=== PATIENT | female | born 1945 | race Caucasian/White ===

== ENCOUNTER 2017-01-01 16:50 | Inpatient (IN) | payer OTHER ==
[2017-01-01] MEDS ORDERED: Sodium Chloride 0.9% 1,000 ML ONE (17:05)
--- NOTE | 2017-01-01 17:10 | C.PDOC ---
History Of Present Illness 71 y/o female c/o abdominal pain, vomiting, and diarrhea for 2 days. Patient states symptoms worsened today and also reports increased generalized weakness. Pt describes pain as diffuse and cramping. Also notes that stools have been watery, non-bloody, with vomiting persistent throughout the day. Patient with PMHx of DM and HTN. Denies any prior abdominal surgeries. Otherwise, denies fever, chills, chest pain, SOB, or other associated symptoms. Patient requires assistance getting on the stretcher. Time Seen by Provider: 01/01/17 16:58 Chief Complaint (Nursing): Abdominal Pain History Per: Patient History/Exam Limitations: no limitations Onset/Duration Of Symptoms: Days Current Symptoms Are (Timing): Worse Location Of Pain/Discomfort: Diffuse Quality Of Discomfort: Cramping, "Pain" Associated Symptoms: Vomiting, Diarrhea. denies: Fever, Chills, Urinary Symptoms Recent travel outside of the [place]: No Past Medical History Reviewed: Historical Data, Nursing Documentation, Vital Signs Vital Signs: Last Vital Signs Temp 97.4 F L 01/01/17 16:53 Pulse 126 H 01/01/17 18:10 Resp 18 01/01/17 16:53 BP 145/87 01/01/17 16:53 Pulse Ox 99 01/01/17 19:11 - Medical History PMH: No Chronic Diseases Family History: States: Unknown Family Hx Review Of Systems Except As Marked, All Systems Reviewed And Found Negative. Constitutional: Positive for: Weakness. Negative for: Fever, Chills Cardiovascular: Negative for: Chest Pain Respiratory: Negative for: Cough, Shortness of Breath Gastrointestinal: Positive for: Vomiting, Abdominal Pain, Diarrhea. Negative for: Hematochezia Genitourinary: Negative for: Dysuria Skin: Negative for: Rash Physical Exam - Physical Exam Appears: Non-toxic, Other (uncomfortable, needed assistance to get from wheelchair to stretcher) Skin: Warm, Dry Head: Atraumatic, Normacephalic Oral Mucosa: Moist Chest: Symmetrical Cardiovascular: Rhythm Irregular (tachy) Respiratory: Normal Breath Sounds, No Accessory Muscle Use, No Rales, No Rhonchi , No Wheezing Gastrointestinal/Abdominal: Bowel Sounds (hyperactive), Soft, No Tenderness, No Guarding, No Rebound Back: Normal Inspection, No CVA Tenderness Extremity: Normal ROM, Capillary Refill (< 2 sec.) Neurological/Psych: Oriented x3, Normal Speech, Normal Cognition ED Course And Treatment - Laboratory Results Result Diagrams: 01/01/17 17:50 01/01/17 18:03 Lab Interpretation: Abnormal (HCO3 19) ECG: Interpreted By Me ECG Rhythm: Atrial Fibrillation (with rapid response, Q waves laterally consistent with prior infarct) ECG Interpretation: Abnormal O2 Sat by Pulse Oximetry: 99 (RA) Pulse Ox Interpretation: Normal - Radiology CXR: Interpreted by Me CXR Interpretation: Yes: No Acute Disease, Cardiomegaly Reevaluation Time: 19:13 Reassessment Condition: Improved (resting quietly) - Physician Consult Information Time Consulting Physician Contacted: 19:13 Physician Contacted: Avinash Ch Outcome Of Conversation: Patient to be admitted to Dr Layne for new onset afib and acute vomiting and diarrhea. Disposition - Disposition Disposition: HOSPITALIZED Disposition Time: 19:14 Condition: FAIR - POA Present On Arrival: None - Clinical Impression Clinical Impression: Vomiting, Diarrhea, New onset atrial fibrillation - Scribe Statement The provider has reviewed the documentation as recorded by the Scribe SM All medical record entries made by the Scribe were at my direction and personally dictated by me. I have reviewed the chart and agree that the record accurately reflects my personal performance of the history, physical exam, medical decision making, and the department course for this patient. I have also personally directed, reviewed, and agree with the discharge instructions and disposition.
[2017-01-01] MEDS ORDERED: Sodium Chloride 0.9% 1,000 ML IV ONE (17:22)
[2017-01-01 17:46] LABS: BASO # 0.1 K/uL (0.0-0.2); BASO % 0.7 % (0.0-2.0); EOS # 0.2 K/uL (0.0-0.7); EOS % 1.8 % (0.0-4.0); HEMATOCRIT 40.5 % (34.0-47.0); LYMPH # 4.3 K/uL (1.0-4.3); LYMPH % 44.1 % (20.0-40.0); MEAN CELL VOLUME 90.2 fL (81.0-99.0); MEAN CORPUSCULAR HEMOGLOBIN 29.8 pg (27.0-31.0); MEAN CORPUSCULAR HGB CONC 33.1 g/dL (33.0-37.0); MEAN PLATELET VOLUME 10.9 fL (7.2-11.7); MONO # 0.6 K/uL (0.0-0.8); MONO % 5.9 % (0.0-10.0); RED CELL DISTRIBUTION WIDTH 14.7 % (11.5-14.5); WHITE BLOOD COUNT 9.7 K/uL (4.8-10.8)
[2017-01-01 17:59] LABS: CHLORIDE 102 mmol/L (98-107); POTASSIUM 3.7 mmol/L (3.6-5.2); SODIUM 139 mmol/L (132-148)
[2017-01-01 18:01] LABS: BILIRUBIN,TOTAL 0.9 mg/dL (0.2-1.3); GFR AFRICAN-AMERICAN > 60
[2017-01-01 18:02] LABS: ALB/GLOB RATIO 1.2 (1.0-2.1); ALKALINE PHOSPHATASE 56 U/L (38-126); ALT/SGPT 38 U/L (9-52); AST/SGOT 33 U/L (14-36); BLOOD UREA NITROGEN 17 mg/dL (7-17); CALCIUM 10.2 mg/dl (8.6-10.4); CARBON DIOXIDE 19 mmol/L (22-30); GLUCOSE,RANDOM 187 mg/dL (65-105); TOTAL PROTEIN 8.6 g/dL (6.3-8.3)
--- NOTE | 2017-01-01 18:44 | RAD ---
HISTORY: new afib COMPARISON: OpenNo prior. FINDINGS: LUNGS: Though lungs are clear. PLEURA: No significant pleural effusion identified, no pneumothorax apparent. CARDIOVASCULAR: The heart is enlarged. OSSEOUS STRUCTURES: No significant abnormalities. VISUALIZED UPPER ABDOMEN: Normal. OTHER FINDINGS: None. IMPRESSION: No active pulmonary disease. Cardiomegaly.
[2017-01-01 20:35] LABS: RBC URINE < 1 /hpf (0-3); URINE BILIRUBIN NEGATIVE (NEGATIVE); URINE BLOOD NEGATIVE (NEGATIVE); URINE COLOR Straw (YELLOW); URINE GLUCOSE (UA) 1+ mg/dL (Normal); URINE KETONE TRACE mg/dL (NEGATIVE); URINE LEUKOCYTE ESTERASE NEG Leu/uL (Negative); URINE PROTEIN NEGATIVE (NEGATIVE); URINE UROBILINOGEN NORMAL mg/dL (0.2-1.0); WBC URINE < 1 /hpf (0-5)
--- NOTE | 2017-01-01 20:48 | CT ---
EXAM: CT Head Without Intravenous Contrast EXAM DATE/TIME: Exam ordered 01/01/2017 7:29 PM CLINICAL HISTORY: 71 years old, female; Signs and symptoms; Other: Drooping right eyelid TECHNIQUE: Axial computed tomography images of the head/brain without intravenous contrast. All CT scans at this facility use one or more dose reduction techniques, viz.: automated exposure control; ma/kV adjustment per patient size (including targeted exams where dose is matched to indication; i.e. head); or iterative reconstruction technique. COMPARISON: No relevant prior studies available. FINDINGS: Brain: Mild low density is noted within the periventricular white matter extending into the juares radiata and centrum semiovale bilaterally, left side greater than right. There is bilateral basal ganglia calcification. No hemorrhage. No edema. Ventricles: Unremarkable. No ventriculomegaly. Bones/joints: Unremarkable. No acute fracture. Soft tissues: Unremarkable. Sinuses: Unremarkable as visualized. No acute sinusitis. Mastoid air cells: Unremarkable as visualized. No mastoid effusion. IMPRESSION: 1. No acute findings. 2. Chronic microvascular ischemic change, left side greater than right
[2017-01-01] MEDS ORDERED: Enoxaparin 30 mg Syringe ONE (22:07)
[2017-01-01] MEDS: Enoxaparin 60 mg Syringe SC SCH (22:11)
--- NOTE | 2017-01-02 06:32 | CP.PCM.HP ---
History of Present Illness - History of Present Illness History of Present Illness: Chief complaint: Nausea vomiting History present illness: 71-year-old female with history of diabetes, being seen by PMD, came to the emergency room with the complaining of at least 3-4 days of continuous nausea and vomiting. Patient continues to have episodes of nausea. And repeated episodes of vomiting with the bile in character, at least to 30 times she had a vomiting so far. She was also complaining of some abdominal pain. Headache noted. Family was concerned about ongoing symptoms. She does not have any chest pain. Palpitation also noted. Dizziness present. Past medical history: Diabetes Allergies: No known drug allergy Personal history patient is a nonsmoker nonalcoholic lives by herself. Patient does routine activities and takes care of the family members usually Family history noncontributory Review of system: Patient is having nausea, headache, chest discomfort, palpitation, abdominal pain on and off, no diarrhea, also making urine. No leg swelling Vital signs reviewed No neck vein distention noted, JVD noted Chest good air entry bilaterally, no wheezing or rales noted CVS regular heart sound, no murmur noted Abdomen soft, nontender. Extremities no pedal edema [employer] alert awake oriented 3, no functional neurological deficit Labs reviewed in Nonspecific. Elevated proBNP. Chest x-ray mild was called condition noted. EKG showing evidence of atrial fibrillation. Labs otherwise nonspecific Assessment and recommendation: 71-year-old female with history of diabetes, now admitted with new onset atrial fibrillation. Rapid ventricular rate. Possible congested lungs. Abdominal pain and vomiting unclear etiology, rule out pancreatitis. Continue the Cardizem drip. Antibiotic coagulation. Cardiology evaluation. Echocardiogram. ICU monitoring and will follow the patient Present on Admission - Present on Admission Any Indicators Present on Admission: No History of DVT/PE: No History of Uncontrolled Diabetes: No Urinary Catheter: No Decubitus Ulcer Present: No Past Patient History - Infectious Disease Hx of Infectious Diseases: None - Past Medical History & Family History Past Medical History?: Yes - Past Social History Smoking Status: Never Smoked - CARDIAC Hx Cardiac Disorders: Yes Hx Hypertension: Yes - PULMONARY Hx Respiratory Disorders: No - NEUROLOGICAL Hx Neurological Disorder: No - HEENT Hx HEENT Problems: Yes Hx Cataracts: Yes (cataract sx 5 years ago) - RENAL Hx Chronic Kidney Disease: No - ENDOCRINE/METABOLIC Hx Endocrine Disorders: Yes Hx Diabetes Mellitus Type 2: Yes - HEMATOLOGICAL/ONCOLOGICAL Hx Blood Disorders: No - INTEGUMENTARY Hx Dermatological Problems: No - MUSCULOSKELETAL/RHEUMATOLOGICAL Hx Falls: No - GASTROINTESTINAL Hx Gastrointestinal Disorders: Yes Hx Vomiting: Yes - GENITOURINARY/GYNECOLOGICAL Hx Genitourinary Disorders: No - PSYCHIATRIC Hx Substance Use: No - SURGICAL HISTORY Hx Surgeries: Yes Hx Cataract Extraction: Yes (5 years ago) - ANESTHESIA Hx Anesthesia: No Hx Anesthesia Reactions: No Hx Malignant Hyperthermia: No Has any member of the family had a problem w/ anesthesia?: No Meds Allergies/Adverse Reactions: Allergies Allergy/AdvReac Type Severity Reaction Status Date / Time SEAFOOD Allergy Uncoded 01/01/17 16:53 Results - Vital Signs Recent Vital Signs: Last Vital Signs Temp 98.9 F 01/02/17 04:00 Pulse 100 H 01/02/17 03:44 Resp 17 01/02/17 03:44 BP 140/84 01/02/17 03:44 Pulse Ox 98 01/02/17 03:44 - Labs Result Diagrams: 01/01/17 17:50 01/01/17 18:03 Labs: Laboratory Results - last 24 hr 01/01/17 01/01/17 19:53 21:49 NT-Pro-B Natriuret Pep 3690 H Urine Color Straw Urine Clarity Clear Urine pH 5.0 Ur Specific [place] 1.010 Urine Protein Negative Urine Glucose (UA) 1+ Urine Ketones Trace Urine Blood Negative Urine Nitrate Negative Urine Bilirubin Negative Urine Urobilinogen Normal Ur Leukocyte Esterase Neg Urine WBC (Auto) < 1 Urine RBC (Auto) < 1 Ur Squamous Epith Cells < 1
[2017-01-02 06:34] LABS: BASO % 0.3 % (0.0-2.0); HEMATOCRIT 36.8 % (34.0-47.0); LYMPH # 1.1 K/uL (1.0-4.3); LYMPH % 15.5 % (20.0-40.0); MEAN CELL VOLUME 89.5 fL (81.0-99.0); MEAN CORPUSCULAR HEMOGLOBIN 29.2 pg (27.0-31.0); MEAN CORPUSCULAR HGB CONC 32.6 g/dL (33.0-37.0); MEAN PLATELET VOLUME 11.1 fL (7.2-11.7); MONO # 0.3 K/uL (0.0-0.8); MONO % 3.9 % (0.0-10.0); RED CELL DISTRIBUTION WIDTH 14.4 % (11.5-14.5); WHITE BLOOD COUNT 7.1 K/uL (4.8-10.8)
[2017-01-02 06:39] LABS: CHLORIDE 102 mmol/L (98-107); POTASSIUM 3.8 mmol/L (3.6-5.2); SODIUM 141 mmol/L (132-148)
[2017-01-02 06:41] LABS: BILIRUBIN,TOTAL 0.8 mg/dL (0.2-1.3); GFR AFRICAN-AMERICAN > 60
[2017-01-02 06:42] LABS: ALB/GLOB RATIO 1.1 (1.0-2.1); ALKALINE PHOSPHATASE 42 U/L (38-126); ALT/SGPT 35 U/L (9-52); AST/SGOT 30 U/L (14-36); BLOOD UREA NITROGEN 13 mg/dL (7-17); CARBON DIOXIDE 23 mmol/L (22-30); GLUCOSE,RANDOM 177 mg/dL (65-105); PHOSPHOROUS 4.4 mg/dL (2.5-4.5); TOTAL PROTEIN 7.1 g/dL (6.3-8.3)
[2017-01-02 06:43] LABS: MAGNESIUM 1.8 mg/dL (1.6-2.3)
--- NOTE | 2017-01-02 08:57 | RAD ---
HISTORY: chf COMPARISON: 01/01/2017. FINDINGS: LUNGS: There are low lung volumes. No lobar pneumonia. PLEURA: No significant pleural effusion identified, no pneumothorax apparent. CARDIOVASCULAR: There is persistent mild cardiomegaly. Atherosclerotic aortic arch calcifications are present. OSSEOUS STRUCTURES: No significant abnormalities. VISUALIZED UPPER ABDOMEN: Normal. OTHER FINDINGS: None. IMPRESSION: Low lung volumes may be related to poor inspiratory effort. No acute findings.
[2017-01-02] MEDS: Magnesium Sulfate 1 gm in D5W 1 GM/100 ML BAG IVPB SCH ×2 (10:15→10:52)
[2017-01-02] MEDS: Enoxaparin 60 mg Syringe SC SCH ×2 (10:51→21:12)
[2017-01-02] MEDS: (Novolin R) Insulin Human Regular 100 units/ml vial SC SCH ×3 (12:00→21:32)
--- NOTE | 2017-01-02 17:01 | CP.CCUPN ---
<Beth Alejandro - Last Filed: 01/02/17 17:15> CCU Subjective - Physician Review Subjective (Free Text): Patient was seen and examined at bedside in the morning. Patient was actively vomiting clear liquid. She reported feeling nauseas and continuous vomiting. She states she has abdominal pain when she vomits. Patient denies having chest pain, shortness of breath, diarrhea, constipation, fevers, dizziness, and headaches. 01/02/17 17:15 CCU Objective - Vital Signs / Intake & Output Intake and Output (Last 8hrs): Intake & Output 01/02/17 01/02/17 01/02/17 06:59 14:59 22:59 Intake Total 12.5 325 Output Total 250 400 Balance -237.5 -75 Intake: Intake, IV Amount 12.5 325 Left Hand 12.5 25 Right Antecubital 300 Oral 0 0 Output: Urine 250 400 Urine, Voided 250 400 Other: Voiding Method Bedside Commode - Physical Exam Head: Positive for: Atraumatic, Normocephalic Extroacular Muscles: Positive for: EOMI Mouth: Positive for: Moist Mucous Membranes Neck: Positive for: Normal Range of Motion Respiratory/Chest: Positive for: Clear to Auscultation. Negative for: Wheezes, Rales, Rhonchi Cardiovascular: Positive for: Normal S1, S2, Irregular Rhythm, Peripheal Pulses Present, Tachycardic Abdomen: Positive for: Tenderness (epigastric), Normal Bowel Sounds. Negative for: Distention Upper Extremity: Positive for: Normal Inspection. Negative for: Edema Lower Extremity: Positive for: Normal Inspection, NORMAL PULSES. Negative for: Edema Skin: Positive for: Warm, Dry, Normal Color Psychiatric: Positive for: Alert, Oriented x 3 - Medications Active Medications: Active Medications Generic Name Dose Route Start Last Admin Trade Name Freq PRN Reason Stop Dose Admin Enoxaparin Sodium 60 mg 01/01/17 22:00 01/02/17 10:51 Lovenox SC 60 mg Q12 MIRELLA Administration Furosemide 20 mg 01/02/17 10:00 01/02/17 10:52 Lasix IVP 20 mg DAILY MIRELLA Administration Diltiazem HCl 125 mg/ Sodium 125 mls @ 5 mls/hr 01/01/17 20:45 01/01/17 22:47 Chloride IV 5 mg/hr .Q24H MIRELLA 5 mls/hr Protocol Titration 5 MG/HR Insulin Human Regular 0 unit 01/02/17 11:30 Novolin R SC ACHS [facility] Protocol Lisinopril 10 mg 01/02/17 15:15 Zestril PO DAILY [facility] Metoprolol Tartrate 25 mg 01/02/17 15:15 Lopressor PO BID [facility] Ondansetron HCl 4 mg 01/01/17 21:22 01/02/17 04:16 Zofran Inj IVP 4 mg Q6 PRN Administration Nausea/Vomiting Pantoprazole Sodium 40 mg 01/02/17 10:00 01/02/17 10:52 Protonix Inj IVP 40 mg DAILY [facility] Administration Pneumococcal Polyvalent Vaccine 0.5 ml 01/04/17 10:00 Pneumovax 23 Vaccine IM 01/04/17 10:01 .ONCE ONE - Patient Studies Lab Studies: Lab Studies 01/02/17 01/02/17 01/02/17 Range/Units 11:40 11:40 06:27 WBC 7.1 (4.8-10.8) K/uL RBC 4.11 (3.80-5.20) Mil/uL Hgb 12.0 (11.0-16.0) g/dL Hct 36.8 (34.0-47.0) % MCV 89.5 (81.0-99.0) fL MCH 29.2 (27.0-31.0) pg MCHC 32.6 L (33.0-37.0) g/dL RDW 14.4 (11.5-14.5) % Plt Count 107 L D (130-400) K/uL MPV 11.1 (7.2-11.7) fL Neut % (Auto) 80.3 H (50.0-75.0) % Lymph % (Auto) 15.5 L (20.0-40.0) % Granite % (Auto) 3.9 (0.0-10.0) % Eos % (Auto) 0.0 (0.0-4.0) % Baso % (Auto) 0.3 (0.0-2.0) % Neut # 5.7 (1.8-7.0) K/uL Lymph # 1.1 (1.0-4.3) K/uL Granite # 0.3 (0.0-0.8) K/uL Eos # 0.0 (0.0-0.7) K/uL Baso # 0.0 (0.0-0.2) K/uL Sodium (132-148) mmol/L Potassium (3.6-5.2) mmol/L Chloride (98-107) mmol/L Carbon Dioxide (22-30) mmol/L Anion Gap (10-20) BUN (7-17) mg/dL Creatinine (0.7-1.2) MG/DL Est GFR ( Amer) Est GFR (Non-Af Amer) Random Glucose (65-105) mg/dL Calcium (8.6-10.4) mg/dl Phosphorus (2.5-4.5) mg/dL Magnesium (1.6-2.3) mg/dL Total Bilirubin (0.2-1.3) mg/dL AST (14-36) U/L ALT (9-52) U/L Alkaline Phosphatase (38-126) U/L NT-Pro-B Natriuret Pep (0-900) pg/mL Total Protein (6.3-8.3) g/dL Albumin (3.5-5.0) g/dL Globulin (2.2-3.9) gm/dL Albumin/Globulin Ratio (1.0-2.1) Lipase (23-300) U/L Free T4 1.63 (0.78-2.19) ng/dL TSH 3rd Generation 0.82 (0.46-4.68) mIU/L Urine Color (YELLOW) Urine Clarity (Clear) Urine pH (5.0-8.0) Ur Specific [place] (1.003-1.030) Urine Protein (NEGATIVE) mg/dL Urine Glucose (UA) (Normal) mg/dL Urine Ketones (NEGATIVE) mg/dL Urine Blood (NEGATIVE) Urine Nitrate (NEGATIVE) Urine Bilirubin (NEGATIVE) Urine Urobilinogen (0.2-1.0) mg/dL Ur Leukocyte Esterase (Negative) Brett/uL Urine WBC (Auto) (0-5) /hpf Urine RBC (Auto) (0-3) /hpf Ur Squamous Epith Cells (0-5) /hpf 01/02/17 01/01/17 01/01/17 Range/Units 06:20 21:49 19:53 WBC (4.8-10.8) K/uL RBC (3.80-5.20) Mil/uL Hgb (11.0-16.0) g/dL Hct (34.0-47.0) % MCV (81.0-99.0) fL MCH (27.0-31.0) pg MCHC (33.0-37.0) g/dL RDW (11.5-14.5) % Plt Count (130-400) K/uL MPV (7.2-11.7) fL Neut % (Auto) (50.0-75.0) % Lymph % (Auto) (20.0-40.0) % Granite % (Auto) (0.0-10.0) % Eos % (Auto) (0.0-4.0) % Baso % (Auto) (0.0-2.0) % Neut # (1.8-7.0) K/uL Lymph # (1.0-4.3) K/uL [place]ite # (0.0-0.8) K/uL Eos # (0.0-0.7) K/uL Baso # (0.0-0.2) K/uL Sodium 141 (132-148) mmol/L Potassium 3.8 (3.6-5.2) mmol/L Chloride 102 (98-107) mmol/L Carbon Dioxide 23 (22-30) mmol/L Anion Gap 19 (10-20) BUN 13 (7-17) mg/dL Creatinine 0.6 L (0.7-1.2) MG/DL Est GFR ( Amer) > 60 Est GFR (Non-Af Amer) > 60 Random Glucose 177 H (65-105) mg/dL Calcium 9.0 (8.6-10.4) mg/dl Phosphorus 4.4 (2.5-4.5) mg/dL Magnesium 1.8 (1.6-2.3) mg/dL Total Bilirubin 0.8 (0.2-1.3) mg/dL AST 30 (14-36) U/L ALT 35 (9-52) U/L Alkaline Phosphatase 42 (38-126) U/L NT-Pro-B Natriuret Pep 3690 H (0-900) pg/mL Total Protein 7.1 (6.3-8.3) g/dL Albumin 3.8 (3.5-5.0) g/dL Globulin 3.3 (2.2-3.9) gm/dL Albumin/Globulin Ratio 1.1 (1.0-2.1) Lipase 38 (23-300) U/L Free T4 (0.78-2.19) ng/dL TSH 3rd Generation (0.46-4.68) mIU/L Urine Color Straw (YELLOW) Urine Clarity Clear (Clear) Urine pH 5.0 (5.0-8.0) Ur Specific [place] 1.010 (1.003-1.030) Urine Protein Negative (NEGATIVE) mg/dL Urine Glucose (UA) 1+ (Normal) mg/dL Urine Ketones Trace (NEGATIVE) mg/dL Urine Blood Negative (NEGATIVE) Urine Nitrate Negative (NEGATIVE) Urine Bilirubin Negative (NEGATIVE) Urine Urobilinogen Normal (0.2-1.0) mg/dL Ur Leukocyte Esterase Neg (Negative) Brett/uL Urine WBC (Auto) < 1 (0-5) /hpf Urine RBC (Auto) < 1 (0-3) /hpf Ur Squamous Epith Cells < 1 (0-5) /hpf Laboratory Results - last 24 hr 01/01/17 01/01/17 01/02/17 19:53 21:49 06:20 WBC RBC Hgb Hct MCV MCH MCHC RDW Plt Count MPV Neut % (Auto) Lymph % (Auto) [place] % (Auto) Eos % (Auto) Baso % (Auto) Neut # Lymph # [place] # Eos # Baso # Sodium 141 Potassium 3.8 Chloride 102 Carbon Dioxide 23 Anion Gap 19 BUN 13 Creatinine 0.6 L Est GFR ( Amer) > 60 Est GFR (Non-Af Amer) > 60 Random Glucose 177 H Calcium 9.0 Phosphorus 4.4 Magnesium 1.8 Total Bilirubin 0.8 AST 30 ALT 35 Alkaline Phosphatase 42 NT-Pro-B Natriuret Pep 3690 H Total Protein 7.1 Albumin 3.8 Globulin 3.3 Albumin/Globulin Ratio 1.1 Lipase 38 Free T4 TSH 3rd Generation Urine Color Straw Urine Clarity Clear Urine pH 5.0 Ur Specific [place] 1.010 Urine Protein Negative Urine Glucose (UA) 1+ Urine Ketones Trace Urine Blood Negative Urine Nitrate Negative Urine Bilirubin Negative Urine Urobilinogen Normal Ur Leukocyte Esterase Neg Urine WBC (Auto) < 1 Urine RBC (Auto) < 1 Ur Squamous Epith Cells < 1 01/02/17 01/02/17 01/02/17 06:27 11:40 11:40 WBC 7.1 RBC 4.11 Hgb 12.0 Hct 36.8 MCV 89.5 MCH 29.2 MCHC 32.6 L RDW 14.4 Plt Count 107 L D MPV 11.1 Neut % (Auto) 80.3 H Lymph % (Auto) 15.5 L [place] % (Auto) 3.9 Eos % (Auto) 0.0 Baso % (Auto) 0.3 Neut # 5.7 Lymph # 1.1 Granite # 0.3 Eos # 0.0 Baso # 0.0 Sodium Potassium Chloride Carbon Dioxide Anion Gap BUN Creatinine Est GFR ( Amer) Est GFR (Non-Af Amer) Random Glucose Calcium Phosphorus Magnesium Total Bilirubin AST ALT Alkaline Phosphatase NT-Pro-B Natriuret Pep Total Protein Albumin Globulin Albumin/Globulin Ratio Lipase Free T4 1.63 TSH 3rd Generation 0.82 Urine Color Urine Clarity Urine pH Ur Specific [place] Urine Protein Urine Glucose (UA) Urine Ketones Urine Blood Urine Nitrate Urine Bilirubin Urine Urobilinogen Ur Leukocyte Esterase Urine WBC (Auto) Urine RBC (Auto) Ur Squamous Epith Cells Fingerstick Blood Sugar Results: 204 Review of Systems - Constitutional Constitutional: absent: Fever - Cardiovascular Cardiovascular: Irregular Heart Rhythm, Rapid Heart Rate. absent: Chest Pain, Dyspnea - Respiratory Respiratory: absent: Cough, Dyspnea - Gastrointestinal Gastrointestinal: Abdominal Pain, Nausea, Vomiting. absent: Constipation, Diarrhea - Genitourinary Genitourinary: absent: Dysuria - Neurological Neurological: absent: Dizziness, Headaches - Endocrine Endocrine: Palpitations Critical Care Progress Note - Nutrition Nutrition: Nutrition Category Date Time Status NPO Diet [DIET] Diets 01/01/17 Breakfast Active Assessment/Plan - Assessment and Plan (Free Text) Assessment: 71 year old female with past medical history of DM, presented to the ED with complaints of nausea and vomiting for 3-4 days. She had palpitations and dizziness. In the ED, patient was found to have new onset a-fib, patient was admitted. Patient started on Cardizem drip and anticoagulation. Continue to monitor. Neuro: alert, orientedx3 - Head CT: no acute findings; chronic ischemic changes Pulm: no acute issues - CXR: no acute findings CV: new onset A-Fib - Cardiology consulted- Dr. Wong, help appreciated - Continue Cardizem drip, Lovenox, Lisinopril, Lasix, Metroprolol - Troponin: negative; BNP 3690 - Echo: EF47%; pending official report - TSH 0.82, Free T4 1.63 Endo: Hx of DM - Accuchecks, monitor blood glucose - Continue ISS GI: nausea, vomiting- unknown cause - NPO - R/out pancreatitis--> lipase 79 (01/01/17), 38 (01/02/17) - Continue Zofran, Protonix Heme: no acute issues Renal: no acute issues MSK: no acute issues ID: no acute issues - UA: trace ketons, 1+ glucose Prophylaxis: - DVT: Lovenox, SCDs - GI: Protonix - PT <Latef,Dioni M - Last Filed: 01/02/17 18:57> CCU Objective - Vital Signs / Intake & Output Vital Signs (Last 4 hours): Vital Signs Temp Pulse Resp BP Pulse Ox 01/02/17 18:00 96 H 18 95 01/02/17 17:44 108 H 17 149/83 94 L 01/02/17 17:00 108 H 14 97 01/02/17 16:44 108 H 18 147/81 95 01/02/17 16:00 97.5 F L 104 H 20 94 L 01/02/17 15:44 102 H 12 139/84 95 01/02/17 15:26 140/84 01/02/17 15:00 111 H 22 94 L Intake and Output (Last 8hrs): Intake & Output 01/02/17 01/02/17 01/02/17 06:59 14:59 22:59 Intake Total 12.5 335 20 Output Total 250 400 Balance -237.5 -65 20 Weight 175 lb Intake: Intake, IV Amount 12.5 335 20 Left Hand 12.5 25 Right Antecubital 310 20 Oral 0 0 Output: Urine 250 400 Urine, Voided 250 400 Other: Voiding Method Bedside Commode # Voids Urine, Voided 400 200 - Medications Active Medications: Active Medications Generic Name Dose Route Start Last Admin Trade Name Freq PRN Reason Stop Dose Admin Enoxaparin Sodium 60 mg 01/01/17 22:00 01/02/17 10:51 Lovenox SC 60 mg Q12 MIRELLA Administration Furosemide 20 mg 01/02/17 10:00 01/02/17 10:52 Lasix IVP 20 mg DAILY MIRELLA Administration Diltiazem HCl 125 mg/ Sodium 125 mls @ 5 mls/hr 01/01/17 20:45 01/01/17 22:47 Chloride IV 5 mg/hr .Q24H MIRELLA 5 mls/hr Protocol Titration 5 MG/HR Insulin Human Regular 0 unit 01/02/17 11:30 01/02/17 17:51 Novolin R SC Not Given ACHS [facility]RELL[facility] Protocol Lisinopril 10 mg 01/02/17 15:15 01/02/17 15:26 Zestril PO 10 mg DAILY MIRELLA Administration Metoprolol Tartrate 25 mg 01/02/17 15:15 01/02/17 18:27 Lopressor PO Not Given BID MIRELLA Ondansetron HCl 4 mg 01/01/17 21:22 01/02/17 18:42 Zofran Inj IVP 4 mg Q6 PRN Administration Nausea/Vomiting Pantoprazole Sodium 40 mg 01/02/17 10:00 01/02/17 10:52 Protonix Inj IVP 40 mg DAILY MIRELLA Administration Pneumococcal Polyvalent Vaccine 0.5 ml 01/04/17 10:00 Pneumovax 23 Vaccine IM 01/04/17 10:01 .ONCE ONE - Patient Studies Lab Studies: Lab Studies 01/02/17 01/02/17 01/02/17 Range/Units 11:40 11:40 06:27 WBC 7.1 (4.8-10.8) K/uL RBC 4.11 (3.80-5.20) Mil/uL Hgb 12.0 (11.0-16.0) g/dL Hct 36.8 (34.0-47.0) % MCV 89.5 (81.0-99.0) fL MCH 29.2 (27.0-31.0) pg MCHC 32.6 L (33.0-37.0) g/dL RDW 14.4 (11.5-14.5) % Plt Count 107 L D (130-400) K/uL MPV 11.1 (7.2-11.7) fL Neut % (Auto) 80.3 H (50.0-75.0) % Lymph % (Auto) 15.5 L (20.0-40.0) % [place] % (Auto) 3.9 (0.0-10.0) % Eos % (Auto) 0.0 (0.0-4.0) % Baso % (Auto) 0.3 (0.0-2.0) % Neut # 5.7 (1.8-7.0) K/uL Lymph # 1.1 (1.0-4.3) K/uL [place] # 0.3 (0.0-0.8) K/uL Eos # 0.0 (0.0-0.7) K/uL Baso # 0.0 (0.0-0.2) K/uL Sodium (132-148) mmol/L Potassium (3.6-5.2) mmol/L Chloride (98-107) mmol/L Carbon Dioxide (22-30) mmol/L Anion Gap (10-20) BUN (7-17) mg/dL Creatinine (0.7-1.2) MG/DL Est GFR ( Amer) Est GFR (Non-Af Amer) Random Glucose (65-105) mg/dL Calcium (8.6-10.4) mg/dl Phosphorus (2.5-4.5) mg/dL Magnesium (1.6-2.3) mg/dL Total Bilirubin (0.2-1.3) mg/dL AST (14-36) U/L ALT (9-52) U/L Alkaline Phosphatase (38-126) U/L NT-Pro-B Natriuret Pep (0-900) pg/mL Total Protein (6.3-8.3) g/dL Albumin (3.5-5.0) g/dL Globulin (2.2-3.9) gm/dL Albumin/Globulin Ratio (1.0-2.1) Lipase (23-300) U/L Free T4 1.63 (0.78-2.19) ng/dL TSH 3rd Generation 0.82 (0.46-4.68) mIU/L Urine Color (YELLOW) Urine Clarity (Clear) Urine pH (5.0-8.0) Ur Specific [place] (1.003-1.030) Urine Protein (NEGATIVE) mg/dL Urine Glucose (UA) (Normal) mg/dL Urine Ketones (NEGATIVE) mg/dL Urine Blood (NEGATIVE) Urine Nitrate (NEGATIVE) Urine Bilirubin (NEGATIVE) Urine Urobilinogen (0.2-1.0) mg/dL Ur Leukocyte Esterase (Negative) Brett/uL Urine WBC (Auto) (0-5) /hpf Urine RBC (Auto) (0-3) /hpf Ur Squamous Epith Cells (0-5) /hpf 01/02/17 01/01/17 01/01/17 Range/Units 06:20 21:49 19:53 WBC (4.8-10.8) K/uL RBC (3.80-5.20) Mil/uL Hgb (11.0-16.0) g/dL Hct (34.0-47.0) % MCV (81.0-99.0) fL MCH (27.0-31.0) pg MCHC (33.0-37.0) g/dL RDW (11.5-14.5) % Plt Count (130-400) K/uL MPV (7.2-11.7) fL Neut % (Auto) (50.0-75.0) % Lymph % (Auto) (20.0-40.0) % [place] % (Auto) (0.0-10.0) % Eos % (Auto) (0.0-4.0) % Baso % (Auto) (0.0-2.0) % Neut # (1.8-7.0) K/uL Lymph # (1.0-4.3) K/uL [place] # (0.0-0.8) K/uL Eos # (0.0-0.7) K/uL Baso # (0.0-0.2) K/uL Sodium 141 (132-148) mmol/L Potassium 3.8 (3.6-5.2) mmol/L Chloride 102 (98-107) mmol/L Carbon Dioxide 23 (22-30) mmol/L Anion Gap 19 (10-20) BUN 13 (7-17) mg/dL Creatinine 0.6 L (0.7-1.2) MG/DL Est GFR ( Amer) > 60 Est GFR (Non-Af Amer) > 60 Random Glucose 177 H (65-105) mg/dL Calcium 9.0 (8.6-10.4) mg/dl Phosphorus 4.4 (2.5-4.5) mg/dL Magnesium 1.8 (1.6-2.3) mg/dL Total Bilirubin 0.8 (0.2-1.3) mg/dL AST 30 (14-36) U/L ALT 35 (9-52) U/L Alkaline Phosphatase 42 (38-126) U/L NT-Pro-B Natriuret Pep 3690 H (0-900) pg/mL Total Protein 7.1 (6.3-8.3) g/dL Albumin 3.8 (3.5-5.0) g/dL Globulin 3.3 (2.2-3.9) gm/dL Albumin/Globulin Ratio 1.1 (1.0-2.1) Lipase 38 (23-300) U/L Free T4 (0.78-2.19) ng/dL TSH 3rd Generation (0.46-4.68) mIU/L Urine Color Straw (YELLOW) Urine Clarity Clear (Clear) Urine pH 5.0 (5.0-8.0) Ur Specific [place] 1.010 (1.003-1.030) Urine Protein Negative (NEGATIVE) mg/dL Urine Glucose (UA) 1+ (Normal) mg/dL Urine Ketones Trace (NEGATIVE) mg/dL Urine Blood Negative (NEGATIVE) Urine Nitrate Negative (NEGATIVE) Urine Bilirubin Negative (NEGATIVE) Urine Urobilinogen Normal (0.2-1.0) mg/dL Ur Leukocyte Esterase Neg (Negative) Brett/uL Urine WBC (Auto) < 1 (0-5) /hpf Urine RBC (Auto) < 1 (0-3) /hpf Ur Squamous Epith Cells < 1 (0-5) /hpf Laboratory Results - last 24 hr 01/01/17 01/01/17 01/02/17 19:53 21:49 06:20 WBC RBC Hgb Hct MCV MCH MCHC RDW Plt Count MPV Neut % (Auto) Lymph % (Auto) [place] % (Auto) Eos % (Auto) Baso % (Auto) Neut # Lymph # [place] # Eos # Baso # Sodium 141 Potassium 3.8 Chloride 102 Carbon Dioxide 23 Anion Gap 19 BUN 13 Creatinine 0.6 L Est GFR ( Amer) > 60 Est GFR (Non-Af Amer) > 60 Random Glucose 177 H Calcium 9.0 Phosphorus 4.4 Magnesium 1.8 Total Bilirubin 0.8 AST 30 ALT 35 Alkaline Phosphatase 42 NT-Pro-B Natriuret Pep 3690 H Total Protein 7.1 Albumin 3.8 Globulin 3.3 Albumin/Globulin Ratio 1.1 Lipase 38 Free T4 TSH 3rd Generation Urine Color Straw Urine Clarity Clear Urine pH 5.0 Ur Specific [place] 1.010 Urine Protein Negative Urine Glucose (UA) 1+ Urine Ketones Trace Urine Blood Negative Urine Nitrate Negative Urine Bilirubin Negative Urine Urobilinogen Normal Ur Leukocyte Esterase Neg Urine WBC (Auto) < 1 Urine RBC (Auto) < 1 Ur Squamous Epith Cells < 1 01/02/17 01/02/17 01/02/17 06:27 11:40 11:40 WBC 7.1 RBC 4.11 Hgb 12.0 Hct 36.8 MCV 89.5 MCH 29.2 MCHC 32.6 L RDW 14.4 Plt Count 107 L D MPV 11.1 Neut % (Auto) 80.3 H Lymph % (Auto) 15.5 L [place] % (Auto) 3.9 Eos % (Auto) 0.0 Baso % (Auto) 0.3 Neut # 5.7 Lymph # 1.1 [place] # 0.3 Eos # 0.0 Baso # 0.0 Sodium Potassium Chloride Carbon Dioxide Anion Gap BUN Creatinine Est GFR ( Amer) Est GFR (Non-Af Amer) Random Glucose Calcium Phosphorus Magnesium Total Bilirubin AST ALT Alkaline Phosphatase NT-Pro-B Natriuret Pep Total Protein Albumin Globulin Albumin/Globulin Ratio Lipase Free T4 1.63 TSH 3rd Generation 0.82 Urine Color Urine Clarity Urine pH Ur Specific [place] Urine Protein Urine Glucose (UA) Urine Ketones Urine Blood Urine Nitrate Urine Bilirubin Urine Urobilinogen Ur Leukocyte Esterase Urine WBC (Auto) Urine RBC (Auto) Ur Squamous Epith Cells Critical Care Progress Note - Nutrition Nutrition: Nutrition Category Date Time Status NPO Diet [DIET] Diets 01/01/17 Breakfast Active Attending/Attestation - Attestation I have personally seen and examined this patient.: Yes I have fully participated in the care of the patient.: Yes I have reviewed all pertinent clinical information: Yes Notes (Text): 01/02/17 18:57 Today: , January 02, 2017 The Patient was seen and examined at the bedside, Medical records reviewed, and management issues were discussed and formulated. All clinical/lab/hemodynamic/radiographic data were reviewed Events reviewed Pain issues, skin care, head of the bed elevation, glycemic control were addressed. Agree with above treatment plans as transcribed in Dr. Alejandro note
--- NOTE | 2017-01-03 02:53 | CP.PCM.CON ---
History of Present Illness - History of Present Illness History of Present Illness: consultation requested for evaluation of new onset atrial fibrillation HPI : 71-year-old female with history of hypertension diabetes mellitus presented to the hospital with complaints of nausea vomiting for 2 days prior to presentation. According to the patient's son who is at her bedside and helped me obtain the history at baseline she is fairly active can do all of her activities of daily living and denies any chest pain shortness of breath palpitations syncope or dizziness. For the last 2 days she has been nauseous and unable to keep any food known and have been throwing up which made her come to the ER. She was noted to be in atrial fibrillation with rapid ventricular response and was initiated on IV Cardizem drip. Heart rate at the time of my evaluation was in the 100s. An echocardiogram had been done earlier in the day which showed severe biatrial enlargement with ejection fraction of 3025% and severe MR and severe tricuspid regurgitation. Hemodynamically blood pressure was stable it was in the 140s over 50s. Review of Systems - Review of Systems All systems: reviewed and no additional remarkable complaints except - Constitutional Constitutional: As Per HPI, Fatigue - EENT Eyes: As Per HPI Ears: As Per HPI Nose/Mouth/Throat: As Per HPI - Breasts Breasts: As Per HPI - Cardiovascular Cardiovascular: As Per HPI, Rapid Heart Rate - Respiratory Respiratory: As Per HPI - Gastrointestinal Gastrointestinal: As Per HPI, Nausea, Vomiting - Genitourinary Genitourinary: As Per HPI - Reproductive: Female Reproductive:Female: As Per HPI - Musculoskeletal Musculoskeletal: As Per HPI - Integumentary Integumentary: As Per HPI - Neurological Neurological: As Per HPI - Psychiatric Psychiatric: As Per HPI - Endocrine Endocrine: As Per HPI - Hematologic/Lymphatic Hematologic: As Per HPI Past Patient History - Infectious Disease Hx of Infectious Diseases: None - Past Medical History & Family History Past Medical History?: Yes Pertinent Family History: +ve for HTN and DM - Past Social History Smoking Status: Never Smoked - CARDIAC Hx Cardiac Disorders: Yes Hx Hypertension: Yes - PULMONARY Hx Respiratory Disorders: No - NEUROLOGICAL Hx Neurological Disorder: No - HEENT Hx HEENT Problems: Yes Hx Cataracts: Yes (cataract sx 5 years ago) - RENAL Hx Chronic Kidney Disease: No - ENDOCRINE/METABOLIC Hx Endocrine Disorders: Yes Hx Diabetes Mellitus Type 2: Yes - HEMATOLOGICAL/ONCOLOGICAL Hx Blood Disorders: No - INTEGUMENTARY Hx Dermatological Problems: No - MUSCULOSKELETAL/RHEUMATOLOGICAL Hx Falls: No - GASTROINTESTINAL Hx Gastrointestinal Disorders: Yes Hx Vomiting: Yes - GENITOURINARY/GYNECOLOGICAL Hx Genitourinary Disorders: No - PSYCHIATRIC Hx Substance Use: No - SURGICAL HISTORY Hx Surgeries: Yes Hx Cataract Extraction: Yes (5 years ago) - ANESTHESIA Hx Anesthesia: No Hx Anesthesia Reactions: No Hx Malignant Hyperthermia: No Has any member of the family had a problem w/ anesthesia?: No Meds Allergies/Adverse Reactions: Allergies Allergy/AdvReac Type Severity Reaction Status Date / Time SEAFOOD Allergy Uncoded 01/01/17 16:53 - Medications Medications: Current Medications Enoxaparin Sodium (Lovenox) 60 mg SC Q12 [facility] Last Admin: 01/02/17 21:12 Dose: 60 mg Furosemide (Lasix) 20 mg IVP DAILY [facility] Last Admin: 01/02/17 10:52 Dose: 20 mg Diltiazem HCl 125 mg/ Sodium (Chloride) 125 mls @ 5 mls/hr IV .Q24H MIRELLA; 5 MG/ HR PRN Reason: Protocol Last Admin: 01/02/17 21:18 Dose: 5 mg/hr, 5 mls/hr Insulin Human Regular (Novolin R) 0 unit SC ACHS MIRELLA PRN Reason: Protocol Last Admin: 01/02/17 21:32 Dose: Not Given Lisinopril (Zestril) 10 mg PO DAILY [facility] Last Admin: 01/02/17 15:26 Dose: 10 mg Metoprolol Tartrate (Lopressor) 25 mg PO BID [facility] Last Admin: 01/02/17 18:27 Dose: Not Given Ondansetron HCl (Zofran Inj) 4 mg IVP Q6 PRN PRN Reason: Nausea/Vomiting Last Admin: 01/02/17 18:42 Dose: 4 mg Pantoprazole Sodium (Protonix Inj) 40 mg IVP DAILY [facility] Last Admin: 01/02/17 10:52 Dose: 40 mg Pneumococcal Polyvalent Vaccine (Pneumovax 23 Vaccine) 0.5 ml IM .ONCE ONE Stop: 01/04/17 10:01 Physical Exam - Constitutional Appears: Well - Head Exam Head Exam: ATRAUMATIC, NORMAL INSPECTION, NORMOCEPHALIC - Eye Exam Eye Exam: EOMI, Normal appearance, PERRL Pupil Exam: NORMAL ACCOMODATION, PERRL - ENT Exam ENT Exam: Mucous Membranes Moist, Normal Exam - Neck Exam Neck exam: Positive for: Normal Inspection - Respiratory Exam Respiratory Exam: Clear to Auscultation Bilateral, NORMAL BREATHING PATTERN - Cardiovascular Exam Cardiovascular Exam: Tachycardia, Irregular Rhythm, +S1, +S2, Systolic Murmur - GI/Abdominal Exam GI & Abdominal Exam: Normal Bowel Sounds, Soft. absent: Tenderness - Exam Bimanual exam: NORMAL BIMANUAL EXAM - Extremities Exam Extremities exam: Positive for: normal inspection - Back Exam Back exam: NORMAL INSPECTION - Neurological Exam Neurological exam: Alert, CN II-XII Intact, Normal Gait, Oriented x3, Reflexes Normal - Psychiatric Exam Psychiatric exam: Normal Affect, Normal Mood - Skin Skin Exam: Dry, Intact, Normal Color, Warm Results - Vital Signs Recent Vital Signs: Last Vital Signs Temp 98.2 F 01/03/17 00:00 Pulse 87 01/03/17 02:44 Resp 14 01/03/17 02:44 BP 125/83 01/03/17 02:44 Pulse Ox 98 01/03/17 02:44 - Labs Result Diagrams: 01/02/17 06:27 01/02/17 06:20 Labs: Laboratory Results - last 24 hr 01/02/17 01/02/17 01/02/17 06:20 06:27 11:40 WBC 7.1 RBC 4.11 Hgb 12.0 Hct 36.8 MCV 89.5 MCH 29.2 MCHC 32.6 L RDW 14.4 Plt Count 107 L D MPV 11.1 Neut % (Auto) 80.3 H Lymph % (Auto) 15.5 L Meade % (Auto) 3.9 Eos % (Auto) 0.0 Baso % (Auto) 0.3 Neut # 5.7 Lymph # 1.1 Meade # 0.3 Eos # 0.0 Baso # 0.0 Sodium 141 Potassium 3.8 Chloride 102 Carbon Dioxide 23 Anion Gap 19 BUN 13 Creatinine 0.6 L Est GFR ( Amer) > 60 Est GFR (Non-Af Amer) > 60 POC Glucose (mg/dL) Random Glucose 177 H Calcium 9.0 Phosphorus 4.4 Magnesium 1.8 Total Bilirubin 0.8 AST 30 ALT 35 Alkaline Phosphatase 42 Total Protein 7.1 Albumin 3.8 Globulin 3.3 Albumin/Globulin Ratio 1.1 Lipase 38 Free T4 TSH 3rd Generation 0.82 01/02/17 01/02/17 11:40 21:30 WBC RBC Hgb Hct MCV MCH MCHC RDW Plt Count MPV Neut % (Auto) Lymph % (Auto) Meade % (Auto) Eos % (Auto) Baso % (Auto) Neut # Lymph # Meade # Eos # Baso # Sodium Potassium Chloride Carbon Dioxide Anion Gap BUN Creatinine Est GFR ( Amer) Est GFR (Non-Af Amer) POC Glucose (mg/dL) 166 H Random Glucose Calcium Phosphorus Magnesium Total Bilirubin AST ALT Alkaline Phosphatase Total Protein Albumin Globulin Albumin/Globulin Ratio Lipase Free T4 1.63 TSH 3rd Generation Assessment & Plan (1) New onset atrial fibrillation Assessment and Plan: cont with IV cardizem add metoprolol 25mg po bid cont AC with lovenox for now Status: Acute (2) CHF (congestive heart failure) Assessment and Plan: new onset CHF EF 30-35% with severe MR and severe TR will need ischemic evaluation add bb and acei for RAAS modulation Status: Acute (3) Mitral regurgitation Assessment and Plan: 2' to dilated CMP Status: Acute (4) Tricuspid regurgitation Status: Acute
[2017-01-03 06:23] LABS: BASO # 0.1 K/uL (0.0-0.2); BASO % 0.5 % (0.0-2.0); EOS % 0.2 % (0.0-4.0); HEMATOCRIT 38.8 % (34.0-47.0); LYMPH # 2.2 K/uL (1.0-4.3); LYMPH % 22.5 % (20.0-40.0); MEAN CORPUSCULAR HGB CONC 33.7 g/dL (33.0-37.0); MEAN PLATELET VOLUME 10.8 fL (7.2-11.7); MONO # 0.6 K/uL (0.0-0.8); MONO % 6.4 % (0.0-10.0); RED CELL DISTRIBUTION WIDTH 14.5 % (11.5-14.5); WHITE BLOOD COUNT 9.9 K/uL (4.8-10.8)
[2017-01-03 06:43] LABS: ALB/GLOB RATIO 1.3 (1.0-2.1); ALKALINE PHOSPHATASE 47 U/L (38-126); ALT/SGPT 34 U/L (9-52); AST/SGOT 34 U/L (14-36); BLOOD UREA NITROGEN 14 mg/dL (7-17); CALCIUM 9.4 mg/dl (8.6-10.4); CARBON DIOXIDE 27 mmol/L (22-30); CHLORIDE 98 mmol/L (98-107); GFR AFRICAN-AMERICAN > 60; GLUCOSE,RANDOM 123 mg/dL (65-105); MAGNESIUM 2.3 mg/dL (1.6-2.3); PHOSPHOROUS 3.6 mg/dL (2.5-4.5); POTASSIUM 3.6 mmol/L (3.6-5.2); SODIUM 139 mmol/L (132-148); TOTAL PROTEIN 7.3 g/dL (6.3-8.3)
[2017-01-03] MEDS: (Novolin R) Insulin Human Regular 100 units/ml vial SC SCH ×4 (10:26→23:04)
[2017-01-03] MEDS: Enoxaparin 60 mg Syringe SC SCH ×2 (10:32→22:42)
[2017-01-03] MEDS: Potassium Chloride 20 mEq ER Tab PO SCH (10:32)
--- NOTE | 2017-01-03 14:38 | CP.CCUPN ---
<Beth AlejandroChantell - Last Filed: 01/03/17 14:35> CCU Subjective - Physician Review Subjective (Free Text): Patient was seen and examined at bedside in the morning. Patient reports feeling better today. She is no longer vomiting (last episode was yesterday afternoon) and no longer nausea. She reports feeling palpitations, a little dizzy and having a headache. Patient denies having chest pain, shortness of breath, diarrhea, constipation, fevers, nausea or vomiting. 01/03/17 14:35 CCU Objective - Vital Signs / Intake & Output Vital Signs (Last 4 hours): Vital Signs Temp Pulse Resp BP Pulse Ox 01/03/17 12:00 99.1 F 73 12 01/03/17 11:45 87 17 127/80 95 01/03/17 11:00 91 H 15 91 L 01/03/17 10:44 101 H 16 128/76 95 Intake and Output (Last 8hrs): Intake & Output 01/02/17 01/03/17 01/03/17 22:59 06:59 14:59 Intake Total 142.4 40 30 Output Total 400 200 Balance -257.6 -160 30 Weight 175 lb Intake: IV 97.4 Intake, IV Amount 45 40 30 Left Hand 25 40 30 Right Antecubital 20 Output: Urine 400 200 Urine, Voided 400 200 Other: # Voids Urine, Voided 1 1 - Physical Exam Head: Positive for: Atraumatic, Normocephalic Extroacular Muscles: Positive for: EOMI Mouth: Positive for: Moist Mucous Membranes Neck: Positive for: Normal Range of Motion Respiratory/Chest: Positive for: Clear to Auscultation. Negative for: Wheezes, Rales, Rhonchi Cardiovascular: Positive for: Normal S1, S2, Irregular Rhythm, Peripheal Pulses Present, Tachycardic Abdomen: Negative for: Tenderness, Distention, Normal Bowel Sounds (hypoactive) Upper Extremity: Positive for: Normal Inspection. Negative for: Edema Lower Extremity: Positive for: Normal Inspection, NORMAL PULSES. Negative for: Edema Skin: Positive for: Warm, Dry, Normal Color Psychiatric: Positive for: Alert, Oriented x 3 - Medications Active Medications: Active Medications Generic Name Dose Route Start Last Admin Trade Name Freq PRN Reason Stop Dose Admin Acetaminophen 650 mg 01/03/17 11:49 Tylenol 325mg Tab PO Q6 PRN Pain, Mild (1-3) Enoxaparin Sodium 60 mg 01/01/17 22:00 01/03/17 10:32 Lovenox SC 60 mg Q12 MIRELLA Administration Furosemide 20 mg 01/02/17 10:00 01/03/17 10:32 Lasix IVP 20 mg DAILY MIRELLA Administration Diltiazem HCl 125 mg/ Sodium 125 mls @ 2.5 mls/hr 01/03/17 09:49 01/03/17 10: 27 Chloride IV Not Given .Q24H MIRELLA Protocol 2.5 MG/HR Insulin Human Regular 0 unit 01/02/17 11:30 01/03/17 10:26 Novolin R SC Not Given ACHS MIRELLA Protocol Lisinopril 10 mg 01/02/17 15:15 01/03/17 10:32 Zestril PO 10 mg DAILY MIRELLA Administration Metoprolol Tartrate 100 mg 01/03/17 18:00 Lopressor PO BID MIRELLA Ondansetron HCl 4 mg 01/01/17 21:22 01/02/17 18:42 Zofran Inj IVP 4 mg Q6 PRN Administration Nausea/Vomiting Pantoprazole Sodium 40 mg 01/02/17 10:00 01/03/17 10:32 Protonix Inj IVP 40 mg DAILY MIRELLA Administration Pneumococcal Polyvalent Vaccine 0.5 ml 01/04/17 10:00 Pneumovax 23 Vaccine IM 01/04/17 10:01 .ONCE ONE Potassium Chloride 20 meq 01/03/17 10:00 01/03/17 10:32 K-Dur 20 Meq Er Tab PO 20 meq DAILY MIRELLA Administration - Patient Studies Lab Studies: Lab Studies 01/03/17 01/03/17 01/03/17 Range/Units 11:44 07:27 06:16 WBC (4.8-10.8) K/uL RBC (3.80-5.20) Mil/uL Hgb (11.0-16.0) g/dL Hct (34.0-47.0) % MCV (81.0-99.0) fL MCH (27.0-31.0) pg MCHC (33.0-37.0) g/dL RDW (11.5-14.5) % Plt Count (130-400) K/uL MPV (7.2-11.7) fL Neut % (Auto) (50.0-75.0) % Lymph % (Auto) (20.0-40.0) % Nance % (Auto) (0.0-10.0) % Eos % (Auto) (0.0-4.0) % Baso % (Auto) (0.0-2.0) % Neut # (1.8-7.0) K/uL Lymph # (1.0-4.3) K/uL Nance # (0.0-0.8) K/uL Eos # (0.0-0.7) K/uL Baso # (0.0-0.2) K/uL Sodium 139 (132-148) mmol/L Potassium 3.6 (3.6-5.2) mmol/L Chloride 98 (98-107) mmol/L Carbon Dioxide 27 (22-30) mmol/L Anion Gap 19 (10-20) BUN 14 (7-17) mg/dL Creatinine 0.7 (0.7-1.2) MG/DL Est GFR ( Amer) > 60 Est GFR (Non-Af Amer) > 60 POC Glucose (mg/dL) 181 H 140 H (65-110) mg/dL Random Glucose 123 H (65-105) mg/dL Calcium 9.4 (8.6-10.4) mg/dl Phosphorus 3.6 (2.5-4.5) mg/dL Magnesium 2.3 (1.6-2.3) mg/dL Total Bilirubin 1.0 (0.2-1.3) mg/dL AST 34 (14-36) U/L ALT 34 (9-52) U/L Alkaline Phosphatase 47 (38-126) U/L Total Protein 7.3 (6.3-8.3) g/dL Albumin 4.2 (3.5-5.0) g/dL Globulin 3.2 (2.2-3.9) gm/dL Albumin/Globulin Ratio 1.3 (1.0-2.1) 01/03/17 01/02/17 Range/Units 06:16 21:30 WBC 9.9 (4.8-10.8) K/uL RBC 4.36 (3.80-5.20) Mil/uL Hgb 13.1 (11.0-16.0) g/dL Hct 38.8 (34.0-47.0) % MCV 89.0 (81.0-99.0) fL MCH 30.0 (27.0-31.0) pg MCHC 33.7 (33.0-37.0) g/dL RDW 14.5 (11.5-14.5) % Plt Count 125 L (130-400) K/uL MPV 10.8 (7.2-11.7) fL Neut % (Auto) 70.4 (50.0-75.0) % Lymph % (Auto) 22.5 (20.0-40.0) % Nance % (Auto) 6.4 (0.0-10.0) % Eos % (Auto) 0.2 (0.0-4.0) % Baso % (Auto) 0.5 (0.0-2.0) % Neut # 6.9 (1.8-7.0) K/uL Lymph # 2.2 (1.0-4.3) K/uL Nance # 0.6 (0.0-0.8) K/uL Eos # 0.0 (0.0-0.7) K/uL Baso # 0.1 (0.0-0.2) K/uL Sodium (132-148) mmol/L Potassium (3.6-5.2) mmol/L Chloride (98-107) mmol/L Carbon Dioxide (22-30) mmol/L Anion Gap (10-20) BUN (7-17) mg/dL Creatinine (0.7-1.2) MG/DL Est GFR ( Amer) Est GFR (Non-Af Amer) POC Glucose (mg/dL) 166 H (65-110) mg/dL Random Glucose (65-105) mg/dL Calcium (8.6-10.4) mg/dl Phosphorus (2.5-4.5) mg/dL Magnesium (1.6-2.3) mg/dL Total Bilirubin (0.2-1.3) mg/dL AST (14-36) U/L ALT (9-52) U/L Alkaline Phosphatase (38-126) U/L Total Protein (6.3-8.3) g/dL Albumin (3.5-5.0) g/dL Globulin (2.2-3.9) gm/dL Albumin/Globulin Ratio (1.0-2.1) Laboratory Results - last 24 hr 01/02/17 01/03/17 01/03/17 21:30 06:16 06:16 WBC 9.9 RBC 4.36 Hgb 13.1 Hct 38.8 MCV 89.0 MCH 30.0 MCHC 33.7 RDW 14.5 Plt Count 125 L MPV 10.8 Neut % (Auto) 70.4 Lymph % (Auto) 22.5 Nance % (Auto) 6.4 Eos % (Auto) 0.2 Baso % (Auto) 0.5 Neut # 6.9 Lymph # 2.2 Nance # 0.6 Eos # 0.0 Baso # 0.1 Sodium 139 Potassium 3.6 Chloride 98 Carbon Dioxide 27 Anion Gap 19 BUN 14 Creatinine 0.7 Est GFR ( Amer) > 60 Est GFR (Non-Af Amer) > 60 POC Glucose (mg/dL) 166 H Random Glucose 123 H Calcium 9.4 Phosphorus 3.6 Magnesium 2.3 Total Bilirubin 1.0 AST 34 ALT 34 Alkaline Phosphatase 47 Total Protein 7.3 Albumin 4.2 Globulin 3.2 Albumin/Globulin Ratio 1.3 01/03/17 01/03/17 07:27 11:44 WBC RBC Hgb Hct MCV MCH MCHC RDW Plt Count MPV Neut % (Auto) Lymph % (Auto) Nance % (Auto) Eos % (Auto) Baso % (Auto) Neut # Lymph # Nance # Eos # Baso # Sodium Potassium Chloride Carbon Dioxide Anion Gap BUN Creatinine Est GFR ( Amer) Est GFR (Non-Af Amer) POC Glucose (mg/dL) 140 H 181 H Random Glucose Calcium Phosphorus Magnesium Total Bilirubin AST ALT Alkaline Phosphatase Total Protein Albumin Globulin Albumin/Globulin Ratio Fingerstick Blood Sugar Results: 166 Review of Systems - Constitutional Constitutional: absent: Fever - Cardiovascular Cardiovascular: Palpitations, Rapid Heart Rate. absent: Chest Pain, Dyspnea - Respiratory Respiratory: absent: Cough, Dyspnea - Gastrointestinal Gastrointestinal: absent: Abdominal Pain, Constipation, Diarrhea, Nausea, Vomiting - Genitourinary Genitourinary: absent: Dysuria - Neurological Neurological: Dizziness, Headaches - Endocrine Endocrine: Palpitations Critical Care Progress Note - Nutrition Nutrition: Nutrition Category Date Time Status Consistent Carbohydrate [DIET] Diets 01/03/17 Lunch Active Assessment/Plan - Assessment and Plan (Free Text) Assessment: 71 year old female with past medical history of DM, presented to the ED with complaints of nausea and vomiting for 3-4 days. She had palpitations and dizziness. In the ED, patient was found to have new onset a-fib, patient was admitted. Patient started on Cardizem drip and anticoagulation. Continue to monitor. Neuro: alert, orientedx3 - Head CT: no acute findings; chronic ischemic changes Pulm: no acute issues - CXR: no acute findings CV: new onset A-Fib - Cardiology consulted- Dr. Wong, help appreciated - Continue Cardizem drip, Lovenox, Lisinopril, Lasix, Metroprolol - Troponin: negative; BNP 3690 - Echo: EF47%; pending official report Endo: Hx of DM - Accuchecks, monitor blood glucose - Continue ISS - TSH 0.82, Free T4 1.63 - Behavioral Modification Assistant consulted- Dr. Goldberg, help appreciated GI: nausea, vomiting- unknown cause--> resolved - Consistent Carb diet - R/out pancreatitis--> lipase 79 (01/01/17), 38 (01/02/17) - Continue Zofran, Protonix Heme: no acute issues Renal: - Hypokalemic: gave Kdur MSK: no acute issues ID: no acute issues - UA: trace ketones, 1+ glucose Prophylaxis: - DVT: Lovenox, SCDs - GI: Protonix - PT <Latef,Dioni M - Last Filed: 01/04/17 23:00> CCU Objective - Vital Signs / Intake & Output Vital Signs (Last 4 hours): Vital Signs Temp Pulse Resp BP Pulse Ox 01/04/17 22:00 153 H 14 99 01/04/17 21:57 132 H 12 131/92 H 96 01/04/17 21:00 137 H 12 99 01/04/17 20:56 129 H 16 145/61 96 01/04/17 20:44 154 H 14 155/57 H 95 01/04/17 20:13 161 H 15 147/66 99 01/04/17 20:00 98.8 F 128 H 15 145/80 100 01/04/17 19:44 127 H 14 127/75 97 01/04/17 19:00 120 H 13 100 Intake and Output (Last 8hrs): Intake & Output 01/04/17 01/04/17 01/04/17 06:59 14:59 22:59 Intake Total 1287 840 765 Output Total 680 1059 504 Balance 607 -219 261 Intake: IV 1000 280 250 Intake, IV Amount 287 560 515 Left Hand 15 5 Left Medial Port Internal 60 Jugular Left Proximal Port 240 Internal Jugular Right Antecubital 47 420 180 Right Distal Port Hand 25 40 30 Right Hand 200 100 Output: Drainage 105 49 Right Posterior Head 105 49 Urine 680 954 455 Urethral (Massey) 680 954 455 Stool 0 0 Other: # Bowel Movements 0 - Medications Active Medications: Active Medications Generic Name Dose Route Start Last Admin Trade Name Freq PRN Reason Stop Dose Admin Acetaminophen 650 mg 01/03/17 11:49 01/03/17 18:04 Tylenol 325mg Tab PO 650 mg Q6 PRN Administration Pain, Mild (1-3) Furosemide 20 mg 01/02/17 10:00 01/04/17 10:06 Lasix IVP 20 mg DAILY MIRELLA Administration Propofol 1,000 mg in 100 mls @ 2.381 mls/hr 01/04/17 01:16 01/04/17 07:10 Diprivan IV 0 mcg/kg/min .Q24H PRN 0 mls/hr TITRATE PER MD ORDER Titration Protocol 5 MCG/KG/MIN Sodium Chloride 500 mls @ 50 mls/hr 01/04/17 07:30 01/04/17 17:35 Hypertonic Saline 3% IV Not Given .Q10H MIRELLA Nicardipine HCl 25 mg/ Sodium 250 mls @ 50 mls/hr 01/04/17 09:30 01/04/17 22: 35 Chloride IV Not Given .Q5H MIRELLA Protocol 5 MG/HR Diltiazem HCl 125 mg/ Sodium 125 mls @ 5 mls/hr 01/04/17 12:45 01/04/17 21:40 Chloride IV 15 mg/hr .Q24H MIRELLA 15 mls/hr Protocol Administration 5 MG/HR Insulin Human Regular 0 unit 01/04/17 18:00 01/04/17 18:03 Novolin R SC Not Given Q6 MIRELLA Protocol Lisinopril 10 mg 01/02/17 15:15 01/04/17 10:09 Zestril PO Not Given DAILY MIRELLA Metoprolol Tartrate 100 mg 01/03/17 18:00 01/04/17 18:01 Lopressor PO Not Given BID MIRELLA Ondansetron HCl 4 mg 01/01/17 21:22 01/02/17 18:42 Zofran Inj IVP 4 mg Q6 PRN Administration Nausea/Vomiting Pantoprazole Sodium 40 mg 01/02/17 10:00 01/04/17 09:59 Protonix Inj IVP 40 mg DAILY MIRELLA Administration Potassium Chloride 20 meq 01/03/17 10:00 01/04/17 10:11 K-Dur 20 Meq Er Tab PO Not Given DAILY MIRELLA Rosuvastatin Calcium 20 mg 01/03/17 22:00 01/04/17 22:18 Crestor PO Not Given HS MIRELLA - Patient Studies Lab Studies: Microbiology Studies 01/02/17 01:29 MRSA Culture (Admit) - Final Nose MRSA NOT DETECTED Lab Studies 01/04/17 01/04/17 01/04/17 Range/Units 22:36 18:02 16:17 WBC (4.8-10.8) K/uL RBC (3.80-5.20) Mil/uL Hgb (11.0-16.0) g/dL Hct (34.0-47.0) % MCV (81.0-99.0) fL MCH (27.0-31.0) pg MCHC (33.0-37.0) g/dL RDW (11.5-14.5) % Plt Count (130-400) K/uL MPV (7.2-11.7) fL Neut % (Auto) (50.0-75.0) % Lymph % (Auto) (20.0-40.0) % Nance % (Auto) (0.0-10.0) % Eos % (Auto) (0.0-4.0) % Baso % (Auto) (0.0-2.0) % Neut # (1.8-7.0) K/uL Lymph # (1.0-4.3) K/uL Nance # (0.0-0.8) K/uL Eos # (0.0-0.7) K/uL Baso # (0.0-0.2) K/uL Puncture Site pCO2 (35-45) mm/Hg pO2 (80-100) mm/Hg HCO3 (21-28) mmol/L ABG pH (7.35-7.45) ABG Total CO2 (22-28) mmol/L ABG O2 Saturation (95-98) % ABG Base Excess (-2.0-3.0) mmol/L ABG Hemoglobin (11.7-17.4) g/dL ABG Carboxyhemoglobin (0.5-1.5) % POC ABG HHb (Measured) (0.0-5.0) % ABG Methemoglobin (0.0-3.0) % Chandana Test A-a O2 Difference mm/Hg Respiratory Index Hgb O2 Saturation (95.0-98.0) % Vent Mode Mechanical Rate FiO2 % Tidal Volume PEEP Sodium (132-148) mmol/L Potassium (3.6-5.2) mmol/L Chloride (98-107) mmol/L Carbon Dioxide (22-30) mmol/L Anion Gap (10-20) BUN (7-17) mg/dL Creatinine (0.7-1.2) MG/DL Est GFR ( Amer) Est GFR (Non-Af Amer) POC Glucose (mg/dL) 204 H (65-110) mg/dL Random Glucose (65-105) mg/dL Serum Osmolality 321 H 311 H (272-300) mosm/kg Calcium (8.6-10.4) mg/dl Phosphorus (2.5-4.5) mg/dL Magnesium (1.6-2.3) mg/dL Total Bilirubin (0.2-1.3) mg/dL AST (14-36) U/L ALT (9-52) U/L Alkaline Phosphatase (38-126) U/L Total Protein (6.3-8.3) g/dL Albumin (3.5-5.0) g/dL Globulin (2.2-3.9) gm/dL Albumin/Globulin Ratio (1.0-2.1) Triglycerides (0-149) mg/dL Cholesterol (0-199) mg/dL LDL Cholesterol Direct (0-129) mg/dL HDL Cholesterol (30-70) mg/dL 01/04/17 01/04/17 01/04/17 Range/Units 16:17 11:23 07:02 WBC (4.8-10.8) K/uL RBC (3.80-5.20) Mil/uL Hgb (11.0-16.0) g/dL Hct (34.0-47.0) % MCV (81.0-99.0) fL MCH (27.0-31.0) pg MCHC (33.0-37.0) g/dL RDW (11.5-14.5) % Plt Count (130-400) K/uL MPV (7.2-11.7) fL Neut % (Auto) (50.0-75.0) % Lymph % (Auto) (20.0-40.0) % Nance % (Auto) (0.0-10.0) % Eos % (Auto) (0.0-4.0) % Baso % (Auto) (0.0-2.0) % Neut # (1.8-7.0) K/uL Lymph # (1.0-4.3) K/uL Nance # (0.0-0.8) K/uL Eos # (0.0-0.7) K/uL Baso # (0.0-0.2) K/uL Puncture Site pCO2 (35-45) mm/Hg pO2 (80-100) mm/Hg HCO3 (21-28) mmol/L ABG pH (7.35-7.45) ABG Total CO2 (22-28) mmol/L ABG O2 Saturation (95-98) % ABG Base Excess (-2.0-3.0) mmol/L ABG Hemoglobin (11.7-17.4) g/dL ABG Carboxyhemoglobin (0.5-1.5) % POC ABG HHb (Measured) (0.0-5.0) % ABG Methemoglobin (0.0-3.0) % Chandana Test A-a O2 Difference mm/Hg Respiratory Index Hgb O2 Saturation (95.0-98.0) % Vent Mode Mechanical Rate FiO2 % Tidal Volume PEEP Sodium 147 (132-148) mmol/L Potassium 3.9 (3.6-5.2) mmol/L Chloride 107 (98-107) mmol/L Carbon Dioxide 25 (22-30) mmol/L Anion Gap 18 (10-20) BUN 15 (7-17) mg/dL Creatinine 0.7 (0.7-1.2) MG/DL Est GFR ( Amer) > 60 Est GFR (Non-Af Amer) > 60 POC Glucose (mg/dL) 206 H (65-110) mg/dL Random Glucose 207 H (65-105) mg/dL Serum Osmolality 299 (272-300) mosm/kg Calcium 9.0 (8.6-10.4) mg/dl Phosphorus 3.0 (2.5-4.5) mg/dL Magnesium 1.8 (1.6-2.3) mg/dL Total Bilirubin 1.3 (0.2-1.3) mg/dL AST 33 (14-36) U/L ALT 34 (9-52) U/L Alkaline Phosphatase 53 (38-126) U/L Total Protein 7.5 (6.3-8.3) g/dL Albumin 3.9 (3.5-5.0) g/dL Globulin 3.7 (2.2-3.9) gm/dL Albumin/Globulin Ratio 1.1 (1.0-2.1) Triglycerides (0-149) mg/dL Cholesterol (0-199) mg/dL LDL Cholesterol Direct (0-129) mg/dL HDL Cholesterol (30-70) mg/dL 01/04/17 01/04/17 01/04/17 Range/Units 06:47 06:47 04:40 WBC 11.3 H (4.8-10.8) K/uL RBC 4.45 (3.80-5.20) Mil/uL Hgb 12.8 (11.0-16.0) g/dL Hct 39.7 (34.0-47.0) % MCV 89.3 (81.0-99.0) fL MCH 28.8 (27.0-31.0) pg MCHC 32.2 L (33.0-37.0) g/dL RDW 14.7 H (11.5-14.5) % Plt Count 122 L D (130-400) K/uL MPV 11.0 (7.2-11.7) fL Neut % (Auto) 76.5 H (50.0-75.0) % Lymph % (Auto) 17.2 L (20.0-40.0) % Nance % (Auto) 6.0 (0.0-10.0) % Eos % (Auto) 0.1 (0.0-4.0) % Baso % (Auto) 0.2 (0.0-2.0) % Neut # 8.6 H (1.8-7.0) K/uL Lymph # 1.9 (1.0-4.3) K/uL Nance # 0.7 (0.0-0.8) K/uL Eos # 0.0 (0.0-0.7) K/uL Baso # 0.0 (0.0-0.2) K/uL Puncture Site Kisha pCO2 32 L (35-45) mm/Hg pO2 189 H (80-100) mm/Hg HCO3 27.4 (21-28) mmol/L ABG pH 7.51 H (7.35-7.45) ABG Total CO2 26.5 (22-28) mmol/L ABG O2 Saturation 99.9 H (95-98) % ABG Base Excess 3.2 H (-2.0-3.0) mmol/L ABG Hemoglobin 16.0 (11.7-17.4) g/dL ABG Carboxyhemoglobin 1.4 (0.5-1.5) % POC ABG HHb (Measured) 0.1 (0.0-5.0) % ABG Methemoglobin 0.9 (0.0-3.0) % Chandana Test Na A-a O2 Difference 56.0 mm/Hg Respiratory Index 0.3 Hgb O2 Saturation 97.6 (95.0-98.0) % Vent Mode Prvc Mechanical Rate 12 FiO2 40.0 % Tidal Volume 450 PEEP 5 Sodium 142 (132-148) mmol/L Potassium 2.8 L (3.6-5.2) mmol/L Chloride 103 (98-107) mmol/L Carbon Dioxide 24 (22-30) mmol/L Anion Gap 18 (10-20) BUN 14 (7-17) mg/dL Creatinine 0.6 L (0.7-1.2) MG/DL Est GFR ( Amer) > 60 Est GFR (Non-Af Amer) > 60 POC Glucose (mg/dL) (65-110) mg/dL Random Glucose 138 H (65-105) mg/dL Serum Osmolality (272-300) mosm/kg Calcium 9.2 (8.6-10.4) mg/dl Phosphorus 2.8 (2.5-4.5) mg/dL Magnesium 2.0 (1.6-2.3) mg/dL Total Bilirubin 0.7 (0.2-1.3) mg/dL AST 40 H (14-36) U/L ALT 35 (9-52) U/L Alkaline Phosphatase 46 (38-126) U/L Total Protein 6.9 (6.3-8.3) g/dL Albumin 3.8 (3.5-5.0) g/dL Globulin 3.2 (2.2-3.9) gm/dL Albumin/Globulin Ratio 1.2 (1.0-2.1) Triglycerides (0-149) mg/dL Cholesterol (0-199) mg/dL LDL Cholesterol Direct (0-129) mg/dL HDL Cholesterol (30-70) mg/dL 01/03/17 01/03/17 Range/Units 23:29 22:56 WBC (4.8-10.8) K/uL RBC (3.80-5.20) Mil/uL Hgb (11.0-16.0) g/dL Hct (34.0-47.0) % MCV (81.0-99.0) fL MCH (27.0-31.0) pg MCHC (33.0-37.0) g/dL RDW (11.5-14.5) % Plt Count (130-400) K/uL MPV (7.2-11.7) fL Neut % (Auto) (50.0-75.0) % Lymph % (Auto) (20.0-40.0) % Nance % (Auto) (0.0-10.0) % Eos % (Auto) (0.0-4.0) % Baso % (Auto) (0.0-2.0) % Neut # (1.8-7.0) K/uL Lymph # (1.0-4.3) K/uL Nance # (0.0-0.8) K/uL Eos # (0.0-0.7) K/uL Baso # (0.0-0.2) K/uL Puncture Site pCO2 (35-45) mm/Hg pO2 (80-100) mm/Hg HCO3 (21-28) mmol/L ABG pH (7.35-7.45) ABG Total CO2 (22-28) mmol/L ABG O2 Saturation (95-98) % ABG Base Excess (-2.0-3.0) mmol/L ABG Hemoglobin (11.7-17.4) g/dL ABG Carboxyhemoglobin (0.5-1.5) % POC ABG HHb (Measured) (0.0-5.0) % ABG Methemoglobin (0.0-3.0) % Chandana Test A-a O2 Difference mm/Hg Respiratory Index Hgb O2 Saturation (95.0-98.0) % Vent Mode Mechanical Rate FiO2 % Tidal Volume PEEP Sodium (132-148) mmol/L Potassium (3.6-5.2) mmol/L Chloride (98-107) mmol/L Carbon Dioxide (22-30) mmol/L Anion Gap (10-20) BUN (7-17) mg/dL Creatinine (0.7-1.2) MG/DL Est GFR ( Amer) Est GFR (Non-Af Amer) POC Glucose (mg/dL) 167 H (65-110) mg/dL Random Glucose (65-105) mg/dL Serum Osmolality (272-300) mosm/kg Calcium (8.6-10.4) mg/dl Phosphorus (2.5-4.5) mg/dL Magnesium (1.6-2.3) mg/dL Total Bilirubin (0.2-1.3) mg/dL AST (14-36) U/L ALT (9-52) U/L Alkaline Phosphatase (38-126) U/L Total Protein (6.3-8.3) g/dL Albumin (3.5-5.0) g/dL Globulin (2.2-3.9) gm/dL Albumin/Globulin Ratio (1.0-2.1) Triglycerides 100 (0-149) mg/dL Cholesterol 193 (0-199) mg/dL LDL Cholesterol Direct 148 H (0-129) mg/dL HDL Cholesterol 39 (30-70) mg/dL Laboratory Results - last 24 hr 01/03/17 01/03/17 01/04/17 22:56 23:29 04:40 WBC RBC Hgb Hct MCV MCH MCHC RDW Plt Count MPV Neut % (Auto) Lymph % (Auto) Nance % (Auto) Eos % (Auto) Baso % (Auto) Neut # Lymph # Nance # Eos # Baso # Puncture Site Kisha pCO2 32 L pO2 189 H HCO3 27.4 ABG pH 7.51 H ABG Total CO2 26.5 ABG O2 Saturation 99.9 H ABG Base Excess 3.2 H ABG Hemoglobin 16.0 ABG Carboxyhemoglobin 1.4 POC ABG HHb (Measured) 0.1 ABG Methemoglobin 0.9 Chandana Test Na A-a O2 Difference 56.0 Respiratory Index 0.3 Hgb O2 Saturation 97.6 Vent Mode Prvc Mechanical Rate 12 FiO2 40.0 Tidal Volume 450 PEEP 5 Sodium Potassium Chloride Carbon Dioxide Anion Gap BUN Creatinine Est GFR ( Amer) Est GFR (Non-Af Amer) POC Glucose (mg/dL) 167 H Random Glucose Serum Osmolality Calcium Phosphorus Magnesium Total Bilirubin AST ALT Alkaline Phosphatase Total Protein Albumin Globulin Albumin/Globulin Ratio Triglycerides 100 Cholesterol 193 LDL Cholesterol Direct 148 H HDL Cholesterol 39 01/04/17 01/04/17 01/04/17 06:47 06:47 07:02 WBC 11.3 H RBC 4.45 Hgb 12.8 Hct 39.7 MCV 89.3 MCH 28.8 MCHC 32.2 L RDW 14.7 H Plt Count 122 L D MPV 11.0 Neut % (Auto) 76.5 H Lymph % (Auto) 17.2 L Nance % (Auto) 6.0 Eos % (Auto) 0.1 Baso % (Auto) 0.2 Neut # 8.6 H Lymph # 1.9 Nance # 0.7 Eos # 0.0 Baso # 0.0 Puncture Site pCO2 pO2 HCO3 ABG pH ABG Total CO2 ABG O2 Saturation ABG Base Excess ABG Hemoglobin ABG Carboxyhemoglobin POC ABG HHb (Measured) ABG Methemoglobin Chandana Test A-a O2 Difference Respiratory Index Hgb O2 Saturation Vent Mode Mechanical Rate FiO2 Tidal Volume PEEP Sodium 142 Potassium 2.8 L Chloride 103 Carbon Dioxide 24 Anion Gap 18 BUN 14 Creatinine 0.6 L Est GFR ( Amer) > 60 Est GFR (Non-Af Amer) > 60 POC Glucose (mg/dL) Random Glucose 138 H Serum Osmolality 299 Calcium 9.2 Phosphorus 2.8 Magnesium 2.0 Total Bilirubin 0.7 AST 40 H ALT 35 Alkaline Phosphatase 46 Total Protein 6.9 Albumin 3.8 Globulin 3.2 Albumin/Globulin Ratio 1.2 Triglycerides Cholesterol LDL Cholesterol Direct HDL Cholesterol 01/04/17 01/04/17 01/04/17 11:23 16:17 16:17 WBC RBC Hgb Hct MCV MCH MCHC RDW Plt Count MPV Neut % (Auto) Lymph % (Auto) Nance % (Auto) Eos % (Auto) Baso % (Auto) Neut # Lymph # Nance # Eos # Baso # Puncture Site pCO2 pO2 HCO3 ABG pH ABG Total CO2 ABG O2 Saturation ABG Base Excess ABG Hemoglobin ABG Carboxyhemoglobin POC ABG HHb (Measured) ABG Methemoglobin Chandana Test A-a O2 Difference Respiratory Index Hgb O2 Saturation Vent Mode Mechanical Rate FiO2 Tidal Volume PEEP Sodium 147 Potassium 3.9 Chloride 107 Carbon Dioxide 25 Anion Gap 18 BUN 15 Creatinine 0.7 Est GFR ( Amer) > 60 Est GFR (Non-Af Amer) > 60 POC Glucose (mg/dL) 206 H Random Glucose 207 H Serum Osmolality 311 H Calcium 9.0 Phosphorus 3.0 Magnesium 1.8 Total Bilirubin 1.3 AST 33 ALT 34 Alkaline Phosphatase 53 Total Protein 7.5 Albumin 3.9 Globulin 3.7 Albumin/Globulin Ratio 1.1 Triglycerides Cholesterol LDL Cholesterol Direct HDL Cholesterol 01/04/17 01/04/17 18:02 22:36 WBC RBC Hgb Hct MCV MCH MCHC RDW Plt Count MPV Neut % (Auto) Lymph % (Auto) Nance % (Auto) Eos % (Auto) Baso % (Auto) Neut # Lymph # Nance # Eos # Baso # Puncture Site pCO2 pO2 HCO3 ABG pH ABG Total CO2 ABG O2 Saturation ABG Base Excess ABG Hemoglobin ABG Carboxyhemoglobin POC ABG HHb (Measured) ABG Methemoglobin Chandana Test A-a O2 Difference Respiratory Index Hgb O2 Saturation Vent Mode Mechanical Rate FiO2 Tidal Volume PEEP Sodium Potassium Chloride Carbon Dioxide Anion Gap BUN Creatinine Est GFR ( Amer) Est GFR (Non-Af Amer) POC Glucose (mg/dL) 204 H Random Glucose Serum Osmolality 321 H Calcium Phosphorus Magnesium Total Bilirubin AST ALT Alkaline Phosphatase Total Protein Albumin Globulin Albumin/Globulin Ratio Triglycerides Cholesterol LDL Cholesterol Direct HDL Cholesterol Critical Care Progress Note - Nutrition Nutrition: Nutrition Category Date Time Status NPO Diet [DIET] Diets 01/04/17 Breakfast Active Attending/Attestation - Attestation I have personally seen and examined this patient.: Yes I have fully participated in the care of the patient.: Yes I have reviewed all pertinent clinical information: Yes Notes (Text): The Patient was seen and examined at the bedside, Medical records reviewed, and management issues were discussed and formulated. All clinical/lab/hemodynamic/radiographic data were reviewed Events reviewed Pain issues, skin care, head of the bed elevation, glycemic control were addressed. Agree with above treatment plans as transcribed in Dr. Alejandro note 71 Years old Female with PMHx of diabetes, now admitted with new onset atrial fibrillation with Rapid ventricular rate. Continue with ICU hemodynamic and cardiac monitoring Continue the Cardizem drip and coagulation with Lovenox 60 mg SQ Q12H Echocardiogram results noted Cardiology evaluation appreciated, started on Lopressor and Zestril Feeling better today, Abdominal pain, Nausea and vomiting better today Supplement Lytes Accuchecks, thyroid function, Endocrine consult.
--- NOTE | 2017-01-03 18:25 | CP.PCM.PN ---
Subjective - Date & Time of Evaluation Date of Evaluation: 01/03/17 Time of Evaluation: 15:25 - Subjective Subjective: pt seen and evaluated in am son at bedside feeliing fine HR in 90s on cardizem gtt Objective - Vital Signs/Intake and Output Vital Signs (last 24 hours): Temp Pulse Resp BP Pulse Ox 99.2 F 120 H 18 144/81 91 L 01/03/17 16:00 01/03/17 18:00 01/03/17 18:00 01/03/17 16:44 01/03/17 18:00 Intake and Output: 01/03/17 01/03/17 06:59 18:59 Intake Total 162.4 60 Output Total 600 250 Balance -437.6 -190 - Medications Medications: Current Medications Acetaminophen (Tylenol 325mg Tab) 650 mg PO Q6 PRN PRN Reason: Pain, Mild (1-3) Last Admin: 01/03/17 18:04 Dose: 650 mg Enoxaparin Sodium (Lovenox) 60 mg SC Q12 [facility] Last Admin: 01/03/17 10:32 Dose: 60 mg Furosemide (Lasix) 20 mg IVP DAILY [facility] Last Admin: 01/03/17 10:32 Dose: 20 mg Diltiazem HCl 125 mg/ Sodium (Chloride) 125 mls @ 2.5 mls/hr IV .Q24H [facility]RE[facility]; 2.5 MG/HR PRN Reason: Protocol Last Admin: 01/03/17 10:27 Dose: Not Given Insulin Human Regular (Novolin R) 0 unit SC ACHS [facility]RE[facility]A PRN Reason: Protocol Last Admin: 01/03/17 18:03 Dose: Not Given Lisinopril (Zestril) 10 mg PO DAILY [facility] Last Admin: 01/03/17 10:32 Dose: 10 mg Metoprolol Tartrate (Lopressor) 100 mg PO BID [facility] Last Admin: 01/03/17 18:03 Dose: 100 mg Ondansetron HCl (Zofran Inj) 4 mg IVP Q6 PRN PRN Reason: Nausea/Vomiting Last Admin: 01/02/17 18:42 Dose: 4 mg Pantoprazole Sodium (Protonix Inj) 40 mg IVP DAILY [facility] Last Admin: 01/03/17 10:32 Dose: 40 mg Pneumococcal Polyvalent Vaccine (Pneumovax 23 Vaccine) 0.5 ml IM .ONCE ONE Stop: 01/04/17 10:01 Potassium Chloride (K-Dur 20 Meq Er Tab) 20 meq PO DAILY [facility] Last Admin: 01/03/17 10:32 Dose: 20 meq - Labs Labs: 01/03/17 06:16 01/03/17 06:16 - Constitutional Appears: Well - Head Exam Head Exam: ATRAUMATIC, NORMAL INSPECTION, NORMOCEPHALIC - Eye Exam Eye Exam: EOMI, Normal appearance, PERRL Pupil Exam: NORMAL ACCOMODATION, PERRL - ENT Exam ENT Exam: Mucous Membranes Moist, Normal Exam - Neck Exam Neck Exam: Full ROM, Normal Inspection. absent: Lymphadenopathy - Respiratory Exam Respiratory Exam: Clear to Ausculation Bilateral, NORMAL BREATHING PATTERN - Cardiovascular Exam Cardiovascular Exam: Irregular Rhythm, +S1, +S2, Murmur - GI/Abdominal Exam GI & Abdominal Exam: Soft, Normal Bowel Sounds. absent: Tenderness - Exam Exam: NORMAL INSPECTION - Extremities Exam Extremities Exam: Full ROM, Normal Capillary Refill, Normal Inspection. absent : Joint Swelling, Pedal Edema - Back Exam Back Exam: NORMAL INSPECTION - Neurological Exam Neurological Exam: Alert, Awake, CN II-XII Intact, Oriented x3 - Psychiatric Exam Psychiatric exam: Normal Affect, Normal Mood - Skin Skin Exam: Dry, Intact, Normal Color, Warm Assessment and Plan (1) New onset atrial fibrillation Assessment & Plan: rate controlled incresae dose of BB gradualy and taper off IV cardizem cont lovenox for AC Status: Acute (2) CHF (congestive heart failure) Assessment & Plan: New onset etiology ? ischemic vs afib induced bb and acei Status: Acute (3) Mitral regurgitation Assessment & Plan: severe MR RAAS modulators Status: Acute (4) Tricuspid regurgitation Status: Acute
--- NOTE | 2017-01-03 19:02 | CP.PCM.PN ---
Subjective - Date & Time of Evaluation Date of Evaluation: 01/03/17 Time of Evaluation: 19:01 - Subjective Subjective: complains of nausea still no abd pain new diff talking per family and patient no weakness arms or legs feeling of tiredness over several days prior to admission Objective - Vital Signs/Intake and Output Vital Signs (last 24 hours): Temp Pulse Resp BP Pulse Ox 99.2 F 120 H 18 144/81 91 L 01/03/17 16:00 01/03/17 18:00 01/03/17 18:00 01/03/17 16:44 01/03/17 18:00 Intake and Output: 01/03/17 01/04/17 18:59 06:59 Intake Total 60 Output Total 250 Balance -190 - Medications Medications: Current Medications Acetaminophen (Tylenol 325mg Tab) 650 mg PO Q6 PRN PRN Reason: Pain, Mild (1-3) Last Admin: 01/03/17 18:04 Dose: 650 mg Enoxaparin Sodium (Lovenox) 60 mg SC Q12 [facility] Last Admin: 01/03/17 10:32 Dose: 60 mg Furosemide (Lasix) 20 mg IVP DAILY [facility] Last Admin: 01/03/17 10:32 Dose: 20 mg Diltiazem HCl 125 mg/ Sodium (Chloride) 125 mls @ 2.5 mls/hr IV .Q24H [facility]RE[facility]; 2.5 MG/HR PRN Reason: Protocol Last Admin: 01/03/17 10:27 Dose: Not Given Insulin Human Regular (Novolin R) 0 unit SC ACHS [facility] PRN Reason: Protocol Last Admin: 01/03/17 18:03 Dose: Not Given Lisinopril (Zestril) 10 mg PO DAILY [facility] Last Admin: 01/03/17 10:32 Dose: 10 mg Metoprolol Tartrate (Lopressor) 100 mg PO BID [facility] Last Admin: 01/03/17 18:03 Dose: 100 mg Ondansetron HCl (Zofran Inj) 4 mg IVP Q6 PRN PRN Reason: Nausea/Vomiting Last Admin: 01/02/17 18:42 Dose: 4 mg Pantoprazole Sodium (Protonix Inj) 40 mg IVP DAILY [facility] Last Admin: 01/03/17 10:32 Dose: 40 mg Pneumococcal Polyvalent Vaccine (Pneumovax 23 Vaccine) 0.5 ml IM .ONCE ONE Stop: 01/04/17 10:01 Potassium Chloride (K-Dur 20 Meq Er Tab) 20 meq PO DAILY [facility] Last Admin: 01/03/17 10:32 Dose: 20 meq - Labs Labs: 01/03/17 06:16 01/03/17 06:16 - Constitutional Appears: Non-toxic - Head Exam Head Exam: ATRAUMATIC, NORMAL INSPECTION, NORMOCEPHALIC - Eye Exam Eye Exam: Normal appearance - Respiratory Exam Respiratory Exam: Clear to Ausculation Bilateral - Cardiovascular Exam Cardiovascular Exam: Irregular Rhythm, +S1, +S2. absent: REGULAR RHYTHM - GI/Abdominal Exam GI & Abdominal Exam: Soft, Normal Bowel Sounds. absent: Tenderness - Neurological Exam Neurological Exam: Alert, Awake, Oriented x3 Neuro motor strength exam: Left Upper Extremity: 5, Right Upper Extremity: 5, Left Lower Extremity: 5, Right Lower Extremity: 5 Additional comments: tongue midline difficulty talking slow and slight slurred understands and follows commands Assessment and Plan - Assessment and Plan (Free Text) Assessment: new onset afib ? cva symptoms of slow slurred speech possibly due to afib aspirin lipid profile consult neuro crestor
[2017-01-03] MEDS ORDERED: Digoxin 500 mcg/2ml (0.5 mg/2ml) Inj IVP ONE (19:31)
--- NOTE | 2017-01-03 20:56 | CT ---
EXAM: CT Head Without Intravenous Contrast EXAM DATE/TIME: Exam ordered 01/03/2017 7:32 PM CLINICAL HISTORY: 71 years old, female; Signs and symptoms; Alteration of consciousness; Other: R/O CVA; Additional info: Rule out CVA TECHNIQUE: Axial computed tomography images of the head/brain without intravenous contrast. All CT scans at this facility use one or more dose reduction techniques, viz.: automated exposure control; ma/kV adjustment per patient size (including targeted exams where dose is matched to indication; i.e. head); or iterative reconstruction technique. COMPARISON: CT - HEAD W/O CONTRAST 01/01/2017 7:59:27 PM FINDINGS: Brain: There is an infarct involving the cerebellar hemispheres bilaterally, right side greater than left. There is a significant edema noted within the right cerebellar hemisphere with mass effect. Edema is also noted within the left cerebellar hemisphere. The right cerebellar hemisphere crosses the midline towards the left.There is effacement of the fourth ventricle and ambient and quadrigeminal cisterns.. Calcification is noted of the basal ganglia. Low density is noted within the periventricular white matter extending into the juares radiata and centrum semiovale bilaterally. Ventricles: There is mild hydrocephalus.. There is enlargement of the temporal horns and posterior horns of the lateral ventricles. Bones/joints: Unremarkable. No acute fracture. Soft tissues: Unremarkable. Sinuses: Unremarkable as visualized. No acute sinusitis. Mastoid air cells: Unremarkable as visualized. No mastoid effusion. IMPRESSION: Infarct involving the posterior circulation with marked edema of the cerebellar hemispheres bilaterally right side greater than left, with effacement of the basilar cisterns and fourth ventricle causing secondary obstructive hydrocephalus.THIS REPORT CONTAINS FINDINGS THAT MAY BE CRITICAL TO PATIENT CARE. The findings were verbally communicated via telephone conference with Dr. Hays at 8:39 PM EDT on 01/03/2017. The findings were acknowledged and understood.
--- NOTE | 2017-01-03 21:26 | CP.CCUPN ---
CCU Subjective - Physician Review Subjective (Free Text): [facility] Pt had CT brain done for speech changes and found with bilat cerebellar strokes R>L, mass effect with mild obstructive hydrocephalus. Family claims pt had speech changes earlier in day. On PE pt confused and dysarthric, moving all ext. Dr. Ralph informed of CT results. Neurologist Dr. Adams made aware. Dr. Duque Neurosurgeon consulted and plans to do decompressive craniotomy. Pt on cardizem drip for a-fib rate control. Last dose of Lovenox was this AM. Coags, repeat cbc and T&C have been ordered. Plans discussed with familiy at bedside. 01/03/17 21:16 CCU Objective - Vital Signs / Intake & Output Vital Signs (Last 4 hours): Vital Signs Pulse Resp Pulse Ox 01/03/17 18:00 120 H 18 91 L Intake and Output (Last 8hrs): Intake & Output 01/03/17 01/03/17 01/03/17 06:59 14:59 22:59 Intake Total 40 40 20 Output Total 200 250 Balance -160 40 -230 Weight 175 lb Intake: Intake, IV Amount 40 40 20 Left Hand 40 40 15 Right Antecubital 5 Output: Urine 200 250 Urine, Voided 200 250 Other: # Voids Urine, Voided 1 - Physical Exam Head: Positive for: Atraumatic, Normocephalic Extroacular Muscles: Positive for: EOMI Mouth: Positive for: Moist Mucous Membranes Neck: Positive for: Normal Range of Motion Respiratory/Chest: Positive for: Clear to Auscultation. Negative for: Wheezes, Rales, Rhonchi Cardiovascular: Positive for: Normal S1, S2, Irregular Rhythm, Peripheal Pulses Present, Tachycardic Abdomen: Negative for: Tenderness, Distention, Normal Bowel Sounds (hypoactive) Upper Extremity: Positive for: Normal Inspection. Negative for: Edema Lower Extremity: Positive for: Normal Inspection, NORMAL PULSES. Negative for: Edema Skin: Positive for: Warm, Dry, Normal Color Psychiatric: Positive for: Alert, Oriented x 3 - Medications Active Medications: Active Medications Generic Name Dose Route Start Last Admin Trade Name Freq PRN Reason Stop Dose Admin Acetaminophen 650 mg 01/03/17 11:49 01/03/17 18:04 Tylenol 325mg Tab PO 650 mg Q6 PRN Administration Pain, Mild (1-3) Enoxaparin Sodium 60 mg 01/01/17 22:00 01/03/17 10:32 Lovenox SC 60 mg Q12 MIRELLA Administration Furosemide 20 mg 01/02/17 10:00 01/03/17 10:32 Lasix IVP 20 mg DAILY [facility]RE[facility] Administration Diltiazem HCl 125 mg/ Sodium 125 mls @ 2.5 mls/hr 01/03/17 09:49 01/03/17 10: 27 Chloride IV Not Given .Q24H [facility]RE[facility] Protocol 2.5 MG/HR Insulin Human Regular 0 unit 01/02/17 11:30 01/03/17 18:03 Novolin R SC Not Given ACHS [facility] Protocol Lisinopril 10 mg 01/02/17 15:15 01/03/17 10:32 Zestril PO 10 mg DAILY [facility]RE[facility] Administration Metoprolol Tartrate 100 mg 01/03/17 18:00 01/03/17 18:03 Lopressor PO 100 mg BID MIRE[facility]A Administration Ondansetron HCl 4 mg 01/01/17 21:22 01/02/17 18:42 Zofran Inj IVP 4 mg Q6 PRN Administration Nausea/Vomiting Pantoprazole Sodium 40 mg 01/02/17 10:00 01/03/17 10:32 Protonix Inj IVP 40 mg DAILY [facility] Administration Pneumococcal Polyvalent Vaccine 0.5 ml 01/04/17 10:00 Pneumovax 23 Vaccine IM 01/04/17 10:01 .ONCE ONE Potassium Chloride 20 meq 01/03/17 10:00 01/03/17 10:32 K-Dur 20 Meq Er Tab PO 20 meq DAILY [facility] Administration Rosuvastatin Calcium 20 mg 01/03/17 22:00 Crestor PO HS [facility] Sodium Chloride 250 ml 01/03/17 21:12 Hypertonic Saline 3% IV 01/03/17 21:13 ONCE ONE - Patient Studies Lab Studies: Lab Studies 01/03/17 01/03/17 01/03/17 Range/Units 16:40 11:44 07:27 WBC (4.8-10.8) K/uL RBC (3.80-5.20) Mil/uL Hgb (11.0-16.0) g/dL Hct (34.0-47.0) % MCV (81.0-99.0) fL MCH (27.0-31.0) pg MCHC (33.0-37.0) g/dL RDW (11.5-14.5) % Plt Count (130-400) K/uL MPV (7.2-11.7) fL Neut % (Auto) (50.0-75.0) % Lymph % (Auto) (20.0-40.0) % [place] % (Auto) (0.0-10.0) % Eos % (Auto) (0.0-4.0) % Baso % (Auto) (0.0-2.0) % Neut # (1.8-7.0) K/uL Lymph # (1.0-4.3) K/uL [place] # (0.0-0.8) K/uL Eos # (0.0-0.7) K/uL Baso # (0.0-0.2) K/uL Sodium (132-148) mmol/L Potassium (3.6-5.2) mmol/L Chloride (98-107) mmol/L Carbon Dioxide (22-30) mmol/L Anion Gap (10-20) BUN (7-17) mg/dL Creatinine (0.7-1.2) MG/DL Est GFR ( Amer) Est GFR (Non-Af Amer) POC Glucose (mg/dL) 164 H 181 H 140 H (65-110) mg/dL Random Glucose (65-105) mg/dL Calcium (8.6-10.4) mg/dl Phosphorus (2.5-4.5) mg/dL Magnesium (1.6-2.3) mg/dL Total Bilirubin (0.2-1.3) mg/dL AST (14-36) U/L ALT (9-52) U/L Alkaline Phosphatase (38-126) U/L Total Protein (6.3-8.3) g/dL Albumin (3.5-5.0) g/dL Globulin (2.2-3.9) gm/dL Albumin/Globulin Ratio (1.0-2.1) 01/03/17 01/03/17 01/02/17 Range/Units 06:16 06:16 21:30 WBC 9.9 (4.8-10.8) K/uL RBC 4.36 (3.80-5.20) Mil/uL Hgb 13.1 (11.0-16.0) g/dL Hct 38.8 (34.0-47.0) % MCV 89.0 (81.0-99.0) fL MCH 30.0 (27.0-31.0) pg MCHC 33.7 (33.0-37.0) g/dL RDW 14.5 (11.5-14.5) % Plt Count 125 L (130-400) K/uL MPV 10.8 (7.2-11.7) fL Neut % (Auto) 70.4 (50.0-75.0) % Lymph % (Auto) 22.5 (20.0-40.0) % [place] % (Auto) 6.4 (0.0-10.0) % Eos % (Auto) 0.2 (0.0-4.0) % Baso % (Auto) 0.5 (0.0-2.0) % Neut # 6.9 (1.8-7.0) K/uL Lymph # 2.2 (1.0-4.3) K/uL [place] # 0.6 (0.0-0.8) K/uL Eos # 0.0 (0.0-0.7) K/uL Baso # 0.1 (0.0-0.2) K/uL Sodium 139 (132-148) mmol/L Potassium 3.6 (3.6-5.2) mmol/L Chloride 98 (98-107) mmol/L Carbon Dioxide 27 (22-30) mmol/L Anion Gap 19 (10-20) BUN 14 (7-17) mg/dL Creatinine 0.7 (0.7-1.2) MG/DL Est GFR ( Amer) > 60 Est GFR (Non-Af Amer) > 60 POC Glucose (mg/dL) 166 H (65-110) mg/dL Random Glucose 123 H (65-105) mg/dL Calcium 9.4 (8.6-10.4) mg/dl Phosphorus 3.6 (2.5-4.5) mg/dL Magnesium 2.3 (1.6-2.3) mg/dL Total Bilirubin 1.0 (0.2-1.3) mg/dL AST 34 (14-36) U/L ALT 34 (9-52) U/L Alkaline Phosphatase 47 (38-126) U/L Total Protein 7.3 (6.3-8.3) g/dL Albumin 4.2 (3.5-5.0) g/dL Globulin 3.2 (2.2-3.9) gm/dL Albumin/Globulin Ratio 1.3 (1.0-2.1) Laboratory Results - last 24 hr 01/02/17 01/03/17 01/03/17 21:30 06:16 06:16 WBC 9.9 RBC 4.36 Hgb 13.1 Hct 38.8 MCV 89.0 MCH 30.0 MCHC 33.7 RDW 14.5 Plt Count 125 L MPV 10.8 Neut % (Auto) 70.4 Lymph % (Auto) 22.5 [place] % (Auto) 6.4 Eos % (Auto) 0.2 Baso % (Auto) 0.5 Neut # 6.9 Lymph # 2.2 [place] # 0.6 Eos # 0.0 Baso # 0.1 Sodium 139 Potassium 3.6 Chloride 98 Carbon Dioxide 27 Anion Gap 19 BUN 14 Creatinine 0.7 Est GFR ( Amer) > 60 Est GFR (Non-Af Amer) > 60 POC Glucose (mg/dL) 166 H Random Glucose 123 H Calcium 9.4 Phosphorus 3.6 Magnesium 2.3 Total Bilirubin 1.0 AST 34 ALT 34 Alkaline Phosphatase 47 Total Protein 7.3 Albumin 4.2 Globulin 3.2 Albumin/Globulin Ratio 1.3 01/03/17 01/03/17 01/03/17 07:27 11:44 16:40 WBC RBC Hgb Hct MCV MCH MCHC RDW Plt Count MPV Neut % (Auto) Lymph % (Auto) [place] % (Auto) Eos % (Auto) Baso % (Auto) Neut # Lymph # [place] # Eos # Baso # Sodium Potassium Chloride Carbon Dioxide Anion Gap BUN Creatinine Est GFR ( Amer) Est GFR (Non-Af Amer) POC Glucose (mg/dL) 140 H 181 H 164 H Random Glucose Calcium Phosphorus Magnesium Total Bilirubin AST ALT Alkaline Phosphatase Total Protein Albumin Globulin Albumin/Globulin Ratio Fingerstick Blood Sugar Results: 166 Critical Care Progress Note - Nutrition Nutrition: Nutrition Category Date Time Status Consistent Carbohydrate [DIET] Diets 01/03/17 Lunch Active
[2017-01-03 21:35] LABS: HEMATOCRIT 42.2 % (34.0-47.0); MEAN CELL VOLUME 88.7 fL (81.0-99.0); MEAN CORPUSCULAR HGB CONC 32.7 g/dL (33.0-37.0); MEAN PLATELET VOLUME 10.4 fL (7.2-11.7); RED CELL DISTRIBUTION WIDTH 14.6 % (11.5-14.5); WHITE BLOOD COUNT 11.9 K/uL (4.8-10.8)
[2017-01-03 21:47] LABS: INR 1.2
[2017-01-03] MEDS ORDERED: Sodium Chloride 3% 250 ML IV ONE (22:00)
[2017-01-03] MEDS ORDERED: Thrombin Topical 5,000 IU Spray Kit ONE (22:25)
[2017-01-03] MEDS ORDERED: Lidocaine 2% w Epi 1:100,000 Inj IJ ONE (22:26)
[2017-01-03] MEDS ORDERED: Sodium Chloride 0.9% 0 ML IV ONE (22:26)
[2017-01-03] MEDS ORDERED: Bacitracin Ointment 30 GM TUBE ONE (22:26)
[2017-01-03] MEDS ORDERED: Absorbable Gelatin Sponge Size 100 ONE (22:27)
[2017-01-03] MEDS ORDERED: Propofol 10 mg/ml 1,000 MG/100 ML VIAL ONE (22:40)
[2017-01-03] MEDS ORDERED: Remifentanil 1 mg/3 ml Vial IV ONE (22:41)
[2017-01-03] MEDS ORDERED: Propofol 10 mg/ml Inj (20 ML) ONE (22:45)
[2017-01-03] MEDS ORDERED: Bacitracin 50,000 UNIT in Sodium Chloride 0.9% Irrig 1,000 ML IR SCH (22:51)
[2017-01-03] MEDS ORDERED: cefTRIAXone IV 1 gm in Dextros 50 ML IVPB ONE (23:13)
[2017-01-03 23:43] LABS: CHOLESTEROL 193 mg/dL (0-199)
[2017-01-04] MEDS ORDERED: Propofol 10 mg/ml 1,000 MG/100 ML VIAL IV PRN (01:16)
--- NOTE | 2017-01-04 01:16 | CP.PCM.CON ---
History of Present Illness - History of Present Illness History of Present Illness: Mrs. Hough is a 71-year-old woman with atrial fibrillation and RVR who was started on Lovenox. She initially presented for nausea, vomiting and dizziness. She progressed with worsening mental status and obtundation with a repeat CT scan showing a large cerebellar stroke with herniation and hydrocephalus. She was given 3% hypertonic saline and taken to the OR for decompressive surgery. The patient is now back from surgery with ventriculostomy and is intubated and sedated. Family is by bedside along with neurosurgery who discussed the events of the surgery. She is currently hemodynamically stable and will remain intubated and sedated overnight. Review of Systems - Review of Systems All systems: reviewed and no additional remarkable complaints except Past Patient History - Infectious Disease Hx of Infectious Diseases: None - Past Medical History & Family History Past Medical History?: Yes - Past Social History Smoking Status: Never Smoked - CARDIAC Hx Cardiac Disorders: Yes Hx Hypertension: Yes - PULMONARY Hx Respiratory Disorders: No - NEUROLOGICAL Hx Neurological Disorder: No - HEENT Hx HEENT Problems: Yes Hx Cataracts: Yes (cataract sx 5 years ago) - RENAL Hx Chronic Kidney Disease: No - ENDOCRINE/METABOLIC Hx Endocrine Disorders: Yes Hx Diabetes Mellitus Type 2: Yes - HEMATOLOGICAL/ONCOLOGICAL Hx Blood Disorders: No - INTEGUMENTARY Hx Dermatological Problems: No - MUSCULOSKELETAL/RHEUMATOLOGICAL Hx Falls: No - GASTROINTESTINAL Hx Gastrointestinal Disorders: Yes Hx Vomiting: Yes - GENITOURINARY/GYNECOLOGICAL Hx Genitourinary Disorders: No - PSYCHIATRIC Hx Substance Use: No - SURGICAL HISTORY Hx Surgeries: Yes Hx Cataract Extraction: Yes (5 years ago) - ANESTHESIA Hx Anesthesia: No Hx Anesthesia Reactions: No Hx Malignant Hyperthermia: No Has any member of the family had a problem w/ anesthesia?: No Meds Allergies/Adverse Reactions: Allergies Allergy/AdvReac Type Severity Reaction Status Date / Time SEAFOOD Allergy Uncoded 01/01/17 16:53 - Medications Medications: Current Medications Acetaminophen (Tylenol 325mg Tab) 650 mg PO Q6 PRN PRN Reason: Pain, Mild (1-3) Last Admin: 01/03/17 18:04 Dose: 650 mg Enoxaparin Sodium (Lovenox) 60 mg SC Q12 [facility] Last Admin: 01/03/17 22:42 Dose: Not Given Furosemide (Lasix) 20 mg IVP DAILY [facility] Last Admin: 01/03/17 10:32 Dose: 20 mg Diltiazem HCl 125 mg/ Sodium (Chloride) 125 mls @ 2.5 mls/hr IV .Q24H MIRELLA; 2.5 MG/HR PRN Reason: Protocol Last Admin: 01/03/17 10:27 Dose: Not Given Sodium Chloride (Hypertonic Saline 3%) 250 mls @ 50 mls/hr IV ONCE ONE Stop: 01/04/17 02:59 Last Admin: 01/03/17 22:15 Dose: 50 mls/hr Insulin Human Regular (Novolin R) 0 unit SC ACHS MIRELLA PRN Reason: Protocol Last Admin: 01/03/17 23:04 Dose: Not Given Lisinopril (Zestril) 10 mg PO DAILY [facility] Last Admin: 01/03/17 10:32 Dose: 10 mg Metoprolol Tartrate (Lopressor) 100 mg PO BID [facility] Last Admin: 01/03/17 18:03 Dose: 100 mg Ondansetron HCl (Zofran Inj) 4 mg IVP Q6 PRN PRN Reason: Nausea/Vomiting Last Admin: 01/02/17 18:42 Dose: 4 mg Pantoprazole Sodium (Protonix Inj) 40 mg IVP DAILY [facility] Last Admin: 01/03/17 10:32 Dose: 40 mg Pneumococcal Polyvalent Vaccine (Pneumovax 23 Vaccine) 0.5 ml IM .ONCE ONE Stop: 01/04/17 10:01 Potassium Chloride (K-Dur 20 Meq Er Tab) 20 meq PO DAILY [facility] Last Admin: 01/03/17 10:32 Dose: 20 meq Rosuvastatin Calcium (Crestor) 20 mg PO HS [facility] Last Admin: 01/03/17 22:53 Dose: Not Given Physical Exam - Constitutional Additional comments: Intubated/Sedated - Neurological Exam Additional comments: Intubated, sedated, pupils are sluggishly responsive bilaterally. No response to pain (but still sedated). Results - Vital Signs Recent Vital Signs: Last Vital Signs Temp 99.2 F 01/03/17 16:00 Pulse 85 01/03/17 22:44 Resp 17 01/03/17 22:44 BP 163/73 H 01/03/17 22:44 Pulse Ox 93 L 01/03/17 22:44 - Labs Result Diagrams: 01/03/17 21:30 01/03/17 06:16 Labs: Laboratory Results - last 24 hr 01/03/17 01/03/17 01/03/17 06:16 06:16 07:27 WBC 9.9 RBC 4.36 Hgb 13.1 Hct 38.8 MCV 89.0 MCH 30.0 MCHC 33.7 RDW 14.5 Plt Count 125 L MPV 10.8 Neut % (Auto) 70.4 Lymph % (Auto) 22.5 [place] % (Auto) 6.4 Eos % (Auto) 0.2 Baso % (Auto) 0.5 Neut # 6.9 Lymph # 2.2 [place] # 0.6 Eos # 0.0 Baso # 0.1 PT INR APTT Sodium 139 Potassium 3.6 Chloride 98 Carbon Dioxide 27 Anion Gap 19 BUN 14 Creatinine 0.7 Est GFR ( Amer) > 60 Est GFR (Non-Af Amer) > 60 POC Glucose (mg/dL) 140 H Random Glucose 123 H Calcium 9.4 Phosphorus 3.6 Magnesium 2.3 Total Bilirubin 1.0 AST 34 ALT 34 Alkaline Phosphatase 47 Total Protein 7.3 Albumin 4.2 Globulin 3.2 Albumin/Globulin Ratio 1.3 Triglycerides Cholesterol LDL Cholesterol Direct HDL Cholesterol Blood Type Antibody Screen 01/03/17 01/03/17 01/03/17 11:44 16:40 21:30 WBC 11.9 H RBC 4.75 Hgb 13.8 Hct 42.2 MCV 88.7 MCH 29.0 MCHC 32.7 L RDW 14.6 H Plt Count 146 MPV 10.4 Neut % (Auto) Lymph % (Auto) [place] % (Auto) Eos % (Auto) Baso % (Auto) Neut # Lymph # [place] # Eos # Baso # PT INR APTT Sodium Potassium Chloride Carbon Dioxide Anion Gap BUN Creatinine Est GFR ( Amer) Est GFR (Non-Af Amer) POC Glucose (mg/dL) 181 H 164 H Random Glucose Calcium Phosphorus Magnesium Total Bilirubin AST ALT Alkaline Phosphatase Total Protein Albumin Globulin Albumin/Globulin Ratio Triglycerides Cholesterol LDL Cholesterol Direct HDL Cholesterol Blood Type Antibody Screen 01/03/17 01/03/17 01/03/17 21:30 21:30 21:31 WBC RBC Hgb Hct MCV MCH MCHC RDW Plt Count MPV Neut % (Auto) Lymph % (Auto) [place] % (Auto) Eos % (Auto) Baso % (Auto) Neut # Lymph # [place] # Eos # Baso # PT 13.7 H INR 1.2 APTT 31 Sodium Potassium Chloride Carbon Dioxide Anion Gap BUN Creatinine Est GFR ( Amer) Est GFR (Non-Af Amer) POC Glucose (mg/dL) 180 H Random Glucose Calcium Phosphorus Magnesium Total Bilirubin AST ALT Alkaline Phosphatase Total Protein Albumin Globulin Albumin/Globulin Ratio Triglycerides Cholesterol LDL Cholesterol Direct HDL Cholesterol Blood Type A POSITIVE Antibody Screen Negative 01/03/17 01/03/17 22:56 23:29 WBC RBC Hgb Hct MCV MCH MCHC RDW Plt Count MPV Neut % (Auto) Lymph % (Auto) [place] % (Auto) Eos % (Auto) Baso % (Auto) Neut # Lymph # [place] # Eos # Baso # PT INR APTT Sodium Potassium Chloride Carbon Dioxide Anion Gap BUN Creatinine Est GFR ( Amer) Est GFR (Non-Af Amer) POC Glucose (mg/dL) 167 H Random Glucose Calcium Phosphorus Magnesium Total Bilirubin AST ALT Alkaline Phosphatase Total Protein Albumin Globulin Albumin/Globulin Ratio Triglycerides 100 Cholesterol 193 LDL Cholesterol Direct 148 H HDL Cholesterol 39 Blood Type Antibody Screen Assessment & Plan (1) Cerebellar stroke Assessment and Plan: The patient is status post neurosurgical decompression. Will continue 3% hypertonic saline at 50 ml/hr and monitor neurologic exam Q1 hours. Keep head elevated above 30 degrees, continue vent support, will keep propofol for sedation and to avoid raised ICP. Check serum sodium and osmolarity Q6 hours with goal sodium 145-150 and serum osmolarity goal < 320. Will defer to neurosurgery for when to resume anticoagulation. Continue rate control for atrial fibrillation. Thank you. Status: Acute Priority: High
[2017-01-04 05:04] LABS: ABG MECHANICAL RATE 12; ARTERIAL BLOOD GAS MODE PRVC; ARTERIAL BLOOD HGB O2 SAT 97.6 % (95.0-98.0); ATERIAL BLOOD GAS PEEP 5; CARBOXYHEMOGLOBIN 1.4 % (0.5-1.5); DRAW SITE ALINE; HHB 0.1 % (0.0-5.0); METHEMOGLOBIN 0.9 % (0.0-3.0)
[2017-01-04 06:57] LABS: BASO % 0.2 % (0.0-2.0); EOS % 0.1 % (0.0-4.0); HEMATOCRIT 39.7 % (34.0-47.0); LYMPH # 1.9 K/uL (1.0-4.3); LYMPH % 17.2 % (20.0-40.0); MEAN CELL VOLUME 89.3 fL (81.0-99.0); MEAN CORPUSCULAR HEMOGLOBIN 28.8 pg (27.0-31.0); MEAN CORPUSCULAR HGB CONC 32.2 g/dL (33.0-37.0); MONO # 0.7 K/uL (0.0-0.8); NRBC % 0.1 % (0.0-2.0); RED CELL DISTRIBUTION WIDTH 14.7 % (11.5-14.5); WHITE BLOOD COUNT 11.3 K/uL (4.8-10.8)
[2017-01-04 07:21] LABS: ALB/GLOB RATIO 1.2 (1.0-2.1); ALKALINE PHOSPHATASE 46 U/L (38-126); ALT/SGPT 35 U/L (9-52); AST/SGOT 40 U/L (14-36); BILIRUBIN,TOTAL 0.7 mg/dL (0.2-1.3); BLOOD UREA NITROGEN 14 mg/dL (7-17); CALCIUM 9.2 mg/dl (8.6-10.4); CARBON DIOXIDE 24 mmol/L (22-30); CHLORIDE 103 mmol/L (98-107); GFR AFRICAN-AMERICAN > 60; GLUCOSE,RANDOM 138 mg/dL (65-105); PHOSPHOROUS 2.8 mg/dL (2.5-4.5); POTASSIUM 2.8 mmol/L (3.6-5.2); SODIUM 142 mmol/L (132-148); TOTAL PROTEIN 6.9 g/dL (6.3-8.3)
[2017-01-04] MEDS ORDERED: Labetalol 25mg/5ml Syringe IVP STA ×2 (07:37→07:41)
[2017-01-04] MEDS ORDERED: Potassium Chloride 20 mEq/15 ml LIQ UD PO ONE (08:00)
[2017-01-04] MEDS: Sodium Chloride 3% 500 ML IV SCH ×2 (08:15→17:35)
[2017-01-04] MEDS: (Novolin R) Insulin Human Regular 100 units/ml vial SC SCH ×3 (09:00→18:03)
--- NOTE | 2017-01-04 09:39 | RAD ---
HISTORY: Post TLC COMPARISON: Chest x-ray performed 01/01/17 and 01/04/17 at 407 hour TECHNIQUE: Chest, one view. FINDINGS: Endotracheal tube terminates at the level the rhiannon and should be withdrawn approximately 3 cm. Interval addition of left IJ approach central venous catheter, likely terminating just proximal to the SVC. LUNGS: Mild left basilar atelectasis. Please note that chest x-ray has limited sensitivity for the detection of pulmonary masses. PLEURA: No significant pleural effusion identified. No definite pneumothorax . CARDIOVASCULAR: Mild cardiomegaly. Atherosclerotic calcifications of the aortic knob. OSSEOUS STRUCTURES: Degenerative changes. VISUALIZED UPPER ABDOMEN: Unremarkable. OTHER FINDINGS: Partially imaged surgical jaxson, left soft tissues of the neck. IMPRESSION: Endotracheal tube terminates at the level the rhiannon and should be withdrawn approximately 3 cm. Interval addition of left IJ approach central venous catheter, likely terminating just proximal to the SVC. Findings discussed with Dr. Ch on 01/04/17 at 9:35 a.m.
[2017-01-04] MEDS: niCARdipine IV 25 MG in Sodium Chloride 0.9% 240 ML IV SCH ×3 (09:40→22:35)
--- NOTE | 2017-01-04 09:41 | RAD ---
HISTORY: intubated COMPARISON: Chest x-ray performed 01/01/17 TECHNIQUE: Chest, one view. FINDINGS: Feel tube terminates at the level the rhiannon and should be withdrawn approximately 3 cm. LUNGS: No focal consolidation. Please note that chest x-ray has limited sensitivity for the detection of pulmonary masses. PLEURA: No significant pleural effusion identified. No definite pneumothorax . CARDIOVASCULAR: Mild cardiomegaly. Atherosclerotic calcifications of the aortic knob. OSSEOUS STRUCTURES: Degenerative changes. VISUALIZED UPPER ABDOMEN: Unremarkable. OTHER FINDINGS: None. IMPRESSION: Endotracheal tube terminates at the level of the rhiannon and should be withdrawn approximately 3 cm. Findings discussed with Dr. Ch on 01/04/17 at 9:35 a.m.
[2017-01-04] MEDS ORDERED: Pneumococcal 23-Valent Vaccine IM ONE (10:00)
[2017-01-04] MEDS: Enoxaparin 60 mg Syringe SC SCH (10:04)
[2017-01-04] MEDS: Potassium Chloride 20 mEq ER Tab PO SCH (10:11)
--- NOTE | 2017-01-04 11:30 | CT ---
PROCEDURE: CT scan of the brain dated 01/04/2017 COMPARISON: Comparison made with CT scan brain 01/03/2017 and 01/01/2017 respectively TECHNIQUE: Contiguous helical/ transaxial computed tomography images were obtained through the head/brain without intravenous contrast. Radiation dose: Total exam DLP = 1156.05 mGy-cm. This CT exam was performed using one or more of the following dose reduction techniques: Automated exposure control, adjustment of the mA and/or kV according to patient size, and/or use of iterative reconstruction technique. . FINDINGS: The current study reveals interval small left the suboccipital craniectomy with small amount of extra-axial air, presumed packing material and small amount of subcutaneous hemorrhage. There has also been placement of a ventriculostomy tube which enters a right posterior occipitoparietal camilla hole, traverses the right occipitoparietal watershed zone entering the posterior aspect of the right atrium and exiting the anterior aspect of the atrium. The ventriculostomy tube also traverses the right basal ganglia and 3rd ventricle terminating just above the sella turcica. Appears hemorrhage is seen along peripheral margins as well as within the right core the atrium, right temporal horn and right anterior body right lateral ventricle. There is a large area of low attenuation within the right as well as to a slightly lesser degree of left cerebellar hemispheres likely representing large infarct based on the progression of edema seen on 01/01 and 01/[address]. . Changes result in significant compression of the 4th ventricle. The ventricles have diminished in size slightly due to the placement of ventriculostomy tube however there is diffuse cerebral as well as edema involving the brainstem and suspected cerebellar tonsillar herniation. . Low-attenuation changes seen within the periventricular and deep white matter may in part be due to some component transependymal edema as well as the concomitant chronic periventricular white matter ischemic changes. Impression: Presumed large bilateral cerebellar infarct changes with persistent compression of the 4th ventricle. . There has been interval left suboccipital craniectomy with postoperative changes within along the operative site. Interval placement of ventriculostomy tube with hemorrhage along the right atrium, right temporal horn and anterior aspect right lateral ventricle. Ventricles have diminished in size slightly however there is mild diffuse cerebral edema. . There also appear to be edematous changes within the brainstem as well associate with effacement of the basilar cisterns. Suspected herniation of the cerebellar tonsils. . Dr Ch informed of findings at approximately 11:20 a.m. with written down and read back verification.
--- NOTE | 2017-01-04 12:57 | CP.PCM.PN ---
Subjective - Date & Time of Evaluation Date of Evaluation: 01/04/17 Time of Evaluation: 12:55 - Subjective Subjective: s/p emergency craniotomy for acute cerebellar CVA with hydrocephalus afib on lovenox intubated, sedated ventriculostomy tube in place ICP 15 MAP 120 CPP 105 Objective - Vital Signs/Intake and Output Vital Signs (last 24 hours): Temp Pulse Resp BP Pulse Ox 97.9 F 71 13 160/82 H 100 01/04/17 08:00 01/04/17 11:00 01/04/17 11:00 01/04/17 10:06 01/04/17 10:00 Intake and Output: 01/04/17 01/04/17 06:59 18:59 Intake Total 1472 355 Output Total 1280 500 Balance 192 -145 - Medications Medications: Current Medications Acetaminophen (Tylenol 325mg Tab) 650 mg PO Q6 PRN PRN Reason: Pain, Mild (1-3) Last Admin: 01/03/17 18:04 Dose: 650 mg Enoxaparin Sodium (Lovenox) 60 mg SC Q12 MIRELLA Last Admin: 01/04/17 10:04 Dose: Not Given Furosemide (Lasix) 20 mg IVP DAILY [facility] Last Admin: 01/04/17 10:06 Dose: 20 mg Propofol (Diprivan) 1,000 mg in 100 mls @ 2.381 mls/hr IV .Q24H PRN; Protocol; 5 MCG/KG/MIN PRN Reason: TITRATE PER MD ORDER Last Titration: 01/04/17 07:10 Dose: 0 mcg/kg/min, 0 mls/hr Sodium Chloride (Hypertonic Saline 3%) 500 mls @ 50 mls/hr IV .Q10H MIRELLA Last Admin: 01/04/17 08:15 Dose: 50 mls/hr Nicardipine HCl 25 mg/ Sodium (Chloride) 250 mls @ 50 mls/hr IV .Q5H MIRELLA; 5 MG/ HR PRN Reason: Protocol Last Titration: 01/04/17 10:23 Dose: 5 mg/hr, 50 mls/hr Potassium Chloride (Potassium Chloride 20 Meq/100 Ml) 20 meq in 100 mls @ 50 mls/hr IVPB Q2 MIRELLA Stop: 01/04/17 15:59 Last Admin: 01/04/17 11:24 Dose: 50 mls/hr Diltiazem HCl 125 mg/ Sodium (Chloride) 125 mls @ 5 mls/hr IV .Q24H MIRELLA; 5 MG/ HR PRN Reason: Protocol Insulin Human Regular (Novolin R) 0 unit SC ACHS MIRELLA PRN Reason: Protocol Last Admin: 01/04/17 09:00 Dose: Not Given Lisinopril (Zestril) 10 mg PO DAILY [facility] Last Admin: 01/04/17 10:09 Dose: Not Given Metoprolol Tartrate (Lopressor) 100 mg PO BID [facility] Last Admin: 01/04/17 10:08 Dose: Not Given Ondansetron HCl (Zofran Inj) 4 mg IVP Q6 PRN PRN Reason: Nausea/Vomiting Last Admin: 01/02/17 18:42 Dose: 4 mg Pantoprazole Sodium (Protonix Inj) 40 mg IVP DAILY [facility] Last Admin: 01/04/17 09:59 Dose: 40 mg Potassium Chloride (K-Dur 20 Meq Er Tab) 20 meq PO DAILY [facility] Last Admin: 01/04/17 10:11 Dose: Not Given Rosuvastatin Calcium (Crestor) 20 mg PO HS [facility] Last Admin: 01/03/17 22:53 Dose: Not Given - Labs Labs: 01/04/17 06:47 01/04/17 06:47 PT 13.7 SECONDS (9.7-12.2) H 01/03/17 21:30 INR 1.2 01/03/17 21:30 APTT 31 SECONDS (21-34) 01/03/17 21:30 - Constitutional Appears: Toxic - Head Exam Head Exam: ATRAUMATIC, NORMAL INSPECTION, NORMOCEPHALIC - Eye Exam Eye Exam: Normal appearance, PERRL Pupil Exam: Unequal - ENT Exam ENT Exam: Mucous Membranes Moist, Normal Exam - Neck Exam Neck Exam: Full ROM, Normal Inspection. absent: Lymphadenopathy - Respiratory Exam Respiratory Exam: Clear to Ausculation Bilateral, NORMAL BREATHING PATTERN - Cardiovascular Exam Cardiovascular Exam: Irregular Rhythm, +S1, +S2, Murmur - GI/Abdominal Exam GI & Abdominal Exam: Soft, Normal Bowel Sounds. absent: Tenderness - Extremities Exam Extremities Exam: Full ROM, Normal Capillary Refill, Normal Inspection. absent : Joint Swelling, Pedal Edema - Back Exam Back Exam: NORMAL INSPECTION - Neurological Exam Neurological Exam: Altered - Psychiatric Exam Psychiatric exam: Normal Affect, Normal Mood - Skin Skin Exam: Dry, Intact, Normal Color, Warm Assessment and Plan (1) Cerebellar stroke Assessment & Plan: initial cerebellar cva ICP 15 Status: Acute (2) New onset atrial fibrillation Assessment & Plan: afib w/RVR use IV cardizem to maintain HR and CPP at 80 Status: Acute (3) CHF (congestive heart failure) Assessment & Plan: new onset RAAS on hold for now Status: Acute (4) Mitral regurgitation Status: Acute (5) Tricuspid regurgitation Status: Acute
--- NOTE | 2017-01-04 13:22 | CP.PCM.PN ---
Subjective - Date & Time of Evaluation Date of Evaluation: 01/04/17 Time of Evaluation: 13:15 - Subjective Subjective: Mrs. Hough was seen and examined today at bedside. She is intubated and off sedation. She does not open eyes sponatneously, but when eyes are forced open, she does seem to follow and track. No movement noted in the extremities. Objective - Vital Signs/Intake and Output Vital Signs (last 24 hours): Temp Pulse Resp BP Pulse Ox 97.9 F 71 13 160/82 H 100 01/04/17 08:00 01/04/17 11:00 01/04/17 11:00 01/04/17 10:06 01/04/17 10:00 Intake and Output: 01/04/17 01/04/17 06:59 18:59 Intake Total 1472 355 Output Total 1280 500 Balance 192 -145 - Medications Medications: Current Medications Acetaminophen (Tylenol 325mg Tab) 650 mg PO Q6 PRN PRN Reason: Pain, Mild (1-3) Last Admin: 01/03/17 18:04 Dose: 650 mg Enoxaparin Sodium (Lovenox) 60 mg SC Q12 MIRELLA Last Admin: 01/04/17 10:04 Dose: Not Given Furosemide (Lasix) 20 mg IVP DAILY [facility] Last Admin: 01/04/17 10:06 Dose: 20 mg Propofol (Diprivan) 1,000 mg in 100 mls @ 2.381 mls/hr IV .Q24H PRN; Protocol; 5 MCG/KG/MIN PRN Reason: TITRATE PER MD ORDER Last Titration: 01/04/17 07:10 Dose: 0 mcg/kg/min, 0 mls/hr Sodium Chloride (Hypertonic Saline 3%) 500 mls @ 50 mls/hr IV .Q10H [facility]RELLA Last Admin: 01/04/17 08:15 Dose: 50 mls/hr Nicardipine HCl 25 mg/ Sodium (Chloride) 250 mls @ 50 mls/hr IV .Q5H MIRELLA; 5 MG/ HR PRN Reason: Protocol Last Titration: 01/04/17 10:23 Dose: 5 mg/hr, 50 mls/hr Potassium Chloride (Potassium Chloride 20 Meq/100 Ml) 20 meq in 100 mls @ 50 mls/hr IVPB Q2 MIRELLA Stop: 01/04/17 15:59 Last Admin: 01/04/17 11:24 Dose: 50 mls/hr Diltiazem HCl 125 mg/ Sodium (Chloride) 125 mls @ 5 mls/hr IV .Q24H MIRELLA; 5 MG/ HR PRN Reason: Protocol Insulin Human Regular (Novolin R) 0 unit SC ACHS MIRELLA PRN Reason: Protocol Last Admin: 01/04/17 09:00 Dose: Not Given Lisinopril (Zestril) 10 mg PO DAILY [facility] Last Admin: 01/04/17 10:09 Dose: Not Given Metoprolol Tartrate (Lopressor) 100 mg PO BID [facility] Last Admin: 01/04/17 10:08 Dose: Not Given Ondansetron HCl (Zofran Inj) 4 mg IVP Q6 PRN PRN Reason: Nausea/Vomiting Last Admin: 01/02/17 18:42 Dose: 4 mg Pantoprazole Sodium (Protonix Inj) 40 mg IVP DAILY [facility] Last Admin: 01/04/17 09:59 Dose: 40 mg Potassium Chloride (K-Dur 20 Meq Er Tab) 20 meq PO DAILY [facility] Last Admin: 01/04/17 10:11 Dose: Not Given Rosuvastatin Calcium (Crestor) 20 mg PO HS [facility] Last Admin: 01/03/17 22:53 Dose: Not Given - Labs Labs: 01/04/17 06:47 01/04/17 06:47 PT 13.7 SECONDS (9.7-12.2) H 01/03/17 21:30 INR 1.2 01/03/17 21:30 APTT 31 SECONDS (21-34) 01/03/17 21:30 - Neurological Exam Additional comments: Intubated. Off sedation, no spontaneous movements. When eyes are forced open, she does track and follows fingers. Pupils are reactive bilaterally to light. Assessment and Plan (1) Cerebellar stroke Assessment & Plan: Continue hypertonic saline and increase to 60 mL/hr through the central line to maintain serum sodium between 145-150 and serum osm below 320. Check serum sodium and osmolarity Q6 hrs. Keep head of bed elevated. Maintain CPP between 60-80 to maintain perfusion and avoid worsening edema. Avoid hypertension or hypotension. Avoid fever, hyperglycemia or flat head position. Do not use dextrose containing solutions. Status: Acute
--- NOTE | 2017-01-04 16:07 | CP.PCM.PN ---
Subjective - Date & Time of Evaluation Date of Evaluation: 01/04/17 Time of Evaluation: 16:00 - Subjective Subjective: Patient was seen and examined. Patient is currently intubated, not on any sedation. Patient is not moving even with noxious stimuli, no pupillary movement with light. The right pupil appears dilated, non resposnive to light. Talking to staff it appears neurological condition has worsened since this morning. Family members are present at bedside including one of the patient's son. I had a very long conversation with them and explained to them atrial fibrillation as well as the risk it placed the patient for a CVA event and that unfourantely the patient had to have an emergency decompression suboccipital craniotomy and placement of a ventriculosotmy after CT scan revealed that the patient had a large cerebellar stroke with herniation and findings for hydrocephalus. After surgery the patient was also placed on hypertonic saline as well. As of now the prognosis appears very poor. I sat down and explained this to the family members present. According to family they did not know she had atrial fibrillation. Objective - Vital Signs/Intake and Output Vital Signs (last 24 hours): Temp Pulse Resp BP Pulse Ox 97.8 F 108 H 12 123/59 L 100 01/04/17 12:00 01/04/17 15:00 01/04/17 15:00 01/04/17 14:45 01/04/17 15:00 Intake and Output: 01/04/17 01/04/17 06:59 18:59 Intake Total 1472 840 Output Total 1280 1059 Balance 192 -219 - Medications Medications: Current Medications Acetaminophen (Tylenol 325mg Tab) 650 mg PO Q6 PRN PRN Reason: Pain, Mild (1-3) Last Admin: 01/03/17 18:04 Dose: 650 mg Furosemide (Lasix) 20 mg IVP DAILY [facility] Last Admin: 01/04/17 10:06 Dose: 20 mg Propofol (Diprivan) 1,000 mg in 100 mls @ 2.381 mls/hr IV .Q24H PRN; Protocol; 5 MCG/KG/MIN PRN Reason: TITRATE PER MD ORDER Last Titration: 01/04/17 07:10 Dose: 0 mcg/kg/min, 0 mls/hr Sodium Chloride (Hypertonic Saline 3%) 500 mls @ 50 mls/hr IV .Q10H MIRELLA Last Admin: 01/04/17 08:15 Dose: 50 mls/hr Nicardipine HCl 25 mg/ Sodium (Chloride) 250 mls @ 50 mls/hr IV .Q5H MIRELLA; 5 MG/ HR PRN Reason: Protocol Last Admin: 01/04/17 14:00 Dose: 5 mg/hr, 50 mls/hr Diltiazem HCl 125 mg/ Sodium (Chloride) 125 mls @ 5 mls/hr IV .Q24H MIRELLA; 5 MG/ HR PRN Reason: Protocol Last Admin: 01/04/17 13:00 Dose: 5 mg/hr, 5 mls/hr Insulin Human Regular (Novolin R) 0 unit SC Q6 MIRELLA PRN Reason: Protocol Lisinopril (Zestril) 10 mg PO DAILY [facility] Last Admin: 01/04/17 10:09 Dose: Not Given Metoprolol Tartrate (Lopressor) 100 mg PO BID [facility] Last Admin: 01/04/17 10:08 Dose: Not Given Ondansetron HCl (Zofran Inj) 4 mg IVP Q6 PRN PRN Reason: Nausea/Vomiting Last Admin: 01/02/17 18:42 Dose: 4 mg Pantoprazole Sodium (Protonix Inj) 40 mg IVP DAILY [facility] Last Admin: 01/04/17 09:59 Dose: 40 mg Potassium Chloride (K-Dur 20 Meq Er Tab) 20 meq PO DAILY [facility] Last Admin: 01/04/17 10:11 Dose: Not Given Rosuvastatin Calcium (Crestor) 20 mg PO HS [facility] Last Admin: 01/03/17 22:53 Dose: Not Given - Labs Labs: 01/04/17 06:47 01/04/17 06:47 PT 13.7 SECONDS (9.7-12.2) H 01/03/17 21:30 INR 1.2 01/03/17 21:30 APTT 31 SECONDS (21-34) 01/03/17 21:30 - Constitutional Appears: In Acute Distress, Chronically Ill - Head Exam Additional comments: S/P ventriculostomy - Eye Exam Eye Exam: EOMI, Normal appearance - ENT Exam ENT Exam: Mucous Membranes Moist - Respiratory Exam Respiratory Exam: Clear to Ausculation Bilateral Additional comments: Mechanical breath sounds - Cardiovascular Exam Cardiovascular Exam: Tachycardia, Irregular Rhythm Additional comments: Irregular, tachycardia - GI/Abdominal Exam GI & Abdominal Exam: Soft. absent: Distended, Firm, Guarding, Rigid, Tenderness - Neurological Exam Neurological Exam: Altered. absent: Alert, Awake, CN II-XII Intact, Normal Gait , Oriented x3, Reflexes Normal Neuro motor strength exam: Left Upper Extremity: 0, Right Upper Extremity: 0, Left Lower Extremity: 0, Right Lower Extremity: 0 - Skin Skin Exam: Warm Assessment and Plan - Assessment and Plan (Free Text) Assessment: Assesment: This is a 71 year old female with a known PMHX of DM, and HTN who came to the ER with nausea and vomiting for 3-4 days and according to family weakness and fatigue for two weeks. She reported palpitations and dizziness. In the ED, patient was found to have new onset a-fib, patient was admitted. Patient started on Cardizem drip and anticoagulation. However she had a change in mental status and on a second CT scan revealed that the patient had a large cerebellar stroke with herniation and findings for hydrocephalus. She had immediate decompression suboccipital craniotomy and placement of a ventriculosotmy. She is now intubated and being monitored in the ICU Atrial Fibrillation with Rapid Atrial fibrillation. 01/04: I explained to the family that atrial fibrillation can place patient had risk for CVA At this time the patient still in atrial fibrillation. On Cardizem ggt for rate control. Pending echo at this time. Cerebellar CVA: 01/04: S/P decompression and ventriculostomy. On hypertonic saline at this time. Overall prognosis is not good. The third CT showing placement of the ventriclostomy and diffuse cerebral edema as well as edematous change in the brainstem and suspected herniation as well. DM: SSI Prophylaxis: - DVT: Lovenox, SCDs - GI: Protonix
--- NOTE | 2017-01-04 16:12 | CP.CCUPN ---
<Avinash Ch - Last Filed: 01/04/17 16:08> CCU Subjective - Physician Review Events Since Last Encounter (Free Text): 01/04/17 16:09 Patient seen and examined in the intensive care unit. Case discussed with staff in the morning rounds. Remains intubated on ventilatory support and no response to painful stimuli Status post decompressive surgery with ventriculostomy last night Started on Cardene drip for hypertension On Cardizem drip for A. fib with rapid ventricular rate On hypertonic saline CCU Objective - Vital Signs / Intake & Output Vital Signs (Last 4 hours): Vital Signs Pulse Resp BP Pulse Ox 01/04/17 15:00 108 H 12 100 01/04/17 14:45 107 H 12 123/59 L 100 01/04/17 14:00 99 H 13 99 01/04/17 13:45 155 H 12 159/117 H 99 01/04/17 13:00 148 H 12 100 01/04/17 12:45 137 H 12 142/111 H 100 Intake and Output (Last 8hrs): Intake & Output 01/04/17 01/04/17 01/04/17 06:59 14:59 22:59 Intake Total 1287 840 Output Total 680 1059 Balance 607 -219 Intake: IV 1000 280 Intake, IV Amount 287 560 Left Hand 15 Right Antecubital 47 420 Right Distal Port Hand 25 40 Right Hand 200 100 Output: Drainage 105 Right Posterior Head 105 Urine 680 954 Urethral (Massey) 680 954 Stool 0 0 - Physical Exam Head: Positive for: Atraumatic, Normocephalic Extroacular Muscles: Positive for: EOMI Mouth: Positive for: Moist Mucous Membranes Neck: Positive for: Normal Range of Motion Respiratory/Chest: Positive for: Clear to Auscultation. Negative for: Wheezes, Rales, Rhonchi Cardiovascular: Positive for: Normal S1, S2, Irregular Rhythm, Peripheal Pulses Present, Tachycardic Abdomen: Negative for: Tenderness, Distention, Normal Bowel Sounds (hypoactive) Upper Extremity: Positive for: Normal Inspection. Negative for: Edema Lower Extremity: Positive for: Normal Inspection, NORMAL PULSES. Negative for: Edema Skin: Positive for: Warm, Dry, Normal Color Psychiatric: Positive for: Alert, Oriented x 3 - Medications Active Medications: Active Medications Generic Name Dose Route Start Last Admin Trade Name Freq PRN Reason Stop Dose Admin Acetaminophen 650 mg 01/03/17 11:49 01/03/17 18:04 Tylenol 325mg Tab PO 650 mg Q6 PRN Administration Pain, Mild (1-3) Furosemide 20 mg 01/02/17 10:00 01/04/17 10:06 Lasix IVP 20 mg DAILY MIRELLA Administration Propofol 1,000 mg in 100 mls @ 2.381 mls/hr 01/04/17 01:16 01/04/17 07:10 Diprivan IV 0 mcg/kg/min .Q24H PRN 0 mls/hr TITRATE PER MD ORDER Titration Protocol 5 MCG/KG/MIN Sodium Chloride 500 mls @ 50 mls/hr 01/04/17 07:30 01/04/17 08:15 Hypertonic Saline 3% IV 50 mls/hr .Q10H MIRELLA Administration Nicardipine HCl 25 mg/ Sodium 250 mls @ 50 mls/hr 01/04/17 09:30 01/04/17 14: 00 Chloride IV 5 mg/hr .Q5H MIRELLA 50 mls/hr Protocol Administration 5 MG/HR Diltiazem HCl 125 mg/ Sodium 125 mls @ 5 mls/hr 01/04/17 12:45 01/04/17 13:00 Chloride IV 5 mg/hr .Q24H MIRELLA 5 mls/hr Protocol Administration 5 MG/HR Insulin Human Regular 0 unit 01/04/17 18:00 Novolin R SC Q6 [facility] Protocol Lisinopril 10 mg 01/02/17 15:15 01/04/17 10:09 Zestril PO Not Given DAILY [facility] Metoprolol Tartrate 100 mg 01/03/17 18:00 01/04/17 10:08 Lopressor PO Not Given BID [facility] Ondansetron HCl 4 mg 01/01/17 21:22 01/02/17 18:42 Zofran Inj IVP 4 mg Q6 PRN Administration Nausea/Vomiting Pantoprazole Sodium 40 mg 01/02/17 10:00 01/04/17 09:59 Protonix Inj IVP 40 mg DAILY MIRELLA Administration Potassium Chloride 20 meq 01/03/17 10:00 01/04/17 10:11 K-Dur 20 Meq Er Tab PO Not Given DAILY [facility] Rosuvastatin Calcium 20 mg 01/03/17 22:00 01/03/17 22:53 Crestor PO Not Given HS [facility] - Patient Studies Lab Studies: Microbiology Studies 01/02/17 01:29 MRSA Culture (Admit) - Final Nose MRSA NOT DETECTED Lab Studies 01/04/17 01/04/17 01/04/17 Range/Units 11:23 07:02 06:47 WBC (4.8-10.8) K/uL RBC (3.80-5.20) Mil/uL Hgb (11.0-16.0) g/dL Hct (34.0-47.0) % MCV (81.0-99.0) fL MCH (27.0-31.0) pg MCHC (33.0-37.0) g/dL RDW (11.5-14.5) % Plt Count (130-400) K/uL MPV (7.2-11.7) fL Neut % (Auto) (50.0-75.0) % Lymph % (Auto) (20.0-40.0) % Pepin % (Auto) (0.0-10.0) % Eos % (Auto) (0.0-4.0) % Baso % (Auto) (0.0-2.0) % Neut # (1.8-7.0) K/uL Lymph # (1.0-4.3) K/uL Pepin # (0.0-0.8) K/uL Eos # (0.0-0.7) K/uL Baso # (0.0-0.2) K/uL PT (9.7-12.2) SECONDS INR APTT (21-34) SECONDS Puncture Site pCO2 (35-45) mm/Hg pO2 (80-100) mm/Hg HCO3 (21-28) mmol/L ABG pH (7.35-7.45) ABG Total CO2 (22-28) mmol/L ABG O2 Saturation (95-98) % ABG Base Excess (-2.0-3.0) mmol/L ABG Hemoglobin (11.7-17.4) g/dL ABG Carboxyhemoglobin (0.5-1.5) % POC ABG HHb (Measured) (0.0-5.0) % ABG Methemoglobin (0.0-3.0) % Chandana Test A-a O2 Difference mm/Hg Respiratory Index Hgb O2 Saturation (95.0-98.0) % Vent Mode Mechanical Rate FiO2 % Tidal Volume PEEP Sodium 142 (132-148) mmol/L Potassium 2.8 L (3.6-5.2) mmol/L Chloride 103 (98-107) mmol/L Carbon Dioxide 24 (22-30) mmol/L Anion Gap 18 (10-20) BUN 14 (7-17) mg/dL Creatinine 0.6 L (0.7-1.2) MG/DL Est GFR ( Amer) > 60 Est GFR (Non-Af Amer) > 60 POC Glucose (mg/dL) 206 H (65-110) mg/dL Random Glucose 138 H (65-105) mg/dL Serum Osmolality 299 (272-300) mosm/kg Calcium 9.2 (8.6-10.4) mg/dl Phosphorus 2.8 (2.5-4.5) mg/dL Magnesium 2.0 (1.6-2.3) mg/dL Total Bilirubin 0.7 (0.2-1.3) mg/dL AST 40 H (14-36) U/L ALT 35 (9-52) U/L Alkaline Phosphatase 46 (38-126) U/L Total Protein 6.9 (6.3-8.3) g/dL Albumin 3.8 (3.5-5.0) g/dL Globulin 3.2 (2.2-3.9) gm/dL Albumin/Globulin Ratio 1.2 (1.0-2.1) Triglycerides (0-149) mg/dL Cholesterol (0-199) mg/dL LDL Cholesterol Direct (0-129) mg/dL HDL Cholesterol (30-70) mg/dL Blood Type Antibody Screen 01/04/17 01/04/17 01/03/17 Range/Units 06:47 04:40 23:29 WBC 11.3 H (4.8-10.8) K/uL RBC 4.45 (3.80-5.20) Mil/uL Hgb 12.8 (11.0-16.0) g/dL Hct 39.7 (34.0-47.0) % MCV 89.3 (81.0-99.0) fL MCH 28.8 (27.0-31.0) pg MCHC 32.2 L (33.0-37.0) g/dL RDW 14.7 H (11.5-14.5) % Plt Count 122 L D (130-400) K/uL MPV 11.0 (7.2-11.7) fL Neut % (Auto) 76.5 H (50.0-75.0) % Lymph % (Auto) 17.2 L (20.0-40.0) % Pepin % (Auto) 6.0 (0.0-10.0) % Eos % (Auto) 0.1 (0.0-4.0) % Baso % (Auto) 0.2 (0.0-2.0) % Neut # 8.6 H (1.8-7.0) K/uL Lymph # 1.9 (1.0-4.3) K/uL Pepin # 0.7 (0.0-0.8) K/uL Eos # 0.0 (0.0-0.7) K/uL Baso # 0.0 (0.0-0.2) K/uL PT (9.7-12.2) SECONDS INR APTT (21-34) SECONDS Puncture Site [place] pCO2 32 L (35-45) mm/Hg pO2 189 H (80-100) mm/Hg HCO3 27.4 (21-28) mmol/L ABG pH 7.51 H (7.35-7.45) ABG Total CO2 26.5 (22-28) mmol/L ABG O2 Saturation 99.9 H (95-98) % ABG Base Excess 3.2 H (-2.0-3.0) mmol/L ABG Hemoglobin 16.0 (11.7-17.4) g/dL ABG Carboxyhemoglobin 1.4 (0.5-1.5) % POC ABG HHb (Measured) 0.1 (0.0-5.0) % ABG Methemoglobin 0.9 (0.0-3.0) % Chandana Test Na A-a O2 Difference 56.0 mm/Hg Respiratory Index 0.3 Hgb O2 Saturation 97.6 (95.0-98.0) % Vent Mode Prvc Mechanical Rate 12 FiO2 40.0 % Tidal Volume 450 PEEP 5 Sodium (132-148) mmol/L Potassium (3.6-5.2) mmol/L Chloride (98-107) mmol/L Carbon Dioxide (22-30) mmol/L Anion Gap (10-20) BUN (7-17) mg/dL Creatinine (0.7-1.2) MG/DL Est GFR ( Amer) Est GFR (Non-Af Amer) POC Glucose (mg/dL) (65-110) mg/dL Random Glucose (65-105) mg/dL Serum Osmolality (272-300) mosm/kg Calcium (8.6-10.4) mg/dl Phosphorus (2.5-4.5) mg/dL Magnesium (1.6-2.3) mg/dL Total Bilirubin (0.2-1.3) mg/dL AST (14-36) U/L ALT (9-52) U/L Alkaline Phosphatase (38-126) U/L Total Protein (6.3-8.3) g/dL Albumin (3.5-5.0) g/dL Globulin (2.2-3.9) gm/dL Albumin/Globulin Ratio (1.0-2.1) Triglycerides 100 (0-149) mg/dL Cholesterol 193 (0-199) mg/dL LDL Cholesterol Direct 148 H (0-129) mg/dL HDL Cholesterol 39 (30-70) mg/dL Blood Type Antibody Screen 01/03/17 01/03/17 01/03/17 Range/Units 22:56 21:31 21:30 WBC (4.8-10.8) K/uL RBC (3.80-5.20) Mil/uL Hgb (11.0-16.0) g/dL Hct (34.0-47.0) % MCV (81.0-99.0) fL MCH (27.0-31.0) pg MCHC (33.0-37.0) g/dL RDW (11.5-14.5) % Plt Count (130-400) K/uL MPV (7.2-11.7) fL Neut % (Auto) (50.0-75.0) % Lymph % (Auto) (20.0-40.0) % Pepin % (Auto) (0.0-10.0) % Eos % (Auto) (0.0-4.0) % Baso % (Auto) (0.0-2.0) % Neut # (1.8-7.0) K/uL Lymph # (1.0-4.3) K/uL Pepin # (0.0-0.8) K/uL Eos # (0.0-0.7) K/uL Baso # (0.0-0.2) K/uL PT (9.7-12.2) SECONDS INR APTT (21-34) SECONDS Puncture Site pCO2 (35-45) mm/Hg pO2 (80-100) mm/Hg HCO3 (21-28) mmol/L ABG pH (7.35-7.45) ABG Total CO2 (22-28) mmol/L ABG O2 Saturation (95-98) % ABG Base Excess (-2.0-3.0) mmol/L ABG Hemoglobin (11.7-17.4) g/dL ABG Carboxyhemoglobin (0.5-1.5) % POC ABG HHb (Measured) (0.0-5.0) % ABG Methemoglobin (0.0-3.0) % Chandana Test A-a O2 Difference mm/Hg Respiratory Index Hgb O2 Saturation (95.0-98.0) % Vent Mode Mechanical Rate FiO2 % Tidal Volume PEEP Sodium (132-148) mmol/L Potassium (3.6-5.2) mmol/L Chloride (98-107) mmol/L Carbon Dioxide (22-30) mmol/L Anion Gap (10-20) BUN (7-17) mg/dL Creatinine (0.7-1.2) MG/DL Est GFR ( Amer) Est GFR (Non-Af Amer) POC Glucose (mg/dL) 167 H 180 H (65-110) mg/dL Random Glucose (65-105) mg/dL Serum Osmolality (272-300) mosm/kg Calcium (8.6-10.4) mg/dl Phosphorus (2.5-4.5) mg/dL Magnesium (1.6-2.3) mg/dL Total Bilirubin (0.2-1.3) mg/dL AST (14-36) U/L ALT (9-52) U/L Alkaline Phosphatase (38-126) U/L Total Protein (6.3-8.3) g/dL Albumin (3.5-5.0) g/dL Globulin (2.2-3.9) gm/dL Albumin/Globulin Ratio (1.0-2.1) Triglycerides (0-149) mg/dL Cholesterol (0-199) mg/dL LDL Cholesterol Direct (0-129) mg/dL HDL Cholesterol (30-70) mg/dL Blood Type A POSITIVE Antibody Screen Negative 01/03/17 01/03/17 01/03/17 Range/Units 21:30 21:30 16:40 WBC 11.9 H (4.8-10.8) K/uL RBC 4.75 (3.80-5.20) Mil/uL Hgb 13.8 (11.0-16.0) g/dL Hct 42.2 (34.0-47.0) % MCV 88.7 (81.0-99.0) fL MCH 29.0 (27.0-31.0) pg MCHC 32.7 L (33.0-37.0) g/dL RDW 14.6 H (11.5-14.5) % Plt Count 146 (130-400) K/uL MPV 10.4 (7.2-11.7) fL Neut % (Auto) (50.0-75.0) % Lymph % (Auto) (20.0-40.0) % Pepin % (Auto) (0.0-10.0) % Eos % (Auto) (0.0-4.0) % Baso % (Auto) (0.0-2.0) % Neut # (1.8-7.0) K/uL Lymph # (1.0-4.3) K/uL Pepin # (0.0-0.8) K/uL Eos # (0.0-0.7) K/uL Baso # (0.0-0.2) K/uL PT 13.7 H (9.7-12.2) SECONDS INR 1.2 APTT 31 (21-34) SECONDS Puncture Site pCO2 (35-45) mm/Hg pO2 (80-100) mm/Hg HCO3 (21-28) mmol/L ABG pH (7.35-7.45) ABG Total CO2 (22-28) mmol/L ABG O2 Saturation (95-98) % ABG Base Excess (-2.0-3.0) mmol/L ABG Hemoglobin (11.7-17.4) g/dL ABG Carboxyhemoglobin (0.5-1.5) % POC ABG HHb (Measured) (0.0-5.0) % ABG Methemoglobin (0.0-3.0) % Chandana Test A-a O2 Difference mm/Hg Respiratory Index Hgb O2 Saturation (95.0-98.0) % Vent Mode Mechanical Rate FiO2 % Tidal Volume PEEP Sodium (132-148) mmol/L Potassium (3.6-5.2) mmol/L Chloride (98-107) mmol/L Carbon Dioxide (22-30) mmol/L Anion Gap (10-20) BUN (7-17) mg/dL Creatinine (0.7-1.2) MG/DL Est GFR ( Amer) Est GFR (Non-Af Amer) POC Glucose (mg/dL) 164 H (65-110) mg/dL Random Glucose (65-105) mg/dL Serum Osmolality (272-300) mosm/kg Calcium (8.6-10.4) mg/dl Phosphorus (2.5-4.5) mg/dL Magnesium (1.6-2.3) mg/dL Total Bilirubin (0.2-1.3) mg/dL AST (14-36) U/L ALT (9-52) U/L Alkaline Phosphatase (38-126) U/L Total Protein (6.3-8.3) g/dL Albumin (3.5-5.0) g/dL Globulin (2.2-3.9) gm/dL Albumin/Globulin Ratio (1.0-2.1) Triglycerides (0-149) mg/dL Cholesterol (0-199) mg/dL LDL Cholesterol Direct (0-129) mg/dL HDL Cholesterol (30-70) mg/dL Blood Type Antibody Screen Laboratory Results - last 24 hr 01/03/17 01/03/17 01/03/17 16:40 21:30 21:30 WBC 11.9 H RBC 4.75 Hgb 13.8 Hct 42.2 MCV 88.7 MCH 29.0 MCHC 32.7 L RDW 14.6 H Plt Count 146 MPV 10.4 Neut % (Auto) Lymph % (Auto) Pepin % (Auto) Eos % (Auto) Baso % (Auto) Neut # Lymph # Pepin # Eos # Baso # PT 13.7 H INR 1.2 APTT 31 Puncture Site pCO2 pO2 HCO3 ABG pH ABG Total CO2 ABG O2 Saturation ABG Base Excess ABG Hemoglobin ABG Carboxyhemoglobin POC ABG HHb (Measured) ABG Methemoglobin Chandana Test A-a O2 Difference Respiratory Index Hgb O2 Saturation Vent Mode Mechanical Rate FiO2 Tidal Volume PEEP Sodium Potassium Chloride Carbon Dioxide Anion Gap BUN Creatinine Est GFR ( Amer) Est GFR (Non-Af Amer) POC Glucose (mg/dL) 164 H Random Glucose Serum Osmolality Calcium Phosphorus Magnesium Total Bilirubin AST ALT Alkaline Phosphatase Total Protein Albumin Globulin Albumin/Globulin Ratio Triglycerides Cholesterol LDL Cholesterol Direct HDL Cholesterol Blood Type Antibody Screen 01/03/17 01/03/17 01/03/17 21:30 21:31 22:56 WBC RBC Hgb Hct MCV MCH MCHC RDW Plt Count MPV Neut % (Auto) Lymph % (Auto) Pepin % (Auto) Eos % (Auto) Baso % (Auto) Neut # Lymph # Pepin # Eos # Baso # PT INR APTT Puncture Site pCO2 pO2 HCO3 ABG pH ABG Total CO2 ABG O2 Saturation ABG Base Excess ABG Hemoglobin ABG Carboxyhemoglobin POC ABG HHb (Measured) ABG Methemoglobin Chandana Test A-a O2 Difference Respiratory Index Hgb O2 Saturation Vent Mode Mechanical Rate FiO2 Tidal Volume PEEP Sodium Potassium Chloride Carbon Dioxide Anion Gap BUN Creatinine Est GFR ( Amer) Est GFR (Non-Af Amer) POC Glucose (mg/dL) 180 H 167 H Random Glucose Serum Osmolality Calcium Phosphorus Magnesium Total Bilirubin AST ALT Alkaline Phosphatase Total Protein Albumin Globulin Albumin/Globulin Ratio Triglycerides Cholesterol LDL Cholesterol Direct HDL Cholesterol Blood Type A POSITIVE Antibody Screen Negative 01/03/17 01/04/17 01/04/17 23:29 04:40 06:47 WBC 11.3 H RBC 4.45 Hgb 12.8 Hct 39.7 MCV 89.3 MCH 28.8 MCHC 32.2 L RDW 14.7 H Plt Count 122 L D MPV 11.0 Neut % (Auto) 76.5 H Lymph % (Auto) 17.2 L Pepin % (Auto) 6.0 Eos % (Auto) 0.1 Baso % (Auto) 0.2 Neut # 8.6 H Lymph # 1.9 Pepin # 0.7 Eos # 0.0 Baso # 0.0 PT INR APTT Puncture Site [place] pCO2 32 L pO2 189 H HCO3 27.4 ABG pH 7.51 H ABG Total CO2 26.5 ABG O2 Saturation 99.9 H ABG Base Excess 3.2 H ABG Hemoglobin 16.0 ABG Carboxyhemoglobin 1.4 POC ABG HHb (Measured) 0.1 ABG Methemoglobin 0.9 Chandana Test Na A-a O2 Difference 56.0 Respiratory Index 0.3 Hgb O2 Saturation 97.6 Vent Mode Prvc Mechanical Rate 12 FiO2 40.0 Tidal Volume 450 PEEP 5 Sodium Potassium Chloride Carbon Dioxide Anion Gap BUN Creatinine Est GFR ( Amer) Est GFR (Non-Af Amer) POC Glucose (mg/dL) Random Glucose Serum Osmolality Calcium Phosphorus Magnesium Total Bilirubin AST ALT Alkaline Phosphatase Total Protein Albumin Globulin Albumin/Globulin Ratio Triglycerides 100 Cholesterol 193 LDL Cholesterol Direct 148 H HDL Cholesterol 39 Blood Type Antibody Screen 01/04/17 01/04/17 01/04/17 06:47 07:02 11:23 WBC RBC Hgb Hct MCV MCH MCHC RDW Plt Count MPV Neut % (Auto) Lymph % (Auto) Pepin % (Auto) Eos % (Auto) Baso % (Auto) Neut # Lymph # Pepin # Eos # Baso # PT INR APTT Puncture Site pCO2 pO2 HCO3 ABG pH ABG Total CO2 ABG O2 Saturation ABG Base Excess ABG Hemoglobin ABG Carboxyhemoglobin POC ABG HHb (Measured) ABG Methemoglobin Chandana Test A-a O2 Difference Respiratory Index Hgb O2 Saturation Vent Mode Mechanical Rate FiO2 Tidal Volume PEEP Sodium 142 Potassium 2.8 L Chloride 103 Carbon Dioxide 24 Anion Gap 18 BUN 14 Creatinine 0.6 L Est GFR ( Amer) > 60 Est GFR (Non-Af Amer) > 60 POC Glucose (mg/dL) 206 H Random Glucose 138 H Serum Osmolality 299 Calcium 9.2 Phosphorus 2.8 Magnesium 2.0 Total Bilirubin 0.7 AST 40 H ALT 35 Alkaline Phosphatase 46 Total Protein 6.9 Albumin 3.8 Globulin 3.2 Albumin/Globulin Ratio 1.2 Triglycerides Cholesterol LDL Cholesterol Direct HDL Cholesterol Blood Type Antibody Screen Fingerstick Blood Sugar Results: 206 Review of Systems - Review of Systems Systems not reviewed;Unavailable: Intubated Critical Care Progress Note - Ventilator Checklist Head of Bed 30 Degrees: Yes Daily Spontaneous Breathing Trial: No PUD Prophalyxis: No DVT Prophylaxis: No - Vent Settings MODE:: PRVC - Nutrition Nutrition: Nutrition Category Date Time Status NPO Diet [DIET] Diets 01/04/17 Breakfast Active Assessment/Plan (1) Cerebellar stroke Current Visit: Yes Status: Acute Priority: High Comment: Status post decompressive surgery/ventriculostomy Repeat CT of the head noted with worsening edema and herniation Continue hypertonic saline and monitor osmolality and serum sodium Avoid hypotension and hypertension and keep CPP between 60-80 Case discussed with family at length Patient seen by neurosurgery and neurology (2) New onset atrial fibrillation Current Visit: Yes Status: Acute <JamelDioni - Last Filed: 01/05/17 00:10> CCU Objective - Vital Signs / Intake & Output Vital Signs (Last 4 hours): Vital Signs Pulse Resp BP Pulse Ox 01/04/17 23:00 105 H 12 99 01/04/17 22:56 136 H 12 141/69 99 01/04/17 22:00 153 H 14 99 01/04/17 21:57 132 H 12 131/92 H 96 01/04/17 21:00 137 H 12 99 01/04/17 20:56 129 H 16 145/61 96 01/04/17 20:44 154 H 14 155/57 H 95 01/04/17 20:13 161 H 15 147/66 99 Intake and Output (Last 8hrs): Intake & Output 01/04/17 01/04/17 01/05/17 14:59 22:59 06:59 Intake Total 840 765 75 Output Total 1059 504 40 Balance -219 261 35 Intake: IV 280 250 Intake, IV Amount 560 515 75 Left Hand 5 Left Medial Port Internal 60 15 Jugular Left Proximal Port 240 60 Internal Jugular Right Antecubital 420 180 Right Distal Port Hand 40 30 Right Hand 100 Output: Drainage 105 49 Right Posterior Head 105 49 Urine 954 455 40 Urethral ([place]) 954 455 40 Stool 0 Other: # Bowel Movements 0 - Medications Active Medications: Active Medications Generic Name Dose Route Start Last Admin Trade Name Freq PRN Reason Stop Dose Admin Acetaminophen 650 mg 01/03/17 11:49 01/03/17 18:04 Tylenol 325mg Tab PO 650 mg Q6 PRN Administration Pain, Mild (1-3) Furosemide 20 mg 01/02/17 10:00 01/04/17 10:06 Lasix IVP 20 mg DAILY [facility] Administration Propofol 1,000 mg in 100 mls @ 2.381 mls/hr 01/04/17 01:16 01/04/17 07:10 Diprivan IV 0 mcg/kg/min .Q24H PRN 0 mls/hr TITRATE PER MD ORDER Titration Protocol 5 MCG/KG/MIN Nicardipine HCl 25 mg/ Sodium 250 mls @ 50 mls/hr 01/04/17 09:30 01/04/17 22: 35 Chloride IV Not Given .Q5H [facility] Protocol 5 MG/HR Diltiazem HCl 125 mg/ Sodium 125 mls @ 5 mls/hr 01/04/17 12:45 01/04/17 21:40 Chloride IV 15 mg/hr .Q24H MIRELLA 15 mls/hr Protocol Administration 5 MG/HR Potassium Chloride 20 meq in 100 mls @ 50 mls/hr 01/05/17 00:06 Potassium Chloride 20 Meq/100 Ml IVPB 01/05/17 02:05 ONCE ONE Sodium Chloride 1,000 mls @ 50 mls/hr 01/05/17 00:15 Sodium Chloride 0.9% IV .Q20H [facility] Insulin Human Regular 0 unit 01/04/17 18:00 01/04/17 18:03 Novolin R SC Not Given Q6 [facility] Protocol Lisinopril 10 mg 01/02/17 15:15 01/04/17 10:09 Zestril PO Not Given DAILY [facility] Metoprolol Tartrate 100 mg 01/03/17 18:00 01/04/17 18:01 Lopressor PO Not Given BID [facility] Ondansetron HCl 4 mg 01/01/17 21:22 01/02/17 18:42 Zofran Inj IVP 4 mg Q6 PRN Administration Nausea/Vomiting Pantoprazole Sodium 40 mg 01/02/17 10:00 01/04/17 09:59 Protonix Inj IVP 40 mg DAILY [facility] Administration Potassium Chloride 20 meq 01/03/17 10:00 01/04/17 10:11 K-Dur 20 Meq Er Tab PO Not Given DAILY [facility] Rosuvastatin Calcium 20 mg 01/03/17 22:00 01/04/17 22:18 Crestor PO Not Given HS [facility] - Patient Studies Lab Studies: Microbiology Studies 01/02/17 01:29 MRSA Culture (Admit) - Final Nose MRSA NOT DETECTED Lab Studies 01/04/17 01/04/17 01/04/17 Range/Units 23:52 22:36 22:36 WBC (4.8-10.8) K/uL RBC (3.80-5.20) Mil/uL Hgb (11.0-16.0) g/dL Hct (34.0-47.0) % MCV (81.0-99.0) fL MCH (27.0-31.0) pg MCHC (33.0-37.0) g/dL RDW (11.5-14.5) % Plt Count (130-400) K/uL MPV (7.2-11.7) fL Neut % (Auto) (50.0-75.0) % Lymph % (Auto) (20.0-40.0) % Pepin % (Auto) (0.0-10.0) % Eos % (Auto) (0.0-4.0) % Baso % (Auto) (0.0-2.0) % Neut # (1.8-7.0) K/uL Lymph # (1.0-4.3) K/uL Pepin # (0.0-0.8) K/uL Eos # (0.0-0.7) K/uL Baso # (0.0-0.2) K/uL Puncture Site pCO2 (35-45) mm/Hg pO2 (80-100) mm/Hg HCO3 (21-28) mmol/L ABG pH (7.35-7.45) ABG Total CO2 (22-28) mmol/L ABG O2 Saturation (95-98) % ABG Base Excess (-2.0-3.0) mmol/L ABG Hemoglobin (11.7-17.4) g/dL ABG Carboxyhemoglobin (0.5-1.5) % POC ABG HHb (Measured) (0.0-5.0) % ABG Methemoglobin (0.0-3.0) % Chandana Test A-a O2 Difference mm/Hg Respiratory Index Hgb O2 Saturation (95.0-98.0) % Vent Mode Mechanical Rate FiO2 % Tidal Volume PEEP Sodium 152 H (132-148) mmol/L Potassium 3.5 L (3.6-5.2) mmol/L Chloride 114 H (98-107) mmol/L Carbon Dioxide 23 (22-30) mmol/L Anion Gap 19 (10-20) BUN 18 H (7-17) mg/dL Creatinine 0.7 (0.7-1.2) MG/DL Est GFR ( Amer) > 60 Est GFR (Non-Af Amer) > 60 POC Glucose (mg/dL) 230 H (65-110) mg/dL Random Glucose 212 H (65-105) mg/dL Serum Osmolality 321 H (272-300) mosm/kg Calcium 8.9 (8.6-10.4) mg/dl Phosphorus (2.5-4.5) mg/dL Magnesium (1.6-2.3) mg/dL Total Bilirubin 1.5 H (0.2-1.3) mg/dL AST 37 H (14-36) U/L ALT 31 (9-52) U/L Alkaline Phosphatase 44 (38-126) U/L Total Protein 7.3 (6.3-8.3) g/dL Albumin 3.6 (3.5-5.0) g/dL Globulin 3.6 (2.2-3.9) gm/dL Albumin/Globulin Ratio 1.0 (1.0-2.1) 01/04/17 01/04/17 01/04/17 Range/Units 18:02 16:17 16:17 WBC (4.8-10.8) K/uL RBC (3.80-5.20) Mil/uL Hgb (11.0-16.0) g/dL Hct (34.0-47.0) % MCV (81.0-99.0) fL MCH (27.0-31.0) pg MCHC (33.0-37.0) g/dL RDW (11.5-14.5) % Plt Count (130-400) K/uL MPV (7.2-11.7) fL Neut % (Auto) (50.0-75.0) % Lymph % (Auto) (20.0-40.0) % Pepin % (Auto) (0.0-10.0) % Eos % (Auto) (0.0-4.0) % Baso % (Auto) (0.0-2.0) % Neut # (1.8-7.0) K/uL Lymph # (1.0-4.3) K/uL Pepin # (0.0-0.8) K/uL Eos # (0.0-0.7) K/uL Baso # (0.0-0.2) K/uL Puncture Site pCO2 (35-45) mm/Hg pO2 (80-100) mm/Hg HCO3 (21-28) mmol/L ABG pH (7.35-7.45) ABG Total CO2 (22-28) mmol/L ABG O2 Saturation (95-98) % ABG Base Excess (-2.0-3.0) mmol/L ABG Hemoglobin (11.7-17.4) g/dL ABG Carboxyhemoglobin (0.5-1.5) % POC ABG HHb (Measured) (0.0-5.0) % ABG Methemoglobin (0.0-3.0) % Chandana Test A-a O2 Difference mm/Hg Respiratory Index Hgb O2 Saturation (95.0-98.0) % Vent Mode Mechanical Rate FiO2 % Tidal Volume PEEP Sodium 147 (132-148) mmol/L Potassium 3.9 (3.6-5.2) mmol/L Chloride 107 (98-107) mmol/L Carbon Dioxide 25 (22-30) mmol/L Anion Gap 18 (10-20) BUN 15 (7-17) mg/dL Creatinine 0.7 (0.7-1.2) MG/DL Est GFR ( Amer) > 60 Est GFR (Non-Af Amer) > 60 POC Glucose (mg/dL) 204 H (65-110) mg/dL Random Glucose 207 H (65-105) mg/dL Serum Osmolality 311 H (272-300) mosm/kg Calcium 9.0 (8.6-10.4) mg/dl Phosphorus 3.0 (2.5-4.5) mg/dL Magnesium 1.8 (1.6-2.3) mg/dL Total Bilirubin 1.3 (0.2-1.3) mg/dL AST 33 (14-36) U/L ALT 34 (9-52) U/L Alkaline Phosphatase 53 (38-126) U/L Total Protein 7.5 (6.3-8.3) g/dL Albumin 3.9 (3.5-5.0) g/dL Globulin 3.7 (2.2-3.9) gm/dL Albumin/Globulin Ratio 1.1 (1.0-2.1) 01/04/17 01/04/17 01/04/17 Range/Units 11:23 07:02 06:47 WBC (4.8-10.8) K/uL RBC (3.80-5.20) Mil/uL Hgb (11.0-16.0) g/dL Hct (34.0-47.0) % MCV (81.0-99.0) fL MCH (27.0-31.0) pg MCHC (33.0-37.0) g/dL RDW (11.5-14.5) % Plt Count (130-400) K/uL MPV (7.2-11.7) fL Neut % (Auto) (50.0-75.0) % Lymph % (Auto) (20.0-40.0) % Pepin % (Auto) (0.0-10.0) % Eos % (Auto) (0.0-4.0) % Baso % (Auto) (0.0-2.0) % Neut # (1.8-7.0) K/uL Lymph # (1.0-4.3) K/uL Pepin # (0.0-0.8) K/uL Eos # (0.0-0.7) K/uL Baso # (0.0-0.2) K/uL Puncture Site pCO2 (35-45) mm/Hg pO2 (80-100) mm/Hg HCO3 (21-28) mmol/L ABG pH (7.35-7.45) ABG Total CO2 (22-28) mmol/L ABG O2 Saturation (95-98) % ABG Base Excess (-2.0-3.0) mmol/L ABG Hemoglobin (11.7-17.4) g/dL ABG Carboxyhemoglobin (0.5-1.5) % POC ABG HHb (Measured) (0.0-5.0) % ABG Methemoglobin (0.0-3.0) % Chandana Test A-a O2 Difference mm/Hg Respiratory Index Hgb O2 Saturation (95.0-98.0) % Vent Mode Mechanical Rate FiO2 % Tidal Volume PEEP Sodium 142 (132-148) mmol/L Potassium 2.8 L (3.6-5.2) mmol/L Chloride 103 (98-107) mmol/L Carbon Dioxide 24 (22-30) mmol/L Anion Gap 18 (10-20) BUN 14 (7-17) mg/dL Creatinine 0.6 L (0.7-1.2) MG/DL Est GFR ( Amer) > 60 Est GFR (Non-Af Amer) > 60 POC Glucose (mg/dL) 206 H (65-110) mg/dL Random Glucose 138 H (65-105) mg/dL Serum Osmolality 299 (272-300) mosm/kg Calcium 9.2 (8.6-10.4) mg/dl Phosphorus 2.8 (2.5-4.5) mg/dL Magnesium 2.0 (1.6-2.3) mg/dL Total Bilirubin 0.7 (0.2-1.3) mg/dL AST 40 H (14-36) U/L ALT 35 (9-52) U/L Alkaline Phosphatase 46 (38-126) U/L Total Protein 6.9 (6.3-8.3) g/dL Albumin 3.8 (3.5-5.0) g/dL Globulin 3.2 (2.2-3.9) gm/dL Albumin/Globulin Ratio 1.2 (1.0-2.1) 01/04/17 01/04/17 Range/Units 06:47 04:40 WBC 11.3 H (4.8-10.8) K/uL RBC 4.45 (3.80-5.20) Mil/uL Hgb 12.8 (11.0-16.0) g/dL Hct 39.7 (34.0-47.0) % MCV 89.3 (81.0-99.0) fL MCH 28.8 (27.0-31.0) pg MCHC 32.2 L (33.0-37.0) g/dL RDW 14.7 H (11.5-14.5) % Plt Count 122 L D (130-400) K/uL MPV 11.0 (7.2-11.7) fL Neut % (Auto) 76.5 H (50.0-75.0) % Lymph % (Auto) 17.2 L (20.0-40.0) % Pepin % (Auto) 6.0 (0.0-10.0) % Eos % (Auto) 0.1 (0.0-4.0) % Baso % (Auto) 0.2 (0.0-2.0) % Neut # 8.6 H (1.8-7.0) K/uL Lymph # 1.9 (1.0-4.3) K/uL Pepin # 0.7 (0.0-0.8) K/uL Eos # 0.0 (0.0-0.7) K/uL Baso # 0.0 (0.0-0.2) K/uL Puncture Site Kisha pCO2 32 L (35-45) mm/Hg pO2 189 H (80-100) mm/Hg HCO3 27.4 (21-28) mmol/L ABG pH 7.51 H (7.35-7.45) ABG Total CO2 26.5 (22-28) mmol/L ABG O2 Saturation 99.9 H (95-98) % ABG Base Excess 3.2 H (-2.0-3.0) mmol/L ABG Hemoglobin 16.0 (11.7-17.4) g/dL ABG Carboxyhemoglobin 1.4 (0.5-1.5) % POC ABG HHb (Measured) 0.1 (0.0-5.0) % ABG Methemoglobin 0.9 (0.0-3.0) % Chandana Test Na A-a O2 Difference 56.0 mm/Hg Respiratory Index 0.3 Hgb O2 Saturation 97.6 (95.0-98.0) % Vent Mode Prvc Mechanical Rate 12 FiO2 40.0 % Tidal Volume 450 PEEP 5 Sodium (132-148) mmol/L Potassium (3.6-5.2) mmol/L Chloride (98-107) mmol/L Carbon Dioxide (22-30) mmol/L Anion Gap (10-20) BUN (7-17) mg/dL Creatinine (0.7-1.2) MG/DL Est GFR ( Amer) Est GFR (Non-Af Amer) POC Glucose (mg/dL) (65-110) mg/dL Random Glucose (65-105) mg/dL Serum Osmolality (272-300) mosm/kg Calcium (8.6-10.4) mg/dl Phosphorus (2.5-4.5) mg/dL Magnesium (1.6-2.3) mg/dL Total Bilirubin (0.2-1.3) mg/dL AST (14-36) U/L ALT (9-52) U/L Alkaline Phosphatase (38-126) U/L Total Protein (6.3-8.3) g/dL Albumin (3.5-5.0) g/dL Globulin (2.2-3.9) gm/dL Albumin/Globulin Ratio (1.0-2.1) Laboratory Results - last 24 hr 01/04/17 01/04/17 01/04/17 04:40 06:47 06:47 WBC 11.3 H RBC 4.45 Hgb 12.8 Hct 39.7 MCV 89.3 MCH 28.8 MCHC 32.2 L RDW 14.7 H Plt Count 122 L D MPV 11.0 Neut % (Auto) 76.5 H Lymph % (Auto) 17.2 L Pepin % (Auto) 6.0 Eos % (Auto) 0.1 Baso % (Auto) 0.2 Neut # 8.6 H Lymph # 1.9 Pepin # 0.7 Eos # 0.0 Baso # 0.0 Puncture Site Kisha pCO2 32 L pO2 189 H HCO3 27.4 ABG pH 7.51 H ABG Total CO2 26.5 ABG O2 Saturation 99.9 H ABG Base Excess 3.2 H ABG Hemoglobin 16.0 ABG Carboxyhemoglobin 1.4 POC ABG HHb (Measured) 0.1 ABG Methemoglobin 0.9 Chandana Test Na A-a O2 Difference 56.0 Respiratory Index 0.3 Hgb O2 Saturation 97.6 Vent Mode Prvc Mechanical Rate 12 FiO2 40.0 Tidal Volume 450 PEEP 5 Sodium 142 Potassium 2.8 L Chloride 103 Carbon Dioxide 24 Anion Gap 18 BUN 14 Creatinine 0.6 L Est GFR ( Amer) > 60 Est GFR (Non-Af Amer) > 60 POC Glucose (mg/dL) Random Glucose 138 H Serum Osmolality Calcium 9.2 Phosphorus 2.8 Magnesium 2.0 Total Bilirubin 0.7 AST 40 H ALT 35 Alkaline Phosphatase 46 Total Protein 6.9 Albumin 3.8 Globulin 3.2 Albumin/Globulin Ratio 1.2 01/04/17 01/04/17 01/04/17 07:02 11:23 16:17 WBC RBC Hgb Hct MCV MCH MCHC RDW Plt Count MPV Neut % (Auto) Lymph % (Auto) Pepin % (Auto) Eos % (Auto) Baso % (Auto) Neut # Lymph # Pepin # Eos # Baso # Puncture Site pCO2 pO2 HCO3 ABG pH ABG Total CO2 ABG O2 Saturation ABG Base Excess ABG Hemoglobin ABG Carboxyhemoglobin POC ABG HHb (Measured) ABG Methemoglobin Chandana Test A-a O2 Difference Respiratory Index Hgb O2 Saturation Vent Mode Mechanical Rate FiO2 Tidal Volume PEEP Sodium 147 Potassium 3.9 Chloride 107 Carbon Dioxide 25 Anion Gap 18 BUN 15 Creatinine 0.7 Est GFR ( Amer) > 60 Est GFR (Non-Af Amer) > 60 POC Glucose (mg/dL) 206 H Random Glucose 207 H Serum Osmolality 299 Calcium 9.0 Phosphorus 3.0 Magnesium 1.8 Total Bilirubin 1.3 AST 33 ALT 34 Alkaline Phosphatase 53 Total Protein 7.5 Albumin 3.9 Globulin 3.7 Albumin/Globulin Ratio 1.1 01/04/17 01/04/17 01/04/17 16:17 18:02 22:36 WBC RBC Hgb Hct MCV MCH MCHC RDW Plt Count MPV Neut % (Auto) Lymph % (Auto) Pepin % (Auto) Eos % (Auto) Baso % (Auto) Neut # Lymph # Pepin # Eos # Baso # Puncture Site pCO2 pO2 HCO3 ABG pH ABG Total CO2 ABG O2 Saturation ABG Base Excess ABG Hemoglobin ABG Carboxyhemoglobin POC ABG HHb (Measured) ABG Methemoglobin Chandana Test A-a O2 Difference Respiratory Index Hgb O2 Saturation Vent Mode Mechanical Rate FiO2 Tidal Volume PEEP Sodium 152 H Potassium 3.5 L Chloride 114 H Carbon Dioxide 23 Anion Gap 19 BUN 18 H Creatinine 0.7 Est GFR ( Amer) > 60 Est GFR (Non-Af Amer) > 60 POC Glucose (mg/dL) 204 H Random Glucose 212 H Serum Osmolality 311 H Calcium 8.9 Phosphorus Magnesium Total Bilirubin 1.5 H AST 37 H ALT 31 Alkaline Phosphatase 44 Total Protein 7.3 Albumin 3.6 Globulin 3.6 Albumin/Globulin Ratio 1.0 01/04/17 01/04/17 22:36 23:52 WBC RBC Hgb Hct MCV MCH MCHC RDW Plt Count MPV Neut % (Auto) Lymph % (Auto) Pepin % (Auto) Eos % (Auto) Baso % (Auto) Neut # Lymph # Pepin # Eos # Baso # Puncture Site pCO2 pO2 HCO3 ABG pH ABG Total CO2 ABG O2 Saturation ABG Base Excess ABG Hemoglobin ABG Carboxyhemoglobin POC ABG HHb (Measured) ABG Methemoglobin Chandana Test A-a O2 Difference Respiratory Index Hgb O2 Saturation Vent Mode Mechanical Rate FiO2 Tidal Volume PEEP Sodium Potassium Chloride Carbon Dioxide Anion Gap BUN Creatinine Est GFR ( Amer) Est GFR (Non-Af Amer) POC Glucose (mg/dL) 230 H Random Glucose Serum Osmolality 321 H Calcium Phosphorus Magnesium Total Bilirubin AST ALT Alkaline Phosphatase Total Protein Albumin Globulin Albumin/Globulin Ratio Critical Care Progress Note - Nutrition Nutrition: Nutrition Category Date Time Status NPO Diet [DIET] Diets 01/04/17 Breakfast Active Addendum Addendum: 01/05/17 00:07 The Patient was seen and examined at the bedside, Medical records reviewed, and management issues were discussed and formulated. All clinical/lab/hemodynamic/radiographic data were reviewed Repeat Labs reviewed Target serum osmolarity of~300-320 mOsm/L and target Increase serum sodium to~ 145-150 mmol/L. Will discontinue 3% NS, supplement K, IV Fluids with 0.9%, full vent support, frequent neuro check
[2017-01-04 16:28] LABS: CHLORIDE 107 mmol/L (98-107); POTASSIUM 3.9 mmol/L (3.6-5.2); SODIUM 147 mmol/L (132-148)
[2017-01-04 16:30] LABS: ALB/GLOB RATIO 1.1 (1.0-2.1); ALKALINE PHOSPHATASE 53 U/L (38-126); AST/SGOT 33 U/L (14-36); BILIRUBIN,TOTAL 1.3 mg/dL (0.2-1.3); BLOOD UREA NITROGEN 15 mg/dL (7-17); CARBON DIOXIDE 25 mmol/L (22-30); GFR AFRICAN-AMERICAN > 60; TOTAL PROTEIN 7.5 g/dL (6.3-8.3)
[2017-01-04 16:31] LABS: ALT/SGPT 34 U/L (9-52); GLUCOSE,RANDOM 207 mg/dL (65-105); MAGNESIUM 1.8 mg/dL (1.6-2.3)
--- NOTE | 2017-01-04 18:06 | CARD ---
APPROVED REPORT EKG Measurement Heart [id number] <Conclusion> Atrial fibrillation with rapid ventricular response Lateral infarct, age undetermined Cannot rule out Inferior infarct, age undetermined Abnormal ECG
--- NOTE | 2017-01-04 18:31 | PCM.PROC ---
Procedures Attestation:: I certify that I have explained the specified Operation(s) or Procedure(s), risks, benefits and reasonable alternatives to the Patient and/or other person responsible. The opportunity was given to ask questions and all questions answered - Central Line Placement Left Internal Jugular Triple Lumen Catheter Aseptic technique was employed throughout the procedure: Hand Hygiene done prior to procedure, Full sterile barriers (mask, hair cover, sterile gown, sterile gloves), Chloraprep Antiseptic: 30 second prep for IJ or SC sites CVP Time Out Performed: Yes Pt. Placed on Pulse Ox Monitor: Yes Central Line Prep: Chlorhexidine-Alcohol Combination Local Anesthesia Used: Lidocaine 1% Amount of Anesthesia Used (mls): 3 Ultrasound Used for Placement: Yes Central Line Lumen Inserted: triple Central Line Length: 16 cm Post Procedure: Sutured in Place, Good Blood Return, All Ports Aspirated, Flushed, Capped, Sterile Dressing Applied Secured by: Suture Post procedure dressing: Chlorhexidine disc (Biopatch) Post Procedure X-Ray: Yes Patient Tolerated Procedure: Well
--- NOTE | 2017-01-04 20:56 | CARD ---
APPROVED REPORT EXAM: Two-dimensional and M-mode echocardiogram with Doppler and color Doppler. Other Information Quality : GoodRhythm : NSR INDICATION Atrial Fibrillation Congestive Heart Failure Palpitations RISK FACTORS Diabetes M-Mode DIMENSIONS RVDd1.87 (2.1-3.2cm)Left Atrium (MM)4.89 (2.5-4.0cm) IVSd0.73 (0.7-1.1cm)Aortic Root2.71 (2.2-3.7cm) LVDd5.14 (4.0-5.6cm)Aortic Cusp Exc.1.35 (1.5-2.0cm) PWd0.56 (0.7-1.1cm)FS (%) 24 % LVDs3.92 (2.0-3.8cm)LVEF (%)47 (>50%) Aortic Valve AI P 1/2 [id number] Mitral Valve MV E [id number]/sE/A ratio0.0 TDI E/Lateral E'0.0E/Medial E'0.0 Tricuspid Valve TR Peak [id number]/sTR Peak [id number] LEFT VENTRICLE The left ventricle is normal size. There is normal left ventricular wall thickness. The left ventricular function is normal. The left ventricular ejection fraction is within the normal range. There is normal LV segmental wall motion. Transmitral Doppler flow pattern is Grade I-abnormal relaxation pattern. RIGHT VENTRICLE The right ventricle is normal size. There is normal right ventricular wall thickness. The right ventricular systolic function is normal. ATRIA The left atrium is severely dilated. The right atrium is severely dilated. The interatrial septum is intact with no evidence for an atrial septal defect. AORTIC VALVE The aortic valve is mildly thickened but opens well. The aortic valve is mildly calcified. There is mild aortic regurgitation. There is no aortic valvular stenosis. There is no aortic valvular vegetation. MITRAL VALVE Mitral annular calcification is mild to moderate. The mitral valve is mildly thickened. There is no evidence of mitral valve prolapse. There is no mitral valve stenosis. Mitral regurgitation is moderate to severe. TRICUSPID VALVE The tricuspid valve is normal in structure. There is severe tricuspid regurgitation. rap 20 pap 40-45 There is no tricuspid valve prolapse or vegetation. There is no tricuspid valve stenosis. PULMONIC VALVE The pulmonary valve is normal in structure. There is mild pulmonic valvular regurgitation. There is no pulmonic valvular stenosis. GREAT VESSELS The aortic root is normal in size. The ascending aorta is normal in size. ivc is dilated with little change with inspiration PERICARDIAL EFFUSION There is no pericardial effusion. There is no pleural effusion. <Conclusion> The left ventricular ejection fraction is within the normal range. Transmitral Doppler flow pattern is Grade I-abnormal relaxation pattern. The left atrium is severely dilated. The right atrium is severely dilated. The aortic valve is mildly thickened but opens well. The aortic valve is mildly calcified. There is mild aortic regurgitation. Mitral annular calcification is mild to moderate. The mitral valve is mildly thickened. Mitral regurgitation is moderate to severe. There is severe tricuspid regurgitation. rap 20 pap 40-45 There is mild pulmonic valvular regurgitation. ivc is dilated with little change with inspiration
[2017-01-04] MEDS ORDERED: Metoprolol 1 mg/ml Inj IVP ONE (22:21)
[2017-01-04 22:53] LABS: CHLORIDE 114 mmol/L (98-107)
[2017-01-04 22:54] LABS: POTASSIUM 3.5 mmol/L (3.6-5.2); SODIUM 152 mmol/L (132-148)
[2017-01-04 22:56] LABS: ALKALINE PHOSPHATASE 44 U/L (38-126); AST/SGOT 37 U/L (14-36); BILIRUBIN,TOTAL 1.5 mg/dL (0.2-1.3); BLOOD UREA NITROGEN 18 mg/dL (7-17); CARBON DIOXIDE 23 mmol/L (22-30); GFR AFRICAN-AMERICAN > 60; TOTAL PROTEIN 7.3 g/dL (6.3-8.3)
[2017-01-04 22:57] LABS: ALT/SGPT 31 U/L (9-52); CALCIUM 8.9 mg/dl (8.6-10.4); GLUCOSE,RANDOM 212 mg/dL (65-105)
[2017-01-05] MEDS ORDERED: Sodium Chloride 0.9% 1,000 ML IV SCH (00:15)
[2017-01-05] MEDS: niCARdipine IV 25 MG in Sodium Chloride 0.9% 240 ML IV SCH ×5 (00:57→22:54)
[2017-01-05 05:43] LABS: ABG MECHANICAL RATE 12; ARTERIAL BLOOD GAS MODE PRVC; ARTERIAL BLOOD HGB O2 SAT 97.1 % (95.0-98.0); ATERIAL BLOOD GAS PEEP 5; CARBOXYHEMOGLOBIN 1.6 % (0.5-1.5); DRAW SITE ALINE; HHB 0.2 % (0.0-5.0); METHEMOGLOBIN 1.1 % (0.0-3.0)
[2017-01-05] MEDS: (Novolin R) Insulin Human Regular 100 units/ml vial SC SCH ×4 (06:19→19:32)
[2017-01-05 06:54] LABS: BASO % 0.1 % (0.0-2.0); HEMATOCRIT 38.2 % (34.0-47.0); LYMPH # 1.2 K/uL (1.0-4.3); LYMPH % 9.5 % (20.0-40.0); MEAN CELL VOLUME 90.4 fL (81.0-99.0); MEAN CORPUSCULAR HEMOGLOBIN 28.8 pg (27.0-31.0); MEAN CORPUSCULAR HGB CONC 31.9 g/dL (33.0-37.0); MEAN PLATELET VOLUME 11.1 fL (7.2-11.7); MONO # 1.1 K/uL (0.0-0.8); MONO % 8.7 % (0.0-10.0); NRBC % 0.1 % (0.0-2.0); PLATELET COUNT 116 K/uL (130-400); RED CELL DISTRIBUTION WIDTH 14.9 % (11.5-14.5); WHITE BLOOD COUNT 12.6 K/uL (4.8-10.8)
[2017-01-05 07:12] LABS: CHLORIDE 116 mmol/L (98-107); SODIUM 154 mmol/L (132-148)
[2017-01-05 07:13] LABS: POTASSIUM 3.5 mmol/L (3.6-5.2)
[2017-01-05 07:15] LABS: ALKALINE PHOSPHATASE 45 U/L (38-126); ALT/SGPT 29 U/L (9-52); AST/SGOT 32 U/L (14-36); BILIRUBIN,TOTAL 1.6 mg/dL (0.2-1.3); BLOOD UREA NITROGEN 21 mg/dL (7-17); CALCIUM 8.8 mg/dl (8.6-10.4); CARBON DIOXIDE 22 mmol/L (22-30); GFR AFRICAN-AMERICAN > 60; GLUCOSE,RANDOM 227 mg/dL (65-105); PHOSPHOROUS 2.3 mg/dL (2.5-4.5)
[2017-01-05 07:16] LABS: MAGNESIUM 2.1 mg/dL (1.6-2.3)
--- NOTE | 2017-01-05 08:20 | CP.PCM.PN ---
Subjective - Date & Time of Evaluation Date of Evaluation: 01/05/17 Time of Evaluation: 08:00 - Subjective Subjective: Hospitalist Service Covering Dr. Layne (Patient was seen and examined at 8 AM 01/05/17. This is the first time that I am seeing this patient) 71 year old female who was admitted on 01/02/17 with complaints of 3 to 4 day history of nausea/vomiting, abdominal pain, and palpitations. She was found to have new onset Atrial Fibrillation with rapid ventricular response. She also developed a Bilateral Cerebellar Infarct and underwent Decompressive Craniotomy on 01/04/17. ROS: this is not possible as the patient is intubated Exam: HEENT: Right Pupil is nonreactive to light and is ovoid in shape (Son reveals that she had cataract surgery), Left Pupil is round in reactive to light, NO lympadenpathy, Left Internal Jugular Central Line in place, NO thyromegaly Cardio: Irregularly irregular with systolic ejection murmur in all maxwell Resp: CTA B/L NO R/R/W but this is limited secondary to lack of patient participaton GI: BS are reduced in all 4 quadrants, Soft, ND, NO HSM Ext: NO edema, Capillary refill is 2 seconds, Pulses are strong and equal Assessment and Plan: 1). Bilateral Cerebellar Infarct S/P decompressive craniotomy with ventriculostomy tube on 01/04/[address] Duque Neurology Dr. Jensen 2). New Onset Atrial Fibrillation Cardizem drip Metoprolol 100 mg PO 2x/day 2D Echocardiogram showing Grade I relaxation pattern, right and left atrium severe dilation, mitral annular calcification is mild to moderate, severe tricuspid regurgitation Cardiology Dr. Wong 3). DM RISS 4). Hypokalemia Improved KCl 20 mEq PO 1x/day 5). HTN Lisinopril 10 mg PO 1x/day Metaprolol 100 mg PO 2x/day 6). HLD Crestor 20 mg PO QHS 7). Thrombocytopenia 116 today 8). Hypernatremia Na is 154 (goal is 145-150) and Serum Osmolality is 325 (goal is < 320) therefore the Hypertonic Saline was discontinued on 01/04/17 9). Prophylaxis Tylenol 650 mg PO Q6H PRN Mild Pain Zofran 4 mg IV Q6H PRN N/V Protonix 40 mg IV 1x/day Will restart anticoagulation Lovenox once cleared by Neurosurgeon Patient has a poor prognosis. Edi Green D.O. Objective - Vital Signs/Intake and Output Vital Signs (last 24 hours): Temp Pulse Resp BP Pulse Ox 99 F 101 H 13 136/70 99 01/05/17 04:00 01/05/17 07:00 01/05/17 07:00 01/05/17 06:56 01/05/17 07:00 Intake and Output: 01/05/17 01/05/17 06:59 18:59 Intake Total 1480 25 Output Total 524 25 Balance 956 0 - Medications Medications: Current Medications Acetaminophen (Tylenol 325mg Tab) 650 mg PO Q6 PRN PRN Reason: Pain, Mild (1-3) Last Admin: 01/03/17 18:04 Dose: 650 mg Furosemide (Lasix) 20 mg IVP DAILY MIRELLA Last Admin: 01/04/17 10:06 Dose: 20 mg Propofol (Diprivan) 1,000 mg in 100 mls @ 2.381 mls/hr IV .Q24H PRN; Protocol; 5 MCG/KG/MIN PRN Reason: TITRATE PER MD ORDER Last Titration: 01/04/17 07:10 Dose: 0 mcg/kg/min, 0 mls/hr Nicardipine HCl 25 mg/ Sodium (Chloride) 250 mls @ 50 mls/hr IV .Q5H MIRELLA; 5 MG/ HR PRN Reason: Protocol Last Admin: 01/05/17 06:16 Dose: 1 mg/hr, 10 mls/hr Diltiazem HCl 125 mg/ Sodium (Chloride) 125 mls @ 5 mls/hr IV .Q24H MIRELLA; 5 MG/ HR PRN Reason: Protocol Last Admin: 01/05/17 06:14 Dose: 15 mg/hr, 15 mls/hr Sodium Chloride (Sodium Chloride 0.9%) 1,000 mls @ 50 mls/hr IV .Q20H MIRELLA Last Admin: 01/05/17 00:19 Dose: 50 mls/hr Insulin Human Regular (Novolin R) 0 unit SC Q6 MIRELLA PRN Reason: Protocol Last Admin: 01/05/17 06:19 Dose: 3 unit Lisinopril (Zestril) 10 mg PO DAILY MIRELLA Last Admin: 01/04/17 10:09 Dose: Not Given Metoprolol Tartrate (Lopressor) 100 mg PO BID [facility] Last Admin: 01/04/17 18:01 Dose: Not Given Ondansetron HCl (Zofran Inj) 4 mg IVP Q6 PRN PRN Reason: Nausea/Vomiting Last Admin: 01/02/17 18:42 Dose: 4 mg Pantoprazole Sodium (Protonix Inj) 40 mg IVP DAILY [facility] Last Admin: 01/04/17 09:59 Dose: 40 mg Potassium Chloride (K-Dur 20 Meq Er Tab) 20 meq PO DAILY [facility] Last Admin: 01/04/17 10:11 Dose: Not Given Rosuvastatin Calcium (Crestor) 20 mg PO HS [facility] Last Admin: 01/04/17 22:18 Dose: Not Given - Labs Labs: 01/05/17 06:48 01/05/17 06:48 PT 13.7 SECONDS (9.7-12.2) H 01/03/17 21:30 INR 1.2 01/03/17 21:30 APTT 31 SECONDS (21-34) 01/03/17 21:30
[2017-01-05 08:25] LABS: NEUTROPHIL 82 % (50-75); TOTAL CELLS COUNTED 100
--- NOTE | 2017-01-05 09:40 | RAD ---
HISTORY: intubated COMPARISON: Chest x-ray performed 01/04/17 TECHNIQUE: Chest, one view. FINDINGS: Endotracheal tube terminates at the level the rhiannon and should be withdrawn approximately 2.0 cm. Left IJ approach central venous catheter, likely terminating just proximal to the SVC. LUNGS: Biapical pleural thickening. Mild left basilar atelectasis. PLEURA: No significant pleural effusion identified. No definite pneumothorax . CARDIOVASCULAR: Mild cardiomegaly. Atherosclerotic calcification of the aortic knob. OSSEOUS STRUCTURES: Degenerative changes of the spine. VISUALIZED UPPER ABDOMEN: Unremarkable. OTHER FINDINGS: Partially imaged surgical jaxson, soft tissues of the neck. IMPRESSION: Endotracheal tube terminates at the level the rhiannon and should be withdrawn approximately 2.0 cm. Left IJ approach central venous catheter, likely terminating just proximal to the SVC. Biapical pleural thickening. Mild left basilar atelectasis. Mild cardiomegaly. Atherosclerotic calcification of the aortic knob.
--- NOTE | 2017-01-05 10:26 | CP.PCM.PN ---
Subjective - Date & Time of Evaluation Date of Evaluation: 01/05/17 Time of Evaluation: 10:23 - Subjective Subjective: no eye opening no rx to noxious pupils 3 and rx absent corneal on R pos gag no extremity motion EVD draing well no sig neurological recovery very poor prognosis d/w family at bedside Objective - Vital Signs/Intake and Output Vital Signs (last 24 hours): Temp Pulse Resp BP Pulse Ox 99.3 F 94 H 14 141/70 100 01/05/17 07:30 01/05/17 10:00 01/05/17 10:00 01/05/17 09:56 01/05/17 10:00 Intake and Output: 01/05/17 01/05/17 06:59 18:59 Intake Total 1480 190 Output Total 524 100 Balance 956 90 - Medications Medications: Current Medications Acetaminophen (Tylenol 325mg Tab) 650 mg PO Q6 PRN PRN Reason: Pain, Mild (1-3) Last Admin: 01/03/17 18:04 Dose: 650 mg Furosemide (Lasix) 20 mg IVP DAILY [facility] Last Admin: 01/04/17 10:06 Dose: 20 mg Diltiazem HCl 125 mg/ Sodium (Chloride) 125 mls @ 5 mls/hr IV .Q24H MIRELLA; 5 MG/ HR PRN Reason: Protocol Last Admin: 01/05/17 06:14 Dose: 15 mg/hr, 15 mls/hr Potassium Chloride (Potassium Chloride 20 Meq/100 Ml) 20 meq in 100 mls @ 100 mls/hr IVPB Q1H MIRELLA Stop: 01/05/17 12:29 Insulin Human Regular (Novolin R) 0 unit SC Q6 MIRELLA PRN Reason: Protocol Last Admin: 01/05/17 06:19 Dose: 3 unit Lisinopril (Zestril) 10 mg PO DAILY [facility] Last Admin: 01/04/17 10:09 Dose: Not Given Ondansetron HCl (Zofran Inj) 4 mg IVP Q6 PRN PRN Reason: Nausea/Vomiting Last Admin: 01/02/17 18:42 Dose: 4 mg Pantoprazole Sodium (Protonix Inj) 40 mg IVP DAILY [facility] Last Admin: 01/04/17 09:59 Dose: 40 mg Potassium Chloride (K-Dur 20 Meq Er Tab) 20 meq PO DAILY MIRELLA Last Admin: 01/04/17 10:11 Dose: Not Given Rosuvastatin Calcium (Crestor) 20 mg PO HS MIRELLA Last Admin: 01/04/17 22:18 Dose: Not Given - Labs Labs: 01/05/17 06:48 01/05/17 06:48 PT 13.7 SECONDS (9.7-12.2) H 01/03/17 21:30 INR 1.2 01/03/17 21:30 APTT 31 SECONDS (21-34) 01/03/17 21:30
[2017-01-05] MEDS: Potassium Chloride 20 mEq ER Tab PO SCH (10:32)
--- NOTE | 2017-01-05 15:29 | CP.CCUPN ---
CCU Subjective - Physician Review Events Since Last Encounter (Free Text): 01/05/17 15:26 Patient seen and examined in the intensive care unit. Case discussed with the staff in the morning rounds. Remains intubated on ventilatory support with no change in mental status No response to painful stimuli Pupils sluggish to light reaction Positive gag reflex Ventricular drain in place draining fluid CPP in the mid 80s Seen by neurosurgery Prognosis poor CCU Objective - Vital Signs / Intake & Output Vital Signs (Last 4 hours): Vital Signs Temp Pulse Resp BP Pulse Ox 01/05/17 15:00 123 H 13 100 01/05/17 14:56 108 H 12 140/70 100 01/05/17 14:00 81 12 100 01/05/17 13:56 105 H 13 131/70 100 01/05/17 13:00 125 H 12 100 01/05/17 12:56 122 H 17 134/71 100 01/05/17 12:00 98.4 F 109 H 16 100 01/05/17 11:56 116 H 12 135/74 100 Intake and Output (Last 8hrs): Intake & Output 01/05/17 01/05/17 01/05/17 06:59 14:59 22:59 Intake Total 715 785 15 Output Total 320 1170 165 Balance 395 -385 -150 Weight 175 lb Intake: IV 125 125 Intake, IV Amount 590 660 15 Left Medial Port Internal 140 400 15 Jugular Left Proximal Port 450 260 Internal Jugular Oral 0 0 Output: Drainage 35 40 5 Right Posterior Head 35 40 5 Urine 285 1130 160 Urethral ([place]) 285 1130 160 Other: # Bowel Movements 0 0 0 - Physical Exam Head: Positive for: Atraumatic, Normocephalic Extroacular Muscles: Positive for: EOMI Mouth: Positive for: Moist Mucous Membranes Neck: Positive for: Normal Range of Motion Respiratory/Chest: Positive for: Clear to Auscultation. Negative for: Wheezes, Rales, Rhonchi Cardiovascular: Positive for: Normal S1, S2, Irregular Rhythm, Peripheal Pulses Present, Tachycardic Abdomen: Negative for: Tenderness, Distention, Normal Bowel Sounds (hypoactive) Upper Extremity: Positive for: Normal Inspection. Negative for: Edema Lower Extremity: Positive for: Normal Inspection, NORMAL PULSES. Negative for: Edema Skin: Positive for: Warm, Dry, Normal Color Psychiatric: Positive for: Alert, Oriented x 3 - Medications Active Medications: Active Medications Generic Name Dose Route Start Last Admin Trade Name Freq PRN Reason Stop Dose Admin Acetaminophen 650 mg 01/03/17 11:49 01/03/17 18:04 Tylenol 325mg Tab PO 650 mg Q6 PRN Administration Pain, Mild (1-3) Furosemide 20 mg 01/02/17 10:00 01/05/17 10:31 Lasix IVP 20 mg DAILY MIRELLA Administration Diltiazem HCl 125 mg/ Sodium 125 mls @ 5 mls/hr 01/04/17 12:45 01/05/17 14:36 Chloride IV 15 mg/hr .Q24H MIRELLA 15 mls/hr Protocol Administration 5 MG/HR Insulin Human Regular 0 unit 01/04/17 18:00 01/05/17 12:44 Novolin R SC 3 unit Q6 MIRELLA Administration Protocol Lisinopril 10 mg 01/02/17 15:15 01/05/17 10:32 Zestril PO Not Given DAILY MIRELLA Ondansetron HCl 4 mg 01/01/17 21:22 01/02/17 18:42 Zofran Inj IVP 4 mg Q6 PRN Administration Nausea/Vomiting Pantoprazole Sodium 40 mg 01/02/17 10:00 01/05/17 10:31 Protonix Inj IVP 40 mg DAILY MIRELLA Administration Potassium Chloride 20 meq 01/03/17 10:00 01/05/17 10:32 K-Dur 20 Meq Er Tab PO Not Given DAILY MIRELLA Rosuvastatin Calcium 20 mg 01/03/17 22:00 01/04/17 22:18 Crestor PO Not Given HS MIRELLA - Patient Studies Lab Studies: Lab Studies 01/05/17 01/05/17 01/05/17 Range/Units 12:01 06:48 06:48 WBC (4.8-10.8) K/uL RBC (3.80-5.20) Mil/uL Hgb (11.0-16.0) g/dL Hct (34.0-47.0) % MCV (81.0-99.0) fL MCH (27.0-31.0) pg MCHC (33.0-37.0) g/dL RDW (11.5-14.5) % Plt Count (130-400) K/uL MPV (7.2-11.7) fL Neut % (Auto) (50.0-75.0) % Lymph % (Auto) (20.0-40.0) % [place] % (Auto) (0.0-10.0) % Eos % (Auto) (0.0-4.0) % Baso % (Auto) (0.0-2.0) % Neut # (1.8-7.0) K/uL Lymph # (1.0-4.3) K/uL [place] # (0.0-0.8) K/uL Eos # (0.0-0.7) K/uL Baso # (0.0-0.2) K/uL Neutrophils % (Manual) (50-75) % Band Neutrophils % (0-2) % Lymphocytes % (Manual) (20-40) % Monocytes % (Manual) (0-10) % Platelet Estimate (NORMAL) Hypochromasia (manual) Poikilocytosis (manual Anisocytosis (manual) Puncture Site pCO2 (35-45) mm/Hg pO2 (80-100) mm/Hg HCO3 (21-28) mmol/L ABG pH (7.35-7.45) ABG Total CO2 (22-28) mmol/L ABG O2 Saturation (95-98) % ABG Base Excess (-2.0-3.0) mmol/L ABG Hemoglobin (11.7-17.4) g/dL ABG Carboxyhemoglobin (0.5-1.5) % POC ABG HHb (Measured) (0.0-5.0) % ABG Methemoglobin (0.0-3.0) % Chandana Test A-a O2 Difference mm/Hg Respiratory Index Hgb O2 Saturation (95.0-98.0) % Vent Mode Mechanical Rate FiO2 % Tidal Volume PEEP Sodium 154 H (132-148) mmol/L Potassium 3.5 L (3.6-5.2) mmol/L Chloride 116 H (98-107) mmol/L Carbon Dioxide 22 (22-30) mmol/L Anion Gap 20 (10-20) BUN 21 H (7-17) mg/dL Creatinine 0.8 (0.7-1.2) MG/DL Est GFR ( Amer) > 60 Est GFR (Non-Af Amer) > 60 POC Glucose (mg/dL) 224 H (65-110) mg/dL Random Glucose 227 H (65-105) mg/dL Serum Osmolality 325 H (272-300) mosm/kg Calcium 8.8 (8.6-10.4) mg/dl Phosphorus 2.3 L (2.5-4.5) mg/dL Magnesium 2.1 (1.6-2.3) mg/dL Total Bilirubin 1.6 H (0.2-1.3) mg/dL AST 32 (14-36) U/L ALT 29 (9-52) U/L Alkaline Phosphatase 45 (38-126) U/L Total Protein 7.0 (6.3-8.3) g/dL Albumin 3.5 (3.5-5.0) g/dL Globulin 3.5 (2.2-3.9) gm/dL Albumin/Globulin Ratio 1.0 (1.0-2.1) 01/05/17 01/05/17 01/05/17 Range/Units 06:48 05:45 05:25 WBC 12.6 H (4.8-10.8) K/uL RBC 4.23 (3.80-5.20) Mil/uL Hgb 12.2 (11.0-16.0) g/dL Hct 38.2 (34.0-47.0) % MCV 90.4 (81.0-99.0) fL MCH 28.8 (27.0-31.0) pg MCHC 31.9 L (33.0-37.0) g/dL RDW 14.9 H (11.5-14.5) % Plt Count 116 L (130-400) K/uL MPV 11.1 (7.2-11.7) fL Neut % (Auto) 81.7 H (50.0-75.0) % Lymph % (Auto) 9.5 L (20.0-40.0) % [place] % (Auto) 8.7 (0.0-10.0) % Eos % (Auto) 0.0 (0.0-4.0) % Baso % (Auto) 0.1 (0.0-2.0) % Neut # 10.3 H (1.8-7.0) K/uL Lymph # 1.2 (1.0-4.3) K/uL [place] # 1.1 H (0.0-0.8) K/uL Eos # 0.0 (0.0-0.7) K/uL Baso # 0.0 (0.0-0.2) K/uL Neutrophils % (Manual) 82 H (50-75) % Band Neutrophils % 1 (0-2) % Lymphocytes % (Manual) 10 L (20-40) % Monocytes % (Manual) 7 (0-10) % Platelet Estimate Slightly decreased L (NORMAL) Hypochromasia (manual) Slight Poikilocytosis (manual Slight Anisocytosis (manual) Slight Puncture Site [place] pCO2 29 L (35-45) mm/Hg pO2 178 H (80-100) mm/Hg HCO3 24.6 (21-28) mmol/L ABG pH 7.49 H (7.35-7.45) ABG Total CO2 23.0 (22-28) mmol/L ABG O2 Saturation 99.8 H (95-98) % ABG Base Excess -0.4 (-2.0-3.0) mmol/L ABG Hemoglobin 11.9 (11.7-17.4) g/dL ABG Carboxyhemoglobin 1.6 H (0.5-1.5) % POC ABG HHb (Measured) 0.2 (0.0-5.0) % ABG Methemoglobin 1.1 (0.0-3.0) % Chandana Test Na A-a O2 Difference 71.0 mm/Hg Respiratory Index 0.4 Hgb O2 Saturation 97.1 (95.0-98.0) % Vent Mode Prvc Mechanical Rate 12 FiO2 40.0 % Tidal Volume 450 PEEP 5 Sodium (132-148) mmol/L Potassium (3.6-5.2) mmol/L Chloride (98-107) mmol/L Carbon Dioxide (22-30) mmol/L Anion Gap (10-20) BUN (7-17) mg/dL Creatinine (0.7-1.2) MG/DL Est GFR ( Amer) Est GFR (Non-Af Amer) POC Glucose (mg/dL) 243 H (65-110) mg/dL Random Glucose (65-105) mg/dL Serum Osmolality (272-300) mosm/kg Calcium (8.6-10.4) mg/dl Phosphorus (2.5-4.5) mg/dL Magnesium (1.6-2.3) mg/dL Total Bilirubin (0.2-1.3) mg/dL AST (14-36) U/L ALT (9-52) U/L Alkaline Phosphatase (38-126) U/L Total Protein (6.3-8.3) g/dL Albumin (3.5-5.0) g/dL Globulin (2.2-3.9) gm/dL Albumin/Globulin Ratio (1.0-2.1) 01/04/17 01/04/17 01/04/17 Range/Units 23:52 22:36 22:36 WBC (4.8-10.8) K/uL RBC (3.80-5.20) Mil/uL Hgb (11.0-16.0) g/dL Hct (34.0-47.0) % MCV (81.0-99.0) fL MCH (27.0-31.0) pg MCHC (33.0-37.0) g/dL RDW (11.5-14.5) % Plt Count (130-400) K/uL MPV (7.2-11.7) fL Neut % (Auto) (50.0-75.0) % Lymph % (Auto) (20.0-40.0) % [place] % (Auto) (0.0-10.0) % Eos % (Auto) (0.0-4.0) % Baso % (Auto) (0.0-2.0) % Neut # (1.8-7.0) K/uL Lymph # (1.0-4.3) K/uL [place] # (0.0-0.8) K/uL Eos # (0.0-0.7) K/uL Baso # (0.0-0.2) K/uL Neutrophils % (Manual) (50-75) % Band Neutrophils % (0-2) % Lymphocytes % (Manual) (20-40) % Monocytes % (Manual) (0-10) % Platelet Estimate (NORMAL) Hypochromasia (manual) Poikilocytosis (manual Anisocytosis (manual) Puncture Site pCO2 (35-45) mm/Hg pO2 (80-100) mm/Hg HCO3 (21-28) mmol/L ABG pH (7.35-7.45) ABG Total CO2 (22-28) mmol/L ABG O2 Saturation (95-98) % ABG Base Excess (-2.0-3.0) mmol/L ABG Hemoglobin (11.7-17.4) g/dL ABG Carboxyhemoglobin (0.5-1.5) % POC ABG HHb (Measured) (0.0-5.0) % ABG Methemoglobin (0.0-3.0) % Chandana Test A-a O2 Difference mm/Hg Respiratory Index Hgb O2 Saturation (95.0-98.0) % Vent Mode Mechanical Rate FiO2 % Tidal Volume PEEP Sodium 152 H (132-148) mmol/L Potassium 3.5 L (3.6-5.2) mmol/L Chloride 114 H (98-107) mmol/L Carbon Dioxide 23 (22-30) mmol/L Anion Gap 19 (10-20) BUN 18 H (7-17) mg/dL Creatinine 0.7 (0.7-1.2) MG/DL Est GFR ( Amer) > 60 Est GFR (Non-Af Amer) > 60 POC Glucose (mg/dL) 230 H (65-110) mg/dL Random Glucose 212 H (65-105) mg/dL Serum Osmolality 321 H (272-300) mosm/kg Calcium 8.9 (8.6-10.4) mg/dl Phosphorus (2.5-4.5) mg/dL Magnesium (1.6-2.3) mg/dL Total Bilirubin 1.5 H (0.2-1.3) mg/dL AST 37 H (14-36) U/L ALT 31 (9-52) U/L Alkaline Phosphatase 44 (38-126) U/L Total Protein 7.3 (6.3-8.3) g/dL Albumin 3.6 (3.5-5.0) g/dL Globulin 3.6 (2.2-3.9) gm/dL Albumin/Globulin Ratio 1.0 (1.0-2.1) 01/04/17 01/04/17 01/04/17 Range/Units 18:02 16:17 16:17 WBC (4.8-10.8) K/uL RBC (3.80-5.20) Mil/uL Hgb (11.0-16.0) g/dL Hct (34.0-47.0) % MCV (81.0-99.0) fL MCH (27.0-31.0) pg MCHC (33.0-37.0) g/dL RDW (11.5-14.5) % Plt Count (130-400) K/uL MPV (7.2-11.7) fL Neut % (Auto) (50.0-75.0) % Lymph % (Auto) (20.0-40.0) % [place] % (Auto) (0.0-10.0) % Eos % (Auto) (0.0-4.0) % Baso % (Auto) (0.0-2.0) % Neut # (1.8-7.0) K/uL Lymph # (1.0-4.3) K/uL [place] # (0.0-0.8) K/uL Eos # (0.0-0.7) K/uL Baso # (0.0-0.2) K/uL Neutrophils % (Manual) (50-75) % Band Neutrophils % (0-2) % Lymphocytes % (Manual) (20-40) % Monocytes % (Manual) (0-10) % Platelet Estimate (NORMAL) Hypochromasia (manual) Poikilocytosis (manual Anisocytosis (manual) Puncture Site pCO2 (35-45) mm/Hg pO2 (80-100) mm/Hg HCO3 (21-28) mmol/L ABG pH (7.35-7.45) ABG Total CO2 (22-28) mmol/L ABG O2 Saturation (95-98) % ABG Base Excess (-2.0-3.0) mmol/L ABG Hemoglobin (11.7-17.4) g/dL ABG Carboxyhemoglobin (0.5-1.5) % POC ABG HHb (Measured) (0.0-5.0) % ABG Methemoglobin (0.0-3.0) % Chandana Test A-a O2 Difference mm/Hg Respiratory Index Hgb O2 Saturation (95.0-98.0) % Vent Mode Mechanical Rate FiO2 % Tidal Volume PEEP Sodium 147 (132-148) mmol/L Potassium 3.9 (3.6-5.2) mmol/L Chloride 107 (98-107) mmol/L Carbon Dioxide 25 (22-30) mmol/L Anion Gap 18 (10-20) BUN 15 (7-17) mg/dL Creatinine 0.7 (0.7-1.2) MG/DL Est GFR ( Amer) > 60 Est GFR (Non-Af Amer) > 60 POC Glucose (mg/dL) 204 H (65-110) mg/dL Random Glucose 207 H (65-105) mg/dL Serum Osmolality 311 H (272-300) mosm/kg Calcium 9.0 (8.6-10.4) mg/dl Phosphorus 3.0 (2.5-4.5) mg/dL Magnesium 1.8 (1.6-2.3) mg/dL Total Bilirubin 1.3 (0.2-1.3) mg/dL AST 33 (14-36) U/L ALT 34 (9-52) U/L Alkaline Phosphatase 53 (38-126) U/L Total Protein 7.5 (6.3-8.3) g/dL Albumin 3.9 (3.5-5.0) g/dL Globulin 3.7 (2.2-3.9) gm/dL Albumin/Globulin Ratio 1.1 (1.0-2.1) Laboratory Results - last 24 hr 01/04/17 01/04/17 01/04/17 16:17 16:17 18:02 WBC RBC Hgb Hct MCV MCH MCHC RDW Plt Count MPV Neut % (Auto) Lymph % (Auto) [place] % (Auto) Eos % (Auto) Baso % (Auto) Neut # Lymph # [place] # Eos # Baso # Neutrophils % (Manual) Band Neutrophils % Lymphocytes % (Manual) Monocytes % (Manual) Platelet Estimate Hypochromasia (manual) Poikilocytosis (manual Anisocytosis (manual) Puncture Site pCO2 pO2 HCO3 ABG pH ABG Total CO2 ABG O2 Saturation ABG Base Excess ABG Hemoglobin ABG Carboxyhemoglobin POC ABG HHb (Measured) ABG Methemoglobin Chandana Test A-a O2 Difference Respiratory Index Hgb O2 Saturation Vent Mode Mechanical Rate FiO2 Tidal Volume PEEP Sodium 147 Potassium 3.9 Chloride 107 Carbon Dioxide 25 Anion Gap 18 BUN 15 Creatinine 0.7 Est GFR ( Amer) > 60 Est GFR (Non-Af Amer) > 60 POC Glucose (mg/dL) 204 H Random Glucose 207 H Serum Osmolality 311 H Calcium 9.0 Phosphorus 3.0 Magnesium 1.8 Total Bilirubin 1.3 AST 33 ALT 34 Alkaline Phosphatase 53 Total Protein 7.5 Albumin 3.9 Globulin 3.7 Albumin/Globulin Ratio 1.1 01/04/17 01/04/17 01/04/17 22:36 22:36 23:52 WBC RBC Hgb Hct MCV MCH MCHC RDW Plt Count MPV Neut % (Auto) Lymph % (Auto) [place] % (Auto) Eos % (Auto) Baso % (Auto) Neut # Lymph # [place] # Eos # Baso # Neutrophils % (Manual) Band Neutrophils % Lymphocytes % (Manual) Monocytes % (Manual) Platelet Estimate Hypochromasia (manual) Poikilocytosis (manual Anisocytosis (manual) Puncture Site pCO2 pO2 HCO3 ABG pH ABG Total CO2 ABG O2 Saturation ABG Base Excess ABG Hemoglobin ABG Carboxyhemoglobin POC ABG HHb (Measured) ABG Methemoglobin Chandana Test A-a O2 Difference Respiratory Index Hgb O2 Saturation Vent Mode Mechanical Rate FiO2 Tidal Volume PEEP Sodium 152 H Potassium 3.5 L Chloride 114 H Carbon Dioxide 23 Anion Gap 19 BUN 18 H Creatinine 0.7 Est GFR ( Amer) > 60 Est GFR (Non-Af Amer) > 60 POC Glucose (mg/dL) 230 H Random Glucose 212 H Serum Osmolality 321 H Calcium 8.9 Phosphorus Magnesium Total Bilirubin 1.5 H AST 37 H ALT 31 Alkaline Phosphatase 44 Total Protein 7.3 Albumin 3.6 Globulin 3.6 Albumin/Globulin Ratio 1.0 01/05/17 01/05/17 01/05/17 05:25 05:45 06:48 WBC 12.6 H RBC 4.23 Hgb 12.2 Hct 38.2 MCV 90.4 MCH 28.8 MCHC 31.9 L RDW 14.9 H Plt Count 116 L MPV 11.1 Neut % (Auto) 81.7 H Lymph % (Auto) 9.5 L [place] % (Auto) 8.7 Eos % (Auto) 0.0 Baso % (Auto) 0.1 Neut # 10.3 H Lymph # 1.2 [place] # 1.1 H Eos # 0.0 Baso # 0.0 Neutrophils % (Manual) 82 H Band Neutrophils % 1 Lymphocytes % (Manual) 10 L Monocytes % (Manual) 7 Platelet Estimate Slightly decreased L Hypochromasia (manual) Slight Poikilocytosis (manual Slight Anisocytosis (manual) Slight Puncture Site [place] pCO2 29 L pO2 178 H HCO3 24.6 ABG pH 7.49 H ABG Total CO2 23.0 ABG O2 Saturation 99.8 H ABG Base Excess -0.4 ABG Hemoglobin 11.9 ABG Carboxyhemoglobin 1.6 H POC ABG HHb (Measured) 0.2 ABG Methemoglobin 1.1 Chandana Test Na A-a O2 Difference 71.0 Respiratory Index 0.4 Hgb O2 Saturation 97.1 Vent Mode Prvc Mechanical Rate 12 FiO2 40.0 Tidal Volume 450 PEEP 5 Sodium Potassium Chloride Carbon Dioxide Anion Gap BUN Creatinine Est GFR ( Amer) Est GFR (Non-Af Amer) POC Glucose (mg/dL) 243 H Random Glucose Serum Osmolality Calcium Phosphorus Magnesium Total Bilirubin AST ALT Alkaline Phosphatase Total Protein Albumin Globulin Albumin/Globulin Ratio 01/05/17 01/05/17 01/05/17 06:48 06:48 12:01 WBC RBC Hgb Hct MCV MCH MCHC RDW Plt Count MPV Neut % (Auto) Lymph % (Auto) [place] % (Auto) Eos % (Auto) Baso % (Auto) Neut # Lymph # [place] # Eos # Baso # Neutrophils % (Manual) Band Neutrophils % Lymphocytes % (Manual) Monocytes % (Manual) Platelet Estimate Hypochromasia (manual) Poikilocytosis (manual Anisocytosis (manual) Puncture Site pCO2 pO2 HCO3 ABG pH ABG Total CO2 ABG O2 Saturation ABG Base Excess ABG Hemoglobin ABG Carboxyhemoglobin POC ABG HHb (Measured) ABG Methemoglobin Chandana Test A-a O2 Difference Respiratory Index Hgb O2 Saturation Vent Mode Mechanical Rate FiO2 Tidal Volume PEEP Sodium 154 H Potassium 3.5 L Chloride 116 H Carbon Dioxide 22 Anion Gap 20 BUN 21 H Creatinine 0.8 Est GFR ( Amer) > 60 Est GFR (Non-Af Amer) > 60 POC Glucose (mg/dL) 224 H Random Glucose 227 H Serum Osmolality 325 H Calcium 8.8 Phosphorus 2.3 L Magnesium 2.1 Total Bilirubin 1.6 H AST 32 ALT 29 Alkaline Phosphatase 45 Total Protein 7.0 Albumin 3.5 Globulin 3.5 Albumin/Globulin Ratio 1.0 Fingerstick Blood Sugar Results: 224 Review of Systems - Review of Systems Systems not reviewed;Unavailable: Intubated Critical Care Progress Note - Ventilator Checklist Head of Bed 30 Degrees: Yes Daily Sedation Vacation: No Daily Spontaneous Breathing Trial: No PUD Prophalyxis: Yes DVT Prophylaxis: Yes - Nutrition Nutrition: Nutrition Category Date Time Status NPO Diet [DIET] Diets 01/04/17 Breakfast Active Assessment/Plan (1) Cerebellar stroke Current Visit: Yes Status: Acute Priority: High Comment: Status post decompressive surgery/ventriculostomy Repeat CT of the head noted with worsening edema and herniation Hypotonic fluid stopped keep CPP between 60-80 Case discussed with family at length Patient seen by neurosurgery with poor prognosis Continue ventilatory support (2) New onset atrial fibrillation Current Visit: Yes Status: Acute
--- NOTE | 2017-01-05 17:01 | CP.PCM.PN ---
Subjective - Date & Time of Evaluation Date of Evaluation: 01/05/17 Time of Evaluation: 16:57 - Subjective Subjective: Mrs. Hough was seen and examined today in the ICU. She is intubated, off sedation. No acute events overnight. Objective - Vital Signs/Intake and Output Vital Signs (last 24 hours): Temp Pulse Resp BP Pulse Ox 98.4 F 123 H 13 140/70 100 01/05/17 12:00 01/05/17 15:00 01/05/17 15:00 01/05/17 14:56 01/05/17 15:00 Intake and Output: 01/05/17 01/05/17 06:59 18:59 Intake Total 1480 800 Output Total 524 1335 Balance 956 -535 - Medications Medications: Current Medications Acetaminophen (Tylenol 325mg Tab) 650 mg PO Q6 PRN PRN Reason: Pain, Mild (1-3) Last Admin: 01/03/17 18:04 Dose: 650 mg Furosemide (Lasix) 20 mg IVP DAILY [facility] Last Admin: 01/05/17 10:31 Dose: 20 mg Diltiazem HCl 125 mg/ Sodium (Chloride) 125 mls @ 5 mls/hr IV .Q24H MIRELLA; 5 MG/ HR PRN Reason: Protocol Last Admin: 01/05/17 14:36 Dose: 15 mg/hr, 15 mls/hr Nicardipine HCl 25 mg/ Sodium (Chloride) 250 mls @ 50 mls/hr IV .Q5H MIRELLA; 5 MG/ HR PRN Reason: Protocol Insulin Human Regular (Novolin R) 0 unit SC Q6 MIRELLA PRN Reason: Protocol Last Admin: 01/05/17 12:44 Dose: 3 unit Lisinopril (Zestril) 10 mg PO DAILY [facility] Last Admin: 01/05/17 10:32 Dose: Not Given Ondansetron HCl (Zofran Inj) 4 mg IVP Q6 PRN PRN Reason: Nausea/Vomiting Last Admin: 01/02/17 18:42 Dose: 4 mg Pantoprazole Sodium (Protonix Inj) 40 mg IVP DAILY MIRELLA Last Admin: 01/05/17 10:31 Dose: 40 mg Potassium Chloride (K-Dur 20 Meq Er Tab) 20 meq PO DAILY MIRELLA Last Admin: 01/05/17 10:32 Dose: Not Given Rosuvastatin Calcium (Crestor) 20 mg PO HS MIRELLA Last Admin: 01/04/17 22:18 Dose: Not Given - Labs Labs: 01/05/17 06:48 01/05/17 06:48 PT 13.7 SECONDS (9.7-12.2) H 01/03/17 21:30 INR 1.2 01/03/17 21:30 APTT 31 SECONDS (21-34) 01/03/17 21:30 - Neurological Exam Additional comments: There is no response to voice or pain. 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 Right eye is roving. GCS= 3T Assessment and Plan (1) Cerebellar stroke Assessment & Plan: Continue hypertonic saline at current rate. Maintain CPP at 50-80 and continue cardene drip to maintain SBP below 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 Concern is for further herniation. Status: Acute
--- NOTE | 2017-01-05 17:30 | CP.PCM.CON ---
History of Present Illness - History of Present Illness History of Present Illness: diabetes mellitus Past Patient History - Infectious Disease Hx of Infectious Diseases: None - Past Medical History & Family History Past Medical History?: Yes - Past Social History Smoking Status: Never Smoked - CARDIAC Hx Cardiac Disorders: Yes Hx Hypertension: Yes - PULMONARY Hx Respiratory Disorders: No - NEUROLOGICAL Hx Neurological Disorder: No - HEENT Hx HEENT Problems: Yes Hx Cataracts: Yes (cataract sx 5 years ago) - RENAL Hx Chronic Kidney Disease: No - ENDOCRINE/METABOLIC Hx Endocrine Disorders: Yes Hx Diabetes Mellitus Type 2: Yes - HEMATOLOGICAL/ONCOLOGICAL Hx Blood Disorders: No - INTEGUMENTARY Hx Dermatological Problems: No - MUSCULOSKELETAL/RHEUMATOLOGICAL Hx Falls: No - GASTROINTESTINAL Hx Gastrointestinal Disorders: Yes Hx Vomiting: Yes - GENITOURINARY/GYNECOLOGICAL Hx Genitourinary Disorders: No - PSYCHIATRIC Hx Substance Use: No - SURGICAL HISTORY Hx Surgeries: Yes Hx Cataract Extraction: Yes (5 years ago) - ANESTHESIA Hx Anesthesia: No Hx Anesthesia Reactions: No Hx Malignant Hyperthermia: No Has any member of the family had a problem w/ anesthesia?: No Meds Allergies/Adverse Reactions: Allergies Allergy/AdvReac Type Severity Reaction Status Date / Time SEAFOOD Allergy Uncoded 01/01/17 16:53 - Medications Medications: Current Medications Acetaminophen (Tylenol 325mg Tab) 650 mg PO Q6 PRN PRN Reason: Pain, Mild (1-3) Last Admin: 01/03/17 18:04 Dose: 650 mg Furosemide (Lasix) 20 mg IVP DAILY MIRELLA Last Admin: 01/05/17 10:31 Dose: 20 mg Diltiazem HCl 125 mg/ Sodium (Chloride) 125 mls @ 5 mls/hr IV .Q24H MIRELLA; 5 MG/ HR PRN Reason: Protocol Last Admin: 01/05/17 14:36 Dose: 15 mg/hr, 15 mls/hr Nicardipine HCl 25 mg/ Sodium (Chloride) 250 mls @ 50 mls/hr IV .Q5H MIRELLA; 5 MG/ HR PRN Reason: Protocol Insulin Human Regular (Novolin R) 0 unit SC Q6 MIRELLA PRN Reason: Protocol Last Admin: 01/05/17 12:44 Dose: 3 unit Lisinopril (Zestril) 10 mg PO DAILY [facility]RELLA Last Admin: 01/05/17 10:32 Dose: Not Given Ondansetron HCl (Zofran Inj) 4 mg IVP Q6 PRN PRN Reason: Nausea/Vomiting Last Admin: 01/02/17 18:42 Dose: 4 mg Pantoprazole Sodium (Protonix Inj) 40 mg IVP DAILY [facility] Last Admin: 01/05/17 10:31 Dose: 40 mg Potassium Chloride (K-Dur 20 Meq Er Tab) 20 meq PO DAILY [facility] Last Admin: 01/05/17 10:32 Dose: Not Given Rosuvastatin Calcium (Crestor) 20 mg PO HS [facility] Last Admin: 01/04/17 22:18 Dose: Not Given Results - Vital Signs Recent Vital Signs: Last Vital Signs Temp 99.3 F 01/05/17 16:00 Pulse 123 H 01/05/17 15:00 Resp 13 01/05/17 15:00 BP 140/70 01/05/17 14:56 Pulse Ox 100 01/05/17 15:00 - Labs Result Diagrams: 01/05/17 06:48 01/05/17 06:48 Labs: Laboratory Results - last 24 hr 01/04/17 01/04/17 01/04/17 18:02 22:36 22:36 WBC RBC Hgb Hct MCV MCH MCHC RDW Plt Count MPV Neut % (Auto) Lymph % (Auto) Bell % (Auto) Eos % (Auto) Baso % (Auto) Neut # Lymph # Bell # Eos # Baso # Neutrophils % (Manual) Band Neutrophils % Lymphocytes % (Manual) Monocytes % (Manual) Platelet Estimate Hypochromasia (manual) Poikilocytosis (manual Anisocytosis (manual) Puncture Site pCO2 pO2 HCO3 ABG pH ABG Total CO2 ABG O2 Saturation ABG Base Excess ABG Hemoglobin ABG Carboxyhemoglobin POC ABG HHb (Measured) ABG Methemoglobin Chandana Test A-a O2 Difference Respiratory Index Hgb O2 Saturation Vent Mode Mechanical Rate FiO2 Tidal Volume PEEP Sodium 152 H Potassium 3.5 L Chloride 114 H Carbon Dioxide 23 Anion Gap 19 BUN 18 H Creatinine 0.7 Est GFR ( Amer) > 60 Est GFR (Non-Af Amer) > 60 POC Glucose (mg/dL) 204 H Random Glucose 212 H Serum Osmolality 321 H Calcium 8.9 Phosphorus Magnesium Total Bilirubin 1.5 H AST 37 H ALT 31 Alkaline Phosphatase 44 Total Protein 7.3 Albumin 3.6 Globulin 3.6 Albumin/Globulin Ratio 1.0 01/04/17 01/05/17 01/05/17 23:52 05:25 05:45 WBC RBC Hgb Hct MCV MCH MCHC RDW Plt Count MPV Neut % (Auto) Lymph % (Auto) Bell % (Auto) Eos % (Auto) Baso % (Auto) Neut # Lymph # Bell # Eos # Baso # Neutrophils % (Manual) Band Neutrophils % Lymphocytes % (Manual) Monocytes % (Manual) Platelet Estimate Hypochromasia (manual) Poikilocytosis (manual Anisocytosis (manual) Puncture Site Logan pCO2 29 L pO2 178 H HCO3 24.6 ABG pH 7.49 H ABG Total CO2 23.0 ABG O2 Saturation 99.8 H ABG Base Excess -0.4 ABG Hemoglobin 11.9 ABG Carboxyhemoglobin 1.6 H POC ABG HHb (Measured) 0.2 ABG Methemoglobin 1.1 Chandana Test Na A-a O2 Difference 71.0 Respiratory Index 0.4 Hgb O2 Saturation 97.1 Vent Mode Prvc Mechanical Rate 12 FiO2 40.0 Tidal Volume 450 PEEP 5 Sodium Potassium Chloride Carbon Dioxide Anion Gap BUN Creatinine Est GFR ( Amer) Est GFR (Non-Af Amer) POC Glucose (mg/dL) 230 H 243 H Random Glucose Serum Osmolality Calcium Phosphorus Magnesium Total Bilirubin AST ALT Alkaline Phosphatase Total Protein Albumin Globulin Albumin/Globulin Ratio 01/05/17 01/05/17 01/05/17 06:48 06:48 06:48 WBC 12.6 H RBC 4.23 Hgb 12.2 Hct 38.2 MCV 90.4 MCH 28.8 MCHC 31.9 L RDW 14.9 H Plt Count 116 L MPV 11.1 Neut % (Auto) 81.7 H Lymph % (Auto) 9.5 L Bell % (Auto) 8.7 Eos % (Auto) 0.0 Baso % (Auto) 0.1 Neut # 10.3 H Lymph # 1.2 Bell # 1.1 H Eos # 0.0 Baso # 0.0 Neutrophils % (Manual) 82 H Band Neutrophils % 1 Lymphocytes % (Manual) 10 L Monocytes % (Manual) 7 Platelet Estimate Slightly decreased L Hypochromasia (manual) Slight Poikilocytosis (manual Slight Anisocytosis (manual) Slight Puncture Site pCO2 pO2 HCO3 ABG pH ABG Total CO2 ABG O2 Saturation ABG Base Excess ABG Hemoglobin ABG Carboxyhemoglobin POC ABG HHb (Measured) ABG Methemoglobin Chandana Test A-a O2 Difference Respiratory Index Hgb O2 Saturation Vent Mode Mechanical Rate FiO2 Tidal Volume PEEP Sodium 154 H Potassium 3.5 L Chloride 116 H Carbon Dioxide 22 Anion Gap 20 BUN 21 H Creatinine 0.8 Est GFR ( Amer) > 60 Est GFR (Non-Af Amer) > 60 POC Glucose (mg/dL) Random Glucose 227 H Serum Osmolality 325 H Calcium 8.8 Phosphorus 2.3 L Magnesium 2.1 Total Bilirubin 1.6 H AST 32 ALT 29 Alkaline Phosphatase 45 Total Protein 7.0 Albumin 3.5 Globulin 3.5 Albumin/Globulin Ratio 1.0 01/05/17 12:01 WBC RBC Hgb Hct MCV MCH MCHC RDW Plt Count MPV Neut % (Auto) Lymph % (Auto) Bell % (Auto) Eos % (Auto) Baso % (Auto) Neut # Lymph # Bell # Eos # Baso # Neutrophils % (Manual) Band Neutrophils % Lymphocytes % (Manual) Monocytes % (Manual) Platelet Estimate Hypochromasia (manual) Poikilocytosis (manual Anisocytosis (manual) Puncture Site pCO2 pO2 HCO3 ABG pH ABG Total CO2 ABG O2 Saturation ABG Base Excess ABG Hemoglobin ABG Carboxyhemoglobin POC ABG HHb (Measured) ABG Methemoglobin Chandana Test A-a O2 Difference Respiratory Index Hgb O2 Saturation Vent Mode Mechanical Rate FiO2 Tidal Volume PEEP Sodium Potassium Chloride Carbon Dioxide Anion Gap BUN Creatinine Est GFR ( Amer) Est GFR (Non-Af Amer) POC Glucose (mg/dL) 224 H Random Glucose Serum Osmolality Calcium Phosphorus Magnesium Total Bilirubin AST ALT Alkaline Phosphatase Total Protein Albumin Globulin Albumin/Globulin Ratio Assessment & Plan (1) Uncontrolled type 2 diabetes mellitus Assessment and Plan: Endocrine consult reason for consult: thyroid disease &DM sourse : chart review & pt's son by bed side is 71 y/o admitted to ICU for new onset A Fib with rapid ventricular response with acute CVA s/p decompression craniotomy , intubated as per pt's son Gustabo , pt.has DM x 10 years (-) neuropathy , (-) retinopathy , (-) nephropathy (-) CAD (-) PVD outpatient diabetes management regimen : Metformin 500 mg po tid inpatient diabetes management regimen : medium dose regular insulin 6 h blood glucose log :200's NPO NO hypoglycemia as per son pt.does think his mother has thyroid disorder Allergy NKDA Past medical history :HTN Past surgical history : as above & eye correction surgery Psychiatry history : denies Social history : denies smoking , ETOH use or illicit drug use Family history : siblings & children ROS: Constitutional: no fever ,tiredness/weakness .HEENT: no earache, change in voice .Respiratory: no cough, sob . CVS :no chest pain, no palpitations . Abdomen : no abdominal pain, no nausea /vomiting , no change bowel movement . [employer] : no light-headedness, dizziness. Extremities : no edema , no tremors .Skin : no itching, no rash Physical exam Well developed intubated VSS HEENT: norm cephalic, atraumatic NECK: supple, no palpable lymphadenopathy THYROID: no palpable thyromegaly , not tender CHEST: fair air entry, bilateral, CVS: S1,S2 ABDOMEN: bowel sound present, benign, obese, no wide purple striae , no bruises EXTREMITIES: no edema, clubbing or cyanosis, no palpable hand tremors Skin : acanthosis nigricans lab: tsh 0.82, ft4 1.63 , NT-PRP NTP 3690, wbc 12.6 Assessment -uncontrolled DM -A Fib , new onset -acute CVA s/p craniotomy -obesity plan decrease Novolin R low dose coverage q 6 h start lantus 10 units @ 9pm daily obtain thyroid functions & abs obtain a1c will monitor Status: Acute (2) Cerebellar stroke Status: Acute Priority: High (3) New onset atrial fibrillation Status: Acute
--- NOTE | 2017-01-05 18:42 | CT ---
EXAM: CT Head Without Intravenous Contrast EXAM DATE/TIME: Exam ordered 01/05/2017 5:01 PM CLINICAL HISTORY: 71 years old, female; Signs and symptoms; Altered mental status/memory loss and coma or unconsciousness; Amnesia, not specified; Additional info: Brainstem herniation TECHNIQUE: Axial computed tomography images of the head/brain without intravenous contrast. All CT scans at this facility use one or more dose reduction techniques, viz.: automated exposure control; ma/kV adjustment per patient size (including targeted exams where dose is matched to indication; i.e. head); or iterative reconstruction technique. Coronal and sagittal reformatted images were created and reviewed. COMPARISON: CT - HEAD W/O CONTRAST 01/04/2017 10:35:26 AM FINDINGS: Brain: Patient status post left occipital craniectomy. Dependent extracranial hyperdensity is noted at the craniectomy site consistent with a soft tissue hematoma. There is marked edema involving both cerebellar hemispheres and the brainstem. The the There is a mild shift of the right cerebellar Hemisphere to the left which is unchanged.There is complete effacement of the fourth ventricle and the ambient cistern. A small amount of blood is suggested within the right sylvian fissure posteriorly. Calcifications are noted in the basal ganglia bilaterally. Ventricles: Blood is noted within the dependent portion of the right temporal horn and the atria of the lateral ventricles bilaterally, right side greater than left. Low density is noted within the periventricular white matter extending into the juares radiata and centrum semi-ovale bilaterally. This has increased since the examination dated 01/01/2017 and is likely related to increased transependymal flow of CSF secondary to hydrocephalus. The degree of hydrocephalus has slightly increased since 01/04/2017. The atria of the left lateral ventricle today measures 2.26 cm compared to previous measurement of 2.04 cm in maximum diameter.The there continues to be mild generalized sulcal effacement near the high convexity. Bones/joints: See above. Soft tissues: Unremarkable. Sinuses: Unremarkable as visualized. No acute sinusitis. Mastoid air cells: Unremarkable as visualized. No mastoid effusion. Tubes, lines and devices: There's a ventriculostomy tube noted via the right occipital lobe with its tip in the region of the left foramen of Monro. Circumferential parenchymal hemorrhage surrounds the ventriculostomy tube as it passes through the right occipital lobe. IMPRESSION: 1. Infarcts involving the cerebellar hemispheres bilaterally with mass effect on the fourth ventricle, effacement of the basilar cisterns and secondary obstructive hydrocephalus. The hydrocephalus has slightly increased since previous. 2. Postoperative changes including intraventricular hemorrhage related to placement of right ventriculostomy catheter and left occipital craniectomy. 3. Heterogeneous density of the brainstem suggests possibility of infarction. 4. Mild generalized cerebral edema. This appears stable.
[2017-01-05] MEDS: (Lantus) Insulin Glargine, Recombinant SC SCH (23:10)
[2017-01-06] MEDS: niCARdipine IV 25 MG in Sodium Chloride 0.9% 240 ML IV SCH ×6 (03:00→23:36)
[2017-01-06 05:46] LABS: ABG MECHANICAL RATE 12; ARTERIAL BLOOD GAS MODE PRVC; ATERIAL BLOOD GAS PEEP 5; CARBOXYHEMOGLOBIN 1.7 % (0.5-1.5); DRAW SITE ALINE; HHB 0.1 % (0.0-5.0); METHEMOGLOBIN 1.2 % (0.0-3.0)
[2017-01-06] MEDS: (Novolin R) Insulin Human Regular 100 units/ml vial SC SCH ×4 (05:49→18:26)
[2017-01-06 06:37] LABS: BASO % 0.1 % (0.0-2.0); EOS % 0.1 % (0.0-4.0); HEMATOCRIT 37.3 % (34.0-47.0); LYMPH # 1.9 K/uL (1.0-4.3); LYMPH % 14.3 % (20.0-40.0); MEAN CELL VOLUME 90.6 fL (81.0-99.0); MEAN CORPUSCULAR HEMOGLOBIN 28.8 pg (27.0-31.0); MEAN CORPUSCULAR HGB CONC 31.7 g/dL (33.0-37.0); MONO % 7.7 % (0.0-10.0); RED CELL DISTRIBUTION WIDTH 14.9 % (11.5-14.5); WHITE BLOOD COUNT 13.6 K/uL (4.8-10.8)
[2017-01-06 06:54] LABS: ALB/GLOB RATIO 1.1 (1.0-2.1); ALKALINE PHOSPHATASE 49 U/L (38-126); ALT/SGPT 35 U/L (9-52); AST/SGOT 34 U/L (14-36); BILIRUBIN,TOTAL 1.3 mg/dL (0.2-1.3); BLOOD UREA NITROGEN 33 mg/dL (7-17); CALCIUM 9.2 mg/dl (8.6-10.4); CARBON DIOXIDE 22 mmol/L (22-30); CHLORIDE 116 mmol/L (98-107); GFR AFRICAN-AMERICAN > 60; GLUCOSE,RANDOM 203 mg/dL (65-105); MAGNESIUM 2.4 mg/dL (1.6-2.3); PHOSPHOROUS 2.3 mg/dL (2.5-4.5); POTASSIUM 3.3 mmol/L (3.6-5.2); SODIUM 152 mmol/L (132-148); TOTAL PROTEIN 6.8 g/dL (6.3-8.3)
[2017-01-06 07:05] LABS: T4 7.64 ug/dL (5.5-11.0)
[2017-01-06 07:18] LABS: THYROID STIMULATING HORMONE 0.22 mIU/L (0.46-4.68)
--- NOTE | 2017-01-06 09:50 | CP.PCM.PN ---
Subjective - Date & Time of Evaluation Date of Evaluation: 01/06/17 Time of Evaluation: 09:30 - Subjective Subjective: Hospitalist Service Covering Dr. Layne (Patient was seen and examined at 9: 30 AM 01/06/17) 71 year old female who was admitted on 01/02/17 with complaints of 3 to 4 day history of nausea/vomiting, abdominal pain, and palpitations. She was found to have new onset Atrial Fibrillation with rapid ventricular response. She also developed a Bilateral Cerebellar Infarct and underwent Decompressive Craniotomy on 01/04/17. ROS: this is not possible as the patient is intubated Exam: HEENT: Right Pupil is nonreactive to light and is ovoid in shape (Son reveals that she had cataract surgery), Left Pupil is round in reactive to light sluggishly, NO lympadenpathy, Left Internal Jugular Central Line in place, NO thyromegaly Cardio: Irregularly irregular with systolic ejection murmur in all maxwell Resp: CTA B/L NO R/R/W but this is limited secondary to lack of patient participaton GI: BS are reduced in all 4 quadrants, Soft, ND, NO HSM Ext: NO edema, Capillary refill is 2 seconds, Pulses are strong and equal Assessment and Plan: 1). Bilateral Cerebellar Infarct S/P decompressive craniotomy with ventriculostomy tube on 01/04/[address] Duque Neurology Dr. Jensen Repeat CT Head 01/05/17 hshows worsening of obstructive hydrocephalus, postoperative changes that include intraventricular hemorrhage related to placement of right ventriculostomy catheter and left occipital craniotomy Right Ventriculostomy Catheter draining bright red clear fluid 350 ml in the past 24 hours. Spoke at length with Sons Gustabo [phone] and Magan [phone] and explained patient's poor prognosis and that she was currently at risk for possible further CVA or infarcts to other organs considering the continued Atrial Fibrillation and the inability to anticoagulate due to the changes in the brain. They reveal that patient does not have a living will/advance directive. I have ordered a Palliative Care Consult and both sons are aware of this . 2). New Onset Atrial Fibrillation Cardizem drip Metoprolol 100 mg PO 2x/day 2D Echocardiogram showing Grade I relaxation pattern, right and left atrium severe dilation, mitral annular calcification is mild to moderate, severe tricuspid regurgitation Cardiology Dr. Wong 3). DM RISS Q6H Lantus 10 mg SC HS F/U Thyroid Abs 4). Hypokalemia KCl 20 mEq PO 1x/day 5). HTN Lisinopril 10 mg PO 1x/day Metaprolol 100 mg PO 2x/day 6). HLD Crestor 20 mg PO QHS 7). Thrombocytopenia 111 today 8). Hypernatremia Na is 152 (goal is 145-150) and Serum Osmolality is 325 (goal is < 320). Hypertonic Saline was discontinued on 01/04/17 9). Prophylaxis Tylenol 650 mg PO Q6H PRN Mild Pain Zofran 4 mg IV Q6H PRN N/V Protonix 40 mg IV 1x/day Will restart anticoagulation Lovenox once cleared by Neurosurgeon Edi Green D.O. Objective - Vital Signs/Intake and Output Vital Signs (last 24 hours): Temp Pulse Resp BP Pulse Ox 99.6 F 106 H 19 134/59 L 100 01/06/17 06:00 01/06/17 09:00 01/06/17 09:00 01/06/17 09:39 01/06/17 09:00 Intake and Output: 01/06/17 01/06/17 06:59 18:59 Intake Total 975 250 Output Total 394 90 Balance 581 160 - Medications Medications: Current Medications Acetaminophen (Tylenol 325mg Tab) 650 mg PO Q6 PRN PRN Reason: Pain, Mild (1-3) Last Admin: 01/03/17 18:04 Dose: 650 mg Furosemide (Lasix) 20 mg IVP DAILY [facility]RE[facility]A Last Admin: 01/06/17 09:39 Dose: 20 mg Diltiazem HCl 125 mg/ Sodium (Chloride) 125 mls @ 5 mls/hr IV .Q24H MIRELLA; 5 MG/ HR PRN Reason: Protocol Last Admin: 01/06/17 08:36 Dose: 15 mg/hr, 15 mls/hr Nicardipine HCl 25 mg/ Sodium (Chloride) 250 mls @ 50 mls/hr IV .Q5H MIRELLA; 5 MG/ HR PRN Reason: Protocol Last Admin: 01/06/17 06:33 Dose: 2 mg/hr, 20 mls/hr Insulin Glargine (Lantus) 10 unit SC HS MIRELLA Last Admin: 01/05/17 23:10 Dose: 10 u Insulin Human Regular (Novolin R) 0 unit SC Q6 MIRELLA PRN Reason: Protocol Last Admin: 01/06/17 05:49 Dose: 2 unit Lisinopril (Zestril) 10 mg PO DAILY [facility] Last Admin: 01/05/17 10:32 Dose: Not Given Ondansetron HCl (Zofran Inj) 4 mg IVP Q6 PRN PRN Reason: Nausea/Vomiting Last Admin: 01/02/17 18:42 Dose: 4 mg Pantoprazole Sodium (Protonix Inj) 40 mg IVP DAILY [facility] Last Admin: 01/06/17 09:39 Dose: 40 mg Potassium Chloride (K-Dur 20 Meq Er Tab) 20 meq PO DAILY [facility] Last Admin: 01/05/17 10:32 Dose: Not Given Rosuvastatin Calcium (Crestor) 20 mg PO HS [facility] Last Admin: 01/05/17 23:08 Dose: Not Given - Labs Labs: 01/06/17 06:31 01/06/17 06:29 PT 13.7 SECONDS (9.7-12.2) H 01/03/17 21:30 INR 1.2 01/03/17 21:30 APTT 31 SECONDS (21-34) 01/03/17 21:30
--- NOTE | 2017-01-06 11:05 | OP ---
PROCEDURE DATE: 01/03/2017 SUBJECTIVE: Ms. Hough is an extremely unfortunate 71-year-old female that was admitted to the hospital with a bilateral cerebellar infarction. She worsened over the course of the day. A new CT scan documented significant progression of her stroke with marked infarction and edema of both cerebellar hemispheres with worsened ventricle and brainstem compression and there is hydrocephalus. On physical exam, the patient was somnolent, barely arousable. No eye opening, no command following, was withdrawing somewhat to noxious stimuli. 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 The patient's family were recommended for her to undergo emergency placement of ventriculostomy and suboccipital decompression. The nature of this procedure, the rationale behind it, alternatives, potential risks, and complications were discussed at length. All questions were answered. They agreed, and the patient was taken emergently to the operating room. PROCEDURE: The patient was intubated. She was placed in a [place] 3-point head fixator. She was carefully turned onto a prone position on chest bolsters on the operative frame. The head was elevated and flexed as much as possible from a vascular standpoint. The entire suboccipital region and right occipito-parietal region was hair clipped. This entire area was then scrubbed, prepped, and draped in usual sterile fashion. Initially, an approximately 3 cm incision was made in the V-point region. A rolled glass crosscutter was used to make one camilla hole. The dura was then coagulated and opened in a cruciate fashion. The ventricular catheter was then passed using standard landmarks and guidance. Clear CSF and under markedly high pressure was encountered on the first pass. A moderate amount of CSF was thus liberated and the drain was then quickly clamped. It was tunneled out a separate stab incision and then cinched in place. The incision was then closed with interrupted inverted Vicryl and jaxson. The suboccipital incision was then made with a 10-blade knife, carried down to the level of the calvarium and just above the C1 transverse process. A Bovie was used to excise through the linea alba and stripped the musculature off the suboccipital bone down to the level of the foramen magnum. Deep self-retaining cerebellar retractors were placed. At this point, a rolled glass crosscutter was used to make several camilla holes in the exposed suboccipital bone. This was then elevated with a craniotome. A Leksell rongeur was further used to remove some of the surrounding bone. The dura was then incised in a cruciate fashion to do an expansile duraplasty as much as possible and immediately encountered was white necrotic cerebellum. The bipolar suction technique was then used to remove a fair amount of this cerebellum. This was done entering on the left side and crossing to the right side removing a fair amount of cerebellum in an attempt to decompress the brainstem. At one point, we obviously decompressed the foramen magnum and a huge amount of CSF was then liberated which kept flowing and flowing. At this point, it was deemed that the decompression was adequate. Hemostasis was assured with cautery and powdered Gelfoam. I then placed a layer of DuraSeal fibrin glue over the dura that was intentionally left open. The retractors removed. The muscle reapproximated using interrupted 3-0 Vicryl, the fascia closed using interrupted 3-0 Vicryl. Galea and subQ closed with interrupted 2-0 Vicryl. The skin closed with jaxson. Bacitracin applied and a self-adhering dressing was placed. The patient was then disconnected from the table, turned back onto a bed, Blanchard was removed. She was intentionally left intubated and brought in a stable fashion to the recovery room. All counts were correct. No complications. Umer Duque MD
[2017-01-06] MEDS: Potassium Chloride 20 mEq ER Tab PO SCH (11:50)
--- NOTE | 2017-01-06 13:06 | RAD ---
HISTORY: intubated COMPARISON: Chest x-ray performed 01/05/17 TECHNIQUE: Chest, one view. FINDINGS: Bold Distal tip of the endotracheal tube terminates approximately 2.7 cm above the rhiannon. Left IJ approach central venous catheter, likely terminating just proximal to the SVC. LUNGS: Mild apical pleural thickening. Minimal left basilar atelectasis. PLEURA: No significant pleural effusion identified. No definite pneumothorax . CARDIOVASCULAR: Cardiomegaly. OSSEOUS STRUCTURES: Degenerative changes. VISUALIZED UPPER ABDOMEN: Unremarkable. OTHER FINDINGS: Symmetrical jaxson, left neck soft tissues. IMPRESSION: Support lines and tubes as above. Mild apical pleural thickening. Minimal left basilar atelectasis. Cardiomegaly.
--- NOTE | 2017-01-06 14:53 | CP.PCM.CON ---
History of Present Illness - History of Present Illness History of Present Illness: Palliative consult Requested by sofía Daley DO Reason: Goals of care discussion, poor prognosis Patient is a 71 yo female admitted from home with vomiting and nausea X 2days. patient was found to be in rapid a Fib, HR 100- 143, Cardizem drip initiated. patient needed support from M<V and was intubated. The CT head was significant for B/L cerebral hemispheres infarct and on 01/04 patient underwent the decompressing craniotomy with shunt insertion. patient continues to bleed trough the shunt and is in A Fib. Patient could not be anticoagulated due to bleeding. Her Platelets are 110 at present, INR 1.2. Hb 11.7 and WBC 13.6. Doctor Katie on board from Neuro. PMH: DM, HTN Soc. Hx: lives at home with older son, came from [facility] in 2000, was active and in good health as per family, until 2 days prior the admission Fam . hx: sons denied any known fam Hx Review of Systems - Review of Systems Systems not reviewed;Unavailable: Intubated All systems: reviewed and no additional remarkable complaints except Review of Systems: ROS unobtainable due to condition. ROS obtained from nursing. As per nursing no event over night, patient remained unresponsive to stimuli in rapid A fib and shunt draining bloody drainage. Past Patient History - Infectious Disease Hx of Infectious Diseases: None - Past Medical History & Family History Past Medical History?: Yes - Past Social History Smoking Status: Never Smoked - CARDIAC Hx Cardiac Disorders: Yes Hx Hypertension: Yes - PULMONARY Hx Respiratory Disorders: No - NEUROLOGICAL Hx Neurological Disorder: No - HEENT Hx HEENT Problems: Yes Hx Cataracts: Yes (cataract sx 5 years ago) - RENAL Hx Chronic Kidney Disease: No - ENDOCRINE/METABOLIC Hx Endocrine Disorders: Yes Hx Diabetes Mellitus Type 2: Yes - HEMATOLOGICAL/ONCOLOGICAL Hx Blood Disorders: No - INTEGUMENTARY Hx Dermatological Problems: No - MUSCULOSKELETAL/RHEUMATOLOGICAL Hx Falls: No - GASTROINTESTINAL Hx Gastrointestinal Disorders: Yes Hx Vomiting: Yes - GENITOURINARY/GYNECOLOGICAL Hx Genitourinary Disorders: No - PSYCHIATRIC Hx Substance Use: No - SURGICAL HISTORY Hx Surgeries: Yes Hx Cataract Extraction: Yes (5 years ago) - ANESTHESIA Hx Anesthesia: No Hx Anesthesia Reactions: No Hx Malignant Hyperthermia: No Has any member of the family had a problem w/ anesthesia?: No Meds Allergies/Adverse Reactions: Allergies Allergy/AdvReac Type Severity Reaction Status Date / Time SEAFOOD Allergy Uncoded 01/01/17 16:53 - Medications Medications: Current Medications Acetaminophen (Tylenol 325mg Tab) 650 mg PO Q6 PRN PRN Reason: Pain, Mild (1-3) Last Admin: 01/03/17 18:04 Dose: 650 mg Furosemide (Lasix) 20 mg IVP DAILY [facility] Last Admin: 01/06/17 09:39 Dose: 20 mg Diltiazem HCl 125 mg/ Sodium (Chloride) 125 mls @ 5 mls/hr IV .Q24H MIRELLA; 5 MG/ HR PRN Reason: Protocol Last Admin: 01/06/17 08:36 Dose: 15 mg/hr, 15 mls/hr Nicardipine HCl 25 mg/ Sodium (Chloride) 250 mls @ 50 mls/hr IV .Q5H MIRELLA; 5 MG/ HR PRN Reason: Protocol Last Admin: 01/06/17 06:33 Dose: 2 mg/hr, 20 mls/hr Potassium Chloride (Potassium Chloride 20 Meq/100 Ml) 20 meq in 100 mls @ 50 mls/hr IVPB Q2H MIRELLA Stop: 01/06/17 15:29 Last Admin: 01/06/17 12:29 Dose: 50 mls/hr Insulin Glargine (Lantus) 10 unit SC [facility] Last Admin: 01/05/17 23:10 Dose: 10 u Insulin Human Regular (Novolin R) 0 unit SC Q6 MIRELLA PRN Reason: Protocol Last Admin: 01/06/17 11:49 Dose: 2 unit Lisinopril (Zestril) 10 mg PO DAILY [facility] Last Admin: 01/06/17 11:50 Dose: Not Given Ondansetron HCl (Zofran Inj) 4 mg IVP Q6 PRN PRN Reason: Nausea/Vomiting Last Admin: 01/02/17 18:42 Dose: 4 mg Pantoprazole Sodium (Protonix Inj) 40 mg IVP DAILY [facility] Last Admin: 01/06/17 09:39 Dose: 40 mg Potassium Chloride (K-Dur 20 Meq Er Tab) 20 meq PO DAILY [facility] Last Admin: 01/06/17 11:50 Dose: Not Given Rosuvastatin Calcium (Crestor) 20 mg PO HS [facility] Last Admin: 01/05/17 23:08 Dose: Not Given Physical Exam - Constitutional Appears: In Acute Distress - Head Exam Head Exam: ATRAUMATIC, NORMAL INSPECTION, NORMOCEPHALIC Additional comments: S/P craniotomy - Eye Exam Pupil Exam: Fixed Additional comments: corneal reflex absent - ENT Exam ENT Exam: Mucous Membranes Dry Additional comments: ETT - Neck Exam Neck exam: Positive for: Normal Inspection - Respiratory Exam Additional comments: on MV - Cardiovascular Exam Cardiovascular Exam: Tachycardia, Irregular Rhythm - GI/Abdominal Exam GI & Abdominal Exam: Hypoactive Bowel Sounds - Rectal Exam Rectal Exam: Deferred - Extremities Exam Extremities exam: Positive for: normal inspection - Back Exam Back exam: NORMAL INSPECTION - Neurological Exam Neurological exam: Motor Sensory Deficit - Psychiatric Exam Psychiatric exam: Flat Affect - Skin Skin Exam: Normal Color, Warm Results - Vital Signs Recent Vital Signs: Last Vital Signs Temp 100.0 F H 01/06/17 14:00 Pulse 113 H 01/06/17 14:00 Resp 18 01/06/17 14:00 BP 139/60 01/06/17 13:56 Pulse Ox 99 01/06/17 14:00 - Labs Result Diagrams: 01/06/17 06:31 01/06/17 06:29 Labs: Laboratory Results - last 24 hr 01/05/17 01/05/17 01/05/17 17:31 21:31 23:25 WBC RBC Hgb Hct MCV MCH MCHC RDW Plt Count MPV Neut % (Auto) Lymph % (Auto) [place] % (Auto) Eos % (Auto) Baso % (Auto) Neut # Lymph # [place] # Eos # Baso # Puncture Site pCO2 pO2 HCO3 ABG pH ABG Total CO2 ABG O2 Saturation ABG Base Excess ABG Hemoglobin ABG Carboxyhemoglobin POC ABG HHb (Measured) ABG Methemoglobin Chandana Test A-a O2 Difference Respiratory Index Hgb O2 Saturation Vent Mode Mechanical Rate FiO2 Tidal Volume PEEP Sodium Potassium Chloride Carbon Dioxide Anion Gap BUN Creatinine Est GFR ( Amer) Est GFR (Non-Af Amer) POC Glucose (mg/dL) 198 H 232 H Random Glucose Hemoglobin A1c Calcium Phosphorus Magnesium Total Bilirubin AST ALT Alkaline Phosphatase Total Protein Albumin Globulin Albumin/Globulin Ratio Free T4 Thyroxine (T4) Free T3 pg/mL 1.81 L Total T3 TSH 3rd Generation 01/06/17 01/06/17 01/06/17 04:00 05:30 05:40 WBC RBC Hgb Hct MCV MCH MCHC RDW Plt Count MPV Neut % (Auto) Lymph % (Auto) [place] % (Auto) Eos % (Auto) Baso % (Auto) Neut # Lymph # [place] # Eos # Baso # Puncture Site Kisha pCO2 30 L pO2 203 H HCO3 25.8 ABG pH 7.50 H ABG Total CO2 24.3 ABG O2 Saturation 99.9 H ABG Base Excess 1.2 ABG Hemoglobin 14.8 ABG Carboxyhemoglobin 1.7 H POC ABG HHb (Measured) 0.1 ABG Methemoglobin 1.2 Chandana Test Na A-a O2 Difference 45.0 Respiratory Index 0.2 Hgb O2 Saturation 97.0 Vent Mode Prvc Mechanical Rate 12 FiO2 40.0 Tidal Volume 450 PEEP 5 Sodium Potassium Chloride Carbon Dioxide Anion Gap BUN Creatinine Est GFR ( Amer) Est GFR (Non-Af Amer) POC Glucose (mg/dL) 247 H Random Glucose Hemoglobin A1c 7.4 H Calcium Phosphorus Magnesium Total Bilirubin AST ALT Alkaline Phosphatase Total Protein Albumin Globulin Albumin/Globulin Ratio Free T4 Thyroxine (T4) Free T3 pg/mL Total T3 TSH 3rd Generation 01/06/17 01/06/17 01/06/17 06:27 06:29 06:29 WBC RBC Hgb Hct MCV MCH MCHC RDW Plt Count MPV Neut % (Auto) Lymph % (Auto) [place] % (Auto) Eos % (Auto) Baso % (Auto) Neut # Lymph # [place] # Eos # Baso # Puncture Site pCO2 pO2 HCO3 ABG pH ABG Total CO2 ABG O2 Saturation ABG Base Excess ABG Hemoglobin ABG Carboxyhemoglobin POC ABG HHb (Measured) ABG Methemoglobin Chandana Test A-a O2 Difference Respiratory Index Hgb O2 Saturation Vent Mode Mechanical Rate FiO2 Tidal Volume PEEP Sodium 152 H Potassium 3.3 L Chloride 116 H Carbon Dioxide 22 Anion Gap 17 BUN 33 H Creatinine 0.9 Est GFR ( Amer) > 60 Est GFR (Non-Af Amer) > 60 POC Glucose (mg/dL) 216 H Random Glucose 203 H Hemoglobin A1c Calcium 9.2 Phosphorus 2.3 L Magnesium 2.4 H Total Bilirubin 1.3 AST 34 ALT 35 Alkaline Phosphatase 49 Total Protein 6.8 Albumin 3.5 Globulin 3.3 Albumin/Globulin Ratio 1.1 Free T4 1.19 Thyroxine (T4) 7.64 Free T3 pg/mL Total T3 0.784 L TSH 3rd Generation 0.22 L 01/06/17 01/06/17 06:31 11:47 WBC 13.6 H RBC 4.11 Hgb 11.8 Hct 37.3 MCV 90.6 MCH 28.8 MCHC 31.7 L RDW 14.9 H Plt Count 110 L MPV 11.0 Neut % (Auto) 77.8 H Lymph % (Auto) 14.3 L [place] % (Auto) 7.7 Eos % (Auto) 0.1 Baso % (Auto) 0.1 Neut # 10.6 H Lymph # 1.9 [place] # 1.0 H Eos # 0.0 Baso # 0.0 Puncture Site pCO2 pO2 HCO3 ABG pH ABG Total CO2 ABG O2 Saturation ABG Base Excess ABG Hemoglobin ABG Carboxyhemoglobin POC ABG HHb (Measured) ABG Methemoglobin Chandana Test A-a O2 Difference Respiratory Index Hgb O2 Saturation Vent Mode Mechanical Rate FiO2 Tidal Volume PEEP Sodium Potassium Chloride Carbon Dioxide Anion Gap BUN Creatinine Est GFR ( Amer) Est GFR (Non-Af Amer) POC Glucose (mg/dL) 238 H Random Glucose Hemoglobin A1c Calcium Phosphorus Magnesium Total Bilirubin AST ALT Alkaline Phosphatase Total Protein Albumin Globulin Albumin/Globulin Ratio Free T4 Thyroxine (T4) Free T3 pg/mL Total T3 TSH 3rd Generation Assessment & Plan - Assessment and Plan (Free Text) Assessment: palliative consult Code status prior to consult was unknown, no advance directive was on chart, PPS 10% I reviewed medical records, all diagnostic studies, diacussed patient with Doctor Sofía Daley and held family meeting. Patient is on MV support and uresponsive to stimuli. GCS 3. Heart remains in A fib, HR 115, Cardizem drip on. There is still bloody drainage coming out of shunt, post craniotomy. Rocephin IV and Bacitricin IV on board as well. WBC 13.6. HB 11.7. BP 133/66, RR 12. Per neurology report prognosis is very poor and Doctor Huber Green asked me to discuss goals of care and Code status with the family. Family meeting held away from the bed attended by patient's two sons, granddaughter and the cousin. The family admits being in shock from what happened. They report that patient was fully active until two days of admission. Patient had has some headache in the past and was taking OTC meds for it and she was also taking the BP meds. Family denies know;edge of any serious medical issues with the patient nor her family. Knowing that Doctor Green has discussed patient's condition with the family, at the beginning of the meeting I first elicited heir understanding of what they were told. Official On demand translation was used. Both sons, Magan and Gustabo were clear with understanding of condition as very serious and terminal. They understand that max life support was applied and with out it patient would not be able to survive. Family stated concerns regarding quality of life and expected survival time. Family understands that meaningful recovery was not expected. Family asked specific question about process of removal of life support. i answered all questions to the satisfaction. After debating among them selves, Gustabo , the son, said that family would want their mother to naturally without life support. They also wanted life support and all current medical interventions to remain in place until 01/08/2016 , the patient's Birthday. Family will return on 01/09/17 and consider terminal extubation. However, if patient's condition worsens in the next few days , despite all applied interventions, family would want us to retrain from CPR. I assisted them in signing the POLST. Family chose DNR/DNI. This was shared with Doctor Huber Green, Doctor eMlanie, and primary Rn Yaritza. Doctor Green agreed with me entering DNR/DNI order, what I did. Impression * This is acutely ill patient on full life support * Meaningful recovery is not expected due to severe brain injury, secondary to cerebral infarct * Family is considering removal of life support, but not prior 01/08 when is patient's B day * Family chose DNR if condition worsens and promotion of natural Suggestion * Agree with DNR/DNI * POLST on chart * Will meet with family again on and fallow up on goals of care if patient still around Thank you very much for this very interesting but sad consult.
--- NOTE | 2017-01-06 17:58 | CP.PCM.PN ---
Subjective - Date & Time of Evaluation Date of Evaluation: 01/06/17 Time of Evaluation: 17:56 - Subjective Subjective: intubated on ventriculostomy unresponsie Objective - Vital Signs/Intake and Output Vital Signs (last 24 hours): Temp Pulse Resp BP Pulse Ox 100.0 F H 118 H 12 133/62 99 01/06/17 14:00 01/06/17 17:00 01/06/17 17:00 01/06/17 16:56 01/06/17 17:00 Intake and Output: 01/06/17 01/06/17 06:59 18:59 Intake Total 975 1000 Output Total 394 477 Balance 581 523 - Medications Medications: Current Medications Acetaminophen (Tylenol 325mg Tab) 650 mg PO Q6 PRN PRN Reason: Pain, Mild (1-3) Last Admin: 01/03/17 18:04 Dose: 650 mg Furosemide (Lasix) 20 mg IVP DAILY [facility] Last Admin: 01/06/17 09:39 Dose: 20 mg Diltiazem HCl 125 mg/ Sodium (Chloride) 125 mls @ 5 mls/hr IV .Q24H MIRELLA; 5 MG/ HR PRN Reason: Protocol Last Admin: 01/06/17 08:36 Dose: 15 mg/hr, 15 mls/hr Nicardipine HCl 25 mg/ Sodium (Chloride) 250 mls @ 50 mls/hr IV .Q5H MIRELLA; 5 MG/ HR PRN Reason: Protocol Last Admin: 01/06/17 17:13 Dose: 2 mg/hr, 20 mls/hr Insulin Glargine (Lantus) 10 unit SC [facility] Last Admin: 01/05/17 23:10 Dose: 10 u Insulin Human Regular (Novolin R) 0 unit SC Q6 MIRELLA PRN Reason: Protocol Last Admin: 01/06/17 11:49 Dose: 2 unit Lisinopril (Zestril) 10 mg PO DAILY [facility] Last Admin: 01/06/17 11:50 Dose: Not Given Ondansetron HCl (Zofran Inj) 4 mg IVP Q6 PRN PRN Reason: Nausea/Vomiting Last Admin: 01/02/17 18:42 Dose: 4 mg Pantoprazole Sodium (Protonix Inj) 40 mg IVP DAILY [facility] Last Admin: 01/06/17 09:39 Dose: 40 mg Potassium Chloride (K-Dur 20 Meq Er Tab) 20 meq PO DAILY [facility] Last Admin: 01/06/17 11:50 Dose: Not Given Rosuvastatin Calcium (Crestor) 20 mg PO HS [facility] Last Admin: 01/05/17 23:08 Dose: Not Given - Labs Labs: 01/06/17 06:31 01/06/17 06:29 PT 13.7 SECONDS (9.7-12.2) H 01/03/17 21:30 INR 1.2 01/03/17 21:30 APTT 31 SECONDS (21-34) 01/03/17 21:30 - Constitutional Appears: Toxic - Head Exam Head Exam: ATRAUMATIC, NORMAL INSPECTION, NORMOCEPHALIC - Eye Exam Eye Exam: Normal appearance Pupil Exam: NORMAL ACCOMODATION - ENT Exam ENT Exam: Mucous Membranes Moist, Normal Exam - Neck Exam Neck Exam: Full ROM, Normal Inspection. absent: Lymphadenopathy - Respiratory Exam Respiratory Exam: Clear to Ausculation Bilateral, NORMAL BREATHING PATTERN - Cardiovascular Exam Cardiovascular Exam: Irregular Rhythm, +S1, +S2, Murmur - GI/Abdominal Exam GI & Abdominal Exam: Soft, Normal Bowel Sounds. absent: Tenderness - Exam Bimanual exam: NORMAL BIMANUAL EXAM - Extremities Exam Extremities Exam: Normal Capillary Refill, Normal Inspection. absent: Joint Swelling, Pedal Edema - Back Exam Back Exam: NORMAL INSPECTION - Neurological Exam Neurological Exam: Altered - Skin Skin Exam: Dry, Intact, Normal Color, Warm Assessment and Plan (1) Cerebellar stroke Assessment & Plan: poor overall prognosis on nicardipine Status: Acute (2) New onset atrial fibrillation Assessment & Plan: on CCB acute bleed Status: Acute (3) CHF (congestive heart failure) Assessment & Plan: new onset overall poor prognosis Lisinopril and BB Status: Acute (4) Mitral regurgitation Status: Acute (5) Tricuspid regurgitation Status: Acute
--- NOTE | 2017-01-06 21:16 | CP.CCUPN ---
<Beth Alejandro - Last Filed: 01/06/17 21:29> CCU Subjective - Physician Review Subjective (Free Text): Patient was seen and examined at bedside in the morning. Patient is unresponsive and intubated. Unable to obtain review of systems. 01/06/17 21:13 CCU Objective - Vital Signs / Intake & Output Vital Signs (Last 4 hours): Vital Signs Temp Pulse Resp BP Pulse Ox 01/06/17 19:00 129 H 22 94 L 01/06/17 18:56 121 H 22 95 01/06/17 18:00 98.9 F 109 H 13 95 01/06/17 17:56 124 H 17 137/65 99 Intake and Output (Last 8hrs): Intake & Output 01/06/17 01/06/17 01/06/17 06:59 14:59 22:59 Intake Total 580 645 550 Output Total 251 333 239 Balance 329 312 311 Intake: IV 300 125 375 Intake, IV Amount 280 520 175 Left Hand 30 Left Medial Port Internal 120 290 75 Jugular Left Proximal Port 160 200 100 Internal Jugular Output: Drainage 76 33 9 Right Posterior Head 76 33 9 Urine 175 300 230 Urethral (Massey) 175 300 230 Other: # Bowel Movements 0 - Physical Exam Head: Positive for: Normocephalic Extroacular Muscles: Negative for: EOMI Mouth: Positive for: Other (intubated) Respiratory/Chest: Positive for: Other (intubated). Negative for: Wheezes, Rales, Rhonchi Cardiovascular: Positive for: Normal S1, S2, Irregular Rhythm, Tachycardic Abdomen: Negative for: Distention, Normal Bowel Sounds (hypoactive) Upper Extremity: Positive for: Normal Inspection. Negative for: Edema Lower Extremity: Positive for: Normal Inspection. Negative for: Edema Neurological: Negative for: GCS=15, Motor Func Grossly Intact, Normal Sensory Function Skin: Positive for: Warm, Dry, Normal Color Psychiatric: Negative for: Alert, Oriented x 3 - Medications Active Medications: Active Medications Generic Name Dose Route Start Last Admin Trade Name Freq PRN Reason Stop Dose Admin Acetaminophen 650 mg 01/03/17 11:49 01/03/17 18:04 Tylenol 325mg Tab PO 650 mg Q6 PRN Administration Pain, Mild (1-3) Furosemide 20 mg 01/02/17 10:00 01/06/17 09:39 Lasix IVP 20 mg DAILY MIRELLA Administration Diltiazem HCl 125 mg/ Sodium 125 mls @ 5 mls/hr 01/04/17 12:45 01/06/17 18:25 Chloride IV 15 mg/hr .Q24H MIRELLA 15 mls/hr Protocol Administration 5 MG/HR Nicardipine HCl 25 mg/ Sodium 250 mls @ 50 mls/hr 01/05/17 17:00 01/06/17 17: 13 Chloride IV 2 mg/hr .Q5H MIRELLA 20 mls/hr Protocol Administration 5 MG/HR Acetaminophen 100 mls @ 100 mls/hr 01/06/17 20:38 01/06/17 20:49 Ofirmev IV 01/06/17 21:37 100 mls/hr ONCE ONE Administration Insulin Glargine 10 unit 01/05/17 22:00 01/05/17 23:10 Lantus SC 10 u HS MIRELLA Administration Insulin Human Regular 0 unit 01/05/17 18:00 01/06/17 18:26 Novolin R SC 2 unit Q6 MIRELLA Administration Protocol Lisinopril 10 mg 01/02/17 15:15 01/06/17 11:50 Zestril PO Not Given DAILY MIRELLA Ondansetron HCl 4 mg 01/01/17 21:22 01/02/17 18:42 Zofran Inj IVP 4 mg Q6 PRN Administration Nausea/Vomiting Pantoprazole Sodium 40 mg 01/02/17 10:00 01/06/17 09:39 Protonix Inj IVP 40 mg DAILY MIRELLA Administration Potassium Chloride 20 meq 01/03/17 10:00 01/06/17 11:50 K-Dur 20 Meq Er Tab PO Not Given DAILY MIRELLA Rosuvastatin Calcium 20 mg 01/03/17 22:00 01/05/17 23:08 Crestor PO Not Given HS MIRELLA - Patient Studies Lab Studies: Lab Studies 01/06/17 01/06/17 01/06/17 Range/Units 17:59 11:47 06:31 WBC 13.6 H (4.8-10.8) K/uL RBC 4.11 (3.80-5.20) Mil/uL Hgb 11.8 (11.0-16.0) g/dL Hct 37.3 (34.0-47.0) % MCV 90.6 (81.0-99.0) fL MCH 28.8 (27.0-31.0) pg MCHC 31.7 L (33.0-37.0) g/dL RDW 14.9 H (11.5-14.5) % Plt Count 110 L (130-400) K/uL MPV 11.0 (7.2-11.7) fL Neut % (Auto) 77.8 H (50.0-75.0) % Lymph % (Auto) 14.3 L (20.0-40.0) % [place] % (Auto) 7.7 (0.0-10.0) % Eos % (Auto) 0.1 (0.0-4.0) % Baso % (Auto) 0.1 (0.0-2.0) % Neut # 10.6 H (1.8-7.0) K/uL Lymph # 1.9 (1.0-4.3) K/uL [place] # 1.0 H (0.0-0.8) K/uL Eos # 0.0 (0.0-0.7) K/uL Baso # 0.0 (0.0-0.2) K/uL Puncture Site pCO2 (35-45) mm/Hg pO2 (80-100) mm/Hg HCO3 (21-28) mmol/L ABG pH (7.35-7.45) ABG Total CO2 (22-28) mmol/L ABG O2 Saturation (95-98) % ABG Base Excess (-2.0-3.0) mmol/L ABG Hemoglobin (11.7-17.4) g/dL ABG Carboxyhemoglobin (0.5-1.5) % POC ABG HHb (Measured) (0.0-5.0) % ABG Methemoglobin (0.0-3.0) % Chandana Test A-a O2 Difference mm/Hg Respiratory Index Hgb O2 Saturation (95.0-98.0) % Vent Mode Mechanical Rate FiO2 % Tidal Volume PEEP Sodium (132-148) mmol/L Potassium (3.6-5.2) mmol/L Chloride (98-107) mmol/L Carbon Dioxide (22-30) mmol/L Anion Gap (10-20) BUN (7-17) mg/dL Creatinine (0.7-1.2) MG/DL Est GFR ( Amer) Est GFR (Non-Af Amer) POC Glucose (mg/dL) 224 H 238 H (65-110) mg/dL Random Glucose (65-105) mg/dL Hemoglobin A1c (4.2-6.5) % Calcium (8.6-10.4) mg/dl Phosphorus (2.5-4.5) mg/dL Magnesium (1.6-2.3) mg/dL Total Bilirubin (0.2-1.3) mg/dL AST (14-36) U/L ALT (9-52) U/L Alkaline Phosphatase (38-126) U/L Total Protein (6.3-8.3) g/dL Albumin (3.5-5.0) g/dL Globulin (2.2-3.9) gm/dL Albumin/Globulin Ratio (1.0-2.1) Free T4 (0.78-2.19) ng/dL Thyroxine (T4) (5.5-11.0) ug/dL Free T3 pg/mL (2.77-5.27) pg/mL Total T3 (1.49-2.60) nmol/L TSH 3rd Generation (0.46-4.68) mIU/L 01/06/17 01/06/17 01/06/17 Range/Units 06:29 06:29 06:27 WBC (4.8-10.8) K/uL RBC (3.80-5.20) Mil/uL Hgb (11.0-16.0) g/dL Hct (34.0-47.0) % MCV (81.0-99.0) fL MCH (27.0-31.0) pg MCHC (33.0-37.0) g/dL RDW (11.5-14.5) % Plt Count (130-400) K/uL MPV (7.2-11.7) fL Neut % (Auto) (50.0-75.0) % Lymph % (Auto) (20.0-40.0) % [place] % (Auto) (0.0-10.0) % Eos % (Auto) (0.0-4.0) % Baso % (Auto) (0.0-2.0) % Neut # (1.8-7.0) K/uL Lymph # (1.0-4.3) K/uL [place] # (0.0-0.8) K/uL Eos # (0.0-0.7) K/uL Baso # (0.0-0.2) K/uL Puncture Site pCO2 (35-45) mm/Hg pO2 (80-100) mm/Hg HCO3 (21-28) mmol/L ABG pH (7.35-7.45) ABG Total CO2 (22-28) mmol/L ABG O2 Saturation (95-98) % ABG Base Excess (-2.0-3.0) mmol/L ABG Hemoglobin (11.7-17.4) g/dL ABG Carboxyhemoglobin (0.5-1.5) % POC ABG HHb (Measured) (0.0-5.0) % ABG Methemoglobin (0.0-3.0) % Chandana Test A-a O2 Difference mm/Hg Respiratory Index Hgb O2 Saturation (95.0-98.0) % Vent Mode Mechanical Rate FiO2 % Tidal Volume PEEP Sodium 152 H (132-148) mmol/L Potassium 3.3 L (3.6-5.2) mmol/L Chloride 116 H (98-107) mmol/L Carbon Dioxide 22 (22-30) mmol/L Anion Gap 17 (10-20) BUN 33 H (7-17) mg/dL Creatinine 0.9 (0.7-1.2) MG/DL Est GFR ( Amer) > 60 Est GFR (Non-Af Amer) > 60 POC Glucose (mg/dL) 216 H (65-110) mg/dL Random Glucose 203 H (65-105) mg/dL Hemoglobin A1c (4.2-6.5) % Calcium 9.2 (8.6-10.4) mg/dl Phosphorus 2.3 L (2.5-4.5) mg/dL Magnesium 2.4 H (1.6-2.3) mg/dL Total Bilirubin 1.3 (0.2-1.3) mg/dL AST 34 (14-36) U/L ALT 35 (9-52) U/L Alkaline Phosphatase 49 (38-126) U/L Total Protein 6.8 (6.3-8.3) g/dL Albumin 3.5 (3.5-5.0) g/dL Globulin 3.3 (2.2-3.9) gm/dL Albumin/Globulin Ratio 1.1 (1.0-2.1) Free T4 1.19 (0.78-2.19) ng/dL Thyroxine (T4) 7.64 (5.5-11.0) ug/dL Free T3 pg/mL (2.77-5.27) pg/mL Total T3 0.784 L (1.49-2.60) nmol/L TSH 3rd Generation 0.22 L (0.46-4.68) mIU/L 01/06/17 01/06/17 01/06/17 Range/Units 05:40 05:30 04:00 WBC (4.8-10.8) K/uL RBC (3.80-5.20) Mil/uL Hgb (11.0-16.0) g/dL Hct (34.0-47.0) % MCV (81.0-99.0) fL MCH (27.0-31.0) pg MCHC (33.0-37.0) g/dL RDW (11.5-14.5) % Plt Count (130-400) K/uL MPV (7.2-11.7) fL Neut % (Auto) (50.0-75.0) % Lymph % (Auto) (20.0-40.0) % [place] % (Auto) (0.0-10.0) % Eos % (Auto) (0.0-4.0) % Baso % (Auto) (0.0-2.0) % Neut # (1.8-7.0) K/uL Lymph # (1.0-4.3) K/uL [place] # (0.0-0.8) K/uL Eos # (0.0-0.7) K/uL Baso # (0.0-0.2) K/uL Puncture Site Kisha pCO2 30 L (35-45) mm/Hg pO2 203 H (80-100) mm/Hg HCO3 25.8 (21-28) mmol/L ABG pH 7.50 H (7.35-7.45) ABG Total CO2 24.3 (22-28) mmol/L ABG O2 Saturation 99.9 H (95-98) % ABG Base Excess 1.2 (-2.0-3.0) mmol/L ABG Hemoglobin 14.8 (11.7-17.4) g/dL ABG Carboxyhemoglobin 1.7 H (0.5-1.5) % POC ABG HHb (Measured) 0.1 (0.0-5.0) % ABG Methemoglobin 1.2 (0.0-3.0) % Chandana Test Na A-a O2 Difference 45.0 mm/Hg Respiratory Index 0.2 Hgb O2 Saturation 97.0 (95.0-98.0) % Vent Mode Prvc Mechanical Rate 12 FiO2 40.0 % Tidal Volume 450 PEEP 5 Sodium (132-148) mmol/L Potassium (3.6-5.2) mmol/L Chloride (98-107) mmol/L Carbon Dioxide (22-30) mmol/L Anion Gap (10-20) BUN (7-17) mg/dL Creatinine (0.7-1.2) MG/DL Est GFR ( Amer) Est GFR (Non-Af Amer) POC Glucose (mg/dL) 247 H (65-110) mg/dL Random Glucose (65-105) mg/dL Hemoglobin A1c 7.4 H (4.2-6.5) % Calcium (8.6-10.4) mg/dl Phosphorus (2.5-4.5) mg/dL Magnesium (1.6-2.3) mg/dL Total Bilirubin (0.2-1.3) mg/dL AST (14-36) U/L ALT (9-52) U/L Alkaline Phosphatase (38-126) U/L Total Protein (6.3-8.3) g/dL Albumin (3.5-5.0) g/dL Globulin (2.2-3.9) gm/dL Albumin/Globulin Ratio (1.0-2.1) Free T4 (0.78-2.19) ng/dL Thyroxine (T4) (5.5-11.0) ug/dL Free T3 pg/mL (2.77-5.27) pg/mL Total T3 (1.49-2.60) nmol/L TSH 3rd Generation (0.46-4.68) mIU/L 01/05/17 01/05/17 Range/Units 23:25 21:31 WBC (4.8-10.8) K/uL RBC (3.80-5.20) Mil/uL Hgb (11.0-16.0) g/dL Hct (34.0-47.0) % MCV (81.0-99.0) fL MCH (27.0-31.0) pg MCHC (33.0-37.0) g/dL RDW (11.5-14.5) % Plt Count (130-400) K/uL MPV (7.2-11.7) fL Neut % (Auto) (50.0-75.0) % Lymph % (Auto) (20.0-40.0) % [place] % (Auto) (0.0-10.0) % Eos % (Auto) (0.0-4.0) % Baso % (Auto) (0.0-2.0) % Neut # (1.8-7.0) K/uL Lymph # (1.0-4.3) K/uL [place] # (0.0-0.8) K/uL Eos # (0.0-0.7) K/uL Baso # (0.0-0.2) K/uL Puncture Site pCO2 (35-45) mm/Hg pO2 (80-100) mm/Hg HCO3 (21-28) mmol/L ABG pH (7.35-7.45) ABG Total CO2 (22-28) mmol/L ABG O2 Saturation (95-98) % ABG Base Excess (-2.0-3.0) mmol/L ABG Hemoglobin (11.7-17.4) g/dL ABG Carboxyhemoglobin (0.5-1.5) % POC ABG HHb (Measured) (0.0-5.0) % ABG Methemoglobin (0.0-3.0) % Chandana Test A-a O2 Difference mm/Hg Respiratory Index Hgb O2 Saturation (95.0-98.0) % Vent Mode Mechanical Rate FiO2 % Tidal Volume PEEP Sodium (132-148) mmol/L Potassium (3.6-5.2) mmol/L Chloride (98-107) mmol/L Carbon Dioxide (22-30) mmol/L Anion Gap (10-20) BUN (7-17) mg/dL Creatinine (0.7-1.2) MG/DL Est GFR ( Amer) Est GFR (Non-Af Amer) POC Glucose (mg/dL) 232 H (65-110) mg/dL Random Glucose (65-105) mg/dL Hemoglobin A1c (4.2-6.5) % Calcium (8.6-10.4) mg/dl Phosphorus (2.5-4.5) mg/dL Magnesium (1.6-2.3) mg/dL Total Bilirubin (0.2-1.3) mg/dL AST (14-36) U/L ALT (9-52) U/L Alkaline Phosphatase (38-126) U/L Total Protein (6.3-8.3) g/dL Albumin (3.5-5.0) g/dL Globulin (2.2-3.9) gm/dL Albumin/Globulin Ratio (1.0-2.1) Free T4 (0.78-2.19) ng/dL Thyroxine (T4) (5.5-11.0) ug/dL Free T3 pg/mL 1.81 L (2.77-5.27) pg/mL Total T3 (1.49-2.60) nmol/L TSH 3rd Generation (0.46-4.68) mIU/L Laboratory Results - last 24 hr 01/05/17 01/05/17 01/06/17 21:31 23:25 04:00 WBC RBC Hgb Hct MCV MCH MCHC RDW Plt Count MPV Neut % (Auto) Lymph % (Auto) [place] % (Auto) Eos % (Auto) Baso % (Auto) Neut # Lymph # [place] # Eos # Baso # Puncture Site pCO2 pO2 HCO3 ABG pH ABG Total CO2 ABG O2 Saturation ABG Base Excess ABG Hemoglobin ABG Carboxyhemoglobin POC ABG HHb (Measured) ABG Methemoglobin Chandana Test A-a O2 Difference Respiratory Index Hgb O2 Saturation Vent Mode Mechanical Rate FiO2 Tidal Volume PEEP Sodium Potassium Chloride Carbon Dioxide Anion Gap BUN Creatinine Est GFR ( Amer) Est GFR (Non-Af Amer) POC Glucose (mg/dL) 232 H Random Glucose Hemoglobin A1c 7.4 H Calcium Phosphorus Magnesium Total Bilirubin AST ALT Alkaline Phosphatase Total Protein Albumin Globulin Albumin/Globulin Ratio Free T4 Thyroxine (T4) Free T3 pg/mL 1.81 L Total T3 TSH 3rd Generation 01/06/17 01/06/17 01/06/17 05:30 05:40 06:27 WBC RBC Hgb Hct MCV MCH MCHC RDW Plt Count MPV Neut % (Auto) Lymph % (Auto) [place] % (Auto) Eos % (Auto) Baso % (Auto) Neut # Lymph # [place] # Eos # Baso # Puncture Site Kisha pCO2 30 L pO2 203 H HCO3 25.8 ABG pH 7.50 H ABG Total CO2 24.3 ABG O2 Saturation 99.9 H ABG Base Excess 1.2 ABG Hemoglobin 14.8 ABG Carboxyhemoglobin 1.7 H POC ABG HHb (Measured) 0.1 ABG Methemoglobin 1.2 Chandana Test Na A-a O2 Difference 45.0 Respiratory Index 0.2 Hgb O2 Saturation 97.0 Vent Mode Prvc Mechanical Rate 12 FiO2 40.0 Tidal Volume 450 PEEP 5 Sodium Potassium Chloride Carbon Dioxide Anion Gap BUN Creatinine Est GFR ( Amer) Est GFR (Non-Af Amer) POC Glucose (mg/dL) 247 H 216 H Random Glucose Hemoglobin A1c Calcium Phosphorus Magnesium Total Bilirubin AST ALT Alkaline Phosphatase Total Protein Albumin Globulin Albumin/Globulin Ratio Free T4 Thyroxine (T4) Free T3 pg/mL Total T3 TSH 3rd Generation 01/06/17 01/06/17 01/06/17 06:29 06:29 06:31 WBC 13.6 H RBC 4.11 Hgb 11.8 Hct 37.3 MCV 90.6 MCH 28.8 MCHC 31.7 L RDW 14.9 H Plt Count 110 L MPV 11.0 Neut % (Auto) 77.8 H Lymph % (Auto) 14.3 L [place] % (Auto) 7.7 Eos % (Auto) 0.1 Baso % (Auto) 0.1 Neut # 10.6 H Lymph # 1.9 [place] # 1.0 H Eos # 0.0 Baso # 0.0 Puncture Site pCO2 pO2 HCO3 ABG pH ABG Total CO2 ABG O2 Saturation ABG Base Excess ABG Hemoglobin ABG Carboxyhemoglobin POC ABG HHb (Measured) ABG Methemoglobin Chandana Test A-a O2 Difference Respiratory Index Hgb O2 Saturation Vent Mode Mechanical Rate FiO2 Tidal Volume PEEP Sodium 152 H Potassium 3.3 L Chloride 116 H Carbon Dioxide 22 Anion Gap 17 BUN 33 H Creatinine 0.9 Est GFR ( Amer) > 60 Est GFR (Non-Af Amer) > 60 POC Glucose (mg/dL) Random Glucose 203 H Hemoglobin A1c Calcium 9.2 Phosphorus 2.3 L Magnesium 2.4 H Total Bilirubin 1.3 AST 34 ALT 35 Alkaline Phosphatase 49 Total Protein 6.8 Albumin 3.5 Globulin 3.3 Albumin/Globulin Ratio 1.1 Free T4 1.19 Thyroxine (T4) 7.64 Free T3 pg/mL Total T3 0.784 L TSH 3rd Generation 0.22 L 01/06/17 01/06/17 11:47 17:59 WBC RBC Hgb Hct MCV MCH MCHC RDW Plt Count MPV Neut % (Auto) Lymph % (Auto) [place] % (Auto) Eos % (Auto) Baso % (Auto) Neut # Lymph # [place] # Eos # Baso # Puncture Site pCO2 pO2 HCO3 ABG pH ABG Total CO2 ABG O2 Saturation ABG Base Excess ABG Hemoglobin ABG Carboxyhemoglobin POC ABG HHb (Measured) ABG Methemoglobin Chandana Test A-a O2 Difference Respiratory Index Hgb O2 Saturation Vent Mode Mechanical Rate FiO2 Tidal Volume PEEP Sodium Potassium Chloride Carbon Dioxide Anion Gap BUN Creatinine Est GFR ( Amer) Est GFR (Non-Af Amer) POC Glucose (mg/dL) 238 H 224 H Random Glucose Hemoglobin A1c Calcium Phosphorus Magnesium Total Bilirubin AST ALT Alkaline Phosphatase Total Protein Albumin Globulin Albumin/Globulin Ratio Free T4 Thyroxine (T4) Free T3 pg/mL Total T3 TSH 3rd Generation Fingerstick Blood Sugar Results: 224 Review of Systems - Review of Systems Systems not reviewed;Unavailable: Intubated Critical Care Progress Note - Vent Settings TIDAL VOLUME:: 450 RESP RATE:: 12 FIO2:: 30 PEEP:: 5 - Nutrition Nutrition: Nutrition Category Date Time Status NPO Diet [DIET] Diets 01/04/17 Breakfast Active Assessment/Plan - Assessment and Plan (Free Text) Assessment: 71 year old female with past medical history of DM, presented to the ED with complaints of nausea and vomiting for 3-4 days. She had palpitations and dizziness. In the ED, patient was found to have new onset a-fib, patient was admitted. Patient started on Cardizem drip and anticoagulation. On 01/03/17 Patient no longer has nausea or vomiting, but complained of headache. Patient was given tylenol. In the afternoon, patient's headache started to worsen. Patient was re-evaluated for possible slurred speech/changes in speech, at that time, patient was answering questions and following commands. In the evening, ( as per nurse), patient's speech was more slurred and patient became more restless. 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 Patient underwent decompressive craniotomy with Dr. Duque. Patient was on 3% hypertonic solution (discontinued 01/04/17), with goal of sodium 145-150 and serum osmolality of 300-320. Patient continues to have a-fib. Continue cardene drip and cardizem drip. Neuro: unresponsive - Head CT (01/01/17): no acute findings; chronic ischemic changes - Head CT (01/03/17): Infarct involving posterior circulation with markered edema of cerebellar hemispheres b/l on right side>Left, with obstructing hydrocephalus - S/P decompressive craniotomy/ventriculotomy (Dr. Duque) - Continue cardene drip - Keep CPP 60-80 Pulm: no acute issues - CXR: no acute findings CV: new onset A-Fib - Cardiology consulted- Dr. Wong, help appreciated - Continue Cardizem drip, Lisinopril, Lasix, Metroprolol - Troponin: negative; BNP 3690 - Echo: EF47%; severely dilated LA/RA; mildly thickened and calcified aortic valve; mild AR; mild-mod mitral annular calcification; MV mildly thickened; mod- severe MR; severe TR; mild pulmonic valvular regurg. IVC dilated. Endo: Hx of DM - Accuchecks, monitor blood glucose - Continue ISS - TSH 0.82, Free T4 1.63 - Thyroid Ab: f/u - [employer] consulted- Dr. Goldberg, help appreciated GI: nausea, vomiting- unknown cause--> resolved - NPO - Lipase 79 (01/01/17), 38 (01/02/17) - Continue Zofran, Protonix Heme: - Thrombocytopenia: 111 - Disocontinued lovenox Renal: - Hypokalemic: gave KCl MSK: no acute issues ID: no acute issues - UA: trace ketones, 1+ glucose Prophylaxis: - DVT: SCDs - GI: Protonix - PT <LatefDioni M - Last Filed: 01/09/17 17:15> CCU Objective - Vital Signs / Intake & Output Vital Signs (Last 4 hours): Vital Signs Temp Pulse Resp BP Pulse Ox 01/09/17 16:09 117 H 21 118/56 L 99 01/09/17 16:07 137 H 21 115/62 01/09/17 16:00 99.8 F H 111 H 15 99 01/09/17 15:00 125 H 19 98 01/09/17 14:56 117 H 19 125/59 L 97 01/09/17 14:00 115 H 19 98 01/09/17 13:56 132 H 21 123/54 L 96 Intake and Output (Last 8hrs): Intake & Output 01/09/17 01/09/17 01/09/17 06:59 14:59 22:59 Intake Total 370 240 185 Output Total 331 524 129 Balance 39 -284 56 Weight 140 lb 4.8 oz Intake: IV 130 125 Intake, IV Amount 240 240 60 Left Medial Port Internal 120 120 30 Jugular Left Proximal Port 120 120 30 Internal Jugular Oral 0 0 Output: Drainage 41 34 19 Right Posterior Head 41 34 19 Urine 290 490 110 Urethral (Massey) 290 490 110 Other: # Bowel Movements 0 0 - Medications Active Medications: Active Medications Generic Name Dose Route Start Last Admin Trade Name Freq PRN Reason Stop Dose Admin Acetaminophen 650 mg 01/03/17 11:49 01/03/17 18:04 Tylenol 325mg Tab PO 650 mg Q6 PRN Administration Pain, Mild (1-3) Nicardipine HCl 25 mg/ Sodium 250 mls @ 50 mls/hr 01/05/17 17:00 01/09/17 16: 20 Chloride IV Not Given .Q5H MIRELLA Protocol 5 MG/HR Diltiazem HCl 125 mg/ Sodium 125 mls @ 5 mls/hr 01/09/17 10:15 01/09/17 16:24 Chloride IV 15 mg/hr .Q24H PRN 15 mls/hr PER PROTOCOL Administration Protocol 5 MG/HR Insulin Glargine 13 unit 01/07/17 20:30 01/08/17 21:53 Lantus SC 13 u HS MIRELLA Administration Insulin Human Regular 0 unit 01/05/17 18:00 01/09/17 12:43 Novolin R SC 3 unit Q6 MIRELLA Administration Protocol Lisinopril 10 mg 01/02/17 15:15 01/09/17 10:02 Zestril PO Not Given DAILY MIRELLA Ondansetron HCl 4 mg 01/01/17 21:22 01/02/17 18:42 Zofran Inj IVP 4 mg Q6 PRN Administration Nausea/Vomiting Pantoprazole Sodium 40 mg 01/02/17 10:00 01/09/17 09:10 Protonix Inj IVP 40 mg DAILY MIRELLA Administration Rosuvastatin Calcium 20 mg 01/03/17 22:00 01/08/17 22:00 Crestor PO Not Given HS MIRELLA - Patient Studies Lab Studies: Lab Studies 01/09/17 01/09/17 01/09/17 Range/Units 11:15 06:27 06:27 WBC 14.9 H (4.8-10.8) K/uL RBC 4.00 (3.80-5.20) Mil/uL Hgb 11.6 (11.0-16.0) g/dL Hct 36.6 (34.0-47.0) % MCV 91.5 (81.0-99.0) fL MCH 28.9 (27.0-31.0) pg MCHC 31.6 L (33.0-37.0) g/dL RDW 15.2 H (11.5-14.5) % Plt Count 90 L (130-400) K/uL MPV 11.6 (7.2-11.7) fL Neut % (Auto) 79.1 H (50.0-75.0) % Lymph % (Auto) 14.6 L (20.0-40.0) % [place] % (Auto) 6.0 (0.0-10.0) % Eos % (Auto) 0.1 (0.0-4.0) % Baso % (Auto) 0.2 (0.0-2.0) % Neut # 11.8 H (1.8-7.0) K/uL Lymph # 2.2 (1.0-4.3) K/uL [place] # 0.9 H (0.0-0.8) K/uL Eos # 0.0 (0.0-0.7) K/uL Baso # 0.0 (0.0-0.2) K/uL Puncture Site pCO2 (35-45) mm/Hg pO2 (80-100) mm/Hg HCO3 (21-28) mmol/L ABG pH (7.35-7.45) ABG Total CO2 (22-28) mmol/L ABG O2 Saturation (95-98) % ABG Base Excess (-2.0-3.0) mmol/L ABG Hemoglobin (11.7-17.4) g/dL ABG Carboxyhemoglobin (0.5-1.5) % POC ABG HHb (Measured) (0.0-5.0) % ABG Methemoglobin (0.0-3.0) % Chandana Test A-a O2 Difference mm/Hg Respiratory Index Hgb O2 Saturation (95.0-98.0) % Vent Mode Mechanical Rate FiO2 % Tidal Volume PEEP Sodium 166 H* (132-148) mmol/L Potassium 3.0 L (3.6-5.2) mmol/L Chloride 131 H (98-107) mmol/L Carbon Dioxide 19 L (22-30) mmol/L Anion Gap 19 (10-20) BUN 55 H (7-17) mg/dL Creatinine 1.0 (0.7-1.2) MG/DL Est GFR ( Amer) > 60 Est GFR (Non-Af Amer) 55 POC Glucose (mg/dL) 264 H (65-110) mg/dL Random Glucose 191 H (65-105) mg/dL Calcium 8.7 (8.6-10.4) mg/dl Phosphorus 3.6 (2.5-4.5) mg/dL Magnesium 3.0 H (1.6-2.3) mg/dL Total Bilirubin 1.0 (0.2-1.3) mg/dL AST 87 H D (14-36) U/L ALT 91 H D (9-52) U/L Alkaline Phosphatase 66 (38-126) U/L Total Protein 6.6 (6.3-8.3) g/dL Albumin 3.1 L (3.5-5.0) g/dL Globulin 3.4 (2.2-3.9) gm/dL Albumin/Globulin Ratio 0.9 L (1.0-2.1) 01/09/17 01/09/17 01/08/17 Range/Units 05:32 05:08 23:47 WBC (4.8-10.8) K/uL RBC (3.80-5.20) Mil/uL Hgb (11.0-16.0) g/dL Hct (34.0-47.0) % MCV (81.0-99.0) fL MCH (27.0-31.0) pg MCHC (33.0-37.0) g/dL RDW (11.5-14.5) % Plt Count (130-400) K/uL MPV (7.2-11.7) fL Neut % (Auto) (50.0-75.0) % Lymph % (Auto) (20.0-40.0) % [place] % (Auto) (0.0-10.0) % Eos % (Auto) (0.0-4.0) % Baso % (Auto) (0.0-2.0) % Neut # (1.8-7.0) K/uL Lymph # (1.0-4.3) K/uL [place] # (0.0-0.8) K/uL Eos # (0.0-0.7) K/uL Baso # (0.0-0.2) K/uL Puncture Site A-line pCO2 22 L (35-45) mm/Hg pO2 158 H (80-100) mm/Hg HCO3 25.2 (21-28) mmol/L ABG pH 7.58 H (7.35-7.45) ABG Total CO2 21.3 L (22-28) mmol/L ABG O2 Saturation 99.6 H (95-98) % ABG Base Excess 0.3 (-2.0-3.0) mmol/L ABG Hemoglobin 12.3 (11.7-17.4) g/dL ABG Carboxyhemoglobin 1.6 H (0.5-1.5) % POC ABG HHb (Measured) 0.4 (0.0-5.0) % ABG Methemoglobin 1.0 (0.0-3.0) % Chandana Test Na A-a O2 Difference 28.0 mm/Hg Respiratory Index 0.2 Hgb O2 Saturation 97.0 (95.0-98.0) % Vent Mode Prvc Mechanical Rate 12 FiO2 30.0 % Tidal Volume 450 PEEP 5 Sodium (132-148) mmol/L Potassium (3.6-5.2) mmol/L Chloride (98-107) mmol/L Carbon Dioxide (22-30) mmol/L Anion Gap (10-20) BUN (7-17) mg/dL Creatinine (0.7-1.2) MG/DL Est GFR ( Amer) Est GFR (Non-Af Amer) POC Glucose (mg/dL) 206 H 193 H (65-110) mg/dL Random Glucose (65-105) mg/dL Calcium (8.6-10.4) mg/dl Phosphorus (2.5-4.5) mg/dL Magnesium (1.6-2.3) mg/dL Total Bilirubin (0.2-1.3) mg/dL AST (14-36) U/L ALT (9-52) U/L Alkaline Phosphatase (38-126) U/L Total Protein (6.3-8.3) g/dL Albumin (3.5-5.0) g/dL Globulin (2.2-3.9) gm/dL Albumin/Globulin Ratio (1.0-2.1) 01/08/17 Range/Units 18:06 WBC (4.8-10.8) K/uL RBC (3.80-5.20) Mil/uL Hgb (11.0-16.0) g/dL Hct (34.0-47.0) % MCV (81.0-99.0) fL MCH (27.0-31.0) pg MCHC (33.0-37.0) g/dL RDW (11.5-14.5) % Plt Count (130-400) K/uL MPV (7.2-11.7) fL Neut % (Auto) (50.0-75.0) % Lymph % (Auto) (20.0-40.0) % [place] % (Auto) (0.0-10.0) % Eos % (Auto) (0.0-4.0) % Baso % (Auto) (0.0-2.0) % Neut # (1.8-7.0) K/uL Lymph # (1.0-4.3) K/uL [place] # (0.0-0.8) K/uL Eos # (0.0-0.7) K/uL Baso # (0.0-0.2) K/uL Puncture Site pCO2 (35-45) mm/Hg pO2 (80-100) mm/Hg HCO3 (21-28) mmol/L ABG pH (7.35-7.45) ABG Total CO2 (22-28) mmol/L ABG O2 Saturation (95-98) % ABG Base Excess (-2.0-3.0) mmol/L ABG Hemoglobin (11.7-17.4) g/dL ABG Carboxyhemoglobin (0.5-1.5) % POC ABG HHb (Measured) (0.0-5.0) % ABG Methemoglobin (0.0-3.0) % Chandana Test A-a O2 Difference mm/Hg Respiratory Index Hgb O2 Saturation (95.0-98.0) % Vent Mode Mechanical Rate FiO2 % Tidal Volume PEEP Sodium (132-148) mmol/L Potassium (3.6-5.2) mmol/L Chloride (98-107) mmol/L Carbon Dioxide (22-30) mmol/L Anion Gap (10-20) BUN (7-17) mg/dL Creatinine (0.7-1.2) MG/DL Est GFR ( Amer) Est GFR (Non-Af Amer) POC Glucose (mg/dL) 196 H (65-110) mg/dL Random Glucose (65-105) mg/dL Calcium (8.6-10.4) mg/dl Phosphorus (2.5-4.5) mg/dL Magnesium (1.6-2.3) mg/dL Total Bilirubin (0.2-1.3) mg/dL AST (14-36) U/L ALT (9-52) U/L Alkaline Phosphatase (38-126) U/L Total Protein (6.3-8.3) g/dL Albumin (3.5-5.0) g/dL Globulin (2.2-3.9) gm/dL Albumin/Globulin Ratio (1.0-2.1) Laboratory Results - last 24 hr 01/08/17 01/08/17 01/09/17 18:06 23:47 05:08 WBC RBC Hgb Hct MCV MCH MCHC RDW Plt Count MPV Neut % (Auto) Lymph % (Auto) [place] % (Auto) Eos % (Auto) Baso % (Auto) Neut # Lymph # [place] # Eos # Baso # Puncture Site A-line pCO2 22 L pO2 158 H HCO3 25.2 ABG pH 7.58 H ABG Total CO2 21.3 L ABG O2 Saturation 99.6 H ABG Base Excess 0.3 ABG Hemoglobin 12.3 ABG Carboxyhemoglobin 1.6 H POC ABG HHb (Measured) 0.4 ABG Methemoglobin 1.0 Chandana Test Na A-a O2 Difference 28.0 Respiratory Index 0.2 Hgb O2 Saturation 97.0 Vent Mode Prvc Mechanical Rate 12 FiO2 30.0 Tidal Volume 450 PEEP 5 Sodium Potassium Chloride Carbon Dioxide Anion Gap BUN Creatinine Est GFR ( Amer) Est GFR (Non-Af Amer) POC Glucose (mg/dL) 196 H 193 H Random Glucose Calcium Phosphorus Magnesium Total Bilirubin AST ALT Alkaline Phosphatase Total Protein Albumin Globulin Albumin/Globulin Ratio 01/09/17 01/09/17 01/09/17 05:32 06:27 06:27 WBC 14.9 H RBC 4.00 Hgb 11.6 Hct 36.6 MCV 91.5 MCH 28.9 MCHC 31.6 L RDW 15.2 H Plt Count 90 L MPV 11.6 Neut % (Auto) 79.1 H Lymph % (Auto) 14.6 L [place] % (Auto) 6.0 Eos % (Auto) 0.1 Baso % (Auto) 0.2 Neut # 11.8 H Lymph # 2.2 [place] # 0.9 H Eos # 0.0 Baso # 0.0 Puncture Site pCO2 pO2 HCO3 ABG pH ABG Total CO2 ABG O2 Saturation ABG Base Excess ABG Hemoglobin ABG Carboxyhemoglobin POC ABG HHb (Measured) ABG Methemoglobin Chandana Test A-a O2 Difference Respiratory Index Hgb O2 Saturation Vent Mode Mechanical Rate FiO2 Tidal Volume PEEP Sodium 166 H* Potassium 3.0 L Chloride 131 H Carbon Dioxide 19 L Anion Gap 19 BUN 55 H Creatinine 1.0 Est GFR ( Amer) > 60 Est GFR (Non-Af Amer) 55 POC Glucose (mg/dL) 206 H Random Glucose 191 H Calcium 8.7 Phosphorus 3.6 Magnesium 3.0 H Total Bilirubin 1.0 AST 87 H D ALT 91 H D Alkaline Phosphatase 66 Total Protein 6.6 Albumin 3.1 L Globulin 3.4 Albumin/Globulin Ratio 0.9 L 01/09/17 11:15 WBC RBC Hgb Hct MCV MCH MCHC RDW Plt Count MPV Neut % (Auto) Lymph % (Auto) [place] % (Auto) Eos % (Auto) Baso % (Auto) Neut # Lymph # [place] # Eos # Baso # Puncture Site pCO2 pO2 HCO3 ABG pH ABG Total CO2 ABG O2 Saturation ABG Base Excess ABG Hemoglobin ABG Carboxyhemoglobin POC ABG HHb (Measured) ABG Methemoglobin Chandana Test A-a O2 Difference Respiratory Index Hgb O2 Saturation Vent Mode Mechanical Rate FiO2 Tidal Volume PEEP Sodium Potassium Chloride Carbon Dioxide Anion Gap BUN Creatinine Est GFR ( Amer) Est GFR (Non-Af Amer) POC Glucose (mg/dL) 264 H Random Glucose Calcium Phosphorus Magnesium Total Bilirubin AST ALT Alkaline Phosphatase Total Protein Albumin Globulin Albumin/Globulin Ratio Critical Care Progress Note - Nutrition Nutrition: Nutrition Category Date Time Status NPO Diet [DIET] Diets 01/04/17 Breakfast Active Attending/Attestation - Attestation I have personally seen and examined this patient.: Yes I have fully participated in the care of the patient.: Yes I have reviewed all pertinent clinical information: Yes Notes (Text): Today: Friday, January 06, 2017 The Patient was seen and examined at the bedside, Medical records reviewed, and management issues were discussed and formulated with the house staff. I have reviewed all the relevant clinical, laboratory, hemodynamic, radiographic data and medications Events reviewed Pain issues, skin care, head of the bed elevation, glycemic control were addressed. Agree with above treatment plans as transcribed in note I concur with resident's assessment and plan of care as transcribed in Dr. Alejandro note.
[2017-01-06] MEDS: (Lantus) Insulin Glargine, Recombinant SC SCH (23:33)
[2017-01-07] MEDS: (Novolin R) Insulin Human Regular 100 units/ml vial SC SCH ×4 (00:17→18:24)
[2017-01-07 06:05] LABS: ABG MECHANICAL RATE 12; ARTERIAL BLOOD GAS MODE PRVC; ARTERIAL BLOOD HGB O2 SAT 96.8 % (95.0-98.0); ATERIAL BLOOD GAS PEEP 5; CARBOXYHEMOGLOBIN 1.8 % (0.5-1.5); DRAW SITE ALINE; HHB 0.3 % (0.0-5.0); METHEMOGLOBIN 1.1 % (0.0-3.0)
[2017-01-07 06:53] LABS: BASO # 0.1 K/uL (0.0-0.2); BASO % 0.6 % (0.0-2.0); EOS % 0.1 % (0.0-4.0); HEMATOCRIT 35.2 % (34.0-47.0); LYMPH # 2.2 K/uL (1.0-4.3); LYMPH % 14.9 % (20.0-40.0); MEAN CELL VOLUME 91.1 fL (81.0-99.0); MEAN CORPUSCULAR HEMOGLOBIN 28.9 pg (27.0-31.0); MEAN CORPUSCULAR HGB CONC 31.7 g/dL (33.0-37.0); MEAN PLATELET VOLUME 11.2 fL (7.2-11.7); MONO % 6.9 % (0.0-10.0); NRBC % 0.1 % (0.0-2.0); RED CELL DISTRIBUTION WIDTH 15.1 % (11.5-14.5); WHITE BLOOD COUNT 14.8 K/uL (4.8-10.8)
[2017-01-07 07:12] LABS: ALKALINE PHOSPHATASE 57 U/L (38-126); ALT/SGPT 67 U/L (9-52); AST/SGOT 85 U/L (14-36); BILIRUBIN,TOTAL 1.6 mg/dL (0.2-1.3); BLOOD UREA NITROGEN 52 mg/dL (7-17); CALCIUM 8.8 mg/dl (8.6-10.4); CARBON DIOXIDE 20 mmol/L (22-30); CHLORIDE 118 mmol/L (98-107); GFR AFRICAN-AMERICAN > 60; GLUCOSE,RANDOM 193 mg/dL (65-105); MAGNESIUM 2.6 mg/dL (1.6-2.3); PHOSPHOROUS 3.1 mg/dL (2.5-4.5); POTASSIUM 3.4 mmol/L (3.6-5.2); SODIUM 156 mmol/L (132-148); TOTAL PROTEIN 6.5 g/dL (6.3-8.3)
[2017-01-07] MEDS: niCARdipine IV 25 MG in Sodium Chloride 0.9% 240 ML IV SCH ×4 (09:18→19:47)
--- NOTE | 2017-01-07 09:41 | RAD ---
HISTORY: intubated COMPARISON: Portable chest 01/06/2017 FINDINGS: LUNGS: No acute infiltrate is appreciated in the interval once again with endotracheal tube and left central venous line unchanged in position. PLEURA: No significant pleural effusion identified, no pneumothorax apparent. CARDIOVASCULAR: Cardiac silhouette appears technically magnified though mild cardiomegaly is not completely excluded. OSSEOUS STRUCTURES: No significant abnormalities. VISUALIZED UPPER ABDOMEN: Normal. OTHER FINDINGS: None. IMPRESSION: No acute infiltrate or pleural effusion identified. Likely technical magnification of the cardiac silhouette. Stable ET tube and left central venous line placement.
--- NOTE | 2017-01-07 09:54 | CP.PCM.PN ---
Subjective - Date & Time of Evaluation Date of Evaluation: 01/07/17 Time of Evaluation: 09:54 - Subjective Subjective: unresponsive only withdraws to painful stimuli on family planning for possibe terminal exubation on Objective - Vital Signs/Intake and Output Vital Signs (last 24 hours): Temp Pulse Resp BP Pulse Ox 99.1 F 105 H 17 133/54 L 100 01/07/17 08:00 01/07/17 08:00 01/07/17 08:00 01/07/17 09:25 01/07/17 08:00 Intake and Output: 01/07/17 01/07/17 06:59 18:59 Intake Total 795 60 Output Total 529 82 Balance 266 -22 - Medications Medications: Current Medications Acetaminophen (Tylenol 325mg Tab) 650 mg PO Q6 PRN PRN Reason: Pain, Mild (1-3) Last Admin: 01/03/17 18:04 Dose: 650 mg Furosemide (Lasix) 20 mg IVP DAILY MIRELLA Last Admin: 01/07/17 09:25 Dose: 20 mg Diltiazem HCl 125 mg/ Sodium (Chloride) 125 mls @ 5 mls/hr IV .Q24H MIRELLA; 5 MG/ HR PRN Reason: Protocol Last Titration: 01/07/17 03:00 Dose: 15 mg/hr, 15 mls/hr Nicardipine HCl 25 mg/ Sodium (Chloride) 250 mls @ 50 mls/hr IV .Q5H MIRELLA; 5 MG/ HR PRN Reason: Protocol Last Admin: 01/07/17 09:20 Dose: 1 mg/hr, 10 mls/hr Insulin Glargine (Lantus) 10 unit SC HS MIRELLA Last Admin: 01/06/17 23:33 Dose: 10 u Insulin Human Regular (Novolin R) 0 unit SC Q6 MIRELLA PRN Reason: Protocol Last Admin: 01/07/17 06:23 Dose: Not Given Lisinopril (Zestril) 10 mg PO DAILY MIRELLA Last Admin: 01/06/17 11:50 Dose: Not Given Ondansetron HCl (Zofran Inj) 4 mg IVP Q6 PRN PRN Reason: Nausea/Vomiting Last Admin: 01/02/17 18:42 Dose: 4 mg Pantoprazole Sodium (Protonix Inj) 40 mg IVP DAILY MIRELLA Last Admin: 01/07/17 09:26 Dose: 40 mg Rosuvastatin Calcium (Crestor) 20 mg PO HS [facility] Last Admin: 01/06/17 22:00 Dose: Not Given - Labs Labs: 01/07/17 06:44 01/07/17 06:44 PT 13.7 SECONDS (9.7-12.2) H 01/03/17 21:30 INR 1.2 01/03/17 21:30 APTT 31 SECONDS (21-34) 01/03/17 21:30 - Constitutional Appears: Toxic - Head Exam Head Exam: ATRAUMATIC, NORMAL INSPECTION, NORMOCEPHALIC - Eye Exam Pupil Exam: Irregular - Respiratory Exam Respiratory Exam: Rales, Rhonchi - Cardiovascular Exam Cardiovascular Exam: Irregular Rhythm, +S1, +S2, Murmur - GI/Abdominal Exam GI & Abdominal Exam: Soft, Normal Bowel Sounds - Extremities Exam Extremities Exam: Normal Inspection - Neurological Exam Neurological Exam: Altered - Skin Skin Exam: Warm Assessment and Plan (1) Cerebellar stroke Assessment & Plan: poor overall prognosis on nicardipine Status: Acute (2) New onset atrial fibrillation Assessment & Plan: variable on cardizem gtt Status: Acute (3) CHF (congestive heart failure) Assessment & Plan: etiology unclear Status: Acute (4) Mitral regurgitation Status: Acute (5) Tricuspid regurgitation Status: Acute
--- NOTE | 2017-01-07 13:12 | CP.CCUPN ---
<Beth Alejandro - Last Filed: 01/07/17 13:09> CCU Subjective - Physician Review Subjective (Free Text): Patient was seen and examined at bedside in the morning. Patient is unresponsive and intubated. Unable to obtain review of systems. 01/07/17 13:09 CCU Objective - Vital Signs / Intake & Output Vital Signs (Last 4 hours): Vital Signs Temp Pulse Resp BP BP Pulse Ox 01/07/17 12:00 99.8 F H 114 H 15 99 01/07/17 11:56 120 H 16 143/63 99 01/07/17 11:13 130/58 L 01/07/17 11:00 116 H 17 100 01/07/17 10:56 122 H 17 140/71 100 01/07/17 10:00 106 H 13 100 01/07/17 09:56 93 H 17 135/62 100 01/07/17 09:25 133/54 L Intake and Output (Last 8hrs): Intake & Output 01/06/17 01/07/17 01/07/17 22:59 06:59 14:59 Intake Total 755 555 260 Output Total 357 369 508 Balance 398 186 -248 Weight 174 lb 10 oz Intake: IV 375 275 100 Intake, IV Amount 380 280 160 Left Hand 100 Left Medial Port Internal 120 120 90 Jugular Left Proximal Port 160 160 70 Internal Jugular Output: Drainage 17 28 15 Right Posterior Head 17 28 15 Urine 340 341 493 Urethral ([place]) [phone] Other: # Bowel Movements 0 0 - Physical Exam Head: Positive for: Normocephalic Extroacular Muscles: Negative for: EOMI Mouth: Positive for: Other (intubated) Respiratory/Chest: Positive for: Other (intubated). Negative for: Wheezes, Rales, Rhonchi Cardiovascular: Positive for: Normal S1, S2, Irregular Rhythm, Tachycardic Abdomen: Negative for: Distention, Normal Bowel Sounds (hypoactive) Upper Extremity: Positive for: Normal Inspection. Negative for: Edema Lower Extremity: Positive for: Normal Inspection. Negative for: Edema Neurological: Negative for: GCS=15, Motor Func Grossly Intact, Normal Sensory Function Skin: Positive for: Warm, Dry, Normal Color Psychiatric: Negative for: Alert, Oriented x 3 - Medications Active Medications: Active Medications Generic Name Dose Route Start Last Admin Trade Name Freq PRN Reason Stop Dose Admin Acetaminophen 650 mg 01/03/17 11:49 01/03/17 18:04 Tylenol 325mg Tab PO 650 mg Q6 PRN Administration Pain, Mild (1-3) Furosemide 20 mg 01/02/17 10:00 01/07/17 09:25 Lasix IVP 20 mg DAILY MIRELLA Administration Diltiazem HCl 125 mg/ Sodium 125 mls @ 5 mls/hr 01/04/17 12:45 01/07/17 11:54 Chloride IV 15 mg/hr .Q24H MIRELLA 15 mls/hr Protocol Administration 5 MG/HR Nicardipine HCl 25 mg/ Sodium 250 mls @ 50 mls/hr 01/05/17 17:00 01/07/17 09: 20 Chloride IV 1 mg/hr .Q5H MIRELLA 10 mls/hr Protocol Administration 5 MG/HR Insulin Glargine 10 unit 01/05/17 22:00 01/06/17 23:33 Lantus SC 10 u HS MIRELLA Administration Insulin Human Regular 0 unit 01/05/17 18:00 01/07/17 11:55 Novolin R SC 2 unit Q6 MIRELLA Administration Protocol Lisinopril 10 mg 01/02/17 15:15 01/07/17 11:00 Zestril PO Not Given DAILY [facility] Ondansetron HCl 4 mg 01/01/17 21:22 01/02/17 18:42 Zofran Inj IVP 4 mg Q6 PRN Administration Nausea/Vomiting Pantoprazole Sodium 40 mg 01/02/17 10:00 01/07/17 09:26 Protonix Inj IVP 40 mg DAILY [facility] Administration Rosuvastatin Calcium 20 mg 01/03/17 22:00 01/06/17 22:00 Crestor PO Not Given HS [facility] - Patient Studies Lab Studies: Lab Studies 01/07/17 01/07/17 01/07/17 Range/Units 11:24 06:44 06:44 WBC 14.8 H (4.8-10.8) K/uL RBC 3.86 (3.80-5.20) Mil/uL Hgb 11.2 (11.0-16.0) g/dL Hct 35.2 (34.0-47.0) % MCV 91.1 (81.0-99.0) fL MCH 28.9 (27.0-31.0) pg MCHC 31.7 L (33.0-37.0) g/dL RDW 15.1 H (11.5-14.5) % Plt Count 112 L (130-400) K/uL MPV 11.2 (7.2-11.7) fL Neut % (Auto) 77.5 H (50.0-75.0) % Lymph % (Auto) 14.9 L (20.0-40.0) % [place] % (Auto) 6.9 (0.0-10.0) % Eos % (Auto) 0.1 (0.0-4.0) % Baso % (Auto) 0.6 (0.0-2.0) % Neut # 11.5 H (1.8-7.0) K/uL Lymph # 2.2 (1.0-4.3) K/uL [place] # 1.0 H (0.0-0.8) K/uL Eos # 0.0 (0.0-0.7) K/uL Baso # 0.1 (0.0-0.2) K/uL Puncture Site pCO2 (35-45) mm/Hg pO2 (80-100) mm/Hg HCO3 (21-28) mmol/L ABG pH (7.35-7.45) ABG Total CO2 (22-28) mmol/L ABG O2 Saturation (95-98) % ABG Base Excess (-2.0-3.0) mmol/L ABG Hemoglobin (11.7-17.4) g/dL ABG Carboxyhemoglobin (0.5-1.5) % POC ABG HHb (Measured) (0.0-5.0) % ABG Methemoglobin (0.0-3.0) % Chandana Test A-a O2 Difference mm/Hg Respiratory Index Hgb O2 Saturation (95.0-98.0) % Vent Mode Mechanical Rate FiO2 % Tidal Volume PEEP Sodium 156 H (132-148) mmol/L Potassium 3.4 L (3.6-5.2) mmol/L Chloride 118 H (98-107) mmol/L Carbon Dioxide 20 L (22-30) mmol/L Anion Gap 21 H (10-20) BUN 52 H (7-17) mg/dL Creatinine 0.9 (0.7-1.2) MG/DL Est GFR ( Amer) > 60 Est GFR (Non-Af Amer) > 60 POC Glucose (mg/dL) 230 H (65-110) mg/dL Random Glucose 193 H (65-105) mg/dL Calcium 8.8 (8.6-10.4) mg/dl Phosphorus 3.1 (2.5-4.5) mg/dL Magnesium 2.6 H (1.6-2.3) mg/dL Total Bilirubin 1.6 H (0.2-1.3) mg/dL AST 85 H D (14-36) U/L ALT 67 H D (9-52) U/L Alkaline Phosphatase 57 (38-126) U/L Total Protein 6.5 (6.3-8.3) g/dL Albumin 3.3 L (3.5-5.0) g/dL Globulin 3.2 (2.2-3.9) gm/dL Albumin/Globulin Ratio 1.0 (1.0-2.1) Blood Type Antibody Screen 01/07/17 01/07/17 01/06/17 Range/Units 06:03 05:42 23:32 WBC (4.8-10.8) K/uL RBC (3.80-5.20) Mil/uL Hgb (11.0-16.0) g/dL Hct (34.0-47.0) % MCV (81.0-99.0) fL MCH (27.0-31.0) pg MCHC (33.0-37.0) g/dL RDW (11.5-14.5) % Plt Count (130-400) K/uL MPV (7.2-11.7) fL Neut % (Auto) (50.0-75.0) % Lymph % (Auto) (20.0-40.0) % [place] % (Auto) (0.0-10.0) % Eos % (Auto) (0.0-4.0) % Baso % (Auto) (0.0-2.0) % Neut # (1.8-7.0) K/uL Lymph # (1.0-4.3) K/uL [place] # (0.0-0.8) K/uL Eos # (0.0-0.7) K/uL Baso # (0.0-0.2) K/uL Puncture Site [place] pCO2 27 L (35-45) mm/Hg pO2 146 H (80-100) mm/Hg HCO3 23.6 (21-28) mmol/L ABG pH 7.49 H (7.35-7.45) ABG Total CO2 21.4 L (22-28) mmol/L ABG O2 Saturation 99.7 H (95-98) % ABG Base Excess -1.7 (-2.0-3.0) mmol/L ABG Hemoglobin 11.5 L (11.7-17.4) g/dL ABG Carboxyhemoglobin 1.8 H (0.5-1.5) % POC ABG HHb (Measured) 0.3 (0.0-5.0) % ABG Methemoglobin 1.1 (0.0-3.0) % Chandana Test Na A-a O2 Difference 34.0 mm/Hg Respiratory Index 0.2 Hgb O2 Saturation 96.8 (95.0-98.0) % Vent Mode Prvc Mechanical Rate 12 FiO2 30.0 % Tidal Volume 450 PEEP 5 Sodium (132-148) mmol/L Potassium (3.6-5.2) mmol/L Chloride (98-107) mmol/L Carbon Dioxide (22-30) mmol/L Anion Gap (10-20) BUN (7-17) mg/dL Creatinine (0.7-1.2) MG/DL Est GFR ( Amer) Est GFR (Non-Af Amer) POC Glucose (mg/dL) 179 H 238 H (65-110) mg/dL Random Glucose (65-105) mg/dL Calcium (8.6-10.4) mg/dl Phosphorus (2.5-4.5) mg/dL Magnesium (1.6-2.3) mg/dL Total Bilirubin (0.2-1.3) mg/dL AST (14-36) U/L ALT (9-52) U/L Alkaline Phosphatase (38-126) U/L Total Protein (6.3-8.3) g/dL Albumin (3.5-5.0) g/dL Globulin (2.2-3.9) gm/dL Albumin/Globulin Ratio (1.0-2.1) Blood Type Antibody Screen 01/06/17 01/03/17 Range/Units 17:59 21:30 WBC (4.8-10.8) K/uL RBC (3.80-5.20) Mil/uL Hgb (11.0-16.0) g/dL Hct (34.0-47.0) % MCV (81.0-99.0) fL MCH (27.0-31.0) pg MCHC (33.0-37.0) g/dL RDW (11.5-14.5) % Plt Count (130-400) K/uL MPV (7.2-11.7) fL Neut % (Auto) (50.0-75.0) % Lymph % (Auto) (20.0-40.0) % [place] % (Auto) (0.0-10.0) % Eos % (Auto) (0.0-4.0) % Baso % (Auto) (0.0-2.0) % Neut # (1.8-7.0) K/uL Lymph # (1.0-4.3) K/uL [place] # (0.0-0.8) K/uL Eos # (0.0-0.7) K/uL Baso # (0.0-0.2) K/uL Puncture Site pCO2 (35-45) mm/Hg pO2 (80-100) mm/Hg HCO3 (21-28) mmol/L ABG pH (7.35-7.45) ABG Total CO2 (22-28) mmol/L ABG O2 Saturation (95-98) % ABG Base Excess (-2.0-3.0) mmol/L ABG Hemoglobin (11.7-17.4) g/dL ABG Carboxyhemoglobin (0.5-1.5) % POC ABG HHb (Measured) (0.0-5.0) % ABG Methemoglobin (0.0-3.0) % Chandana Test A-a O2 Difference mm/Hg Respiratory Index Hgb O2 Saturation (95.0-98.0) % Vent Mode Mechanical Rate FiO2 % Tidal Volume PEEP Sodium (132-148) mmol/L Potassium (3.6-5.2) mmol/L Chloride (98-107) mmol/L Carbon Dioxide (22-30) mmol/L Anion Gap (10-20) BUN (7-17) mg/dL Creatinine (0.7-1.2) MG/DL Est GFR ( Amer) Est GFR (Non-Af Amer) POC Glucose (mg/dL) 224 H (65-110) mg/dL Random Glucose (65-105) mg/dL Calcium (8.6-10.4) mg/dl Phosphorus (2.5-4.5) mg/dL Magnesium (1.6-2.3) mg/dL Total Bilirubin (0.2-1.3) mg/dL AST (14-36) U/L ALT (9-52) U/L Alkaline Phosphatase (38-126) U/L Total Protein (6.3-8.3) g/dL Albumin (3.5-5.0) g/dL Globulin (2.2-3.9) gm/dL Albumin/Globulin Ratio (1.0-2.1) Blood Type A POSITIVE Antibody Screen Negative Laboratory Results - last 24 hr 01/03/17 01/06/17 01/06/17 21:30 17:59 23:32 WBC RBC Hgb Hct MCV MCH MCHC RDW Plt Count MPV Neut % (Auto) Lymph % (Auto) [place] % (Auto) Eos % (Auto) Baso % (Auto) Neut # Lymph # [place] # Eos # Baso # Puncture Site pCO2 pO2 HCO3 ABG pH ABG Total CO2 ABG O2 Saturation ABG Base Excess ABG Hemoglobin ABG Carboxyhemoglobin POC ABG HHb (Measured) ABG Methemoglobin Chandana Test A-a O2 Difference Respiratory Index Hgb O2 Saturation Vent Mode Mechanical Rate FiO2 Tidal Volume PEEP Sodium Potassium Chloride Carbon Dioxide Anion Gap BUN Creatinine Est GFR ( Amer) Est GFR (Non-Af Amer) POC Glucose (mg/dL) 224 H 238 H Random Glucose Calcium Phosphorus Magnesium Total Bilirubin AST ALT Alkaline Phosphatase Total Protein Albumin Globulin Albumin/Globulin Ratio Blood Type A POSITIVE Antibody Screen Negative 01/07/17 01/07/17 01/07/17 05:42 06:03 06:44 WBC 14.8 H RBC 3.86 Hgb 11.2 Hct 35.2 MCV 91.1 MCH 28.9 MCHC 31.7 L RDW 15.1 H Plt Count 112 L MPV 11.2 Neut % (Auto) 77.5 H Lymph % (Auto) 14.9 L [place] % (Auto) 6.9 Eos % (Auto) 0.1 Baso % (Auto) 0.6 Neut # 11.5 H Lymph # 2.2 [place] # 1.0 H Eos # 0.0 Baso # 0.1 Puncture Site [place] pCO2 27 L pO2 146 H HCO3 23.6 ABG pH 7.49 H ABG Total CO2 21.4 L ABG O2 Saturation 99.7 H ABG Base Excess -1.7 ABG Hemoglobin 11.5 L ABG Carboxyhemoglobin 1.8 H POC ABG HHb (Measured) 0.3 ABG Methemoglobin 1.1 Chandana Test Na A-a O2 Difference 34.0 Respiratory Index 0.2 Hgb O2 Saturation 96.8 Vent Mode Prvc Mechanical Rate 12 FiO2 30.0 Tidal Volume 450 PEEP 5 Sodium Potassium Chloride Carbon Dioxide Anion Gap BUN Creatinine Est GFR ( Amer) Est GFR (Non-Af Amer) POC Glucose (mg/dL) 179 H Random Glucose Calcium Phosphorus Magnesium Total Bilirubin AST ALT Alkaline Phosphatase Total Protein Albumin Globulin Albumin/Globulin Ratio Blood Type Antibody Screen 01/07/17 01/07/17 06:44 11:24 WBC RBC Hgb Hct MCV MCH MCHC RDW Plt Count MPV Neut % (Auto) Lymph % (Auto) [place] % (Auto) Eos % (Auto) Baso % (Auto) Neut # Lymph # [place] # Eos # Baso # Puncture Site pCO2 pO2 HCO3 ABG pH ABG Total CO2 ABG O2 Saturation ABG Base Excess ABG Hemoglobin ABG Carboxyhemoglobin POC ABG HHb (Measured) ABG Methemoglobin Chandana Test A-a O2 Difference Respiratory Index Hgb O2 Saturation Vent Mode Mechanical Rate FiO2 Tidal Volume PEEP Sodium 156 H Potassium 3.4 L Chloride 118 H Carbon Dioxide 20 L Anion Gap 21 H BUN 52 H Creatinine 0.9 Est GFR ( Amer) > 60 Est GFR (Non-Af Amer) > 60 POC Glucose (mg/dL) 230 H Random Glucose 193 H Calcium 8.8 Phosphorus 3.1 Magnesium 2.6 H Total Bilirubin 1.6 H AST 85 H D ALT 67 H D Alkaline Phosphatase 57 Total Protein 6.5 Albumin 3.3 L Globulin 3.2 Albumin/Globulin Ratio 1.0 Blood Type Antibody Screen Fingerstick Blood Sugar Results: 230 Review of Systems - Review of Systems Systems not reviewed;Unavailable: Intubated Critical Care Progress Note - Vent Settings TIDAL VOLUME:: 450 RESP RATE:: 12 FIO2:: 30 PEEP:: 5 - Nutrition Nutrition: Nutrition Category Date Time Status NPO Diet [DIET] Diets 01/04/17 Breakfast Active Assessment/Plan - Assessment and Plan (Free Text) Assessment: 71 year old female with past medical history of DM, presented to the ED with complaints of nausea and vomiting for 3-4 days. She had palpitations and dizziness. In the ED, patient was found to have new onset a-fib, patient was admitted. Patient started on Cardizem drip and anticoagulation. On 01/03/17 Patient no longer has nausea or vomiting, but complained of headache. Patient was given tylenol. In the afternoon, patient's headache started to worsen. Patient was re-evaluated for possible slurred speech/changes in speech, at that time, patient was answering questions and following commands. In the evening, ( as per nurse), patient's speech was more slurred and patient became more restless. 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 Patient underwent decompressive craniotomy with Dr. Duque. Patient was on 3% hypertonic solution (discontinued 01/04/17), with goal of sodium 145-150 and serum osmolality of 300-320. Patient continues to have a-fib. Continue cardene drip and cardizem drip. Neuro: unresponsive - Head CT (01/01/17): no acute findings; chronic ischemic changes - Head CT (01/03/17): Infarct involving posterior circulation with marked edema of cerebellar hemispheres b/l on right side>Left, with obstructing hydrocephalus - S/P decompressive craniotomy/ventriculotomy (Dr. Duque) - Continue cardene drip - Keep CPP 60-80 Pulm: no acute issues - CXR: no acute findings CV: new onset A-Fib - Cardiology consulted- Dr. Wong, help appreciated - Continue Cardizem drip, Lisinopril, Lasix, Lisinopril - Troponin: negative; BNP 3690 - Echo: EF47%; severely dilated LA/RA; mildly thickened and calcified aortic valve; mild AR; mild-mod mitral annular calcification; MV mildly thickened; mod- severe MR; severe TR; mild pulmonic valvular regurg. IVC dilated. Endo: Hx of DM - Accuchecks, monitor blood glucose - Continue ISS - TSH 0.82, Free T4 1.63 - Thyroid Ab: f/u - [facility] consulted- Dr. Goldberg, help appreciated GI: nausea, vomiting- unknown cause--> resolved - NPO - Lipase 79 (01/01/17), 38 (01/02/17) - Continue Zofran, Protonix Heme: - Thrombocytopenia: 111 - Disocontinued lovenox Renal: - Hypokalemic: continue to monitor MSK: no acute issues ID: no acute issues - UA: trace ketones, 1+ glucose Prophylaxis: - DVT: SCDs - GI: Protonix - PT <Avinash Ch S - Last Filed: 01/07/17 18:16> CCU Objective - Vital Signs / Intake & Output Vital Signs (Last 4 hours): Vital Signs Temp Pulse Resp BP Pulse Ox 01/07/17 17:00 119 H 17 99 01/07/17 16:56 133 H 17 125/64 98 01/07/17 16:00 100.4 F H 126 H 17 99 01/07/17 15:56 122 H 20 134/54 L 99 01/07/17 15:00 108 H 17 98 01/07/17 14:56 118 H 17 122/54 L 98 01/07/17 14:00 115 H 17 98 Intake and Output (Last 8hrs): Intake & Output 01/07/17 01/07/17 01/07/17 06:59 14:59 22:59 Intake Total 555 310 25 Output Total 369 675 46 Balance 186 -365 -21 Weight 174 lb 10 oz 138 lb 12.8 oz Intake: IV 275 100 Intake, IV Amount 280 210 25 Left Medial Port Internal 120 120 15 Jugular Left Proximal Port 160 90 10 Internal Jugular Output: Drainage 28 22 6 Right Posterior Head 28 22 6 Urine 341 653 40 Urethral (Mas[place]) 341 653 40 Other: # Bowel Movements 0 - Medications Active Medications: Active Medications Generic Name Dose Route Start Last Admin Trade Name Freq PRN Reason Stop Dose Admin Acetaminophen 650 mg 01/03/17 11:49 01/03/17 18:04 Tylenol 325mg Tab PO 650 mg Q6 PRN Administration Pain, Mild (1-3) Furosemide 20 mg 01/02/17 10:00 01/07/17 09:25 Lasix IVP 20 mg DAILY MIRELLA Administration Diltiazem HCl 125 mg/ Sodium 125 mls @ 5 mls/hr 01/04/17 12:45 01/07/17 11:54 Chloride IV 15 mg/hr .Q24H MIRELLA 15 mls/hr Protocol Administration 5 MG/HR Nicardipine HCl 25 mg/ Sodium 250 mls @ 50 mls/hr 01/05/17 17:00 01/07/17 14: 20 Chloride IV Not Given .Q5H MIRELLA Protocol 5 MG/HR Insulin Glargine 10 unit 01/05/17 22:00 01/06/17 23:33 Lantus SC 10 u HS MIRELLA Administration Insulin Human Regular 0 unit 01/05/17 18:00 01/07/17 11:55 Novolin R SC 2 unit Q6 MIRELLA Administration Protocol Lisinopril 10 mg 01/02/17 15:15 01/07/17 11:00 Zestril PO Not Given DAILY [facility] Ondansetron HCl 4 mg 01/01/17 21:22 01/02/17 18:42 Zofran Inj IVP 4 mg Q6 PRN Administration Nausea/Vomiting Pantoprazole Sodium 40 mg 01/02/17 10:00 01/07/17 09:26 Protonix Inj IVP 40 mg DAILY MIRELLA Administration Rosuvastatin Calcium 20 mg 01/03/17 22:00 01/06/17 22:00 Crestor PO Not Given HS MIRELLA - Patient Studies Lab Studies: Lab Studies 01/07/17 01/07/17 01/07/17 Range/Units 11:24 06:44 06:44 WBC 14.8 H (4.8-10.8) K/uL RBC 3.86 (3.80-5.20) Mil/uL Hgb 11.2 (11.0-16.0) g/dL Hct 35.2 (34.0-47.0) % MCV 91.1 (81.0-99.0) fL MCH 28.9 (27.0-31.0) pg MCHC 31.7 L (33.0-37.0) g/dL RDW 15.1 H (11.5-14.5) % Plt Count 112 L (130-400) K/uL MPV 11.2 (7.2-11.7) fL Neut % (Auto) 77.5 H (50.0-75.0) % Lymph % (Auto) 14.9 L (20.0-40.0) % [place] % (Auto) 6.9 (0.0-10.0) % Eos % (Auto) 0.1 (0.0-4.0) % Baso % (Auto) 0.6 (0.0-2.0) % Neut # 11.5 H (1.8-7.0) K/uL Lymph # 2.2 (1.0-4.3) K/uL [place] # 1.0 H (0.0-0.8) K/uL Eos # 0.0 (0.0-0.7) K/uL Baso # 0.1 (0.0-0.2) K/uL Puncture Site pCO2 (35-45) mm/Hg pO2 (80-100) mm/Hg HCO3 (21-28) mmol/L ABG pH (7.35-7.45) ABG Total CO2 (22-28) mmol/L ABG O2 Saturation (95-98) % ABG Base Excess (-2.0-3.0) mmol/L ABG Hemoglobin (11.7-17.4) g/dL ABG Carboxyhemoglobin (0.5-1.5) % POC ABG HHb (Measured) (0.0-5.0) % ABG Methemoglobin (0.0-3.0) % Chandana Test A-a O2 Difference mm/Hg Respiratory Index Hgb O2 Saturation (95.0-98.0) % Vent Mode Mechanical Rate FiO2 % Tidal Volume PEEP Sodium 156 H (132-148) mmol/L Potassium 3.4 L (3.6-5.2) mmol/L Chloride 118 H (98-107) mmol/L Carbon Dioxide 20 L (22-30) mmol/L Anion Gap 21 H (10-20) BUN 52 H (7-17) mg/dL Creatinine 0.9 (0.7-1.2) MG/DL Est GFR ( Amer) > 60 Est GFR (Non-Af Amer) > 60 POC Glucose (mg/dL) 230 H (65-110) mg/dL Random Glucose 193 H (65-105) mg/dL Calcium 8.8 (8.6-10.4) mg/dl Phosphorus 3.1 (2.5-4.5) mg/dL Magnesium 2.6 H (1.6-2.3) mg/dL Total Bilirubin 1.6 H (0.2-1.3) mg/dL AST 85 H D (14-36) U/L ALT 67 H D (9-52) U/L Alkaline Phosphatase 57 (38-126) U/L Total Protein 6.5 (6.3-8.3) g/dL Albumin 3.3 L (3.5-5.0) g/dL Globulin 3.2 (2.2-3.9) gm/dL Albumin/Globulin Ratio 1.0 (1.0-2.1) Blood Type Antibody Screen 01/07/17 01/07/17 01/06/17 Range/Units 06:03 05:42 23:32 WBC (4.8-10.8) K/uL RBC (3.80-5.20) Mil/uL Hgb (11.0-16.0) g/dL Hct (34.0-47.0) % MCV (81.0-99.0) fL MCH (27.0-31.0) pg MCHC (33.0-37.0) g/dL RDW (11.5-14.5) % Plt Count (130-400) K/uL MPV (7.2-11.7) fL Neut % (Auto) (50.0-75.0) % Lymph % (Auto) (20.0-40.0) % [place] % (Auto) (0.0-10.0) % Eos % (Auto) (0.0-4.0) % Baso % (Auto) (0.0-2.0) % Neut # (1.8-7.0) K/uL Lymph # (1.0-4.3) K/uL [place] # (0.0-0.8) K/uL Eos # (0.0-0.7) K/uL Baso # (0.0-0.2) K/uL Puncture Site [place] pCO2 27 L (35-45) mm/Hg pO2 146 H (80-100) mm/Hg HCO3 23.6 (21-28) mmol/L ABG pH 7.49 H (7.35-7.45) ABG Total CO2 21.4 L (22-28) mmol/L ABG O2 Saturation 99.7 H (95-98) % ABG Base Excess -1.7 (-2.0-3.0) mmol/L ABG Hemoglobin 11.5 L (11.7-17.4) g/dL ABG Carboxyhemoglobin 1.8 H (0.5-1.5) % POC ABG HHb (Measured) 0.3 (0.0-5.0) % ABG Methemoglobin 1.1 (0.0-3.0) % Chandana Test Na A-a O2 Difference 34.0 mm/Hg Respiratory Index 0.2 Hgb O2 Saturation 96.8 (95.0-98.0) % Vent Mode Prvc Mechanical Rate 12 FiO2 30.0 % Tidal Volume 450 PEEP 5 Sodium (132-148) mmol/L Potassium (3.6-5.2) mmol/L Chloride (98-107) mmol/L Carbon Dioxide (22-30) mmol/L Anion Gap (10-20) BUN (7-17) mg/dL Creatinine (0.7-1.2) MG/DL Est GFR ( Amer) Est GFR (Non-Af Amer) POC Glucose (mg/dL) 179 H 238 H (65-110) mg/dL Random Glucose (65-105) mg/dL Calcium (8.6-10.4) mg/dl Phosphorus (2.5-4.5) mg/dL Magnesium (1.6-2.3) mg/dL Total Bilirubin (0.2-1.3) mg/dL AST (14-36) U/L ALT (9-52) U/L Alkaline Phosphatase (38-126) U/L Total Protein (6.3-8.3) g/dL Albumin (3.5-5.0) g/dL Globulin (2.2-3.9) gm/dL Albumin/Globulin Ratio (1.0-2.1) Blood Type Antibody Screen 01/06/17 01/03/17 Range/Units 17:59 21:30 WBC (4.8-10.8) K/uL RBC (3.80-5.20) Mil/uL Hgb (11.0-16.0) g/dL Hct (34.0-47.0) % MCV (81.0-99.0) fL MCH (27.0-31.0) pg MCHC (33.0-37.0) g/dL RDW (11.5-14.5) % Plt Count (130-400) K/uL MPV (7.2-11.7) fL Neut % (Auto) (50.0-75.0) % Lymph % (Auto) (20.0-40.0) % [place] % (Auto) (0.0-10.0) % Eos % (Auto) (0.0-4.0) % Baso % (Auto) (0.0-2.0) % Neut # (1.8-7.0) K/uL Lymph # (1.0-4.3) K/uL [place] # (0.0-0.8) K/uL Eos # (0.0-0.7) K/uL Baso # (0.0-0.2) K/uL Puncture Site pCO2 (35-45) mm/Hg pO2 (80-100) mm/Hg HCO3 (21-28) mmol/L ABG pH (7.35-7.45) ABG Total CO2 (22-28) mmol/L ABG O2 Saturation (95-98) % ABG Base Excess (-2.0-3.0) mmol/L ABG Hemoglobin (11.7-17.4) g/dL ABG Carboxyhemoglobin (0.5-1.5) % POC ABG HHb (Measured) (0.0-5.0) % ABG Methemoglobin (0.0-3.0) % Chandana Test A-a O2 Difference mm/Hg Respiratory Index Hgb O2 Saturation (95.0-98.0) % Vent Mode Mechanical Rate FiO2 % Tidal Volume PEEP Sodium (132-148) mmol/L Potassium (3.6-5.2) mmol/L Chloride (98-107) mmol/L Carbon Dioxide (22-30) mmol/L Anion Gap (10-20) BUN (7-17) mg/dL Creatinine (0.7-1.2) MG/DL Est GFR ( Amer) Est GFR (Non-Af Amer) POC Glucose (mg/dL) 224 H (65-110) mg/dL Random Glucose (65-105) mg/dL Calcium (8.6-10.4) mg/dl Phosphorus (2.5-4.5) mg/dL Magnesium (1.6-2.3) mg/dL Total Bilirubin (0.2-1.3) mg/dL AST (14-36) U/L ALT (9-52) U/L Alkaline Phosphatase (38-126) U/L Total Protein (6.3-8.3) g/dL Albumin (3.5-5.0) g/dL Globulin (2.2-3.9) gm/dL Albumin/Globulin Ratio (1.0-2.1) Blood Type A POSITIVE Antibody Screen Negative Laboratory Results - last 24 hr 01/03/17 01/06/17 01/06/17 21:30 17:59 23:32 WBC RBC Hgb Hct MCV MCH MCHC RDW Plt Count MPV Neut % (Auto) Lymph % (Auto) [place] % (Auto) Eos % (Auto) Baso % (Auto) Neut # Lymph # [place] # Eos # Baso # Puncture Site pCO2 pO2 HCO3 ABG pH ABG Total CO2 ABG O2 Saturation ABG Base Excess ABG Hemoglobin ABG Carboxyhemoglobin POC ABG HHb (Measured) ABG Methemoglobin Chandana Test A-a O2 Difference Respiratory Index Hgb O2 Saturation Vent Mode Mechanical Rate FiO2 Tidal Volume PEEP Sodium Potassium Chloride Carbon Dioxide Anion Gap BUN Creatinine Est GFR ( Amer) Est GFR (Non-Af Amer) POC Glucose (mg/dL) 224 H 238 H Random Glucose Calcium Phosphorus Magnesium Total Bilirubin AST ALT Alkaline Phosphatase Total Protein Albumin Globulin Albumin/Globulin Ratio Blood Type A POSITIVE Antibody Screen Negative 01/07/17 01/07/17 01/07/17 05:42 06:03 06:44 WBC 14.8 H RBC 3.86 Hgb 11.2 Hct 35.2 MCV 91.1 MCH 28.9 MCHC 31.7 L RDW 15.1 H Plt Count 112 L MPV 11.2 Neut % (Auto) 77.5 H Lymph % (Auto) 14.9 L [place] % (Auto) 6.9 Eos % (Auto) 0.1 Baso % (Auto) 0.6 Neut # 11.5 H Lymph # 2.2 [place] # 1.0 H Eos # 0.0 Baso # 0.1 Puncture Site [place] pCO2 27 L pO2 146 H HCO3 23.6 ABG pH 7.49 H ABG Total CO2 21.4 L ABG O2 Saturation 99.7 H ABG Base Excess -1.7 ABG Hemoglobin 11.5 L ABG Carboxyhemoglobin 1.8 H POC ABG HHb (Measured) 0.3 ABG Methemoglobin 1.1 Chandana Test Na A-a O2 Difference 34.0 Respiratory Index 0.2 Hgb O2 Saturation 96.8 Vent Mode Prvc Mechanical Rate 12 FiO2 30.0 Tidal Volume 450 PEEP 5 Sodium Potassium Chloride Carbon Dioxide Anion Gap BUN Creatinine Est GFR ( Amer) Est GFR (Non-Af Amer) POC Glucose (mg/dL) 179 H Random Glucose Calcium Phosphorus Magnesium Total Bilirubin AST ALT Alkaline Phosphatase Total Protein Albumin Globulin Albumin/Globulin Ratio Blood Type Antibody Screen 01/07/17 01/07/17 06:44 11:24 WBC RBC Hgb Hct MCV MCH MCHC RDW Plt Count MPV Neut % (Auto) Lymph % (Auto) [place] % (Auto) Eos % (Auto) Baso % (Auto) Neut # Lymph # [place] # Eos # Baso # Puncture Site pCO2 pO2 HCO3 ABG pH ABG Total CO2 ABG O2 Saturation ABG Base Excess ABG Hemoglobin ABG Carboxyhemoglobin POC ABG HHb (Measured) ABG Methemoglobin Chandana Test A-a O2 Difference Respiratory Index Hgb O2 Saturation Vent Mode Mechanical Rate FiO2 Tidal Volume PEEP Sodium 156 H Potassium 3.4 L Chloride 118 H Carbon Dioxide 20 L Anion Gap 21 H BUN 52 H Creatinine 0.9 Est GFR ( Amer) > 60 Est GFR (Non-Af Amer) > 60 POC Glucose (mg/dL) 230 H Random Glucose 193 H Calcium 8.8 Phosphorus 3.1 Magnesium 2.6 H Total Bilirubin 1.6 H AST 85 H D ALT 67 H D Alkaline Phosphatase 57 Total Protein 6.5 Albumin 3.3 L Globulin 3.2 Albumin/Globulin Ratio 1.0 Blood Type Antibody Screen Critical Care Progress Note - Nutrition Nutrition: Nutrition Category Date Time Status NPO Diet [DIET] Diets 01/04/17 Breakfast Active Assessment/Plan (1) Cerebellar stroke Current Visit: Yes Status: Acute Priority: High Comment: Status post decompressive surgery/ventriculostomy Repeat CT of the head noted with worsening edema and herniation Hypotonic fluid stopped keep CPP between 60-80 Case discussed with family at length Patient seen by neurosurgery with poor prognosis Continue ventilatory support (2) New onset atrial fibrillation Current Visit: Yes Status: Acute Attending/Attestation - Attestation I have personally seen and examined this patient.: Yes I have fully participated in the care of the patient.: Yes I have reviewed all pertinent clinical information: Yes Notes (Text): 01/07/17 17:59 Patient seen and examined in the intensive care unit. Case discussed with STAFF in the morning rounds. No change in mental status Patient DNR/DNI and possible terminal extubation on
--- NOTE | 2017-01-07 16:08 | CP.PCM.PN ---
Subjective - Date & Time of Evaluation Date of Evaluation: 01/08/17 Time of Evaluation: 16:00 - Subjective Subjective: Hospitalist Service Covering Dr. Layne (Patient was seen and examined at 4 PM 01/07/17) 71 year old female who was admitted on 01/02/17 with complaints of 3 to 4 day history of nausea/vomiting, abdominal pain, and palpitations. She was found to have new onset Atrial Fibrillation with rapid ventricular response. She also developed a Bilateral Cerebellar Infarct and underwent Decompressive Craniotomy on 01/04/17. ROS: this is not possible as the patient is intubated Exam: HEENT: Right Pupil is nonreactive to light and is ovoid in shape (Son reveals that she had cataract surgery), Left Pupil is round in reactive to light sluggishly, NO lympadenpathy, Left Internal Jugular Central Line in place, NO thyromegaly Cardio: Irregularly irregular with systolic ejection murmur in all maxwell Resp: CTA B/L NO R/R/W but this is limited secondary to lack of patient participaton GI: BS are reduced in all 4 quadrants, Soft, ND, NO HSM Ext: NO edema, Capillary refill is 2 seconds, Pulses are strong and equal Assessment and Plan: 1). Bilateral Cerebellar Infarct S/P decompressive craniotomy with ventriculostomy tube on 01/04/[address] Duque Neurology Dr. Jensen Repeat CT Head 01/05/17 hshows worsening of obstructive hydrocephalus, postoperative changes that include intraventricular hemorrhage related to placement of right ventriculostomy catheter and left occipital craniotomy Right Ventriculostomy Catheter draining bright red clear fluid 350 ml in the past 24 hours. Spoke at length with Jessica Montejo [phone] and Magan [phone] on 01/06/17 and explained patient's poor prognosis and that she was currently at risk for possible further CVA or infarcts to other organs considering the continued Atrial Fibrillation and the inability to anticoagulate due to the changes in the brain. They reveal that patient does not have a living will/advance directive. They spoke with Palliative Care Nurse Joi on 01/06/17 and have decided to make the patient DRN/DNI and if there is NO improvement by they will then decide at that time whether to terminally extubate patient. 2). New Onset Atrial Fibrillation Cardizem drip 2D Echocardiogram showing Grade I relaxation pattern, right and left atrium severe dilation, mitral annular calcification is mild to moderate, severe tricuspid regurgitation Cardiology Dr. Wogn 3). DM RISS Q6H Lantus 10 mg SC HS F/U Thyroid Abs 4). Hypokalemia 5). HTN Lisinopril 10 mg PO 1x/day 6). HLD Crestor 20 mg PO QHS 7). Thrombocytopenia 112 today 8). Hypernatremia Na is 154 (goal is 145-150) and Serum Osmolality is 325 (goal is < 320). Hypertonic Saline was discontinued on 01/04/17 9). Prophylaxis Tylenol 650 mg PO Q6H PRN Mild Pain Zofran 4 mg IV Q6H PRN N/V Protonix 40 mg IV 1x/day Edi Green D.O. Objective - Vital Signs/Intake and Output Vital Signs (last 24 hours): Temp Pulse Resp BP Pulse Ox 99.8 F H 108 H 17 122/54 L 98 01/07/17 12:00 01/07/17 15:00 01/07/17 15:00 01/07/17 14:56 01/07/17 15:00 Intake and Output: 01/07/17 01/07/17 06:59 18:59 Intake Total 795 335 Output Total 529 721 Balance 266 -386 - Medications Medications: Current Medications Acetaminophen (Tylenol 325mg Tab) 650 mg PO Q6 PRN PRN Reason: Pain, Mild (1-3) Last Admin: 01/03/17 18:04 Dose: 650 mg Furosemide (Lasix) 20 mg IVP DAILY [facility] Last Admin: 01/07/17 09:25 Dose: 20 mg Diltiazem HCl 125 mg/ Sodium (Chloride) 125 mls @ 5 mls/hr IV .Q24H [facility]; 5 MG/ HR PRN Reason: Protocol Last Admin: 01/07/17 11:54 Dose: 15 mg/hr, 15 mls/hr Nicardipine HCl 25 mg/ Sodium (Chloride) 250 mls @ 50 mls/hr IV .Q5H [facility]; 5 MG/ HR PRN Reason: Protocol Last Admin: 01/07/17 14:20 Dose: Not Given Insulin Glargine (Lantus) 10 unit SC HS [facility] Last Admin: 01/06/17 23:33 Dose: 10 u Insulin Human Regular (Novolin R) 0 unit SC Q6 [facility] PRN Reason: Protocol Last Admin: 01/07/17 11:55 Dose: 2 unit Lisinopril (Zestril) 10 mg PO DAILY [facility] Last Admin: 01/07/17 11:00 Dose: Not Given Ondansetron HCl (Zofran Inj) 4 mg IVP Q6 PRN PRN Reason: Nausea/Vomiting Last Admin: 01/02/17 18:42 Dose: 4 mg Pantoprazole Sodium (Protonix Inj) 40 mg IVP DAILY [facility] Last Admin: 01/07/17 09:26 Dose: 40 mg Rosuvastatin Calcium (Crestor) 20 mg PO [facility] Last Admin: 01/06/17 22:00 Dose: Not Given - Labs Labs: 01/07/17 06:44 01/07/17 06:44 PT 13.7 SECONDS (9.7-12.2) H 01/03/17 21:30 INR 1.2 01/03/17 21:30 APTT 31 SECONDS (21-34) 01/03/17 21:30
--- NOTE | 2017-01-07 20:44 | CP.PCM.PN ---
Subjective - Date & Time of Evaluation Date of Evaluation: 01/07/17 Time of Evaluation: 20:39 - Subjective Subjective: diabetes & thyroid evaluation Objective - Vital Signs/Intake and Output Vital Signs (last 24 hours): Temp Pulse Resp BP Pulse Ox 100.4 F H 128 H 14 118/62 97 01/07/17 16:00 01/07/17 19:00 01/07/17 19:00 01/07/17 18:56 01/07/17 19:00 Intake and Output: 01/07/17 01/08/17 18:59 06:59 Intake Total 510 40 Output Total 832 93 Balance -322 -53 - Medications Medications: Current Medications Acetaminophen (Tylenol 325mg Tab) 650 mg PO Q6 PRN PRN Reason: Pain, Mild (1-3) Last Admin: 01/03/17 18:04 Dose: 650 mg Furosemide (Lasix) 20 mg IVP DAILY [facility] Last Admin: 01/07/17 09:25 Dose: 20 mg Diltiazem HCl 125 mg/ Sodium (Chloride) 125 mls @ 5 mls/hr IV .Q24H [facility]; 5 MG/ HR PRN Reason: Protocol Last Admin: 01/07/17 11:54 Dose: 15 mg/hr, 15 mls/hr Nicardipine HCl 25 mg/ Sodium (Chloride) 250 mls @ 50 mls/hr IV .Q5H [facility]; 5 MG/ HR PRN Reason: Protocol Last Admin: 01/07/17 19:47 Dose: Not Given Insulin Glargine (Lantus) 13 unit SC HS [facility] Insulin Human Regular (Novolin R) 0 unit SC Q6 [facility] PRN Reason: Protocol Last Admin: 01/07/17 18:24 Dose: Not Given Lisinopril (Zestril) 10 mg PO DAILY [facility] Last Admin: 01/07/17 11:00 Dose: Not Given Ondansetron HCl (Zofran Inj) 4 mg IVP Q6 PRN PRN Reason: Nausea/Vomiting Last Admin: 01/02/17 18:42 Dose: 4 mg Pantoprazole Sodium (Protonix Inj) 40 mg IVP DAILY [facility] Last Admin: 01/07/17 09:26 Dose: 40 mg Rosuvastatin Calcium (Crestor) 20 mg PO HS [facility] Last Admin: 01/06/17 22:00 Dose: Not Given - Labs Labs: 01/07/17 06:44 01/07/17 06:44 PT 13.7 SECONDS (9.7-12.2) H 01/03/17 21:30 INR 1.2 01/03/17 21:30 APTT 31 SECONDS (21-34) 01/03/17 21:30 Assessment and Plan (1) Uncontrolled type 2 diabetes mellitus Assessment & Plan: Endocrine consult reason for consult: thyroid disease &DM sourse : chart review & pt's son by bed side is 71 y/o admitted to ICU for new onset A Fib with rapid ventricular response with acute CVA s/p decompression craniotomy , intubated as per pt's son Gustabo , pt.has DM x 10 years (-) neuropathy , (-) retinopathy , (-) nephropathy (-) CAD (-) PVD blood glucose log :170-200's NPO NO hypoglycemia Allergy NKDA Past medical history :HTN Past surgical history : as above & eye correction surgery Psychiatry history : denies Social history : denies smoking , ETOH use or illicit drug use Family history : siblings & children ROS: Constitutional: no fever ,tiredness/weakness .HEENT: no earache, change in voice .Respiratory: no cough, sob . CVS :no chest pain, no palpitations . Abdomen : no abdominal pain, no nausea /vomiting , no change bowel movement . [employer] : no light-headedness, dizziness. Extremities : no edema , no tremors .Skin : no itching, no rash Physical exam Well developed intubated VSS HEENT: norm cephalic, atraumatic NECK: supple, no palpable lymphadenopathy THYROID: no palpable thyromegaly , not tender CHEST: fair air entry, bilateral, CVS: S1,S2 ABDOMEN: bowel sound present, benign, obese, no wide purple striae , no bruises EXTREMITIES: no edema, clubbing or cyanosis, no palpable hand tremors Skin : acanthosis nigricans lab: TSH 0.22 T4 7.64 , T3 0.78,FT4 1.19, THYROID abs (-) , A1C 7.4 tsh 0.82, ft4 1.63 , NT-PRP NTP 3690, wbc 12.6 Assessment -uncontrolled DM -A Fib , new onset - acute euthyroid syndrom -acute CVA s/p craniotomy , poor prognosis -obesity plan continue Novolin R low dose coverage q 6 h increase lantus 13 units @ 9pm daily will monitor Status: Acute (2) Cerebellar stroke Status: Acute (3) New onset atrial fibrillation Status: Acute
[2017-01-07] MEDS: (Lantus) Insulin Glargine, Recombinant SC SCH (21:10)
[2017-01-08] MEDS: niCARdipine IV 25 MG in Sodium Chloride 0.9% 240 ML IV SCH ×5 (01:47→20:00)
[2017-01-08 06:12] LABS: BASO # 0.1 K/uL (0.0-0.2); EOS % 0.2 % (0.0-4.0); MONO # 0.8 K/uL (0.0-0.8); NRBC % 0.2 % (0.0-2.0)
[2017-01-08 06:19] LABS: BASO % 0.8 % (0.0-2.0); HEMATOCRIT 35.1 % (34.0-47.0); LYMPH % 15.7 % (20.0-40.0); MEAN CORPUSCULAR HGB CONC 31.8 g/dL (33.0-37.0); MEAN PLATELET VOLUME 10.8 fL (7.2-11.7); MONO % 6.4 % (0.0-10.0); RED CELL DISTRIBUTION WIDTH 14.9 % (11.5-14.5)
[2017-01-08 06:24] LABS: ABG ALLEN TEST POS; ABG MECHANICAL RATE 12; ARTERIAL BLOOD GAS MODE PRVC; ARTERIAL BLOOD HGB O2 SAT 97.7 % (95.0-98.0); ATERIAL BLOOD GAS PEEP 5; CARBOXYHEMOGLOBIN 1.5 % (0.5-1.5); DRAW SITE R RAD; HHB -0.1 % (0.0-5.0); METHEMOGLOBIN 0.9 % (0.0-3.0)
[2017-01-08 06:36] LABS: ALKALINE PHOSPHATASE 69 U/L (38-126); ALT/SGPT 115 U/L (9-52); AST/SGOT 159 U/L (14-36); BILIRUBIN,TOTAL 1.2 mg/dL (0.2-1.3); BLOOD UREA NITROGEN 54 mg/dL (7-17); CALCIUM 8.8 mg/dl (8.6-10.4); CARBON DIOXIDE 20 mmol/L (22-30); CHLORIDE 124 mmol/L (98-107); GFR AFRICAN-AMERICAN > 60; GLUCOSE,RANDOM 185 mg/dL (65-105); MAGNESIUM 2.8 mg/dL (1.6-2.3); PHOSPHOROUS 3.6 mg/dL (2.5-4.5); POTASSIUM 3.4 mmol/L (3.6-5.2); TOTAL PROTEIN 6.7 g/dL (6.3-8.3)
[2017-01-08] MEDS: (Novolin R) Insulin Human Regular 100 units/ml vial SC SCH ×4 (06:37→18:59)
[2017-01-08 06:40] LABS: SODIUM 160 mmol/L (132-148)
--- NOTE | 2017-01-08 09:21 | CP.PCM.PN ---
Subjective - Date & Time of Evaluation Date of Evaluation: 01/08/17 Time of Evaluation: 09:15 - Subjective Subjective: Hospitalist Service Covering Dr. Layne (Patient was seen and examined at 9: 15 AM 01/08/17) 71 year old female who was admitted on 01/02/17 with complaints of 3 to 4 day history of nausea/vomiting, abdominal pain, and palpitations. She was found to have new onset Atrial Fibrillation with rapid ventricular response. She also developed a Bilateral Cerebellar Infarct and underwent Decompressive Craniotomy on 01/04/17. ROS: this is not possible as the patient is intubated Exam: HEENT: Right Pupil is nonreactive to light and is ovoid in shape (Son reveals that she had cataract surgery), Left Pupil is round in reactive to light sluggishly, NO lympadenpathy, Left Internal Jugular Central Line in place, NO thyromegaly Cardio: Irregularly irregular with systolic ejection murmur in all maxwell Resp: CTA B/L NO R/R/W but this is limited secondary to lack of patient participaton GI: BS are reduced in all 4 quadrants, Soft, ND, NO HSM Ext: NO edema, Capillary refill is 2 seconds, Pulses are strong and equal Assessment and Plan: 1). Bilateral Cerebellar Infarct S/P decompressive craniotomy with ventriculostomy tube on 01/04/[address] Duque Neurology Dr. Jensen Repeat CT Head 01/05/17 hshows worsening of obstructive hydrocephalus, postoperative changes that include intraventricular hemorrhage related to placement of right ventriculostomy catheter and left occipital craniotomy Right Ventriculostomy Catheter draining bright red clear fluid 550 ml in the past 24 hours. Spoke at length with Jessica Montejo [phone] and Magan [phone] on 01/06/17 and explained patient's poor prognosis and that she was currently at risk for possible further CVA or infarcts to other organs considering the continued Atrial Fibrillation and the inability to anticoagulate due to the changes in the brain. They reveal that patient does not have a living will/advance directive. They spoke with Palliative Care Nurse Joi on 01/06/17 and have decided to make the patient DRN/DNI and if there is NO improvement by they will then decide at that time whether to terminally extubate patient. 2). New Onset Atrial Fibrillation Cardizem drip 2D Echocardiogram showing Grade I relaxation pattern, right and left atrium severe dilation, mitral annular calcification is mild to moderate, severe tricuspid regurgitation Cardiology Dr. Wong 3). DM Novolin Low Dose RISS Q6H Lantus 13 Units SC HS F/U Thyroid Abs 4). Hypokalemia 5). HTN Lisinopril 10 mg PO 1x/day 6). HLD Crestor 20 mg PO QHS 7). Thrombocytopenia 112 today 8). Hypernatremia Na is 154 (goal is 145-150) and Serum Osmolality is 325 (goal is < 320). Hypertonic Saline was discontinued on 01/04/17 9). Prophylaxis Tylenol 650 mg PO Q6H PRN Mild Pain Zofran 4 mg IV Q6H PRN N/V Protonix 40 mg IV 1x/day Edi Green D.O. Objective - Vital Signs/Intake and Output Vital Signs (last 24 hours): Temp Pulse Resp BP Pulse Ox 99.2 F 162 H 21 127/73 99 01/08/17 04:00 01/08/17 07:00 01/08/17 07:00 01/08/17 06:56 01/08/17 07:00 Intake and Output: 01/08/17 01/08/17 06:59 18:59 Intake Total 550 25 Output Total 586 10 Balance -36 15 - Medications Medications: Current Medications Acetaminophen (Tylenol 325mg Tab) 650 mg PO Q6 PRN PRN Reason: Pain, Mild (1-3) Last Admin: 01/03/17 18:04 Dose: 650 mg Furosemide (Lasix) 20 mg IVP DAILY [facility] Last Admin: 01/07/17 09:25 Dose: 20 mg Diltiazem HCl 125 mg/ Sodium (Chloride) 125 mls @ 5 mls/hr IV .Q24H [facility]; 5 MG/ HR PRN Reason: Protocol Last Admin: 01/08/17 06:31 Dose: 15 mg/hr, 15 mls/hr Nicardipine HCl 25 mg/ Sodium (Chloride) 250 mls @ 50 mls/hr IV .Q5H [facility]; 5 MG/ HR PRN Reason: Protocol Last Admin: 01/08/17 06:32 Dose: Not Given Insulin Glargine (Lantus) 13 unit SC HS [facility] Last Admin: 01/07/17 21:10 Dose: 13 u Insulin Human Regular (Novolin R) 0 unit SC Q6 [facility] PRN Reason: Protocol Last Admin: 01/08/17 06:37 Dose: 1 unit Lisinopril (Zestril) 10 mg PO DAILY [facility] Last Admin: 01/07/17 11:00 Dose: Not Given Ondansetron HCl (Zofran Inj) 4 mg IVP Q6 PRN PRN Reason: Nausea/Vomiting Last Admin: 01/02/17 18:42 Dose: 4 mg Pantoprazole Sodium (Protonix Inj) 40 mg IVP DAILY [facility] Last Admin: 01/07/17 09:26 Dose: 40 mg Rosuvastatin Calcium (Crestor) 20 mg PO [facility] Last Admin: 01/07/17 21:15 Dose: Not Given - Labs Labs: 01/08/17 05:59 01/08/17 05:59 PT 13.7 SECONDS (9.7-12.2) H 01/03/17 21:30 INR 1.2 01/03/17 21:30 APTT 31 SECONDS (21-34) 01/03/17 21:30
--- NOTE | 2017-01-08 10:22 | RAD ---
HISTORY: intuabted COMPARISON: Portable chest 01/07/2017 FINDINGS: LUNGS: No active pulmonary disease. Endotracheal tube and left central venous line are unchanged in position PE PLEURA: No significant pleural effusion identified, no pneumothorax apparent. CARDIOVASCULAR: Stable cardiac silhouette noted. OSSEOUS STRUCTURES: No significant abnormalities. VISUALIZED UPPER ABDOMEN: Normal. OTHER FINDINGS: None. IMPRESSION: No acute infiltrate or pleural effusion identified or pneumothorax. No significant interval change.
--- NOTE | 2017-01-08 11:13 | CP.PCM.PN ---
Subjective - Date & Time of Evaluation Date of Evaluation: 01/08/17 Time of Evaluation: 11:10 - Subjective Subjective: no improvement of significance l pupill 4 and rx,r 2 weak corneals neg gag no extremity response EVD draining well d/w ICU staff - probabale terminal extubation tmw Objective - Vital Signs/Intake and Output Vital Signs (last 24 hours): Temp Pulse Resp BP Pulse Ox 99.2 F 162 H 21 146/55 L 99 01/08/17 04:00 01/08/17 07:00 01/08/17 07:00 01/08/17 10:44 01/08/17 07:00 Intake and Output: 01/08/17 01/08/17 06:59 18:59 Intake Total 550 25 Output Total 586 10 Balance -36 15 - Medications Medications: Current Medications Acetaminophen (Tylenol 325mg Tab) 650 mg PO Q6 PRN PRN Reason: Pain, Mild (1-3) Last Admin: 01/03/17 18:04 Dose: 650 mg Furosemide (Lasix) 20 mg IVP DAILY [facility] Last Admin: 01/08/17 10:44 Dose: 20 mg Diltiazem HCl 125 mg/ Sodium (Chloride) 125 mls @ 5 mls/hr IV .Q24H [facility]RE[facility]; 5 MG/ HR PRN Reason: Protocol Last Admin: 01/08/17 06:31 Dose: 15 mg/hr, 15 mls/hr Nicardipine HCl 25 mg/ Sodium (Chloride) 250 mls @ 50 mls/hr IV .Q5H [facility]; 5 MG/ HR PRN Reason: Protocol Last Admin: 01/08/17 06:32 Dose: Not Given Insulin Glargine (Lantus) 13 unit SC HS [facility] Last Admin: 01/07/17 21:10 Dose: 13 u Insulin Human Regular (Novolin R) 0 unit SC Q6 [facility] PRN Reason: Protocol Last Admin: 01/08/17 06:37 Dose: 1 unit Lisinopril (Zestril) 10 mg PO DAILY [facility] Last Admin: 01/08/17 10:38 Dose: Not Given Ondansetron HCl (Zofran Inj) 4 mg IVP Q6 PRN PRN Reason: Nausea/Vomiting Last Admin: 01/02/17 18:42 Dose: 4 mg Pantoprazole Sodium (Protonix Inj) 40 mg IVP DAILY [facility] Last Admin: 01/08/17 10:44 Dose: 40 mg Rosuvastatin Calcium (Crestor) 20 mg PO HS [facility] Last Admin: 01/07/17 21:15 Dose: Not Given - Labs Labs: 01/08/17 05:59 01/08/17 05:59 PT 13.7 SECONDS (9.7-12.2) H 01/03/17 21:30 INR 1.2 01/03/17 21:30 APTT 31 SECONDS (21-34) 01/03/17 21:30
--- NOTE | 2017-01-08 13:54 | CP.CCUPN ---
<Beth Alejandro - Last Filed: 01/08/17 13:49> CCU Subjective - Physician Review Subjective (Free Text): Patient was seen and examined at bedside in the morning. Patient is unresponsive and intubated. Unable to obtain review of systems. 01/08/17 13:49 CCU Objective - Vital Signs / Intake & Output Vital Signs (Last 4 hours): Vital Signs Temp BP 01/08/17 13:23 101.9 F H 01/08/17 10:44 146/55 L Intake and Output (Last 8hrs): Intake & Output 01/07/17 01/08/17 01/08/17 22:59 06:59 14:59 Intake Total 425 325 275 Output Total 347 396 10 Balance 78 -71 265 Intake: IV 125 125 250 Intake, IV Amount 300 200 25 Left Hand 100 Left Medial Port Internal 120 120 15 Jugular Left Proximal Port 80 80 10 Internal Jugular Output: Drainage 30 6 10 Right Posterior Head 30 6 10 Urine 317 390 Urethral (Massey) 317 390 - Physical Exam Head: Positive for: Normocephalic Extroacular Muscles: Negative for: EOMI Mouth: Positive for: Other (intubated) Respiratory/Chest: Positive for: Other (intubated). Negative for: Wheezes, Rales, Rhonchi Cardiovascular: Positive for: Normal S1, S2, Irregular Rhythm, Tachycardic Abdomen: Negative for: Distention, Normal Bowel Sounds (hypoactive) Upper Extremity: Positive for: Normal Inspection. Negative for: Edema Lower Extremity: Positive for: Normal Inspection. Negative for: Edema Neurological: Negative for: GCS=15, Motor Func Grossly Intact, Normal Sensory Function Skin: Positive for: Warm, Dry, Normal Color Psychiatric: Negative for: Alert, Oriented x 3 - Medications Active Medications: Active Medications Generic Name Dose Route Start Last Admin Trade Name Freq PRN Reason Stop Dose Admin Acetaminophen 650 mg 01/03/17 11:49 01/03/17 18:04 Tylenol 325mg Tab PO 650 mg Q6 PRN Administration Pain, Mild (1-3) Furosemide 20 mg 01/02/17 10:00 01/08/17 10:44 Lasix IVP 20 mg DAILY MIRELLA Administration Diltiazem HCl 125 mg/ Sodium 125 mls @ 5 mls/hr 01/04/17 12:45 01/08/17 06:31 Chloride IV 15 mg/hr .Q24H MIRELLA 15 mls/hr Protocol Administration 5 MG/HR Nicardipine HCl 25 mg/ Sodium 250 mls @ 50 mls/hr 01/05/17 17:00 01/08/17 13: 23 Chloride IV 2 mg/hr .Q5H MIRELLA 20 mls/hr Protocol Administration 5 MG/HR Insulin Glargine 13 unit 01/07/17 20:30 01/07/17 21:10 Lantus SC 13 u HS MIRELLA Administration Insulin Human Regular 0 unit 01/05/17 18:00 01/08/17 13:27 Novolin R SC 1 unit Q6 MIRELLA Administration Protocol Lisinopril 10 mg 01/02/17 15:15 01/08/17 10:38 Zestril PO Not Given DAILY [facility] Ondansetron HCl 4 mg 01/01/17 21:22 01/02/17 18:42 Zofran Inj IVP 4 mg Q6 PRN Administration Nausea/Vomiting Pantoprazole Sodium 40 mg 01/02/17 10:00 01/08/17 10:44 Protonix Inj IVP 40 mg DAILY [facility] Administration Rosuvastatin Calcium 20 mg 01/03/17 22:00 01/07/17 21:15 Crestor PO Not Given HS MIRELLA - Patient Studies Lab Studies: Lab Studies 01/08/17 01/08/17 01/08/17 Range/Units 12:03 05:59 05:59 WBC 13.0 H (4.8-10.8) K/uL RBC 3.86 (3.80-5.20) Mil/uL Hgb 11.2 (11.0-16.0) g/dL Hct 35.1 (34.0-47.0) % MCV 91.0 (81.0-99.0) fL MCH 29.0 (27.0-31.0) pg MCHC 31.8 L (33.0-37.0) g/dL RDW 14.9 H (11.5-14.5) % Plt Count 96 L (130-400) K/uL MPV 10.8 (7.2-11.7) fL Neut % (Auto) 76.9 H (50.0-75.0) % Lymph % (Auto) 15.7 L (20.0-40.0) % Armstrong % (Auto) 6.4 (0.0-10.0) % Eos % (Auto) 0.2 (0.0-4.0) % Baso % (Auto) 0.8 (0.0-2.0) % Neut # 10.0 H (1.8-7.0) K/uL Lymph # 2.0 (1.0-4.3) K/uL Armstrong # 0.8 (0.0-0.8) K/uL Eos # 0.0 (0.0-0.7) K/uL Baso # 0.1 (0.0-0.2) K/uL Differential Comment Puncture Site pCO2 (35-45) mm/Hg pO2 (80-100) mm/Hg HCO3 (21-28) mmol/L ABG pH (7.35-7.45) ABG Total CO2 (22-28) mmol/L ABG O2 Saturation (95-98) % ABG Base Excess (-2.0-3.0) mmol/L ABG Hemoglobin (11.7-17.4) g/dL ABG Carboxyhemoglobin (0.5-1.5) % POC ABG HHb (Measured) (0.0-5.0) % ABG Methemoglobin (0.0-3.0) % Chandana Test A-a O2 Difference mm/Hg Respiratory Index Hgb O2 Saturation (95.0-98.0) % Vent Mode Mechanical Rate FiO2 % Tidal Volume PEEP Sodium 160 H* (132-148) mmol/L Potassium 3.4 L (3.6-5.2) mmol/L Chloride 124 H (98-107) mmol/L Carbon Dioxide 20 L (22-30) mmol/L Anion Gap 19 (10-20) BUN 54 H (7-17) mg/dL Creatinine 0.9 (0.7-1.2) MG/DL Est GFR ( Amer) > 60 Est GFR (Non-Af Amer) > 60 POC Glucose (mg/dL) 181 H (65-110) mg/dL Random Glucose 185 H (65-105) mg/dL Calcium 8.8 (8.6-10.4) mg/dl Phosphorus 3.6 (2.5-4.5) mg/dL Magnesium 2.8 H (1.6-2.3) mg/dL Total Bilirubin 1.2 (0.2-1.3) mg/dL AST 159 H D (14-36) U/L ALT 115 H D (9-52) U/L Alkaline Phosphatase 69 (38-126) U/L Total Protein 6.7 (6.3-8.3) g/dL Albumin 3.4 L (3.5-5.0) g/dL Globulin 3.3 (2.2-3.9) gm/dL Albumin/Globulin Ratio 1.0 (1.0-2.1) Thyroperoxidase Ab (<9) IU/mL Thyroglobulin Antibody (< OR = 1) IU/mL 01/08/17 01/08/17 01/07/17 Range/Units 05:10 05:10 23:52 WBC (4.8-10.8) K/uL RBC (3.80-5.20) Mil/uL Hgb (11.0-16.0) g/dL Hct (34.0-47.0) % MCV (81.0-99.0) fL MCH (27.0-31.0) pg MCHC (33.0-37.0) g/dL RDW (11.5-14.5) % Plt Count (130-400) K/uL MPV (7.2-11.7) fL Neut % (Auto) (50.0-75.0) % Lymph % (Auto) (20.0-40.0) % Armstrong % (Auto) (0.0-10.0) % Eos % (Auto) (0.0-4.0) % Baso % (Auto) (0.0-2.0) % Neut # (1.8-7.0) K/uL Lymph # (1.0-4.3) K/uL Armstrong # (0.0-0.8) K/uL Eos # (0.0-0.7) K/uL Baso # (0.0-0.2) K/uL Differential Comment Puncture Site R rad pCO2 24 L (35-45) mm/Hg pO2 161 H (80-100) mm/Hg HCO3 25.0 (21-28) mmol/L ABG pH 7.54 H (7.35-7.45) ABG Total CO2 21.2 L (22-28) mmol/L ABG O2 Saturation 100.1 H (95-98) % ABG Base Excess 0.1 (-2.0-3.0) mmol/L ABG Hemoglobin 16.8 (11.7-17.4) g/dL ABG Carboxyhemoglobin 1.5 (0.5-1.5) % POC ABG HHb (Measured) -0.1 L (0.0-5.0) % ABG Methemoglobin 0.9 (0.0-3.0) % Chandana Test Pos A-a O2 Difference 23.0 mm/Hg Respiratory Index 0.1 Hgb O2 Saturation 97.7 (95.0-98.0) % Vent Mode Prvc Mechanical Rate 12 FiO2 30.0 % Tidal Volume 450 PEEP 5 Sodium (132-148) mmol/L Potassium (3.6-5.2) mmol/L Chloride (98-107) mmol/L Carbon Dioxide (22-30) mmol/L Anion Gap (10-20) BUN (7-17) mg/dL Creatinine (0.7-1.2) MG/DL Est GFR ( Amer) Est GFR (Non-Af Amer) POC Glucose (mg/dL) 182 H 203 H (65-110) mg/dL Random Glucose (65-105) mg/dL Calcium (8.6-10.4) mg/dl Phosphorus (2.5-4.5) mg/dL Magnesium (1.6-2.3) mg/dL Total Bilirubin (0.2-1.3) mg/dL AST (14-36) U/L ALT (9-52) U/L Alkaline Phosphatase (38-126) U/L Total Protein (6.3-8.3) g/dL Albumin (3.5-5.0) g/dL Globulin (2.2-3.9) gm/dL Albumin/Globulin Ratio (1.0-2.1) Thyroperoxidase Ab (<9) IU/mL Thyroglobulin Antibody (< OR = 1) IU/mL 01/07/17 01/06/17 Range/Units 18:02 06:29 WBC (4.8-10.8) K/uL RBC (3.80-5.20) Mil/uL Hgb (11.0-16.0) g/dL Hct (34.0-47.0) % MCV (81.0-99.0) fL MCH (27.0-31.0) pg MCHC (33.0-37.0) g/dL RDW (11.5-14.5) % Plt Count (130-400) K/uL MPV (7.2-11.7) fL Neut % (Auto) (50.0-75.0) % Lymph % (Auto) (20.0-40.0) % Armstrong % (Auto) (0.0-10.0) % Eos % (Auto) (0.0-4.0) % Baso % (Auto) (0.0-2.0) % Neut # (1.8-7.0) K/uL Lymph # (1.0-4.3) K/uL Armstrong # (0.0-0.8) K/uL Eos # (0.0-0.7) K/uL Baso # (0.0-0.2) K/uL Differential Comment Puncture Site pCO2 (35-45) mm/Hg pO2 (80-100) mm/Hg HCO3 (21-28) mmol/L ABG pH (7.35-7.45) ABG Total CO2 (22-28) mmol/L ABG O2 Saturation (95-98) % ABG Base Excess (-2.0-3.0) mmol/L ABG Hemoglobin (11.7-17.4) g/dL ABG Carboxyhemoglobin (0.5-1.5) % POC ABG HHb (Measured) (0.0-5.0) % ABG Methemoglobin (0.0-3.0) % Chandana Test A-a O2 Difference mm/Hg Respiratory Index Hgb O2 Saturation (95.0-98.0) % Vent Mode Mechanical Rate FiO2 % Tidal Volume PEEP Sodium (132-148) mmol/L Potassium (3.6-5.2) mmol/L Chloride (98-107) mmol/L Carbon Dioxide (22-30) mmol/L Anion Gap (10-20) BUN (7-17) mg/dL Creatinine (0.7-1.2) MG/DL Est GFR ( Amer) Est GFR (Non-Af Amer) POC Glucose (mg/dL) 183 H (65-110) mg/dL Random Glucose (65-105) mg/dL Calcium (8.6-10.4) mg/dl Phosphorus (2.5-4.5) mg/dL Magnesium (1.6-2.3) mg/dL Total Bilirubin (0.2-1.3) mg/dL AST (14-36) U/L ALT (9-52) U/L Alkaline Phosphatase (38-126) U/L Total Protein (6.3-8.3) g/dL Albumin (3.5-5.0) g/dL Globulin (2.2-3.9) gm/dL Albumin/Globulin Ratio (1.0-2.1) Thyroperoxidase Ab <1 (<9) IU/mL Thyroglobulin Antibody <1 (< OR = 1) IU/mL Laboratory Results - last 24 hr 01/06/17 01/07/17 01/07/17 06:29 18:02 23:52 WBC RBC Hgb Hct MCV MCH MCHC RDW Plt Count MPV Neut % (Auto) Lymph % (Auto) Armstrong % (Auto) Eos % (Auto) Baso % (Auto) Neut # Lymph # Armstrong # Eos # Baso # Differential Comment Puncture Site pCO2 pO2 HCO3 ABG pH ABG Total CO2 ABG O2 Saturation ABG Base Excess ABG Hemoglobin ABG Carboxyhemoglobin POC ABG HHb (Measured) ABG Methemoglobin Chandana Test A-a O2 Difference Respiratory Index Hgb O2 Saturation Vent Mode Mechanical Rate FiO2 Tidal Volume PEEP Sodium Potassium Chloride Carbon Dioxide Anion Gap BUN Creatinine Est GFR ( Amer) Est GFR (Non-Af Amer) POC Glucose (mg/dL) 183 H 203 H Random Glucose Calcium Phosphorus Magnesium Total Bilirubin AST ALT Alkaline Phosphatase Total Protein Albumin Globulin Albumin/Globulin Ratio Thyroperoxidase Ab <1 Thyroglobulin Antibody <1 01/08/17 01/08/17 01/08/17 05:10 05:10 05:59 WBC 13.0 H RBC 3.86 Hgb 11.2 Hct 35.1 MCV 91.0 MCH 29.0 MCHC 31.8 L RDW 14.9 H Plt Count 96 L MPV 10.8 Neut % (Auto) 76.9 H Lymph % (Auto) 15.7 L Armstrong % (Auto) 6.4 Eos % (Auto) 0.2 Baso % (Auto) 0.8 Neut # 10.0 H Lymph # 2.0 Armstrong # 0.8 Eos # 0.0 Baso # 0.1 Differential Comment Puncture Site R rad pCO2 24 L pO2 161 H HCO3 25.0 ABG pH 7.54 H ABG Total CO2 21.2 L ABG O2 Saturation 100.1 H ABG Base Excess 0.1 ABG Hemoglobin 16.8 ABG Carboxyhemoglobin 1.5 POC ABG HHb (Measured) -0.1 L ABG Methemoglobin 0.9 Chandana Test Pos A-a O2 Difference 23.0 Respiratory Index 0.1 Hgb O2 Saturation 97.7 Vent Mode Prvc Mechanical Rate 12 FiO2 30.0 Tidal Volume 450 PEEP 5 Sodium Potassium Chloride Carbon Dioxide Anion Gap BUN Creatinine Est GFR ( Amer) Est GFR (Non-Af Amer) POC Glucose (mg/dL) 182 H Random Glucose Calcium Phosphorus Magnesium Total Bilirubin AST ALT Alkaline Phosphatase Total Protein Albumin Globulin Albumin/Globulin Ratio Thyroperoxidase Ab Thyroglobulin Antibody 01/08/17 01/08/17 05:59 12:03 WBC RBC Hgb Hct MCV MCH MCHC RDW Plt Count MPV Neut % (Auto) Lymph % (Auto) Armstrong % (Auto) Eos % (Auto) Baso % (Auto) Neut # Lymph # Armstrong # Eos # Baso # Differential Comment Puncture Site pCO2 pO2 HCO3 ABG pH ABG Total CO2 ABG O2 Saturation ABG Base Excess ABG Hemoglobin ABG Carboxyhemoglobin POC ABG HHb (Measured) ABG Methemoglobin Chandana Test A-a O2 Difference Respiratory Index Hgb O2 Saturation Vent Mode Mechanical Rate FiO2 Tidal Volume PEEP Sodium 160 H* Potassium 3.4 L Chloride 124 H Carbon Dioxide 20 L Anion Gap 19 BUN 54 H Creatinine 0.9 Est GFR ( Amer) > 60 Est GFR (Non-Af Amer) > 60 POC Glucose (mg/dL) 181 H Random Glucose 185 H Calcium 8.8 Phosphorus 3.6 Magnesium 2.8 H Total Bilirubin 1.2 AST 159 H D ALT 115 H D Alkaline Phosphatase 69 Total Protein 6.7 Albumin 3.4 L Globulin 3.3 Albumin/Globulin Ratio 1.0 Thyroperoxidase Ab Thyroglobulin Antibody Fingerstick Blood Sugar Results: 181 Review of Systems - Review of Systems Systems not reviewed;Unavailable: Intubated Critical Care Progress Note - Vent Settings TIDAL VOLUME:: 450 RESP RATE:: 12 FIO2:: 30 PEEP:: 5 - Nutrition Nutrition: Nutrition Category Date Time Status NPO Diet [DIET] Diets 01/04/17 Breakfast Active Assessment/Plan - Assessment and Plan (Free Text) Assessment: 71 year old female with past medical history of DM, presented to the ED with complaints of nausea and vomiting for 3-4 days. She had palpitations and dizziness. In the ED, patient was found to have new onset a-fib, patient was admitted. Patient started on Cardizem drip and anticoagulation. On 01/03/17 Patient no longer has nausea or vomiting, but complained of headache. Patient was given tylenol. In the afternoon, patient's headache started to worsen. Patient was re-evaluated for possible slurred speech/changes in speech, at that time, patient was answering questions and following commands. In the evening, ( as per nurse), patient's speech was more slurred and patient became more restless. 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 Patient underwent decompressive craniotomy with Dr. Duque. Patient was on 3% hypertonic solution (discontinued 01/04/17), with goal of sodium 145-150 and serum osmolality of 300-320. Patient continues to have a-fib. Continue cardene drip and cardizem drip. Probable terminal extubation on , 01/09/17. Neuro: unresponsive - Head CT (01/01/17): no acute findings; chronic ischemic changes - Head CT (01/03/17): Infarct involving posterior circulation with marked edema of cerebellar hemispheres b/l on right side>Left, with obstructing hydrocephalus - S/P decompressive craniotomy/ventriculotomy (Dr. Duque) - Continue cardene drip - Keep CPP 60-80 Pulm: intubated - Probable terminal extubation on , 01/09/17. CV: new onset A-Fib - Cardiology consulted- Dr. Wong, help appreciated - Continue Cardizem drip, Lisinopril, Lasix, Lisinopril - Troponin: negative; BNP 3690 - Echo: EF47%; severely dilated LA/RA; mildly thickened and calcified aortic valve; mild AR; mild-mod mitral annular calcification; MV mildly thickened; mod- severe MR; severe TR; mild pulmonic valvular regurg. IVC dilated. Endo: Hx of DM - Accuchecks, monitor blood glucose - Continue ISS - TSH 0.82, Free T4 1.63 - Thyroid Ab: f/u - Corduroy Cutter Operator consulted- Dr. Goldberg, help appreciated GI: nausea, vomiting- unknown cause--> resolved - NPO - Lipase 79 (01/01/17), 38 (01/02/17) - Continue Zofran, Protonix Heme: - Thrombocytopenia: 111 - Disocontinued lovenox Renal: - Hypokalemic: continue to monitor MSK: no acute issues ID: no acute issues - UA: trace ketones, 1+ glucose Prophylaxis: - DVT: SCDs - GI: Protonix - PT <Avinash Ch S - Last Filed: 01/08/17 16:24> CCU Objective - Vital Signs / Intake & Output Vital Signs (Last 4 hours): Vital Signs Temp 01/08/17 14:23 99.0 F 01/08/17 13:23 101.9 F H Intake and Output (Last 8hrs): Intake & Output 01/08/17 01/08/17 01/08/17 06:59 14:59 22:59 Intake Total 325 400 Output Total 396 10 Balance -71 390 Intake: IV 125 375 Intake, IV Amount 200 25 Left Medial Port Internal 120 15 Jugular Left Proximal Port 80 10 Internal Jugular Output: Drainage 6 10 Right Posterior Head 6 10 Urine 390 Urethral (Massey) 390 - Medications Active Medications: Active Medications Generic Name Dose Route Start Last Admin Trade Name Dennyq PRN Reason Stop Dose Admin Acetaminophen 650 mg 01/03/17 11:49 01/03/17 18:04 Tylenol 325mg Tab PO 650 mg Q6 PRN Administration Pain, Mild (1-3) Furosemide 20 mg 01/02/17 10:00 01/08/17 10:44 Lasix IVP 20 mg DAILY MIRELLA Administration Diltiazem HCl 125 mg/ Sodium 125 mls @ 5 mls/hr 01/04/17 12:45 01/08/17 14:35 Chloride IV 15 mg/hr .Q24H MIRELLA 15 mls/hr Protocol Administration 5 MG/HR Nicardipine HCl 25 mg/ Sodium 250 mls @ 50 mls/hr 01/05/17 17:00 01/08/17 13: 23 Chloride IV 2 mg/hr .Q5H MIRELLA 20 mls/hr Protocol Administration 5 MG/HR Insulin Glargine 13 unit 01/07/17 20:30 01/07/17 21:10 Lantus SC 13 u HS MIRELLA Administration Insulin Human Regular 0 unit 01/05/17 18:00 01/08/17 13:27 Novolin R SC 1 unit Q6 MIRELLA Administration Protocol Lisinopril 10 mg 01/02/17 15:15 01/08/17 10:38 Zestril PO Not Given DAILY [facility] Ondansetron HCl 4 mg 01/01/17 21:22 01/02/17 18:42 Zofran Inj IVP 4 mg Q6 PRN Administration Nausea/Vomiting Pantoprazole Sodium 40 mg 01/02/17 10:00 01/08/17 10:44 Protonix Inj IVP 40 mg DAILY [facility]RELLA Administration Rosuvastatin Calcium 20 mg 01/03/17 22:00 01/07/17 21:15 Crestor PO Not Given HS MIRELLA - Patient Studies Lab Studies: Lab Studies 01/08/17 01/08/17 01/08/17 Range/Units 12:03 05:59 05:59 WBC 13.0 H (4.8-10.8) K/uL RBC 3.86 (3.80-5.20) Mil/uL Hgb 11.2 (11.0-16.0) g/dL Hct 35.1 (34.0-47.0) % MCV 91.0 (81.0-99.0) fL MCH 29.0 (27.0-31.0) pg MCHC 31.8 L (33.0-37.0) g/dL RDW 14.9 H (11.5-14.5) % Plt Count 96 L (130-400) K/uL MPV 10.8 (7.2-11.7) fL Neut % (Auto) 76.9 H (50.0-75.0) % Lymph % (Auto) 15.7 L (20.0-40.0) % Armstrong % (Auto) 6.4 (0.0-10.0) % Eos % (Auto) 0.2 (0.0-4.0) % Baso % (Auto) 0.8 (0.0-2.0) % Neut # 10.0 H (1.8-7.0) K/uL Lymph # 2.0 (1.0-4.3) K/uL Armstrong # 0.8 (0.0-0.8) K/uL Eos # 0.0 (0.0-0.7) K/uL Baso # 0.1 (0.0-0.2) K/uL Differential Comment Puncture Site pCO2 (35-45) mm/Hg pO2 (80-100) mm/Hg HCO3 (21-28) mmol/L ABG pH (7.35-7.45) ABG Total CO2 (22-28) mmol/L ABG O2 Saturation (95-98) % ABG Base Excess (-2.0-3.0) mmol/L ABG Hemoglobin (11.7-17.4) g/dL ABG Carboxyhemoglobin (0.5-1.5) % POC ABG HHb (Measured) (0.0-5.0) % ABG Methemoglobin (0.0-3.0) % Chandana Test A-a O2 Difference mm/Hg Respiratory Index Hgb O2 Saturation (95.0-98.0) % Vent Mode Mechanical Rate FiO2 % Tidal Volume PEEP Sodium 160 H* (132-148) mmol/L Potassium 3.4 L (3.6-5.2) mmol/L Chloride 124 H (98-107) mmol/L Carbon Dioxide 20 L (22-30) mmol/L Anion Gap 19 (10-20) BUN 54 H (7-17) mg/dL Creatinine 0.9 (0.7-1.2) MG/DL Est GFR ( Amer) > 60 Est GFR (Non-Af Amer) > 60 POC Glucose (mg/dL) 181 H (65-110) mg/dL Random Glucose 185 H (65-105) mg/dL Calcium 8.8 (8.6-10.4) mg/dl Phosphorus 3.6 (2.5-4.5) mg/dL Magnesium 2.8 H (1.6-2.3) mg/dL Total Bilirubin 1.2 (0.2-1.3) mg/dL AST 159 H D (14-36) U/L ALT 115 H D (9-52) U/L Alkaline Phosphatase 69 (38-126) U/L Total Protein 6.7 (6.3-8.3) g/dL Albumin 3.4 L (3.5-5.0) g/dL Globulin 3.3 (2.2-3.9) gm/dL Albumin/Globulin Ratio 1.0 (1.0-2.1) Thyroperoxidase Ab (<9) IU/mL Thyroglobulin Antibody (< OR = 1) IU/mL 01/08/17 01/08/17 01/07/17 Range/Units 05:10 05:10 23:52 WBC (4.8-10.8) K/uL RBC (3.80-5.20) Mil/uL Hgb (11.0-16.0) g/dL Hct (34.0-47.0) % MCV (81.0-99.0) fL MCH (27.0-31.0) pg MCHC (33.0-37.0) g/dL RDW (11.5-14.5) % Plt Count (130-400) K/uL MPV (7.2-11.7) fL Neut % (Auto) (50.0-75.0) % Lymph % (Auto) (20.0-40.0) % Armstrong % (Auto) (0.0-10.0) % Eos % (Auto) (0.0-4.0) % Baso % (Auto) (0.0-2.0) % Neut # (1.8-7.0) K/uL Lymph # (1.0-4.3) K/uL Armstrong # (0.0-0.8) K/uL Eos # (0.0-0.7) K/uL Baso # (0.0-0.2) K/uL Differential Comment Puncture Site R rad pCO2 24 L (35-45) mm/Hg pO2 161 H (80-100) mm/Hg HCO3 25.0 (21-28) mmol/L ABG pH 7.54 H (7.35-7.45) ABG Total CO2 21.2 L (22-28) mmol/L ABG O2 Saturation 100.1 H (95-98) % ABG Base Excess 0.1 (-2.0-3.0) mmol/L ABG Hemoglobin 16.8 (11.7-17.4) g/dL ABG Carboxyhemoglobin 1.5 (0.5-1.5) % POC ABG HHb (Measured) -0.1 L (0.0-5.0) % ABG Methemoglobin 0.9 (0.0-3.0) % Chandana Test Pos A-a O2 Difference 23.0 mm/Hg Respiratory Index 0.1 Hgb O2 Saturation 97.7 (95.0-98.0) % Vent Mode Prvc Mechanical Rate 12 FiO2 30.0 % Tidal Volume 450 PEEP 5 Sodium (132-148) mmol/L Potassium (3.6-5.2) mmol/L Chloride (98-107) mmol/L Carbon Dioxide (22-30) mmol/L Anion Gap (10-20) BUN (7-17) mg/dL Creatinine (0.7-1.2) MG/DL Est GFR ( Amer) Est GFR (Non-Af Amer) POC Glucose (mg/dL) 182 H 203 H (65-110) mg/dL Random Glucose (65-105) mg/dL Calcium (8.6-10.4) mg/dl Phosphorus (2.5-4.5) mg/dL Magnesium (1.6-2.3) mg/dL Total Bilirubin (0.2-1.3) mg/dL AST (14-36) U/L ALT (9-52) U/L Alkaline Phosphatase (38-126) U/L Total Protein (6.3-8.3) g/dL Albumin (3.5-5.0) g/dL Globulin (2.2-3.9) gm/dL Albumin/Globulin Ratio (1.0-2.1) Thyroperoxidase Ab (<9) IU/mL Thyroglobulin Antibody (< OR = 1) IU/mL 01/07/17 01/06/17 Range/Units 18:02 06:29 WBC (4.8-10.8) K/uL RBC (3.80-5.20) Mil/uL Hgb (11.0-16.0) g/dL Hct (34.0-47.0) % MCV (81.0-99.0) fL MCH (27.0-31.0) pg MCHC (33.0-37.0) g/dL RDW (11.5-14.5) % Plt Count (130-400) K/uL MPV (7.2-11.7) fL Neut % (Auto) (50.0-75.0) % Lymph % (Auto) (20.0-40.0) % Armstrong % (Auto) (0.0-10.0) % Eos % (Auto) (0.0-4.0) % Baso % (Auto) (0.0-2.0) % Neut # (1.8-7.0) K/uL Lymph # (1.0-4.3) K/uL Armstrong # (0.0-0.8) K/uL Eos # (0.0-0.7) K/uL Baso # (0.0-0.2) K/uL Differential Comment Puncture Site pCO2 (35-45) mm/Hg pO2 (80-100) mm/Hg HCO3 (21-28) mmol/L ABG pH (7.35-7.45) ABG Total CO2 (22-28) mmol/L ABG O2 Saturation (95-98) % ABG Base Excess (-2.0-3.0) mmol/L ABG Hemoglobin (11.7-17.4) g/dL ABG Carboxyhemoglobin (0.5-1.5) % POC ABG HHb (Measured) (0.0-5.0) % ABG Methemoglobin (0.0-3.0) % Chandana Test A-a O2 Difference mm/Hg Respiratory Index Hgb O2 Saturation (95.0-98.0) % Vent Mode Mechanical Rate FiO2 % Tidal Volume PEEP Sodium (132-148) mmol/L Potassium (3.6-5.2) mmol/L Chloride (98-107) mmol/L Carbon Dioxide (22-30) mmol/L Anion Gap (10-20) BUN (7-17) mg/dL Creatinine (0.7-1.2) MG/DL Est GFR ( Amer) Est GFR (Non-Af Amer) POC Glucose (mg/dL) 183 H (65-110) mg/dL Random Glucose (65-105) mg/dL Calcium (8.6-10.4) mg/dl Phosphorus (2.5-4.5) mg/dL Magnesium (1.6-2.3) mg/dL Total Bilirubin (0.2-1.3) mg/dL AST (14-36) U/L ALT (9-52) U/L Alkaline Phosphatase (38-126) U/L Total Protein (6.3-8.3) g/dL Albumin (3.5-5.0) g/dL Globulin (2.2-3.9) gm/dL Albumin/Globulin Ratio (1.0-2.1) Thyroperoxidase Ab <1 (<9) IU/mL Thyroglobulin Antibody <1 (< OR = 1) IU/mL Laboratory Results - last 24 hr 01/06/17 01/07/17 01/07/17 06:29 18:02 23:52 WBC RBC Hgb Hct MCV MCH MCHC RDW Plt Count MPV Neut % (Auto) Lymph % (Auto) Armstrong % (Auto) Eos % (Auto) Baso % (Auto) Neut # Lymph # Armstrong # Eos # Baso # Differential Comment Puncture Site pCO2 pO2 HCO3 ABG pH ABG Total CO2 ABG O2 Saturation ABG Base Excess ABG Hemoglobin ABG Carboxyhemoglobin POC ABG HHb (Measured) ABG Methemoglobin Chandana Test A-a O2 Difference Respiratory Index Hgb O2 Saturation Vent Mode Mechanical Rate FiO2 Tidal Volume PEEP Sodium Potassium Chloride Carbon Dioxide Anion Gap BUN Creatinine Est GFR ( Amer) Est GFR (Non-Af Amer) POC Glucose (mg/dL) 183 H 203 H Random Glucose Calcium Phosphorus Magnesium Total Bilirubin AST ALT Alkaline Phosphatase Total Protein Albumin Globulin Albumin/Globulin Ratio Thyroperoxidase Ab <1 Thyroglobulin Antibody <1 01/08/17 01/08/17 01/08/17 05:10 05:10 05:59 WBC 13.0 H RBC 3.86 Hgb 11.2 Hct 35.1 MCV 91.0 MCH 29.0 MCHC 31.8 L RDW 14.9 H Plt Count 96 L MPV 10.8 Neut % (Auto) 76.9 H Lymph % (Auto) 15.7 L Armstrong % (Auto) 6.4 Eos % (Auto) 0.2 Baso % (Auto) 0.8 Neut # 10.0 H Lymph # 2.0 Armstrong # 0.8 Eos # 0.0 Baso # 0.1 Differential Comment Puncture Site R rad pCO2 24 L pO2 161 H HCO3 25.0 ABG pH 7.54 H ABG Total CO2 21.2 L ABG O2 Saturation 100.1 H ABG Base Excess 0.1 ABG Hemoglobin 16.8 ABG Carboxyhemoglobin 1.5 POC ABG HHb (Measured) -0.1 L ABG Methemoglobin 0.9 Chandana Test Pos A-a O2 Difference 23.0 Respiratory Index 0.1 Hgb O2 Saturation 97.7 Vent Mode Prvc Mechanical Rate 12 FiO2 30.0 Tidal Volume 450 PEEP 5 Sodium Potassium Chloride Carbon Dioxide Anion Gap BUN Creatinine Est GFR ( Amer) Est GFR (Non-Af Amer) POC Glucose (mg/dL) 182 H Random Glucose Calcium Phosphorus Magnesium Total Bilirubin AST ALT Alkaline Phosphatase Total Protein Albumin Globulin Albumin/Globulin Ratio Thyroperoxidase Ab Thyroglobulin Antibody 01/08/17 01/08/17 05:59 12:03 WBC RBC Hgb Hct MCV MCH MCHC RDW Plt Count MPV Neut % (Auto) Lymph % (Auto) Armstrong % (Auto) Eos % (Auto) Baso % (Auto) Neut # Lymph # Armstrong # Eos # Baso # Differential Comment Puncture Site pCO2 pO2 HCO3 ABG pH ABG Total CO2 ABG O2 Saturation ABG Base Excess ABG Hemoglobin ABG Carboxyhemoglobin POC ABG HHb (Measured) ABG Methemoglobin Chandana Test A-a O2 Difference Respiratory Index Hgb O2 Saturation Vent Mode Mechanical Rate FiO2 Tidal Volume PEEP Sodium 160 H* Potassium 3.4 L Chloride 124 H Carbon Dioxide 20 L Anion Gap 19 BUN 54 H Creatinine 0.9 Est GFR ( Amer) > 60 Est GFR (Non-Af Amer) > 60 POC Glucose (mg/dL) 181 H Random Glucose 185 H Calcium 8.8 Phosphorus 3.6 Magnesium 2.8 H Total Bilirubin 1.2 AST 159 H D ALT 115 H D Alkaline Phosphatase 69 Total Protein 6.7 Albumin 3.4 L Globulin 3.3 Albumin/Globulin Ratio 1.0 Thyroperoxidase Ab Thyroglobulin Antibody Critical Care Progress Note - Nutrition Nutrition: Nutrition Category Date Time Status NPO Diet [DIET] Diets 01/04/17 Breakfast Active Assessment/Plan (1) Cerebellar stroke Current Visit: Yes Status: Acute Priority: High Comment: Status post decompressive surgery/ventriculostomy Repeat CT of the head noted with worsening edema and herniation Hypotonic fluid stopped keep CPP between 60-80 Case discussed with family at length Patient seen by neurosurgery with poor prognosis Continue ventilatory support (2) New onset atrial fibrillation Current Visit: Yes Status: Acute Attending/Attestation - Attestation I have personally seen and examined this patient.: Yes I have fully participated in the care of the patient.: Yes I have reviewed all pertinent clinical information: Yes Notes (Text): 01/08/17 16:23 Patient seen and examined in the intensive care unit. Case discussed with house staff in the morning rounds. Possible terminal extubation tomorrow Patient is DNR/DNI Prognosis POOR
--- NOTE | 2017-01-08 15:48 | CP.PCM.PN ---
Subjective - Date & Time of Evaluation Date of Evaluation: 01/08/17 Time of Evaluation: 15:48 - Subjective Subjective: pt unresponsive, intubated Objective - Vital Signs/Intake and Output Vital Signs (last 24 hours): Temp Pulse Resp BP Pulse Ox 99.0 F 162 H 21 146/55 L 99 01/08/17 14:23 01/08/17 07:00 01/08/17 07:00 01/08/17 10:44 01/08/17 07:00 Intake and Output: 01/08/17 01/08/17 06:59 18:59 Intake Total 550 400 Output Total 586 10 Balance -36 390 - Medications Medications: Current Medications Acetaminophen (Tylenol 325mg Tab) 650 mg PO Q6 PRN PRN Reason: Pain, Mild (1-3) Last Admin: 01/03/17 18:04 Dose: 650 mg Furosemide (Lasix) 20 mg IVP DAILY [facility] Last Admin: 01/08/17 10:44 Dose: 20 mg Diltiazem HCl 125 mg/ Sodium (Chloride) 125 mls @ 5 mls/hr IV .Q24H [facility]; 5 MG/ HR PRN Reason: Protocol Last Admin: 01/08/17 14:35 Dose: 15 mg/hr, 15 mls/hr Nicardipine HCl 25 mg/ Sodium (Chloride) 250 mls @ 50 mls/hr IV .Q5H [facility]RELLA; 5 MG/ HR PRN Reason: Protocol Last Admin: 01/08/17 13:23 Dose: 2 mg/hr, 20 mls/hr Insulin Glargine (Lantus) 13 unit SC HS [facility] Last Admin: 01/07/17 21:10 Dose: 13 u Insulin Human Regular (Novolin R) 0 unit SC Q6 [facility] PRN Reason: Protocol Last Admin: 01/08/17 13:27 Dose: 1 unit Lisinopril (Zestril) 10 mg PO DAILY [facility] Last Admin: 01/08/17 10:38 Dose: Not Given Ondansetron HCl (Zofran Inj) 4 mg IVP Q6 PRN PRN Reason: Nausea/Vomiting Last Admin: 01/02/17 18:42 Dose: 4 mg Pantoprazole Sodium (Protonix Inj) 40 mg IVP DAILY [facility] Last Admin: 01/08/17 10:44 Dose: 40 mg Rosuvastatin Calcium (Crestor) 20 mg PO HS [facility] Last Admin: 01/07/17 21:15 Dose: Not Given - Labs Labs: 01/08/17 05:59 01/08/17 05:59 PT 13.7 SECONDS (9.7-12.2) H 01/03/17 21:30 INR 1.2 01/03/17 21:30 APTT 31 SECONDS (21-34) 01/03/17 21:30 - Constitutional Appears: Toxic, In Acute Distress - Head Exam Head Exam: ATRAUMATIC, NORMOCEPHALIC - Eye Exam Pupil Exam: Fixed, Irregular - ENT Exam ENT Exam: Mucous Membranes Dry - Respiratory Exam Respiratory Exam: Rales - Cardiovascular Exam Cardiovascular Exam: Tachycardia, Irregular Rhythm, Murmur - GI/Abdominal Exam GI & Abdominal Exam: Soft, Normal Bowel Sounds - Neurological Exam Neurological Exam: Altered - Skin Skin Exam: Pallor Assessment and Plan (1) Cerebellar stroke Assessment & Plan: poor prognosis on nicardipine and ventriculostomy Status: Acute (2) New onset atrial fibrillation Assessment & Plan: with RVR on cardizem gtt bolus with digoxin x 1 Status: Acute (3) CHF (congestive heart failure) Assessment & Plan: new onset overall poor prognosis Status: Acute (4) Mitral regurgitation Status: Acute (5) Tricuspid regurgitation Status: Acute
--- NOTE | 2017-01-08 21:13 | CP.PCM.PN ---
Subjective - Date & Time of Evaluation Date of Evaluation: 01/08/17 Time of Evaluation: 21:10 - Subjective Subjective: diabetes mellitus & thyroid evaluation Objective - Vital Signs/Intake and Output Vital Signs (last 24 hours): Temp Pulse Resp BP Pulse Ox 98.7 F 103 H 20 123/67 100 01/08/17 16:00 01/08/17 21:00 01/08/17 21:00 01/08/17 20:56 01/08/17 21:00 Intake and Output: 01/08/17 01/09/17 18:59 06:59 Intake Total 870 60 Output Total 1151 70 Balance -281 -10 - Medications Medications: Current Medications Acetaminophen (Tylenol 325mg Tab) 650 mg PO Q6 PRN PRN Reason: Pain, Mild (1-3) Last Admin: 01/03/17 18:04 Dose: 650 mg Furosemide (Lasix) 20 mg IVP DAILY [facility] Last Admin: 01/08/17 10:44 Dose: 20 mg Diltiazem HCl 125 mg/ Sodium (Chloride) 125 mls @ 5 mls/hr IV .Q24H [facility]RELLA; 5 MG/ HR PRN Reason: Protocol Last Admin: 01/08/17 14:35 Dose: 15 mg/hr, 15 mls/hr Nicardipine HCl 25 mg/ Sodium (Chloride) 250 mls @ 50 mls/hr IV .Q5H [facility]; 5 MG/ HR PRN Reason: Protocol Last Titration: 01/08/17 18:58 Dose: 1.5 mg/hr, 15 mls/hr Insulin Glargine (Lantus) 13 unit SC HS [facility] Last Admin: 01/07/17 21:10 Dose: 13 u Insulin Human Regular (Novolin R) 0 unit SC Q6 [facility] PRN Reason: Protocol Last Admin: 01/08/17 18:59 Dose: 1 unit Lisinopril (Zestril) 10 mg PO DAILY [facility] Last Admin: 01/08/17 10:38 Dose: Not Given Ondansetron HCl (Zofran Inj) 4 mg IVP Q6 PRN PRN Reason: Nausea/Vomiting Last Admin: 01/02/17 18:42 Dose: 4 mg Pantoprazole Sodium (Protonix Inj) 40 mg IVP DAILY [facility] Last Admin: 01/08/17 10:44 Dose: 40 mg Rosuvastatin Calcium (Crestor) 20 mg PO HS [facility] Last Admin: 01/07/17 21:15 Dose: Not Given - Labs Labs: 01/08/17 05:59 01/08/17 05:59 PT 13.7 SECONDS (9.7-12.2) H 01/03/17 21:30 INR 1.2 01/03/17 21:30 APTT 31 SECONDS (21-34) 01/03/17 21:30 Assessment and Plan (1) Uncontrolled type 2 diabetes mellitus Assessment & Plan: Assessment & Plan: Endocrine consult reason for consult: thyroid disease &DM sourse : chart review & pt's son by bed side is 71 y/o admitted to ICU for new onset A Fib with rapid ventricular response with acute CVA s/p decompression craniotomy , intubated as per pt's son Gustabo , pt.has DM x 10 years (-) neuropathy , (-) retinopathy , (-) nephropathy (-) CAD (-) PVD blood glucose log :180's , NO hypoglycemia , for possible terminal extubation tomorrow Allergy NKDA Past medical history :HTN Past surgical history : as above & eye correction surgery Psychiatry history : denies Social history : denies smoking , ETOH use or illicit drug use Family history : siblings & children ROS: Constitutional: no fever ,tiredness/weakness .HEENT: no earache, change in voice .Respiratory: no cough, sob . CVS :no chest pain, no palpitations . Abdomen : no abdominal pain, no nausea /vomiting , no change bowel movement . [employer] : no light-headedness, dizziness. Extremities : no edema , no tremors .Skin : no itching, no rash Physical exam Well developed intubated VSS HEENT: norm cephalic, atraumatic NECK: supple, no palpable lymphadenopathy THYROID: no palpable thyromegaly , not tender CHEST: fair air entry, bilateral, CVS: S1,S2 ABDOMEN: bowel sound present, benign, obese, no wide purple striae , no bruises EXTREMITIES: no edema, clubbing or cyanosis, no palpable hand tremors Skin : acanthosis nigricans lab: TSH 0.22 T4 7.64 , T3 0.78,FT4 1.19, THYROID abs (-) , A1C 7.4 tsh 0.82, ft4 1.63 , NT-PRP NTP 3690, wbc 12.6 Assessment -uncontrolled DM -A Fib , new onset - acute euthyroid syndrom -acute CVA s/p craniotomy , poor prognosis -obesity plan continue Novolin R low dose coverage q 6 h continue lantus 13 units @ 9pm daily will monitor Status: Acute (2) Cerebellar stroke Status: Acute (3) New onset atrial fibrillation Status: Acute
[2017-01-08] MEDS: (Lantus) Insulin Glargine, Recombinant SC SCH (21:53)
[2017-01-09] MEDS: (Novolin R) Insulin Human Regular 100 units/ml vial SC SCH ×4 (00:24→18:44)
[2017-01-09] MEDS: niCARdipine IV 25 MG in Sodium Chloride 0.9% 240 ML IV SCH ×5 (01:00→23:16)
[2017-01-09 06:06] LABS: ABG MECHANICAL RATE 12; ARTERIAL BLOOD GAS MODE PRVC; ATERIAL BLOOD GAS PEEP 5; CARBOXYHEMOGLOBIN 1.6 % (0.5-1.5); DRAW SITE A-LINE; HHB 0.4 % (0.0-5.0)
[2017-01-09 06:33] LABS: BASO % 0.2 % (0.0-2.0); EOS % 0.1 % (0.0-4.0); HEMATOCRIT 36.6 % (34.0-47.0); LYMPH # 2.2 K/uL (1.0-4.3); LYMPH % 14.6 % (20.0-40.0); MEAN CELL VOLUME 91.5 fL (81.0-99.0); MEAN CORPUSCULAR HEMOGLOBIN 28.9 pg (27.0-31.0); MEAN CORPUSCULAR HGB CONC 31.6 g/dL (33.0-37.0); MEAN PLATELET VOLUME 11.6 fL (7.2-11.7); MONO # 0.9 K/uL (0.0-0.8); NRBC % 0.1 % (0.0-2.0); RED CELL DISTRIBUTION WIDTH 15.2 % (11.5-14.5); WHITE BLOOD COUNT 14.9 K/uL (4.8-10.8)
[2017-01-09 07:02] LABS: ALB/GLOB RATIO 0.9 (1.0-2.1); ALKALINE PHOSPHATASE 66 U/L (38-126); ALT/SGPT 91 U/L (9-52); AST/SGOT 87 U/L (14-36); BLOOD UREA NITROGEN 55 mg/dL (7-17); CALCIUM 8.7 mg/dl (8.6-10.4); CARBON DIOXIDE 19 mmol/L (22-30); CHLORIDE 131 mmol/L (98-107); GFR AFRICAN-AMERICAN > 60; GLUCOSE,RANDOM 191 mg/dL (65-105); PHOSPHOROUS 3.6 mg/dL (2.5-4.5); TOTAL PROTEIN 6.6 g/dL (6.3-8.3)
[2017-01-09 07:09] LABS: SODIUM 166 mmol/L (132-148)
--- NOTE | 2017-01-09 08:24 | CP.PCM.PCO ---
Physician Communication Note - Physician Communication Note Physician Communication Note: Please see above
--- NOTE | 2017-01-09 09:27 | RAD ---
HISTORY: intubated COMPARISON: Portable chest at 23:17 FINDINGS: LUNGS: No acute infiltrate or pleural effusion identified this time. There is no pneumothorax. Endotracheal tube is unchanged in position as well as left central venous line. PLEURA: No significant pleural effusion identified, no pneumothorax apparent. CARDIOVASCULAR: Stable cardiac silhouette with no pulmonary derangement identified at this time. OSSEOUS STRUCTURES: No significant abnormalities. VISUALIZED UPPER ABDOMEN: Normal. OTHER FINDINGS: None. IMPRESSION: No acute infiltrate or pleural effusion. No pulmonary vascular derangement identified.
--- NOTE | 2017-01-09 12:42 | CP.CCUPN ---
Addendum entered and electronically signed by Beth Alejandro 01/09/17 16:31 : Patient's status was discussed with the family. The family is not convinced the patient has significant damage and still hopes for full recovery. Thus, a follow up head CT was ordered. Head CT results will be reviewed and discussed with neurology, neurosurgery, and the family. Patient's hypernatremia is being monitored; will reassess when Head CT results are reviewed. Original Note: <Beth Alejandro. - Last Filed: 01/09/17 12:45> CCU Subjective - Physician Review Subjective (Free Text): Patient was seen and examined at bedside in the morning. Patient is unresponsive and intubated. Unable to obtain review of systems. 01/09/17 12:34 CCU Objective - Vital Signs / Intake & Output Vital Signs (Last 4 hours): Vital Signs Temp Pulse Resp BP Pulse Ox 01/09/17 12:00 100.9 F H 122 H 23 99 01/09/17 11:56 155 H 24 133/61 98 01/09/17 11:00 121 H 23 99 01/09/17 10:56 134 H 25 H 137/66 97 01/09/17 10:09 100.2 F H 01/09/17 10:00 103 H 21 100 01/09/17 09:56 124 H 19 128/66 100 01/09/17 09:10 144/62 01/09/17 09:09 101.5 F H 01/09/17 09:00 124 H 19 100 01/09/17 08:56 110 H 19 117/60 100 Intake and Output (Last 8hrs): Intake & Output 01/08/17 01/09/17 01/09/17 22:59 06:59 14:59 Intake Total 500 370 180 Output Total 531 331 400 Balance -31 39 -220 Weight 140 lb 4.8 oz Intake: IV 245 130 Intake, IV Amount 255 240 180 Left Medial Port Internal 120 120 90 Jugular Left Proximal Port 135 120 90 Internal Jugular Oral 0 0 Output: Drainage 21 41 30 Right Posterior Head 21 41 30 Urine 510 290 370 Urethral (Massey) 510 290 370 Other: # Bowel Movements 0 - Physical Exam Head: Positive for: Normocephalic Extroacular Muscles: Negative for: EOMI Mouth: Positive for: Other (intubated) Respiratory/Chest: Positive for: Clear to Auscultation, Other (intubated). Negative for: Wheezes, Rales, Rhonchi Cardiovascular: Positive for: Normal S1, S2, Irregular Rhythm, Tachycardic Abdomen: Negative for: Distention, Normal Bowel Sounds (hypoactive) Upper Extremity: Positive for: Normal Inspection. Negative for: Edema Lower Extremity: Positive for: Normal Inspection. Negative for: Edema Neurological: Positive for: Other (no gag reflex or response to pain; corneal reflex+). Negative for: GCS=15, Motor Func Grossly Intact, Normal Sensory Function Skin: Positive for: Warm, Dry, Normal Color Psychiatric: Negative for: Alert, Oriented x 3 - Medications Active Medications: Active Medications Generic Name Dose Route Start Last Admin Trade Name Freq PRN Reason Stop Dose Admin Acetaminophen 650 mg 01/03/17 11:49 01/03/17 18:04 Tylenol 325mg Tab PO 650 mg Q6 PRN Administration Pain, Mild (1-3) Nicardipine HCl 25 mg/ Sodium 250 mls @ 50 mls/hr 01/05/17 17:00 01/09/17 11: 47 Chloride IV Not Given .Q5H MIRELLA Protocol 5 MG/HR Diltiazem HCl 125 mg/ Sodium 125 mls @ 5 mls/hr 01/09/17 10:15 01/09/17 10:26 Chloride IV 15 mg/hr .Q24H PRN 15 mls/hr PER PROTOCOL Administration Protocol 5 MG/HR Insulin Glargine 13 unit 01/07/17 20:30 01/08/17 21:53 Lantus SC 13 u HS MIRELLA Administration Insulin Human Regular 0 unit 01/05/17 18:00 01/09/17 05:36 Novolin R SC 2 unit Q6 MIRELLA Administration Protocol Lisinopril 10 mg 01/02/17 15:15 01/09/17 10:02 Zestril PO Not Given DAILY MIRELLA Ondansetron HCl 4 mg 01/01/17 21:22 01/02/17 18:42 Zofran Inj IVP 4 mg Q6 PRN Administration Nausea/Vomiting Pantoprazole Sodium 40 mg 01/02/17 10:00 01/09/17 09:10 Protonix Inj IVP 40 mg DAILY MIRELLA Administration Rosuvastatin Calcium 20 mg 01/03/17 22:00 01/08/17 22:00 Crestor PO Not Given HS MIRELLA - Patient Studies Lab Studies: Lab Studies 01/09/17 01/09/17 01/09/17 Range/Units 11:15 06:27 06:27 WBC 14.9 H (4.8-10.8) K/uL RBC 4.00 (3.80-5.20) Mil/uL Hgb 11.6 (11.0-16.0) g/dL Hct 36.6 (34.0-47.0) % MCV 91.5 (81.0-99.0) fL MCH 28.9 (27.0-31.0) pg MCHC 31.6 L (33.0-37.0) g/dL RDW 15.2 H (11.5-14.5) % Plt Count 90 L (130-400) K/uL MPV 11.6 (7.2-11.7) fL Neut % (Auto) 79.1 H (50.0-75.0) % Lymph % (Auto) 14.6 L (20.0-40.0) % [place] % (Auto) 6.0 (0.0-10.0) % Eos % (Auto) 0.1 (0.0-4.0) % Baso % (Auto) 0.2 (0.0-2.0) % Neut # 11.8 H (1.8-7.0) K/uL Lymph # 2.2 (1.0-4.3) K/uL [place] # 0.9 H (0.0-0.8) K/uL Eos # 0.0 (0.0-0.7) K/uL Baso # 0.0 (0.0-0.2) K/uL Puncture Site pCO2 (35-45) mm/Hg pO2 (80-100) mm/Hg HCO3 (21-28) mmol/L ABG pH (7.35-7.45) ABG Total CO2 (22-28) mmol/L ABG O2 Saturation (95-98) % ABG Base Excess (-2.0-3.0) mmol/L ABG Hemoglobin (11.7-17.4) g/dL ABG Carboxyhemoglobin (0.5-1.5) % POC ABG HHb (Measured) (0.0-5.0) % ABG Methemoglobin (0.0-3.0) % Chandana Test A-a O2 Difference mm/Hg Respiratory Index Hgb O2 Saturation (95.0-98.0) % Vent Mode Mechanical Rate FiO2 % Tidal Volume PEEP Sodium 166 H* (132-148) mmol/L Potassium 3.0 L (3.6-5.2) mmol/L Chloride 131 H (98-107) mmol/L Carbon Dioxide 19 L (22-30) mmol/L Anion Gap 19 (10-20) BUN 55 H (7-17) mg/dL Creatinine 1.0 (0.7-1.2) MG/DL Est GFR ( Amer) > 60 Est GFR (Non-Af Amer) 55 POC Glucose (mg/dL) 264 H (65-110) mg/dL Random Glucose 191 H (65-105) mg/dL Calcium 8.7 (8.6-10.4) mg/dl Phosphorus 3.6 (2.5-4.5) mg/dL Magnesium 3.0 H (1.6-2.3) mg/dL Total Bilirubin 1.0 (0.2-1.3) mg/dL AST 87 H D (14-36) U/L ALT 91 H D (9-52) U/L Alkaline Phosphatase 66 (38-126) U/L Total Protein 6.6 (6.3-8.3) g/dL Albumin 3.1 L (3.5-5.0) g/dL Globulin 3.4 (2.2-3.9) gm/dL Albumin/Globulin Ratio 0.9 L (1.0-2.1) 01/09/17 01/09/17 01/08/17 Range/Units 05:32 05:08 23:47 WBC (4.8-10.8) K/uL RBC (3.80-5.20) Mil/uL Hgb (11.0-16.0) g/dL Hct (34.0-47.0) % MCV (81.0-99.0) fL MCH (27.0-31.0) pg MCHC (33.0-37.0) g/dL RDW (11.5-14.5) % Plt Count (130-400) K/uL MPV (7.2-11.7) fL Neut % (Auto) (50.0-75.0) % Lymph % (Auto) (20.0-40.0) % [place] % (Auto) (0.0-10.0) % Eos % (Auto) (0.0-4.0) % Baso % (Auto) (0.0-2.0) % Neut # (1.8-7.0) K/uL Lymph # (1.0-4.3) K/uL [place] # (0.0-0.8) K/uL Eos # (0.0-0.7) K/uL Baso # (0.0-0.2) K/uL Puncture Site A-line pCO2 22 L (35-45) mm/Hg pO2 158 H (80-100) mm/Hg HCO3 25.2 (21-28) mmol/L ABG pH 7.58 H (7.35-7.45) ABG Total CO2 21.3 L (22-28) mmol/L ABG O2 Saturation 99.6 H (95-98) % ABG Base Excess 0.3 (-2.0-3.0) mmol/L ABG Hemoglobin 12.3 (11.7-17.4) g/dL ABG Carboxyhemoglobin 1.6 H (0.5-1.5) % POC ABG HHb (Measured) 0.4 (0.0-5.0) % ABG Methemoglobin 1.0 (0.0-3.0) % Chandana Test Na A-a O2 Difference 28.0 mm/Hg Respiratory Index 0.2 Hgb O2 Saturation 97.0 (95.0-98.0) % Vent Mode Prvc Mechanical Rate 12 FiO2 30.0 % Tidal Volume 450 PEEP 5 Sodium (132-148) mmol/L Potassium (3.6-5.2) mmol/L Chloride (98-107) mmol/L Carbon Dioxide (22-30) mmol/L Anion Gap (10-20) BUN (7-17) mg/dL Creatinine (0.7-1.2) MG/DL Est GFR ( Amer) Est GFR (Non-Af Amer) POC Glucose (mg/dL) 206 H 193 H (65-110) mg/dL Random Glucose (65-105) mg/dL Calcium (8.6-10.4) mg/dl Phosphorus (2.5-4.5) mg/dL Magnesium (1.6-2.3) mg/dL Total Bilirubin (0.2-1.3) mg/dL AST (14-36) U/L ALT (9-52) U/L Alkaline Phosphatase (38-126) U/L Total Protein (6.3-8.3) g/dL Albumin (3.5-5.0) g/dL Globulin (2.2-3.9) gm/dL Albumin/Globulin Ratio (1.0-2.1) 01/08/17 Range/Units 18:06 WBC (4.8-10.8) K/uL RBC (3.80-5.20) Mil/uL Hgb (11.0-16.0) g/dL Hct (34.0-47.0) % MCV (81.0-99.0) fL MCH (27.0-31.0) pg MCHC (33.0-37.0) g/dL RDW (11.5-14.5) % Plt Count (130-400) K/uL MPV (7.2-11.7) fL Neut % (Auto) (50.0-75.0) % Lymph % (Auto) (20.0-40.0) % [place] % (Auto) (0.0-10.0) % Eos % (Auto) (0.0-4.0) % Baso % (Auto) (0.0-2.0) % Neut # (1.8-7.0) K/uL Lymph # (1.0-4.3) K/uL [place] # (0.0-0.8) K/uL Eos # (0.0-0.7) K/uL Baso # (0.0-0.2) K/uL Puncture Site pCO2 (35-45) mm/Hg pO2 (80-100) mm/Hg HCO3 (21-28) mmol/L ABG pH (7.35-7.45) ABG Total CO2 (22-28) mmol/L ABG O2 Saturation (95-98) % ABG Base Excess (-2.0-3.0) mmol/L ABG Hemoglobin (11.7-17.4) g/dL ABG Carboxyhemoglobin (0.5-1.5) % POC ABG HHb (Measured) (0.0-5.0) % ABG Methemoglobin (0.0-3.0) % Chandana Test A-a O2 Difference mm/Hg Respiratory Index Hgb O2 Saturation (95.0-98.0) % Vent Mode Mechanical Rate FiO2 % Tidal Volume PEEP Sodium (132-148) mmol/L Potassium (3.6-5.2) mmol/L Chloride (98-107) mmol/L Carbon Dioxide (22-30) mmol/L Anion Gap (10-20) BUN (7-17) mg/dL Creatinine (0.7-1.2) MG/DL Est GFR ( Amer) Est GFR (Non-Af Amer) POC Glucose (mg/dL) 196 H (65-110) mg/dL Random Glucose (65-105) mg/dL Calcium (8.6-10.4) mg/dl Phosphorus (2.5-4.5) mg/dL Magnesium (1.6-2.3) mg/dL Total Bilirubin (0.2-1.3) mg/dL AST (14-36) U/L ALT (9-52) U/L Alkaline Phosphatase (38-126) U/L Total Protein (6.3-8.3) g/dL Albumin (3.5-5.0) g/dL Globulin (2.2-3.9) gm/dL Albumin/Globulin Ratio (1.0-2.1) Laboratory Results - last 24 hr 01/08/17 01/08/17 01/09/17 18:06 23:47 05:08 WBC RBC Hgb Hct MCV MCH MCHC RDW Plt Count MPV Neut % (Auto) Lymph % (Auto) [place] % (Auto) Eos % (Auto) Baso % (Auto) Neut # Lymph # [place] # Eos # Baso # Puncture Site A-line pCO2 22 L pO2 158 H HCO3 25.2 ABG pH 7.58 H ABG Total CO2 21.3 L ABG O2 Saturation 99.6 H ABG Base Excess 0.3 ABG Hemoglobin 12.3 ABG Carboxyhemoglobin 1.6 H POC ABG HHb (Measured) 0.4 ABG Methemoglobin 1.0 Chandana Test Na A-a O2 Difference 28.0 Respiratory Index 0.2 Hgb O2 Saturation 97.0 Vent Mode Prvc Mechanical Rate 12 FiO2 30.0 Tidal Volume 450 PEEP 5 Sodium Potassium Chloride Carbon Dioxide Anion Gap BUN Creatinine Est GFR ( Amer) Est GFR (Non-Af Amer) POC Glucose (mg/dL) 196 H 193 H Random Glucose Calcium Phosphorus Magnesium Total Bilirubin AST ALT Alkaline Phosphatase Total Protein Albumin Globulin Albumin/Globulin Ratio 01/09/17 01/09/17 01/09/17 05:32 06:27 06:27 WBC 14.9 H RBC 4.00 Hgb 11.6 Hct 36.6 MCV 91.5 MCH 28.9 MCHC 31.6 L RDW 15.2 H Plt Count 90 L MPV 11.6 Neut % (Auto) 79.1 H Lymph % (Auto) 14.6 L [place] % (Auto) 6.0 Eos % (Auto) 0.1 Baso % (Auto) 0.2 Neut # 11.8 H Lymph # 2.2 [place] # 0.9 H Eos # 0.0 Baso # 0.0 Puncture Site pCO2 pO2 HCO3 ABG pH ABG Total CO2 ABG O2 Saturation ABG Base Excess ABG Hemoglobin ABG Carboxyhemoglobin POC ABG HHb (Measured) ABG Methemoglobin Chandana Test A-a O2 Difference Respiratory Index Hgb O2 Saturation Vent Mode Mechanical Rate FiO2 Tidal Volume PEEP Sodium 166 H* Potassium 3.0 L Chloride 131 H Carbon Dioxide 19 L Anion Gap 19 BUN 55 H Creatinine 1.0 Est GFR ( Amer) > 60 Est GFR (Non-Af Amer) 55 POC Glucose (mg/dL) 206 H Random Glucose 191 H Calcium 8.7 Phosphorus 3.6 Magnesium 3.0 H Total Bilirubin 1.0 AST 87 H D ALT 91 H D Alkaline Phosphatase 66 Total Protein 6.6 Albumin 3.1 L Globulin 3.4 Albumin/Globulin Ratio 0.9 L 01/09/17 11:15 WBC RBC Hgb Hct MCV MCH MCHC RDW Plt Count MPV Neut % (Auto) Lymph % (Auto) [place] % (Auto) Eos % (Auto) Baso % (Auto) Neut # Lymph # [place] # Eos # Baso # Puncture Site pCO2 pO2 HCO3 ABG pH ABG Total CO2 ABG O2 Saturation ABG Base Excess ABG Hemoglobin ABG Carboxyhemoglobin POC ABG HHb (Measured) ABG Methemoglobin Chandana Test A-a O2 Difference Respiratory Index Hgb O2 Saturation Vent Mode Mechanical Rate FiO2 Tidal Volume PEEP Sodium Potassium Chloride Carbon Dioxide Anion Gap BUN Creatinine Est GFR ( Amer) Est GFR (Non-Af Amer) POC Glucose (mg/dL) 264 H Random Glucose Calcium Phosphorus Magnesium Total Bilirubin AST ALT Alkaline Phosphatase Total Protein Albumin Globulin Albumin/Globulin Ratio Fingerstick Blood Sugar Results: 264 Review of Systems - Review of Systems Systems not reviewed;Unavailable: Intubated Critical Care Progress Note - Vent Settings TIDAL VOLUME:: 450 RESP RATE:: 12 FIO2:: 30 PEEP:: 5 - Nutrition Nutrition: Nutrition Category Date Time Status NPO Diet [DIET] Diets 01/04/17 Breakfast Active Assessment/Plan - Assessment and Plan (Free Text) Assessment: 71 year old female with past medical history of DM, presented to the ED with complaints of nausea and vomiting for 3-4 days. She had palpitations and dizziness. In the ED, patient was found to have new onset a-fib, patient was admitted. Patient started on Cardizem drip and anticoagulation. On 01/03/17 Patient no longer has nausea or vomiting, but complained of headache. Patient was given tylenol. In the afternoon, patient's headache started to worsen. Patient was re-evaluated for possible slurred speech/changes in speech, at that time, patient was answering questions and following commands. In the evening, ( as per nurse), patient's speech was more slurred and patient became more restless. 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 Patient underwent decompressive craniotomy with Dr. Duque. Patient was on 3% hypertonic solution (discontinued 01/04/17), with goal of sodium 145-150 and serum osmolality of 300-320. Patient continues to have a-fib. Continue cardene drip and cardizem drip. Family is discussing possible terminal extubation. Neuro: unresponsive - Head CT (01/01/17): no acute findings; chronic ischemic changes - Head CT (01/03/17): Infarct involving posterior circulation with marked edema of cerebellar hemispheres b/l on right side>Left, with obstructing hydrocephalus - S/P decompressive craniotomy/ventriculotomy (Dr. Duque) - Continue cardene drip - Keep CPP 60-80 Pulm: intubated - Family is discussing possible terminal extubation. CV: new onset A-Fib - Cardiology consulted- Dr. Wong, help appreciated - Continue Cardizem drip, Lisinopril, Lasix, Lisinopril - Troponin: negative; BNP 3690 - Echo: EF47%; severely dilated LA/RA; mildly thickened and calcified aortic valve; mild AR; mild-mod mitral annular calcification; MV mildly thickened; mod- severe MR; severe TR; mild pulmonic valvular regurg. IVC dilated. Endo: Hx of DM - Accuchecks, monitor blood glucose - Continue ISS - TSH 0.82, Free T4 1.63 - Thyroid Ab: negative - [facility] consulted- Dr. Goldberg, help appreciated GI: nausea, vomiting- unknown cause--> resolved - NPO - Lipase 79 (01/01/17), 38 (01/02/17) - Continue Zofran, Protonix Heme: - Thrombocytopenia: 111 - Disocontinued lovenox Renal: - Hypokalemic: continue to monitor MSK: no acute issues ID: no acute issues - UA: trace ketones, 1+ glucose Prophylaxis: - DVT: SCDs - GI: Protonix - PT <Tyson Sinclair P - Last Filed: 01/10/17 00:07> CCU Objective - Vital Signs / Intake & Output Vital Signs (Last 4 hours): Vital Signs Pulse Resp BP Pulse Ox 01/09/17 23:00 121 H 15 100 01/09/17 22:56 122 H 15 121/66 100 01/09/17 22:00 105 H 20 99 01/09/17 21:56 112 H 24 124/64 98 01/09/17 21:00 135 H 19 98 01/09/17 20:56 135 H 24 132/70 96 01/09/17 20:00 138 H 19 98 Intake and Output (Last 8hrs): Intake & Output 01/09/17 01/09/17 01/10/17 14:59 22:59 06:59 Intake Total 240 275 Output Total 524 292 Balance -284 -17 Weight 140 lb 4.8 oz Intake: IV 125 Intake, IV Amount 240 150 Left Medial Port Internal 120 75 Jugular Left Proximal Port 120 75 Internal Jugular Oral 0 0 Output: Drainage 34 32 Right Posterior Head 34 32 Urine 490 260 Urethral (Massey) 490 260 Other: # Bowel Movements 0 0 - Medications Active Medications: Active Medications Generic Name Dose Route Start Last Admin Trade Name Freq PRN Reason Stop Dose Admin Acetaminophen 650 mg 01/03/17 11:49 01/03/17 18:04 Tylenol 325mg Tab PO 650 mg Q6 PRN Administration Pain, Mild (1-3) Nicardipine HCl 25 mg/ Sodium 250 mls @ 50 mls/hr 01/05/17 17:00 01/09/17 23: 16 Chloride IV Not Given .Q5H MIRELLA Protocol 5 MG/HR Diltiazem HCl 125 mg/ Sodium 125 mls @ 5 mls/hr 01/09/17 10:15 01/09/17 16:24 Chloride IV 15 mg/hr .Q24H PRN 15 mls/hr PER PROTOCOL Administration Protocol 5 MG/HR Insulin Glargine 13 unit 01/07/17 20:30 01/09/17 23:16 Lantus SC 13 u HS MIRELLA Administration Insulin Human Regular 0 unit 01/05/17 18:00 01/09/17 18:44 Novolin R SC 2 unit Q6 MIRELLA Administration Protocol Lisinopril 10 mg 01/02/17 15:15 01/09/17 10:02 Zestril PO Not Given DAILY MIRELLA Ondansetron HCl 4 mg 01/01/17 21:22 01/02/17 18:42 Zofran Inj IVP 4 mg Q6 PRN Administration Nausea/Vomiting Pantoprazole Sodium 40 mg 01/02/17 10:00 01/09/17 09:10 Protonix Inj IVP 40 mg DAILY MIRELLA Administration Rosuvastatin Calcium 20 mg 01/03/17 22:00 01/09/17 22:32 Crestor PO Not Given HS MIRELLA - Patient Studies Lab Studies: Lab Studies 01/09/17 01/09/17 01/09/17 Range/Units 18:15 11:15 06:27 WBC (4.8-10.8) K/uL RBC (3.80-5.20) Mil/uL Hgb (11.0-16.0) g/dL Hct (34.0-47.0) % MCV (81.0-99.0) fL MCH (27.0-31.0) pg MCHC (33.0-37.0) g/dL RDW (11.5-14.5) % Plt Count (130-400) K/uL MPV (7.2-11.7) fL Neut % (Auto) (50.0-75.0) % Lymph % (Auto) (20.0-40.0) % [place] % (Auto) (0.0-10.0) % Eos % (Auto) (0.0-4.0) % Baso % (Auto) (0.0-2.0) % Neut # (1.8-7.0) K/uL Lymph # (1.0-4.3) K/uL [place] # (0.0-0.8) K/uL Eos # (0.0-0.7) K/uL Baso # (0.0-0.2) K/uL Puncture Site pCO2 (35-45) mm/Hg pO2 (80-100) mm/Hg HCO3 (21-28) mmol/L ABG pH (7.35-7.45) ABG Total CO2 (22-28) mmol/L ABG O2 Saturation (95-98) % ABG Base Excess (-2.0-3.0) mmol/L ABG Hemoglobin (11.7-17.4) g/dL ABG Carboxyhemoglobin (0.5-1.5) % POC ABG HHb (Measured) (0.0-5.0) % ABG Methemoglobin (0.0-3.0) % Chandana Test A-a O2 Difference mm/Hg Respiratory Index Hgb O2 Saturation (95.0-98.0) % Vent Mode Mechanical Rate FiO2 % Tidal Volume PEEP Sodium 166 H* (132-148) mmol/L Potassium 3.0 L (3.6-5.2) mmol/L Chloride 131 H (98-107) mmol/L Carbon Dioxide 19 L (22-30) mmol/L Anion Gap 19 (10-20) BUN 55 H (7-17) mg/dL Creatinine 1.0 (0.7-1.2) MG/DL Est GFR ( Amer) > 60 Est GFR (Non-Af Amer) 55 POC Glucose (mg/dL) 219 H 264 H (65-110) mg/dL Random Glucose 191 H (65-105) mg/dL Calcium 8.7 (8.6-10.4) mg/dl Phosphorus 3.6 (2.5-4.5) mg/dL Magnesium 3.0 H (1.6-2.3) mg/dL Total Bilirubin 1.0 (0.2-1.3) mg/dL AST 87 H D (14-36) U/L ALT 91 H D (9-52) U/L Alkaline Phosphatase 66 (38-126) U/L Total Protein 6.6 (6.3-8.3) g/dL Albumin 3.1 L (3.5-5.0) g/dL Globulin 3.4 (2.2-3.9) gm/dL Albumin/Globulin Ratio 0.9 L (1.0-2.1) 01/09/17 01/09/17 01/09/17 Range/Units 06:27 05:32 05:08 WBC 14.9 H (4.8-10.8) K/uL RBC 4.00 (3.80-5.20) Mil/uL Hgb 11.6 (11.0-16.0) g/dL Hct 36.6 (34.0-47.0) % MCV 91.5 (81.0-99.0) fL MCH 28.9 (27.0-31.0) pg MCHC 31.6 L (33.0-37.0) g/dL RDW 15.2 H (11.5-14.5) % Plt Count 90 L (130-400) K/uL MPV 11.6 (7.2-11.7) fL Neut % (Auto) 79.1 H (50.0-75.0) % Lymph % (Auto) 14.6 L (20.0-40.0) % [place] % (Auto) 6.0 (0.0-10.0) % Eos % (Auto) 0.1 (0.0-4.0) % Baso % (Auto) 0.2 (0.0-2.0) % Neut # 11.8 H (1.8-7.0) K/uL Lymph # 2.2 (1.0-4.3) K/uL [place] # 0.9 H (0.0-0.8) K/uL Eos # 0.0 (0.0-0.7) K/uL Baso # 0.0 (0.0-0.2) K/uL Puncture Site A-line pCO2 22 L (35-45) mm/Hg pO2 158 H (80-100) mm/Hg HCO3 25.2 (21-28) mmol/L ABG pH 7.58 H (7.35-7.45) ABG Total CO2 21.3 L (22-28) mmol/L ABG O2 Saturation 99.6 H (95-98) % ABG Base Excess 0.3 (-2.0-3.0) mmol/L ABG Hemoglobin 12.3 (11.7-17.4) g/dL ABG Carboxyhemoglobin 1.6 H (0.5-1.5) % POC ABG HHb (Measured) 0.4 (0.0-5.0) % ABG Methemoglobin 1.0 (0.0-3.0) % Chandana Test Na A-a O2 Difference 28.0 mm/Hg Respiratory Index 0.2 Hgb O2 Saturation 97.0 (95.0-98.0) % Vent Mode Prvc Mechanical Rate 12 FiO2 30.0 % Tidal Volume 450 PEEP 5 Sodium (132-148) mmol/L Potassium (3.6-5.2) mmol/L Chloride (98-107) mmol/L Carbon Dioxide (22-30) mmol/L Anion Gap (10-20) BUN (7-17) mg/dL Creatinine (0.7-1.2) MG/DL Est GFR ( Amer) Est GFR (Non-Af Amer) POC Glucose (mg/dL) 206 H (65-110) mg/dL Random Glucose (65-105) mg/dL Calcium (8.6-10.4) mg/dl Phosphorus (2.5-4.5) mg/dL Magnesium (1.6-2.3) mg/dL Total Bilirubin (0.2-1.3) mg/dL AST (14-36) U/L ALT (9-52) U/L Alkaline Phosphatase (38-126) U/L Total Protein (6.3-8.3) g/dL Albumin (3.5-5.0) g/dL Globulin (2.2-3.9) gm/dL Albumin/Globulin Ratio (1.0-2.1) Laboratory Results - last 24 hr 01/09/17 01/09/17 01/09/17 05:08 05:32 06:27 WBC 14.9 H RBC 4.00 Hgb 11.6 Hct 36.6 MCV 91.5 MCH 28.9 MCHC 31.6 L RDW 15.2 H Plt Count 90 L MPV 11.6 Neut % (Auto) 79.1 H Lymph % (Auto) 14.6 L [place] % (Auto) 6.0 Eos % (Auto) 0.1 Baso % (Auto) 0.2 Neut # 11.8 H Lymph # 2.2 [place] # 0.9 H Eos # 0.0 Baso # 0.0 Puncture Site A-line pCO2 22 L pO2 158 H HCO3 25.2 ABG pH 7.58 H ABG Total CO2 21.3 L ABG O2 Saturation 99.6 H ABG Base Excess 0.3 ABG Hemoglobin 12.3 ABG Carboxyhemoglobin 1.6 H POC ABG HHb (Measured) 0.4 ABG Methemoglobin 1.0 Chandana Test Na A-a O2 Difference 28.0 Respiratory Index 0.2 Hgb O2 Saturation 97.0 Vent Mode Prvc Mechanical Rate 12 FiO2 30.0 Tidal Volume 450 PEEP 5 Sodium Potassium Chloride Carbon Dioxide Anion Gap BUN Creatinine Est GFR ( Amer) Est GFR (Non-Af Amer) POC Glucose (mg/dL) 206 H Random Glucose Calcium Phosphorus Magnesium Total Bilirubin AST ALT Alkaline Phosphatase Total Protein Albumin Globulin Albumin/Globulin Ratio 01/09/17 01/09/17 01/09/17 06:27 11:15 18:15 WBC RBC Hgb Hct MCV MCH MCHC RDW Plt Count MPV Neut % (Auto) Lymph % (Auto) [place] % (Auto) Eos % (Auto) Baso % (Auto) Neut # Lymph # [place] # Eos # Baso # Puncture Site pCO2 pO2 HCO3 ABG pH ABG Total CO2 ABG O2 Saturation ABG Base Excess ABG Hemoglobin ABG Carboxyhemoglobin POC ABG HHb (Measured) ABG Methemoglobin Chandana Test A-a O2 Difference Respiratory Index Hgb O2 Saturation Vent Mode Mechanical Rate FiO2 Tidal Volume PEEP Sodium 166 H* Potassium 3.0 L Chloride 131 H Carbon Dioxide 19 L Anion Gap 19 BUN 55 H Creatinine 1.0 Est GFR ( Amer) > 60 Est GFR (Non-Af Amer) 55 POC Glucose (mg/dL) 264 H 219 H Random Glucose 191 H Calcium 8.7 Phosphorus 3.6 Magnesium 3.0 H Total Bilirubin 1.0 AST 87 H D ALT 91 H D Alkaline Phosphatase 66 Total Protein 6.6 Albumin 3.1 L Globulin 3.4 Albumin/Globulin Ratio 0.9 L Critical Care Progress Note - Nutrition Nutrition: Nutrition Category Date Time Status NPO Diet [DIET] Diets 01/04/17 Breakfast Active Attending/Attestation - Attestation I have personally seen and examined this patient.: Yes I have fully participated in the care of the patient.: Yes I have reviewed all pertinent clinical information: Yes Notes (Text): On exam patient doesn't have gag reflex, doesn't respond to sternal rub, painful stimuli to fingers/toes. Patient does over breaths the vent, has corneal reflex, and pupillary reflexes. D/w family as per the family have noticed some intermittent eye moments and feels like have significant hope. CT head done showed residual hemorrhage, reduction in hydrocephalus, reduction in cerebellar edema, and subacute cerebellar infarctions. Will request neurosurgery and neurology to f/u on the repeat CT. 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
--- NOTE | 2017-01-09 16:19 | CT ---
PROCEDURE: CT HEAD WITHOUT CONTRAST. HISTORY: f/u cerebellar infarct/edema COMPARISON: None available. TECHNIQUE: Axial computed tomography images were obtained through the head/brain without intravenous contrast. Radiation dose: Total exam DLP = 1298.45 mGy-cm. This CT exam was performed using one or more of the following dose reduction techniques: Automated exposure control, adjustment of the mA and/or kV according to patient size, and/or use of iterative reconstruction technique. 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 Right sided shunt catheter is unchanged in position terminating at the foramen of Monro. Trace hemorrhage is seen along the tract of the shunt catheter in the right occipital lobe with stable trace left and mild right intraventricular hemorrhage identified. Trace hemorrhage is seen in the posterior vermis once again trace subarachnoid hemorrhage at the posterior margins at the right the sylvian fissure is minimal and is nearly resolved here. 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 Diffuse cerebral atrophy and chronic microangiopathy are reiterated with adequate differentiation of the domínguez and white matter structures above the tentorium. VENTRICLES: As above. CALVARIUM: As above. PARANASAL SINUSES: Unremarkable as visualized. No significant inflammatory changes. MASTOID AIR CELLS: Unremarkable as visualized. No inflammatory changes. OTHER FINDINGS: None. IMPRESSION: Prior left suboccipital craniectomy identified with right ventricular shunt catheter unchanged in position. Although bilateral cerebellar ischemic infarcts persist, overall volume of mass effect appears be reducing as the 4th ventricle is re- expanding. Stable limited intraventricular hemorrhage is seen at the bilateral lateral ventricles, diminished at the right sylvian fissure. Brainstem infarct remains difficult to exclude. Please see discussion above
[2017-01-09] MEDS: (Lantus) Insulin Glargine, Recombinant SC SCH (23:16)
[2017-01-10] MEDS: (Novolin R) Insulin Human Regular 100 units/ml vial SC SCH ×4 (01:00→18:00)
[2017-01-10] MEDS: niCARdipine IV 25 MG in Sodium Chloride 0.9% 240 ML IV SCH ×2 (02:45→07:00)
[2017-01-10 03:41] LABS: BASO % 0.1 % (0.0-2.0); EOS % 0.1 % (0.0-4.0); HEMATOCRIT 35.9 % (34.0-47.0); LYMPH # 1.8 K/uL (1.0-4.3); LYMPH % 12.4 % (20.0-40.0); MEAN CELL VOLUME 90.5 fL (81.0-99.0); MEAN PLATELET VOLUME 11.5 fL (7.2-11.7); MONO # 0.8 K/uL (0.0-0.8); MONO % 5.4 % (0.0-10.0); NRBC % 0.1 % (0.0-2.0); RED CELL DISTRIBUTION WIDTH 14.8 % (11.5-14.5); WHITE BLOOD COUNT 14.3 K/uL (4.8-10.8)
[2017-01-10 03:44] LABS: CHLORIDE 137 mmol/L (98-107)
[2017-01-10 03:45] LABS: POTASSIUM 3.5 mmol/L (3.6-5.2)
[2017-01-10 03:47] LABS: ALB/GLOB RATIO 0.9 (1.0-2.1); ALKALINE PHOSPHATASE 71 U/L (38-126); ALT/SGPT 90 U/L (9-52); AST/SGOT 80 U/L (14-36); BILIRUBIN,TOTAL 0.9 mg/dL (0.2-1.3); BLOOD UREA NITROGEN 51 mg/dL (7-17); CALCIUM 8.6 mg/dl (8.6-10.4); CARBON DIOXIDE 22 mmol/L (22-30); GFR AFRICAN-AMERICAN > 60; GLUCOSE,RANDOM 191 mg/dL (65-105); TOTAL PROTEIN 6.6 g/dL (6.3-8.3)
[2017-01-10 03:49] LABS: SODIUM 173 mmol/L (132-148)
--- NOTE | 2017-01-10 10:05 | RAD ---
HISTORY: intubated COMPARISON: 01/09/2017 FINDINGS: LUNGS: No active pulmonary disease. PLEURA: No significant pleural effusion identified, no pneumothorax apparent. CARDIOVASCULAR: Normal heart size. ET tube and left IJ central venous catheter are unchanged. . OSSEOUS STRUCTURES: No significant abnormalities. VISUALIZED UPPER ABDOMEN: Normal. OTHER FINDINGS: None. IMPRESSION: No active disease.
[2017-01-10 10:46] LABS: CHLORIDE 136 mmol/L (98-107); POTASSIUM 3.9 mmol/L (3.6-5.2)
[2017-01-10 10:49] LABS: BLOOD UREA NITROGEN 54 mg/dL (7-17); CARBON DIOXIDE 21 mmol/L (22-30); GFR AFRICAN-AMERICAN > 60; GLUCOSE,RANDOM 226 mg/dL (65-105)
[2017-01-10 10:50] LABS: CALCIUM 8.6 mg/dl (8.6-10.4)
[2017-01-10 11:09] LABS: SODIUM 175 mmol/L (132-148)
--- NOTE | 2017-01-10 14:11 | CP.CCUPN ---
<Beth Alejandro - Last Filed: 01/10/17 13:59> CCU Subjective - Physician Review Subjective (Free Text): Patient was seen and examined at bedside in the morning. Patient is unresponsive and intubated. Unable to obtain review of systems. 01/10/17 13:59 CCU Objective - Vital Signs / Intake & Output Intake and Output (Last 8hrs): Intake & Output 01/09/17 01/10/17 01/10/17 22:59 06:59 14:59 Intake Total 470 345 630 Output Total 442 406 265 Balance 28 -61 365 Intake: IV 125 125 0 Intake, IV Amount 345 220 530 Left Medial Port Internal 120 120 90 Jugular Left Proximal Port 225 100 440 Internal Jugular Oral 0 0 0 Other 100 Output: Drainage 32 6 Right Posterior Head 32 6 Urine 410 400 265 Urethral (Massey) 410 400 265 Other: # Bowel Movements 0 0 0 - Physical Exam Head: Positive for: Normocephalic Extroacular Muscles: Negative for: EOMI Mouth: Positive for: Other (intubated) Neck: Negative for: Normal Range of Motion Respiratory/Chest: Positive for: Clear to Auscultation, Other (intubated). Negative for: Wheezes, Rales, Rhonchi, Tachypneic Cardiovascular: Positive for: Normal S1, S2, Irregular Rhythm, Tachycardic Abdomen: Negative for: Distention, Normal Bowel Sounds (hypoactive) Upper Extremity: Positive for: Normal Inspection. Negative for: Edema Lower Extremity: Positive for: Normal Inspection. Negative for: Edema Neurological: Positive for: Other (no response to pain; gag reflex & corneal reflex+). Negative for: GCS=15, Motor Func Grossly Intact, Normal Sensory Function Skin: Positive for: Warm, Dry, Normal Color Psychiatric: Negative for: Alert, Oriented x 3 - Medications Active Medications: Active Medications Generic Name Dose Route Start Last Admin Trade Name Freq PRN Reason Stop Dose Admin Acetaminophen 650 mg 01/03/17 11:49 01/03/17 18:04 Tylenol 325mg Tab PO 650 mg Q6 PRN Administration Pain, Mild (1-3) Diltiazem HCl 60 mg 01/10/17 10:00 01/10/17 10:11 Cardizem PO 60 mg QID MIRELLA Administration Nicardipine HCl 25 mg/ Sodium 250 mls @ 50 mls/hr 01/05/17 17:00 01/10/17 07: 00 Chloride IV Not Given .Q5H MIRELLA Protocol 5 MG/HR Diltiazem HCl 125 mg/ Sodium 125 mls @ 5 mls/hr 01/09/17 10:15 01/10/17 11:53 Chloride IV 15 mg/hr .Q24H PRN 15 mls/hr PER PROTOCOL Administration Protocol 5 MG/HR Dextrose 1,000 mls @ 150 mls/hr 01/10/17 11:38 01/10/17 11:46 Dextrose 5% In Water 1000 Ml IV 150 mls/hr .Q6H40M MIRELLA Administration Insulin Glargine 13 unit 01/07/17 20:30 01/09/17 23:16 Lantus SC 13 u HS MIRELLA Administration Insulin Human Regular 0 unit 01/05/17 18:00 01/10/17 12:12 Novolin R SC 3 unit Q6 MIRELLA Administration Protocol Lisinopril 10 mg 01/02/17 15:15 01/10/17 10:12 Zestril PO 10 mg DAILY MIRELLA Administration Ondansetron HCl 4 mg 01/01/17 21:22 01/02/17 18:42 Zofran Inj IVP 4 mg Q6 PRN Administration Nausea/Vomiting Pantoprazole Sodium 40 mg 01/02/17 10:00 01/10/17 10:11 Protonix Inj IVP 40 mg DAILY MIRELLA Administration Rosuvastatin Calcium 20 mg 01/03/17 22:00 01/09/17 22:32 Crestor PO Not Given HS MIRELLA - Patient Studies Lab Studies: Lab Studies 01/10/17 01/10/17 01/10/17 Range/Units 11:41 10:30 03:31 WBC (4.8-10.8) K/uL RBC (3.80-5.20) Mil/uL Hgb (11.0-16.0) g/dL Hct (34.0-47.0) % MCV (81.0-99.0) fL MCH (27.0-31.0) pg MCHC (33.0-37.0) g/dL RDW (11.5-14.5) % Plt Count (130-400) K/uL MPV (7.2-11.7) fL Neut % (Auto) (50.0-75.0) % Lymph % (Auto) (20.0-40.0) % Luce % (Auto) (0.0-10.0) % Eos % (Auto) (0.0-4.0) % Baso % (Auto) (0.0-2.0) % Neut # (1.8-7.0) K/uL Lymph # (1.0-4.3) K/uL Luce # (0.0-0.8) K/uL Eos # (0.0-0.7) K/uL Baso # (0.0-0.2) K/uL Differential Comment Sodium 175 H* 173 H* (132-148) mmol/L Potassium 3.9 3.5 L (3.6-5.2) mmol/L Chloride 136 H 137 H (98-107) mmol/L Carbon Dioxide 21 L 22 (22-30) mmol/L Anion Gap 22 H 18 (10-20) BUN 54 H 51 H (7-17) mg/dL Creatinine 1.0 0.9 (0.7-1.2) MG/DL Est GFR ( Amer) > 60 > 60 Est GFR (Non-Af Amer) 55 > 60 POC Glucose (mg/dL) 276 H (65-110) mg/dL Random Glucose 226 H 191 H (65-105) mg/dL Calcium 8.6 8.6 (8.6-10.4) mg/dl Total Bilirubin 0.9 (0.2-1.3) mg/dL AST 80 H (14-36) U/L ALT 90 H (9-52) U/L Alkaline Phosphatase 71 (38-126) U/L Total Protein 6.6 (6.3-8.3) g/dL Albumin 3.1 L (3.5-5.0) g/dL Globulin 3.5 (2.2-3.9) gm/dL Albumin/Globulin Ratio 0.9 L (1.0-2.1) 01/10/17 01/09/17 01/09/17 Range/Units 03:31 23:35 18:15 WBC 14.3 H (4.8-10.8) K/uL RBC 3.97 (3.80-5.20) Mil/uL Hgb 11.5 (11.0-16.0) g/dL Hct 35.9 (34.0-47.0) % MCV 90.5 (81.0-99.0) fL MCH 29.0 (27.0-31.0) pg MCHC 32.0 L (33.0-37.0) g/dL RDW 14.8 H (11.5-14.5) % Plt Count 72 L (130-400) K/uL MPV 11.5 (7.2-11.7) fL Neut % (Auto) 82.0 H (50.0-75.0) % Lymph % (Auto) 12.4 L (20.0-40.0) % Luce % (Auto) 5.4 (0.0-10.0) % Eos % (Auto) 0.1 (0.0-4.0) % Baso % (Auto) 0.1 (0.0-2.0) % Neut # 11.7 H (1.8-7.0) K/uL Lymph # 1.8 (1.0-4.3) K/uL Luce # 0.8 (0.0-0.8) K/uL Eos # 0.0 (0.0-0.7) K/uL Baso # 0.0 (0.0-0.2) K/uL Differential Comment Sodium (132-148) mmol/L Potassium (3.6-5.2) mmol/L Chloride (98-107) mmol/L Carbon Dioxide (22-30) mmol/L Anion Gap (10-20) BUN (7-17) mg/dL Creatinine (0.7-1.2) MG/DL Est GFR ( Amer) Est GFR (Non-Af Amer) POC Glucose (mg/dL) 203 H 219 H (65-110) mg/dL Random Glucose (65-105) mg/dL Calcium (8.6-10.4) mg/dl Total Bilirubin (0.2-1.3) mg/dL AST (14-36) U/L ALT (9-52) U/L Alkaline Phosphatase (38-126) U/L Total Protein (6.3-8.3) g/dL Albumin (3.5-5.0) g/dL Globulin (2.2-3.9) gm/dL Albumin/Globulin Ratio (1.0-2.1) Laboratory Results - last 24 hr 01/09/17 01/09/17 01/10/17 18:15 23:35 03:31 WBC 14.3 H RBC 3.97 Hgb 11.5 Hct 35.9 MCV 90.5 MCH 29.0 MCHC 32.0 L RDW 14.8 H Plt Count 72 L MPV 11.5 Neut % (Auto) 82.0 H Lymph % (Auto) 12.4 L Luce % (Auto) 5.4 Eos % (Auto) 0.1 Baso % (Auto) 0.1 Neut # 11.7 H Lymph # 1.8 Luce # 0.8 Eos # 0.0 Baso # 0.0 Differential Comment Sodium Potassium Chloride Carbon Dioxide Anion Gap BUN Creatinine Est GFR ( Amer) Est GFR (Non-Af Amer) POC Glucose (mg/dL) 219 H 203 H Random Glucose Calcium Total Bilirubin AST ALT Alkaline Phosphatase Total Protein Albumin Globulin Albumin/Globulin Ratio 01/10/17 01/10/17 01/10/17 03:31 10:30 11:41 WBC RBC Hgb Hct MCV MCH MCHC RDW Plt Count MPV Neut % (Auto) Lymph % (Auto) Luce % (Auto) Eos % (Auto) Baso % (Auto) Neut # Lymph # Luce # Eos # Baso # Differential Comment Sodium 173 H* 175 H* Potassium 3.5 L 3.9 Chloride 137 H 136 H Carbon Dioxide 22 21 L Anion Gap 18 22 H BUN 51 H 54 H Creatinine 0.9 1.0 Est GFR ( Amer) > 60 > 60 Est GFR (Non-Af Amer) > 60 55 POC Glucose (mg/dL) 276 H Random Glucose 191 H 226 H Calcium 8.6 8.6 Total Bilirubin 0.9 AST 80 H ALT 90 H Alkaline Phosphatase 71 Total Protein 6.6 Albumin 3.1 L Globulin 3.5 Albumin/Globulin Ratio 0.9 L Fingerstick Blood Sugar Results: 276 Review of Systems - Review of Systems Systems not reviewed;Unavailable: Intubated Critical Care Progress Note - Vent Settings TIDAL VOLUME:: 450 RESP RATE:: 12 FIO2:: 30 PEEP:: 5 - Nutrition Nutrition: Nutrition Category Date Time Status NPO Diet [DIET] Diets 01/04/17 Breakfast Active Assessment/Plan - Assessment and Plan (Free Text) Assessment: 71 year old female with past medical history of DM, presented to the ED with complaints of nausea and vomiting for 3-4 days. She had palpitations and dizziness. In the ED, patient was found to have new onset a-fib, patient was admitted. Patient started on Cardizem drip and anticoagulation. On 01/03/17 Patient no longer has nausea or vomiting, but complained of headache. Patient was given tylenol. In the afternoon, patient's headache started to worsen. Patient was re-evaluated for possible slurred speech/changes in speech, at that time, patient was answering questions and following commands. In the evening, ( as per nurse), patient's speech was more slurred and patient became more restless. 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 Patient underwent decompressive craniotomy with Dr. Duque. Patient was on 3% hypertonic solution (discontinued 01/04/17), with goal of sodium 145-150 and serum osmolality of 300-320. Patient continues to have a-fib. Continue cardizem. Patient's status was discussed with the family. The family is not convinced the patient has significant damage and still hopes for full recovery. Thus, a follow up head CT was ordered. Head CT results will be reviewed and discussed with neurology, neurosurgery, and the family. Patient's hypernatremia is being treated; Patient has positive gag reflex, corneal reflex, and pupillary reflexes , but does not respond to painful stimuli. Repeat head ct showed residual hemorrhage, reduction in hydrocephalus, cerebellar edema, and subacute cerebellar infarctions. Will continue monitoring and correcting hypernatremia and hypokalemia. Neuro: unresponsive - Head CT (01/01/17): no acute findings; chronic ischemic changes - Head CT (01/03/17): Infarct involving posterior circulation with marked edema of cerebellar hemispheres b/l on right side>Left, with obstructing hydrocephalus - S/P decompressive craniotomy/ventriculotomy (Dr. Duque) - Cardene drip not given today - Keep CPP 60-80 Pulm: intubated CV: new onset A-Fib - Cardiology consulted- Dr. Wong, help appreciated - Continue Cardizem, Lisinopril, Lasix, Lisinopril - Troponin: negative; BNP 3690 - Echo: EF47%; severely dilated LA/RA; mildly thickened and calcified aortic valve; mild AR; mild-mod mitral annular calcification; MV mildly thickened; mod- severe MR; severe TR; mild pulmonic valvular regurg. IVC dilated. Endo: Hx of DM - Accuchecks, monitor blood glucose - Continue ISS - TSH 0.82, Free T4 1.63 - Thyroid Ab: negative - Acid Remover consulted- Dr. Goldberg, help appreciated GI: nausea, vomiting- unknown cause--> resolved - NPO - Lipase 79 (01/01/17), 38 (01/02/17) - Continue Zofran, Protonix Heme: - Thrombocytopenia: 111 - Disocontinued lovenox Renal: - Hypokalemic: continue to monitor - Hypernatremia: D5W @150ml/hr MSK: no acute issues ID: no acute issues - UA: trace ketones, 1+ glucose Prophylaxis: - DVT: SCDs - GI: Protonix - PT <Eric Hays - Last Filed: 01/10/17 14:18> CCU Subjective - Physician Review Events Since Last Encounter (Free Text): CCM Chsrt reviewed. Pt examined. Discussed with housestaff. Intubated, unresponsive Pupils reactive Neck- no jvd Lungs- bilat bs Heart- irreg irreg Abd- benign eXt- no edema Neuro- not moving to painful stim Labs, x-rays reviewed A&P Cerebellar stroke/Hydrocephalus s/p Suboccipital Craniotomy/ ventriculostomy A-fib Hypernatremia HTN DM cont vent support titrate IV cardizem for rate control / start PO cardizem via OGT Increase IV D5 and f/u Na+ CBG monitoring BS control /RISS Neurology and NS following Optimize lytes Prognosis poor 01/10/17 14:13 CCU Objective - Vital Signs / Intake & Output Intake and Output (Last 8hrs): Intake & Output 01/09/17 01/10/17 01/10/17 22:59 06:59 14:59 Intake Total 470 345 630 Output Total 442 406 265 Balance 28 -61 365 Intake: IV 125 125 0 Intake, IV Amount 345 220 530 Left Medial Port Internal 120 120 90 Jugular Left Proximal Port 225 100 440 Internal Jugular Oral 0 0 0 Other 100 Output: Drainage 32 6 Right Posterior Head 32 6 Urine 410 400 265 Urethral (Massey) 410 400 265 Other: # Bowel Movements 0 0 0 - Medications Active Medications: Active Medications Generic Name Dose Route Start Last Admin Trade Name Freq PRN Reason Stop Dose Admin Acetaminophen 650 mg 01/03/17 11:49 01/03/17 18:04 Tylenol 325mg Tab PO 650 mg Q6 PRN Administration Pain, Mild (1-3) Diltiazem HCl 60 mg 01/10/17 10:00 01/10/17 10:11 Cardizem PO 60 mg QID MIRELLA Administration Nicardipine HCl 25 mg/ Sodium 250 mls @ 50 mls/hr 01/05/17 17:00 01/10/17 07: 00 Chloride IV Not Given .Q5H MIRELLA Protocol 5 MG/HR Diltiazem HCl 125 mg/ Sodium 125 mls @ 5 mls/hr 01/09/17 10:15 01/10/17 11:53 Chloride IV 15 mg/hr .Q24H PRN 15 mls/hr PER PROTOCOL Administration Protocol 5 MG/HR Dextrose 1,000 mls @ 150 mls/hr 01/10/17 11:38 01/10/17 11:46 Dextrose 5% In Water 1000 Ml IV 150 mls/hr .Q6H40M MIRELLA Administration Insulin Glargine 13 unit 01/07/17 20:30 01/09/17 23:16 Lantus SC 13 u HS MIRELLA Administration Insulin Human Regular 0 unit 01/05/17 18:00 01/10/17 12:12 Novolin R SC 3 unit Q6 MIRELLA Administration Protocol Lisinopril 10 mg 01/02/17 15:15 01/10/17 10:12 Zestril PO 10 mg DAILY MIRELLA Administration Ondansetron HCl 4 mg 01/01/17 21:22 01/02/17 18:42 Zofran Inj IVP 4 mg Q6 PRN Administration Nausea/Vomiting Pantoprazole Sodium 40 mg 01/02/17 10:00 01/10/17 10:11 Protonix Inj IVP 40 mg DAILY MIRELLA Administration Rosuvastatin Calcium 20 mg 01/03/17 22:00 01/09/17 22:32 Crestor PO Not Given HS MIRELLA - Patient Studies Lab Studies: Lab Studies 01/10/17 01/10/17 01/10/17 Range/Units 11:41 10:30 03:31 WBC (4.8-10.8) K/uL RBC (3.80-5.20) Mil/uL Hgb (11.0-16.0) g/dL Hct (34.0-47.0) % MCV (81.0-99.0) fL MCH (27.0-31.0) pg MCHC (33.0-37.0) g/dL RDW (11.5-14.5) % Plt Count (130-400) K/uL MPV (7.2-11.7) fL Neut % (Auto) (50.0-75.0) % Lymph % (Auto) (20.0-40.0) % Luce % (Auto) (0.0-10.0) % Eos % (Auto) (0.0-4.0) % Baso % (Auto) (0.0-2.0) % Neut # (1.8-7.0) K/uL Lymph # (1.0-4.3) K/uL Luce # (0.0-0.8) K/uL Eos # (0.0-0.7) K/uL Baso # (0.0-0.2) K/uL Differential Comment Sodium 175 H* 173 H* (132-148) mmol/L Potassium 3.9 3.5 L (3.6-5.2) mmol/L Chloride 136 H 137 H (98-107) mmol/L Carbon Dioxide 21 L 22 (22-30) mmol/L Anion Gap 22 H 18 (10-20) BUN 54 H 51 H (7-17) mg/dL Creatinine 1.0 0.9 (0.7-1.2) MG/DL Est GFR ( Amer) > 60 > 60 Est GFR (Non-Af Amer) 55 > 60 POC Glucose (mg/dL) 276 H (65-110) mg/dL Random Glucose 226 H 191 H (65-105) mg/dL Calcium 8.6 8.6 (8.6-10.4) mg/dl Total Bilirubin 0.9 (0.2-1.3) mg/dL AST 80 H (14-36) U/L ALT 90 H (9-52) U/L Alkaline Phosphatase 71 (38-126) U/L Total Protein 6.6 (6.3-8.3) g/dL Albumin 3.1 L (3.5-5.0) g/dL Globulin 3.5 (2.2-3.9) gm/dL Albumin/Globulin Ratio 0.9 L (1.0-2.1) 01/10/17 01/09/17 01/09/17 Range/Units 03:31 23:35 18:15 WBC 14.3 H (4.8-10.8) K/uL RBC 3.97 (3.80-5.20) Mil/uL Hgb 11.5 (11.0-16.0) g/dL Hct 35.9 (34.0-47.0) % MCV 90.5 (81.0-99.0) fL MCH 29.0 (27.0-31.0) pg MCHC 32.0 L (33.0-37.0) g/dL RDW 14.8 H (11.5-14.5) % Plt Count 72 L (130-400) K/uL MPV 11.5 (7.2-11.7) fL Neut % (Auto) 82.0 H (50.0-75.0) % Lymph % (Auto) 12.4 L (20.0-40.0) % Luce % (Auto) 5.4 (0.0-10.0) % Eos % (Auto) 0.1 (0.0-4.0) % Baso % (Auto) 0.1 (0.0-2.0) % Neut # 11.7 H (1.8-7.0) K/uL Lymph # 1.8 (1.0-4.3) K/uL Luce # 0.8 (0.0-0.8) K/uL Eos # 0.0 (0.0-0.7) K/uL Baso # 0.0 (0.0-0.2) K/uL Differential Comment Sodium (132-148) mmol/L Potassium (3.6-5.2) mmol/L Chloride (98-107) mmol/L Carbon Dioxide (22-30) mmol/L Anion Gap (10-20) BUN (7-17) mg/dL Creatinine (0.7-1.2) MG/DL Est GFR ( Amer) Est GFR (Non-Af Amer) POC Glucose (mg/dL) 203 H 219 H (65-110) mg/dL Random Glucose (65-105) mg/dL Calcium (8.6-10.4) mg/dl Total Bilirubin (0.2-1.3) mg/dL AST (14-36) U/L ALT (9-52) U/L Alkaline Phosphatase (38-126) U/L Total Protein (6.3-8.3) g/dL Albumin (3.5-5.0) g/dL Globulin (2.2-3.9) gm/dL Albumin/Globulin Ratio (1.0-2.1) Laboratory Results - last 24 hr 01/09/17 01/09/17 01/10/17 18:15 23:35 03:31 WBC 14.3 H RBC 3.97 Hgb 11.5 Hct 35.9 MCV 90.5 MCH 29.0 MCHC 32.0 L RDW 14.8 H Plt Count 72 L MPV 11.5 Neut % (Auto) 82.0 H Lymph % (Auto) 12.4 L Luce % (Auto) 5.4 Eos % (Auto) 0.1 Baso % (Auto) 0.1 Neut # 11.7 H Lymph # 1.8 Luce # 0.8 Eos # 0.0 Baso # 0.0 Differential Comment Sodium Potassium Chloride Carbon Dioxide Anion Gap BUN Creatinine Est GFR ( Amer) Est GFR (Non-Af Amer) POC Glucose (mg/dL) 219 H 203 H Random Glucose Calcium Total Bilirubin AST ALT Alkaline Phosphatase Total Protein Albumin Globulin Albumin/Globulin Ratio 01/10/17 01/10/17 01/10/17 03:31 10:30 11:41 WBC RBC Hgb Hct MCV MCH MCHC RDW Plt Count MPV Neut % (Auto) Lymph % (Auto) Luce % (Auto) Eos % (Auto) Baso % (Auto) Neut # Lymph # Luce # Eos # Baso # Differential Comment Sodium 173 H* 175 H* Potassium 3.5 L 3.9 Chloride 137 H 136 H Carbon Dioxide 22 21 L Anion Gap 18 22 H BUN 51 H 54 H Creatinine 0.9 1.0 Est GFR ( Amer) > 60 > 60 Est GFR (Non-Af Amer) > 60 55 POC Glucose (mg/dL) 276 H Random Glucose 191 H 226 H Calcium 8.6 8.6 Total Bilirubin 0.9 AST 80 H ALT 90 H Alkaline Phosphatase 71 Total Protein 6.6 Albumin 3.1 L Globulin 3.5 Albumin/Globulin Ratio 0.9 L Critical Care Progress Note - Nutrition Nutrition: Nutrition Category Date Time Status NPO Diet [DIET] Diets 01/04/17 Breakfast Active
[2017-01-10 16:03] LABS: ABG MECHANICAL RATE 12; ARTERIAL BLOOD GAS MODE PRVC; ATERIAL BLOOD GAS PEEP 5; CARBOXYHEMOGLOBIN 1.4 % (0.5-1.5); DRAW SITE ALINE; HHB 0.5 % (0.0-5.0)
[2017-01-10 16:13] LABS: CHLORIDE 135 mmol/L (98-107); POTASSIUM 3.6 mmol/L (3.6-5.2)
[2017-01-10 16:16] LABS: BLOOD UREA NITROGEN 48 mg/dL (7-17); CALCIUM 8.1 mg/dl (8.6-10.4); CARBON DIOXIDE 21 mmol/L (22-30); GFR AFRICAN-AMERICAN > 60; GLUCOSE,RANDOM 168 mg/dL (65-105)
[2017-01-10 16:24] LABS: SODIUM 168 mmol/L (132-148)
[2017-01-10 21:05] LABS: CHLORIDE 135 mmol/L (98-107)
[2017-01-10 21:06] LABS: POTASSIUM 3.6 mmol/L (3.6-5.2)
[2017-01-10 21:08] LABS: GFR AFRICAN-AMERICAN > 60; SODIUM 167 mmol/L (132-148)
[2017-01-10 21:09] LABS: BLOOD UREA NITROGEN 43 mg/dL (7-17); CARBON DIOXIDE 19 mmol/L (22-30); GLUCOSE,RANDOM 205 mg/dL (65-105)
[2017-01-10] MEDS: (Lantus) Insulin Glargine, Recombinant SC SCH (22:23)
[2017-01-11 04:14] LABS: BASO # 0.2 K/uL (0.0-0.2); BASO % 1.7 % (0.0-2.0); EOS % 0.4 % (0.0-4.0); HEMATOCRIT 32.4 % (34.0-47.0); LYMPH # 1.3 K/uL (1.0-4.3); LYMPH % 10.7 % (20.0-40.0); MEAN CELL VOLUME 91.7 fL (81.0-99.0); MEAN CORPUSCULAR HEMOGLOBIN 29.6 pg (27.0-31.0); MEAN CORPUSCULAR HGB CONC 32.3 g/dL (33.0-37.0); MEAN PLATELET VOLUME 11.3 fL (7.2-11.7); MONO # 0.7 K/uL (0.0-0.8); MONO % 5.2 % (0.0-10.0); NRBC % 0.1 % (0.0-2.0); RED CELL DISTRIBUTION WIDTH 14.8 % (11.5-14.5); WHITE BLOOD COUNT 12.5 K/uL (4.8-10.8)
[2017-01-11 04:26] LABS: CHLORIDE 132 mmol/L (98-107)
[2017-01-11 04:27] LABS: POTASSIUM 3.4 mmol/L (3.6-5.2)
[2017-01-11 04:28] LABS: GFR AFRICAN-AMERICAN > 60
[2017-01-11 04:29] LABS: ALB/GLOB RATIO 0.8 (1.0-2.1); ALKALINE PHOSPHATASE 70 U/L (38-126); ALT/SGPT 78 U/L (9-52); AST/SGOT 72 U/L (14-36); BILIRUBIN,TOTAL 0.7 mg/dL (0.2-1.3); BLOOD UREA NITROGEN 43 mg/dL (7-17); CARBON DIOXIDE 19 mmol/L (22-30); GLUCOSE,RANDOM 206 mg/dL (65-105); TOTAL PROTEIN 5.8 g/dL (6.3-8.3)
[2017-01-11 04:30] LABS: MAGNESIUM 2.8 mg/dL (1.6-2.3)
[2017-01-11 04:35] LABS: SODIUM 165 mmol/L (132-148)
[2017-01-11 06:03] LABS: ABG MECHANICAL RATE 12; ARTERIAL BLOOD GAS MODE PRVC; ARTERIAL BLOOD HGB O2 SAT 97.6 % (95.0-98.0); ATERIAL BLOOD GAS PEEP 5; CARBOXYHEMOGLOBIN 1.6 % (0.5-1.5); DRAW SITE ALINE; METHEMOGLOBIN 0.8 % (0.0-3.0)
[2017-01-11] MEDS: (Novolin R) Insulin Human Regular 100 units/ml vial SC SCH ×4 (06:59→18:47)
--- NOTE | 2017-01-11 12:32 | RAD ---
HISTORY: intubated COMPARISON: Portable chest 01/10/2017 FINDINGS: LUNGS: History tube and left central venous line are unchanged in position with NG tube placed with tip directed into the abdomen but off the inferior margins of the image. No acute infiltrate is identified. PLEURA: No significant pleural effusion identified, no pneumothorax apparent. CARDIOVASCULAR: Normal. OSSEOUS STRUCTURES: No significant abnormalities. VISUALIZED UPPER ABDOMEN: Normal. OTHER FINDINGS: None. IMPRESSION: Status post nasogastric placement as discussed above. No acute cardiopulmonary is appreciable.
--- NOTE | 2017-01-11 17:41 | CP.CCUPN ---
CCU Subjective - Physician Review Events Since Last Encounter (Free Text): 01/11/17 17:41 Patient is a 78-year-old female admitted initially with the atrial fibrillation , and vomiting. Patient condition complicated with the acute cerebral loss ischemic stroke in spite of the treatment with the anticoagulation. Patient condition got worse, underwent ventral colostomy. Patient is currently on ventilator. Spontaneous eye-opening noted. Patient has a minimal guard and cough reflex. On ventilator. Patient is not on any feeding at this time. We will start the patient on oral feeding Chest good air entry irregular heart sound abdomen nontender edema noted Chest x-ray nonspecific. Patient has a ventriculostomy, draining CSF fluid. Minimal blood-tinged noted. Platelet count is on the low side. Labs reviewed otherwise Assessment and recommendation: 72-year-old female with a history of atrial fibrillation intermittent, now admitted with acute ischemic changes, complicated with the significant brain damage. Status post ventral colostomy and decompression. We'll start the patient on feeding. Glucose control. Temperature control. DVT and GI prophylaxis. Patient is at high risk for venous thromboses because of the lack of anticoagulation secondary to the complications. And will follow the patient CCU Objective - Vital Signs / Intake & Output Vital Signs (Last 4 hours): Vital Signs Temp Pulse Resp BP Pulse Ox 01/11/17 17:25 145/61 01/11/17 16:27 111 H 29 H 137/53 L 100 01/11/17 16:00 99.4 F 115 H 21 100 01/11/17 15:27 101 H 26 H 130/53 L 100 01/11/17 15:00 94 H 23 100 01/11/17 14:27 83 26 H 134/79 99 01/11/17 14:00 95 H 27 H 99 Intake and Output (Last 8hrs): Intake & Output 01/11/17 01/11/17 01/11/17 06:59 14:59 22:59 Intake Total 605 459 160 Output Total 370 308 88 Balance 235 151 72 Weight 137 lb 8 oz Intake: IV 125 Intake, IV Amount 480 429 120 Left Medial Port Internal 80 80 20 Jugular Left Proximal Port 400 349 100 Internal Jugular Tube Feeding 30 40 Output: Drainage 28 3 Right Posterior Head 28 3 Urine 370 280 85 Urethral (Massey) 370 280 85 - Physical Exam Head: Positive for: Normocephalic Extroacular Muscles: Negative for: EOMI Mouth: Positive for: Other (intubated) Neck: Negative for: Normal Range of Motion Respiratory/Chest: Positive for: Clear to Auscultation, Other (intubated). Negative for: Wheezes, Rales, Rhonchi, Tachypneic Cardiovascular: Positive for: Normal S1, S2, Irregular Rhythm, Tachycardic Abdomen: Negative for: Distention, Normal Bowel Sounds (hypoactive) Upper Extremity: Positive for: Normal Inspection. Negative for: Edema Lower Extremity: Positive for: Normal Inspection. Negative for: Edema Neurological: Positive for: Other (no response to pain; gag reflex & corneal reflex+). Negative for: GCS=15, Motor Func Grossly Intact, Normal Sensory Function Skin: Positive for: Warm, Dry, Normal Color Psychiatric: Negative for: Alert, Oriented x 3 - Medications Active Medications: Active Medications Generic Name Dose Route Start Last Admin Trade Name Freq PRN Reason Stop Dose Admin Acetaminophen 650 mg 01/03/17 11:49 01/03/17 18:04 Tylenol 325mg Tab PO 650 mg Q6 PRN Administration Pain, Mild (1-3) Diltiazem HCl 60 mg 01/10/17 10:00 01/11/17 17:25 Cardizem PO 60 mg QID MIRELLA Administration Diltiazem HCl 125 mg/ Sodium 125 mls @ 5 mls/hr 01/09/17 10:15 01/11/17 11:19 Chloride IV 10 mg/hr .Q24H PRN 10 mls/hr PER PROTOCOL Administration Protocol 5 MG/HR Dextrose 1,000 mls @ 50 mls/hr 01/10/17 17:06 01/11/17 16:39 Dextrose 5% In Water 1000 Ml IV 50 mls/hr .Q20H MIRELLA Administration Insulin Glargine 13 unit 01/07/17 20:30 01/10/17 22:23 Lantus SC 13 u HS MIRELLA Administration Insulin Human Regular 0 unit 01/10/17 14:17 01/11/17 12:42 Novolin R SC 2 unit Q6 MIRELLA Administration Protocol Lisinopril 5 mg 01/11/17 09:30 01/11/17 10:23 Zestril PO Not Given DAILY MIRELLA Metoprolol Tartrate 25 mg 01/11/17 10:00 01/11/17 17:25 Lopressor PO 25 mg BID MIRELLA Administration Pantoprazole Sodium 40 mg 01/02/17 10:00 01/11/17 09:56 Protonix Inj IVP 40 mg DAILY MIRELLA Administration Rosuvastatin Calcium 20 mg 01/03/17 22:00 01/10/17 22:23 Crestor PO 20 mg HS MIRELLA Administration - Patient Studies Lab Studies: Lab Studies 01/11/17 01/11/17 01/11/17 Range/Units 11:36 06:23 05:00 WBC (4.8-10.8) K/uL RBC (3.80-5.20) Mil/uL Hgb (11.0-16.0) g/dL Hct (34.0-47.0) % MCV (81.0-99.0) fL MCH (27.0-31.0) pg MCHC (33.0-37.0) g/dL RDW (11.5-14.5) % Plt Count (130-400) K/uL MPV (7.2-11.7) fL Neut % (Auto) (50.0-75.0) % Lymph % (Auto) (20.0-40.0) % Butts % (Auto) (0.0-10.0) % Eos % (Auto) (0.0-4.0) % Baso % (Auto) (0.0-2.0) % Neut # (1.8-7.0) K/uL Lymph # (1.0-4.3) K/uL Butts # (0.0-0.8) K/uL Eos # (0.0-0.7) K/uL Baso # (0.0-0.2) K/uL Puncture Site [place] pCO2 23 L (35-45) mm/Hg pO2 161 H (80-100) mm/Hg HCO3 23.1 (21-28) mmol/L ABG pH 7.51 H (7.35-7.45) ABG Total CO2 19.1 L (22-28) mmol/L ABG O2 Saturation 100.0 H (95-98) % ABG Base Excess -2.4 L (-2.0-3.0) mmol/L ABG Hemoglobin 15.5 (11.7-17.4) g/dL ABG Carboxyhemoglobin 1.6 H (0.5-1.5) % POC ABG HHb (Measured) 0.0 (0.0-5.0) % ABG Methemoglobin 0.8 (0.0-3.0) % Chandana Test Na A-a O2 Difference 24.0 mm/Hg Respiratory Index 0.1 Hgb O2 Saturation 97.6 (95.0-98.0) % Vent Mode Prvc Mechanical Rate 12 FiO2 30.0 % Tidal Volume 400 PEEP 5 Sodium (132-148) mmol/L Potassium (3.6-5.2) mmol/L Chloride (98-107) mmol/L Carbon Dioxide (22-30) mmol/L Anion Gap (10-20) BUN (7-17) mg/dL Creatinine (0.7-1.2) MG/DL Est GFR ( Amer) Est GFR (Non-Af Amer) POC Glucose (mg/dL) 174 H 204 H (65-110) mg/dL Random Glucose (65-105) mg/dL Calcium (8.6-10.4) mg/dl Phosphorus (2.5-4.5) mg/dL Magnesium (1.6-2.3) mg/dL Total Bilirubin (0.2-1.3) mg/dL AST (14-36) U/L ALT (9-52) U/L Alkaline Phosphatase (38-126) U/L Total Protein (6.3-8.3) g/dL Albumin (3.5-5.0) g/dL Globulin (2.2-3.9) gm/dL Albumin/Globulin Ratio (1.0-2.1) 01/11/17 01/11/17 01/11/17 Range/Units 04:09 04:09 02:22 WBC 12.5 H (4.8-10.8) K/uL RBC 3.53 L (3.80-5.20) Mil/uL Hgb 10.5 L (11.0-16.0) g/dL Hct 32.4 L (34.0-47.0) % MCV 91.7 (81.0-99.0) fL MCH 29.6 (27.0-31.0) pg MCHC 32.3 L (33.0-37.0) g/dL RDW 14.8 H (11.5-14.5) % Plt Count 50 L D (130-400) K/uL MPV 11.3 (7.2-11.7) fL Neut % (Auto) 82.0 H (50.0-75.0) % Lymph % (Auto) 10.7 L (20.0-40.0) % Butts % (Auto) 5.2 (0.0-10.0) % Eos % (Auto) 0.4 (0.0-4.0) % Baso % (Auto) 1.7 (0.0-2.0) % Neut # 10.3 H (1.8-7.0) K/uL Lymph # 1.3 (1.0-4.3) K/uL Butts # 0.7 (0.0-0.8) K/uL Eos # 0.0 (0.0-0.7) K/uL Baso # 0.2 (0.0-0.2) K/uL Puncture Site pCO2 (35-45) mm/Hg pO2 (80-100) mm/Hg HCO3 (21-28) mmol/L ABG pH (7.35-7.45) ABG Total CO2 (22-28) mmol/L ABG O2 Saturation (95-98) % ABG Base Excess (-2.0-3.0) mmol/L ABG Hemoglobin (11.7-17.4) g/dL ABG Carboxyhemoglobin (0.5-1.5) % POC ABG HHb (Measured) (0.0-5.0) % ABG Methemoglobin (0.0-3.0) % Chandana Test A-a O2 Difference mm/Hg Respiratory Index Hgb O2 Saturation (95.0-98.0) % Vent Mode Mechanical Rate FiO2 % Tidal Volume PEEP Sodium 165 H* (132-148) mmol/L Potassium 3.4 L (3.6-5.2) mmol/L Chloride 132 H (98-107) mmol/L Carbon Dioxide 19 L (22-30) mmol/L Anion Gap 17 (10-20) BUN 43 H (7-17) mg/dL Creatinine 0.8 (0.7-1.2) MG/DL Est GFR ( Amer) > 60 Est GFR (Non-Af Amer) > 60 POC Glucose (mg/dL) 202 H (65-110) mg/dL Random Glucose 206 H (65-105) mg/dL Calcium 8.0 L (8.6-10.4) mg/dl Phosphorus 3.0 (2.5-4.5) mg/dL Magnesium 2.8 H (1.6-2.3) mg/dL Total Bilirubin 0.7 (0.2-1.3) mg/dL AST 72 H (14-36) U/L ALT 78 H (9-52) U/L Alkaline Phosphatase 70 (38-126) U/L Total Protein 5.8 L (6.3-8.3) g/dL Albumin 2.5 L (3.5-5.0) g/dL Globulin 3.2 (2.2-3.9) gm/dL Albumin/Globulin Ratio 0.8 L (1.0-2.1) 01/10/17 01/10/17 Range/Units 20:51 17:53 WBC (4.8-10.8) K/uL RBC (3.80-5.20) Mil/uL Hgb (11.0-16.0) g/dL Hct (34.0-47.0) % MCV (81.0-99.0) fL MCH (27.0-31.0) pg MCHC (33.0-37.0) g/dL RDW (11.5-14.5) % Plt Count (130-400) K/uL MPV (7.2-11.7) fL Neut % (Auto) (50.0-75.0) % Lymph % (Auto) (20.0-40.0) % Butts % (Auto) (0.0-10.0) % Eos % (Auto) (0.0-4.0) % Baso % (Auto) (0.0-2.0) % Neut # (1.8-7.0) K/uL Lymph # (1.0-4.3) K/uL Butts # (0.0-0.8) K/uL Eos # (0.0-0.7) K/uL Baso # (0.0-0.2) K/uL Puncture Site pCO2 (35-45) mm/Hg pO2 (80-100) mm/Hg HCO3 (21-28) mmol/L ABG pH (7.35-7.45) ABG Total CO2 (22-28) mmol/L ABG O2 Saturation (95-98) % ABG Base Excess (-2.0-3.0) mmol/L ABG Hemoglobin (11.7-17.4) g/dL ABG Carboxyhemoglobin (0.5-1.5) % POC ABG HHb (Measured) (0.0-5.0) % ABG Methemoglobin (0.0-3.0) % Chandana Test A-a O2 Difference mm/Hg Respiratory Index Hgb O2 Saturation (95.0-98.0) % Vent Mode Mechanical Rate FiO2 % Tidal Volume PEEP Sodium 167 H* (132-148) mmol/L Potassium 3.6 (3.6-5.2) mmol/L Chloride 135 H (98-107) mmol/L Carbon Dioxide 19 L (22-30) mmol/L Anion Gap 17 (10-20) BUN 43 H (7-17) mg/dL Creatinine 0.9 (0.7-1.2) MG/DL Est GFR ( Amer) > 60 Est GFR (Non-Af Amer) > 60 POC Glucose (mg/dL) 170 H (65-110) mg/dL Random Glucose 205 H (65-105) mg/dL Calcium 8.0 L (8.6-10.4) mg/dl Phosphorus (2.5-4.5) mg/dL Magnesium (1.6-2.3) mg/dL Total Bilirubin (0.2-1.3) mg/dL AST (14-36) U/L ALT (9-52) U/L Alkaline Phosphatase (38-126) U/L Total Protein (6.3-8.3) g/dL Albumin (3.5-5.0) g/dL Globulin (2.2-3.9) gm/dL Albumin/Globulin Ratio (1.0-2.1) Laboratory Results - last 24 hr 01/10/17 01/10/17 01/11/17 17:53 20:51 02:22 WBC RBC Hgb Hct MCV MCH MCHC RDW Plt Count MPV Neut % (Auto) Lymph % (Auto) Butts % (Auto) Eos % (Auto) Baso % (Auto) Neut # Lymph # Butts # Eos # Baso # Puncture Site pCO2 pO2 HCO3 ABG pH ABG Total CO2 ABG O2 Saturation ABG Base Excess ABG Hemoglobin ABG Carboxyhemoglobin POC ABG HHb (Measured) ABG Methemoglobin Chandana Test A-a O2 Difference Respiratory Index Hgb O2 Saturation Vent Mode Mechanical Rate FiO2 Tidal Volume PEEP Sodium 167 H* Potassium 3.6 Chloride 135 H Carbon Dioxide 19 L Anion Gap 17 BUN 43 H Creatinine 0.9 Est GFR ( Amer) > 60 Est GFR (Non-Af Amer) > 60 POC Glucose (mg/dL) 170 H 202 H Random Glucose 205 H Calcium 8.0 L Phosphorus Magnesium Total Bilirubin AST ALT Alkaline Phosphatase Total Protein Albumin Globulin Albumin/Globulin Ratio 01/11/17 01/11/17 01/11/17 04:09 04:09 05:00 WBC 12.5 H RBC 3.53 L Hgb 10.5 L Hct 32.4 L MCV 91.7 MCH 29.6 MCHC 32.3 L RDW 14.8 H Plt Count 50 L D MPV 11.3 Neut % (Auto) 82.0 H Lymph % (Auto) 10.7 L Butts % (Auto) 5.2 Eos % (Auto) 0.4 Baso % (Auto) 1.7 Neut # 10.3 H Lymph # 1.3 Butts # 0.7 Eos # 0.0 Baso # 0.2 Puncture Site [place] pCO2 23 L pO2 161 H HCO3 23.1 ABG pH 7.51 H ABG Total CO2 19.1 L ABG O2 Saturation 100.0 H ABG Base Excess -2.4 L ABG Hemoglobin 15.5 ABG Carboxyhemoglobin 1.6 H POC ABG HHb (Measured) 0.0 ABG Methemoglobin 0.8 Chandana Test Na A-a O2 Difference 24.0 Respiratory Index 0.1 Hgb O2 Saturation 97.6 Vent Mode Prvc Mechanical Rate 12 FiO2 30.0 Tidal Volume 400 PEEP 5 Sodium 165 H* Potassium 3.4 L Chloride 132 H Carbon Dioxide 19 L Anion Gap 17 BUN 43 H Creatinine 0.8 Est GFR ( Amer) > 60 Est GFR (Non-Af Amer) > 60 POC Glucose (mg/dL) Random Glucose 206 H Calcium 8.0 L Phosphorus 3.0 Magnesium 2.8 H Total Bilirubin 0.7 AST 72 H ALT 78 H Alkaline Phosphatase 70 Total Protein 5.8 L Albumin 2.5 L Globulin 3.2 Albumin/Globulin Ratio 0.8 L 01/11/17 01/11/17 06:23 11:36 WBC RBC Hgb Hct MCV MCH MCHC RDW Plt Count MPV Neut % (Auto) Lymph % (Auto) Butts % (Auto) Eos % (Auto) Baso % (Auto) Neut # Lymph # Butts # Eos # Baso # Puncture Site pCO2 pO2 HCO3 ABG pH ABG Total CO2 ABG O2 Saturation ABG Base Excess ABG Hemoglobin ABG Carboxyhemoglobin POC ABG HHb (Measured) ABG Methemoglobin Chandana Test A-a O2 Difference Respiratory Index Hgb O2 Saturation Vent Mode Mechanical Rate FiO2 Tidal Volume PEEP Sodium Potassium Chloride Carbon Dioxide Anion Gap BUN Creatinine Est GFR ( Amer) Est GFR (Non-Af Amer) POC Glucose (mg/dL) 204 H 174 H Random Glucose Calcium Phosphorus Magnesium Total Bilirubin AST ALT Alkaline Phosphatase Total Protein Albumin Globulin Albumin/Globulin Ratio Fingerstick Blood Sugar Results: 174
[2017-01-11] MEDS: (Lantus) Insulin Glargine, Recombinant SC SCH (22:34)
[2017-01-12] MEDS: (Novolin R) Insulin Human Regular 100 units/ml vial SC SCH ×5 (00:44→23:00)
[2017-01-12 06:32] LABS: BASO % 0.2 % (0.0-2.0); EOS # 0.2 K/uL (0.0-0.7); EOS % 1.4 % (0.0-4.0); HEMATOCRIT 32.8 % (34.0-47.0); LYMPH # 2.4 K/uL (1.0-4.3); MEAN CORPUSCULAR HEMOGLOBIN 28.8 pg (27.0-31.0); MEAN CORPUSCULAR HGB CONC 32.1 g/dL (33.0-37.0); MEAN PLATELET VOLUME 13.2 fL (7.2-11.7); MONO # 0.6 K/uL (0.0-0.8); MONO % 4.4 % (0.0-10.0); NRBC % 0.1 % (0.0-2.0); RED CELL DISTRIBUTION WIDTH 14.3 % (11.5-14.5); WHITE BLOOD COUNT 13.1 K/uL (4.8-10.8)
[2017-01-12 06:52] LABS: CHLORIDE 125 mmol/L (98-107); SODIUM 157 mmol/L (132-148)
[2017-01-12 06:53] LABS: POTASSIUM 3.5 mmol/L (3.6-5.2)
[2017-01-12 06:55] LABS: ALB/GLOB RATIO 0.8 (1.0-2.1); ALKALINE PHOSPHATASE 71 U/L (38-126); AST/SGOT 63 U/L (14-36); BILIRUBIN,TOTAL 0.5 mg/dL (0.2-1.3); BLOOD UREA NITROGEN 39 mg/dL (7-17); GFR AFRICAN-AMERICAN > 60; GLUCOSE,RANDOM 285 mg/dL (65-105); TOTAL PROTEIN 5.7 g/dL (6.3-8.3)
[2017-01-12 06:56] LABS: ALT/SGPT 71 U/L (9-52); CALCIUM 7.8 mg/dl (8.6-10.4)
[2017-01-12 07:16] LABS: CARBON DIOXIDE 19 mmol/L (22-30)
[2017-01-12] MEDS ORDERED: Digoxin 500 mcg/2ml (0.5 mg/2ml) Inj IVP ONE (07:48)
[2017-01-12 08:07] VITALS: PULSE 155
[2017-01-12] MEDS: Vancomycin 1 gm/NS 200 ml 1 GM/200 ML BAG IVPB SCH ×2 (09:04→22:30)
[2017-01-12] MEDS: Piperacill/Tazo 3.375gm in Dex 3.375 GM/50 ML BAG IVPB SCH ×3 (09:04→22:00)
[2017-01-12 10:04] LABS: FLUID TYPE SPINAL FLUID
[2017-01-12 11:54] LABS: CSF NEUTROPHIL 42 % (0-0)
[2017-01-12 11:55] LABS: CSF TOTAL COUNT 100 (0-0)
--- NOTE | 2017-01-12 17:59 | CP.CCUPN ---
CCU Subjective - Physician Review Events Since Last Encounter (Free Text): 01/12/17 17:56 Patient is a 78-year-old female admitted initially with the atrial fibrillation , and vomiting. Patient condition complicated with the acute cerebellar ischemic stroke in spite of the treatment with the anticoagulation. Patient condition got worse, underwent ventriculostomy Patient is currently on ventilator. Spontaneous eye-opening noted. Patient has a minimal guard and cough reflex. On ventilator. feeding started Patient had a low-grade fever today. Grimacing with the deep pain. Family is at bedside. Spoke to the neurologist. Also spoke to the neurosurgeon regarding the status of the ventricle drainage Chest x-ray nonspecific. Patient has a ventriculostomy, draining CSF fluid. Minimal blood-tinged noted. Labs reviewed Cultures ordered including the CSF and antibiotic started Assessment and recommendation: 72-year-old female with a history of atrial fibrillation intermittent, now admitted with acute ischemic changes, complicated with the significant brain damage. Status post ventral colostomy and decompression. We'll start the patient on feeding. Glucose control. Temperature control. DVT and GI prophylaxis. Patient is at high risk for venous thromboses because of the lack of anticoagulation secondary to the complications. And will follow the patient Overall prognosis very poor CCU Objective - Vital Signs / Intake & Output Vital Signs (Last 4 hours): Vital Signs Temp Pulse Resp BP Pulse Ox 01/12/17 17:00 106 H 26 H 100 01/12/17 16:27 99 H 31 H 128/67 98 01/12/17 16:00 98.7 F 93 H 31 H 97 01/12/17 15:27 76 30 H 120/74 96 01/12/17 15:00 85 32 H 98 01/12/17 14:27 111 H 29 H 141/65 98 01/12/17 14:00 95 H 31 H 94 L Intake and Output (Last 8hrs): Intake & Output 01/12/17 01/12/17 01/12/17 06:59 14:59 22:59 Intake Total 680 1185 495 Output Total 370 315 90 Balance 310 870 405 Weight 137 lb 8 oz Intake: IV 125 Intake, IV Amount 480 705 170 Left Medial Port Internal 80 80 20 Jugular Left Proximal Port 400 625 150 Internal Jugular Oral 280 150 Tube Feeding 200 200 50 Output: Drainage 30 45 Right Posterior Head 30 45 Urine 340 270 90 Urethral (Massey) 340 270 90 Other: # Bowel Movements 1 0 - Physical Exam Head: Positive for: Normocephalic Extroacular Muscles: Negative for: EOMI Mouth: Positive for: Other (intubated) Neck: Negative for: Normal Range of Motion Respiratory/Chest: Positive for: Clear to Auscultation, Other (intubated). Negative for: Wheezes, Rales, Rhonchi, Tachypneic Cardiovascular: Positive for: Normal S1, S2, Irregular Rhythm, Tachycardic Abdomen: Negative for: Distention, Normal Bowel Sounds (hypoactive) Upper Extremity: Positive for: Normal Inspection. Negative for: Edema Lower Extremity: Positive for: Normal Inspection. Negative for: Edema Neurological: Positive for: Other (no response to pain; gag reflex & corneal reflex+). Negative for: GCS=15, Motor Func Grossly Intact, Normal Sensory Function Skin: Positive for: Warm, Dry, Normal Color Psychiatric: Negative for: Alert, Oriented x 3 - Medications Active Medications: Active Medications Generic Name Dose Route Start Last Admin Trade Name Freq PRN Reason Stop Dose Admin Acetaminophen 650 mg 01/03/17 11:49 01/12/17 08:16 Tylenol 325mg Tab PO 650 mg Q6 PRN Administration Pain, Mild (1-3) Diltiazem HCl 60 mg 01/10/17 10:00 01/12/17 14:31 Cardizem PO 60 mg QID MIRELLA Administration Diltiazem HCl 125 mg/ Sodium 125 mls @ 5 mls/hr 01/09/17 10:15 01/12/17 15:47 Chloride IV Infused .Q24H PRN Titration PER PROTOCOL Protocol 5 MG/HR Dextrose 1,000 mls @ 50 mls/hr 01/10/17 17:06 01/12/17 14:31 Dextrose 5% In Water 1000 Ml IV 50 mls/hr .Q20H MIRELLA Administration Piperacillin Sod/Tazobactam Sod 3.375 gm in 50 mls @ 100 mls/hr 01/12/17 09: 00 01/12/17 15:48 Zosyn 3.375 Gm Iv Premix IVPB 100 mls/hr Q6H MIRELLA Administration Vancomycin/Sodium Chloride 1 gm in 200 mls @ 166.6 mls/hr 01/12/17 10:00 09:04 Vancocin IVPB 01/17/17 10:01 166.6 mls/hr Q12 MIRELLA Administration Insulin Glargine 13 unit 01/07/17 20:30 01/11/17 22:34 Lantus SC 13 u HS MIRELLA Administration Insulin Human Regular 0 unit 01/10/17 14:17 01/12/17 12:58 Novolin R SC 3 unit Q6 MIRELLA Administration Protocol Lisinopril 5 mg 01/11/17 09:30 01/12/17 09:16 Zestril PO 5 mg DAILY MIRELLA Administration Metoprolol Tartrate 25 mg 01/11/17 10:00 01/12/17 09:16 Lopressor PO 25 mg BID MIRELLA Administration Pantoprazole Sodium 40 mg 01/02/17 10:00 01/12/17 09:16 Protonix Inj IVP 40 mg DAILY MIRELLA Administration Rosuvastatin Calcium 20 mg 01/03/17 22:00 01/11/17 22:34 Crestor PO 20 mg HS MIRELLA Administration - Patient Studies Lab Studies: Microbiology Studies 01/12/17 15:19 Gram Stain - Final Trachasp 01/12/17 10:05 Gram Stain - Preliminary Cerebral Spinal Fluid Lab Studies 01/12/17 01/12/17 01/12/17 Range/Units 12:08 10:02 06:24 WBC 13.1 H (4.8-10.8) K/uL RBC 3.64 L (3.80-5.20) Mil/uL Hgb 10.5 L (11.0-16.0) g/dL Hct 32.8 L (34.0-47.0) % MCV 90.0 (81.0-99.0) fL MCH 28.8 (27.0-31.0) pg MCHC 32.1 L (33.0-37.0) g/dL RDW 14.3 (11.5-14.5) % Plt Count 56 L (130-400) K/uL MPV 13.2 H (7.2-11.7) fL Neut % (Auto) 76.0 H (50.0-75.0) % Lymph % (Auto) 18.0 L (20.0-40.0) % [place] % (Auto) 4.4 (0.0-10.0) % Eos % (Auto) 1.4 (0.0-4.0) % Baso % (Auto) 0.2 (0.0-2.0) % Neut # 9.9 H (1.8-7.0) K/uL Lymph # 2.4 (1.0-4.3) K/uL [place] # 0.6 (0.0-0.8) K/uL Eos # 0.2 (0.0-0.7) K/uL Baso # 0.0 (0.0-0.2) K/uL Sodium (132-148) mmol/L Potassium (3.6-5.2) mmol/L Chloride (98-107) mmol/L Carbon Dioxide (22-30) mmol/L Anion Gap (10-20) BUN (7-17) mg/dL Creatinine (0.7-1.2) MG/DL Est GFR ( Amer) Est GFR (Non-Af Amer) POC Glucose (mg/dL) 231 H (65-110) mg/dL Random Glucose (65-105) mg/dL Calcium (8.6-10.4) mg/dl Total Bilirubin (0.2-1.3) mg/dL AST (14-36) U/L ALT (9-52) U/L Alkaline Phosphatase (38-126) U/L Total Protein (6.3-8.3) g/dL Albumin (3.5-5.0) g/dL Globulin (2.2-3.9) gm/dL Albumin/Globulin Ratio (1.0-2.1) Fluid Type Spinal fluid CSF Volume 9 H (0-1) mL CSF Appearance Bloody (CLEAR) CSF WBC 366.0 H (0.0-5.0) /mm3 CSF RBC 016965.0 H (0.0-0.0) /mm3 CSF Total Cell Counted 100 H (0-0) CSF Neutrophils 42 H (0-0) % CSF Lymphocytes 43.0 H (0-0) % CSF Monos/Macrophages 15 H (0-0) % CSF Comment 01/12/17 01/11/17 01/11/17 Range/Units 06:19 23:53 18:03 WBC (4.8-10.8) K/uL RBC (3.80-5.20) Mil/uL Hgb (11.0-16.0) g/dL Hct (34.0-47.0) % MCV (81.0-99.0) fL MCH (27.0-31.0) pg MCHC (33.0-37.0) g/dL RDW (11.5-14.5) % Plt Count (130-400) K/uL MPV (7.2-11.7) fL Neut % (Auto) (50.0-75.0) % Lymph % (Auto) (20.0-40.0) % [place] % (Auto) (0.0-10.0) % Eos % (Auto) (0.0-4.0) % Baso % (Auto) (0.0-2.0) % Neut # (1.8-7.0) K/uL Lymph # (1.0-4.3) K/uL [place] # (0.0-0.8) K/uL Eos # (0.0-0.7) K/uL Baso # (0.0-0.2) K/uL Sodium 157 H (132-148) mmol/L Potassium 3.5 L (3.6-5.2) mmol/L Chloride 125 H (98-107) mmol/L Carbon Dioxide 19 L (22-30) mmol/L Anion Gap 18 (10-20) BUN 39 H (7-17) mg/dL Creatinine 0.7 (0.7-1.2) MG/DL Est GFR ( Amer) > 60 Est GFR (Non-Af Amer) > 60 POC Glucose (mg/dL) 242 H 221 H (65-110) mg/dL Random Glucose 285 H (65-105) mg/dL Calcium 7.8 L (8.6-10.4) mg/dl Total Bilirubin 0.5 (0.2-1.3) mg/dL AST 63 H (14-36) U/L ALT 71 H (9-52) U/L Alkaline Phosphatase 71 (38-126) U/L Total Protein 5.7 L (6.3-8.3) g/dL Albumin 2.5 L (3.5-5.0) g/dL Globulin 3.2 (2.2-3.9) gm/dL Albumin/Globulin Ratio 0.8 L (1.0-2.1) Fluid Type CSF Volume (0-1) mL CSF Appearance (CLEAR) CSF WBC (0.0-5.0) /mm3 CSF RBC (0.0-0.0) /mm3 CSF Total Cell Counted (0-0) CSF Neutrophils (0-0) % CSF Lymphocytes (0-0) % CSF Monos/Macrophages (0-0) % CSF Comment Laboratory Results - last 24 hr 01/11/17 01/11/17 01/12/17 18:03 23:53 06:19 WBC RBC Hgb Hct MCV MCH MCHC RDW Plt Count MPV Neut % (Auto) Lymph % (Auto) [place] % (Auto) Eos % (Auto) Baso % (Auto) Neut # Lymph # [place] # Eos # Baso # Sodium 157 H Potassium 3.5 L Chloride 125 H Carbon Dioxide 19 L Anion Gap 18 BUN 39 H Creatinine 0.7 Est GFR ( Amer) > 60 Est GFR (Non-Af Amer) > 60 POC Glucose (mg/dL) 221 H 242 H Random Glucose 285 H Calcium 7.8 L Total Bilirubin 0.5 AST 63 H ALT 71 H Alkaline Phosphatase 71 Total Protein 5.7 L Albumin 2.5 L Globulin 3.2 Albumin/Globulin Ratio 0.8 L Fluid Type CSF Volume CSF Appearance CSF WBC CSF RBC CSF Total Cell Counted CSF Neutrophils CSF Lymphocytes CSF Monos/Macrophages CSF Comment 01/12/17 01/12/17 01/12/17 06:24 10:02 12:08 WBC 13.1 H RBC 3.64 L Hgb 10.5 L Hct 32.8 L MCV 90.0 MCH 28.8 MCHC 32.1 L RDW 14.3 Plt Count 56 L MPV 13.2 H Neut % (Auto) 76.0 H Lymph % (Auto) 18.0 L [place] % (Auto) 4.4 Eos % (Auto) 1.4 Baso % (Auto) 0.2 Neut # 9.9 H Lymph # 2.4 [place] # 0.6 Eos # 0.2 Baso # 0.0 Sodium Potassium Chloride Carbon Dioxide Anion Gap BUN Creatinine Est GFR ( Amer) Est GFR (Non-Af Amer) POC Glucose (mg/dL) 231 H Random Glucose Calcium Total Bilirubin AST ALT Alkaline Phosphatase Total Protein Albumin Globulin Albumin/Globulin Ratio Fluid Type Spinal fluid CSF Volume 9 H CSF Appearance Bloody CSF WBC 366.0 H CSF RBC 537114.0 H CSF Total Cell Counted 100 H CSF Neutrophils 42 H CSF Lymphocytes 43.0 H CSF Monos/Macrophages 15 H CSF Comment Fingerstick Blood Sugar Results: 231
--- NOTE | 2017-01-12 20:44 | CP.PCM.CON ---
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 The patient is currently intubated and I am unable to obtain a history from the patient. Review of her blood work shows she was admitted with a normal platelet count which has now nadired at 50,000. There is no overt evidence of significant bleeding or bruising. Past medical, surgical, family, social history cannot be obtained from the patient. Allergies: NKDA Review of systems cannot be obtained from the patient. Past Patient History - Infectious Disease Hx of Infectious Diseases: None - Past Medical History & Family History Past Medical History?: Yes - Past Social History Smoking Status: Never Smoked - CARDIAC Hx Cardiac Disorders: Yes Hx Hypertension: Yes - PULMONARY Hx Respiratory Disorders: No - NEUROLOGICAL Hx Neurological Disorder: No - HEENT Hx HEENT Problems: Yes Hx Cataracts: Yes (cataract sx 5 years ago) - RENAL Hx Chronic Kidney Disease: No - ENDOCRINE/METABOLIC Hx Endocrine Disorders: Yes Hx Diabetes Mellitus Type 2: Yes - HEMATOLOGICAL/ONCOLOGICAL Hx Blood Disorders: No - INTEGUMENTARY Hx Dermatological Problems: No - MUSCULOSKELETAL/RHEUMATOLOGICAL Hx Falls: No - GASTROINTESTINAL Hx Gastrointestinal Disorders: Yes Hx Vomiting: Yes - GENITOURINARY/GYNECOLOGICAL Hx Genitourinary Disorders: No - PSYCHIATRIC Hx Substance Use: No - SURGICAL HISTORY Hx Surgeries: Yes Hx Cataract Extraction: Yes (5 years ago) - ANESTHESIA Hx Anesthesia: No Hx Anesthesia Reactions: No Hx Malignant Hyperthermia: No Has any member of the family had a problem w/ anesthesia?: No Meds Allergies/Adverse Reactions: Allergies Allergy/AdvReac Type Severity Reaction Status Date / Time SEAFOOD Allergy Uncoded 01/01/17 16:53 - Medications Medications: Current Medications Acetaminophen (Tylenol 325mg Tab) 650 mg PO Q6 PRN PRN Reason: Pain, Mild (1-3) Last Admin: 01/12/17 08:16 Dose: 650 mg Diltiazem HCl (Cardizem) 60 mg PO QID [facility] Last Admin: 01/12/17 18:14 Dose: 60 mg Diltiazem HCl 125 mg/ Sodium (Chloride) 125 mls @ 5 mls/hr IV .Q24H PRN; Protocol; 5 MG/HR PRN Reason: PER PROTOCOL Last Titration: 01/12/17 15:47 Dose: Infused Piperacillin Sod/Tazobactam Sod (Zosyn 3.375 Gm Iv Premix) 3.375 gm in 50 mls @ 100 mls/hr IVPB Q6H [facility] Last Admin: 01/12/17 15:48 Dose: 100 mls/hr Vancomycin/Sodium Chloride (Vancocin) 1 gm in 200 mls @ 166.6 mls/hr IVPB Q12 [facility] Stop: 01/17/17 10:01 Last Admin: 01/12/17 09:04 Dose: 166.6 mls/hr Insulin Glargine (Lantus) 13 unit SC [facility] Last Admin: 01/11/17 22:34 Dose: 13 u Insulin Human Regular (Novolin R) 0 unit SC Q6 [facility] PRN Reason: Protocol Last Admin: 01/12/17 18:19 Dose: 4 unit Lisinopril (Zestril) 5 mg PO DAILY [facility] Last Admin: 01/12/17 09:16 Dose: 5 mg Metoprolol Tartrate (Lopressor) 25 mg PO BID [facility] Last Admin: 01/12/17 18:14 Dose: 25 mg Pantoprazole Sodium (Protonix Inj) 40 mg IVP DAILY [facility] Last Admin: 01/12/17 09:16 Dose: 40 mg Rosuvastatin Calcium (Crestor) 20 mg PO [facility] Last Admin: 01/11/17 22:34 Dose: 20 mg Physical Exam - Head Exam Head Exam: ATRAUMATIC - Eye Exam Eye Exam: Normal appearance - ENT Exam ENT Exam: Mucous Membranes Dry - Respiratory Exam Respiratory Exam: NORMAL BREATHING PATTERN - Cardiovascular Exam Cardiovascular Exam: +S1, +S2 - GI/Abdominal Exam GI & Abdominal Exam: Normal Bowel Sounds - Extremities Exam Extremities exam: Positive for: normal inspection Results - Vital Signs Recent Vital Signs: Last Vital Signs Temp 98.7 F 01/12/17 16:00 Pulse 87 01/12/17 19:27 Resp 23 01/12/17 19:27 BP 128/76 01/12/17 19:27 Pulse Ox 99 01/12/17 19:27 - Labs Result Diagrams: 01/12/17 06:24 01/12/17 06:19 Labs: Laboratory Results - last 24 hr 01/11/17 01/12/17 01/12/17 23:53 06:19 06:24 WBC 13.1 H RBC 3.64 L Hgb 10.5 L Hct 32.8 L MCV 90.0 MCH 28.8 MCHC 32.1 L RDW 14.3 Plt Count 56 L MPV 13.2 H Neut % (Auto) 76.0 H Lymph % (Auto) 18.0 L [place] % (Auto) 4.4 Eos % (Auto) 1.4 Baso % (Auto) 0.2 Neut # 9.9 H Lymph # 2.4 [place] # 0.6 Eos # 0.2 Baso # 0.0 Sodium 157 H Potassium 3.5 L Chloride 125 H Carbon Dioxide 19 L Anion Gap 18 BUN 39 H Creatinine 0.7 Est GFR ( Amer) > 60 Est GFR (Non-Af Amer) > 60 POC Glucose (mg/dL) 242 H Random Glucose 285 H Calcium 7.8 L Total Bilirubin 0.5 AST 63 H ALT 71 H Alkaline Phosphatase 71 Total Protein 5.7 L Albumin 2.5 L Globulin 3.2 Albumin/Globulin Ratio 0.8 L Fluid Type CSF Volume CSF Appearance CSF WBC CSF RBC CSF Total Cell Counted CSF Neutrophils CSF Lymphocytes CSF Monos/Macrophages CSF Comment 01/12/17 01/12/17 01/12/17 10:02 12:08 18:18 WBC RBC Hgb Hct MCV MCH MCHC RDW Plt Count MPV Neut % (Auto) Lymph % (Auto) [place] % (Auto) Eos % (Auto) Baso % (Auto) Neut # Lymph # [place] # Eos # Baso # Sodium Potassium Chloride Carbon Dioxide Anion Gap BUN Creatinine Est GFR ( Amer) Est GFR (Non-Af Amer) POC Glucose (mg/dL) 231 H 298 H Random Glucose Calcium Total Bilirubin AST ALT Alkaline Phosphatase Total Protein Albumin Globulin Albumin/Globulin Ratio Fluid Type Spinal fluid CSF Volume 9 H CSF Appearance Bloody CSF WBC 366.0 H CSF RBC 912777.0 H CSF Total Cell Counted 100 H CSF Neutrophils 42 H CSF Lymphocytes 43.0 H CSF Monos/Macrophages 15 H CSF Comment Assessment & Plan (1) Thrombocytopenia Assessment and Plan: suspect sepsis related ?med induced; will check heparin Ab (low suspicion) will repeat coags and fibrinogen to rule out evolving DIC will review peripheral smear Status: Acute (2) Anemia Assessment and Plan: will check ferritin, retic count, b12, folate, FOBT to further characterize Thank you for this interesting consult. Status: Acute
[2017-01-12] MEDS: (Lantus) Insulin Glargine, Recombinant SC SCH (22:08)
[2017-01-12] MEDS ORDERED: (Lantus) Insulin Glargine, Recombinant SC SCH (22:50)
--- NOTE | 2017-01-12 22:56 | CP.PCM.PN ---
Subjective - Date & Time of Evaluation Date of Evaluation: 01/12/17 Time of Evaluation: 22:54 - Subjective Subjective: THyroid & DM Objective - Vital Signs/Intake and Output Vital Signs (last 24 hours): Temp Pulse Resp BP Pulse Ox 98.4 F 102 H 25 H 147/72 99 01/12/17 20:00 01/12/17 20:27 01/12/17 20:27 01/12/17 20:27 01/12/17 20:27 Intake and Output: 01/12/17 01/13/17 18:59 06:59 Intake Total 1680 0 Output Total 415 102 Balance 1265 -102 - Medications Medications: Current Medications Acetaminophen (Tylenol 325mg Tab) 650 mg PO Q6 PRN PRN Reason: Pain, Mild (1-3) Last Admin: 01/12/17 08:16 Dose: 650 mg Diltiazem HCl (Cardizem) 60 mg PO QID [facility] Last Admin: 01/12/17 22:08 Dose: 60 mg Diltiazem HCl 125 mg/ Sodium (Chloride) 125 mls @ 5 mls/hr IV .Q24H PRN; Protocol; 5 MG/HR PRN Reason: PER PROTOCOL Last Titration: 01/12/17 15:47 Dose: Infused Piperacillin Sod/Tazobactam Sod (Zosyn 3.375 Gm Iv Premix) 3.375 gm in 50 mls @ 100 mls/hr IVPB Q6H [facility] Last Admin: 01/12/17 22:00 Dose: 100 mls/hr Vancomycin/Sodium Chloride (Vancocin) 1 gm in 200 mls @ 166.6 mls/hr IVPB Q12 [facility] Stop: 01/17/17 10:01 Last Admin: 01/12/17 09:04 Dose: 166.6 mls/hr Insulin Glargine (Lantus) 15 unit SC HS [facility] Insulin Human Regular (Novolin R) 0 unit SC Q6H [facility] PRN Reason: Protocol Lisinopril (Zestril) 5 mg PO DAILY [facility] Last Admin: 01/12/17 09:16 Dose: 5 mg Metoprolol Tartrate (Lopressor) 25 mg PO BID [facility] Last Admin: 01/12/17 18:14 Dose: 25 mg Pantoprazole Sodium (Protonix Inj) 40 mg IVP DAILY [facility] Last Admin: 01/12/17 09:16 Dose: 40 mg Rosuvastatin Calcium (Crestor) 20 mg PO HS [facility] Last Admin: 01/12/17 22:08 Dose: 20 mg - Labs Labs: 01/12/17 06:24 01/12/17 06:19 PT 13.7 SECONDS (9.7-12.2) H 01/03/17 21:30 INR 1.2 01/03/17 21:30 APTT 31 SECONDS (21-34) 01/03/17 21:30 Assessment and Plan (1) Uncontrolled type 2 diabetes mellitus Assessment & Plan: Endocrine consult reason for consult: thyroid disease &DM sourse : chart review & pt's son by bed side is 72 y/o admitted to ICU for new onset A Fib with rapid ventricular response with acute CVA s/p decompression craniotomy , intubated as per pt's son Gustabo , pt.has DM x 10 years (-) neuropathy , (-) retinopathy , (-) nephropathy (-) CAD (-) PVD blood glucose log :200-289 , NO hypoglycemia , started continous feeding Allergy NKDA Past medical history :HTN Past surgical history : as above & eye correction surgery Psychiatry history : denies Social history : denies smoking , ETOH use or illicit drug use Family history : siblings & children ROS: Constitutional: no fever ,tiredness/weakness .HEENT: no earache, change in voice .Respiratory: no cough, sob . CVS :no chest pain, no palpitations . Abdomen : no abdominal pain, no nausea /vomiting , no change bowel movement . [employer] : no light-headedness, dizziness. Extremities : no edema , no tremors .Skin : no itching, no rash Physical exam Well developed intubated VSS HEENT: norm cephalic, atraumatic NECK: supple, no palpable lymphadenopathy THYROID: no palpable thyromegaly , not tender CHEST: fair air entry, bilateral, CVS: S1,S2 ABDOMEN: bowel sound present, benign, obese, no wide purple striae , no bruises EXTREMITIES: no edema, clubbing or cyanosis, no palpable hand tremors Skin : acanthosis nigricans lab: wbc 13 , elevated LFTS TSH 0.22 T4 7.64 , T3 0.78,FT4 1.19, THYROID abs (-) , A1C 7.4 tsh 0.82, ft4 1.63 , NT-PRP NTP 3690, wbc 12.6 Assessment -uncontrolled DM -A Fib , new onset - acute euthyroid syndrom -acute CVA s/p craniotomy , poor prognosis -obesity plan change to Novolin R low dose coverage q 6 h increase lantus 15 units @ 9pm daily will monitor Status: Acute (2) Cerebellar stroke Status: Acute (3) New onset atrial fibrillation Status: Acute Status: Acute (2) Cerebellar stroke Status: Acute (3) New onset atrial fibrillation Status: Acute
[2017-01-13] MEDS: Piperacill/Tazo 3.375gm in Dex 3.375 GM/50 ML BAG IVPB SCH ×2 (03:00→10:10)
[2017-01-13] MEDS: (Novolin R) Insulin Human Regular 100 units/ml vial SC SCH ×4 (04:00→23:05)
[2017-01-13 07:09] LABS: BASO % 0.2 % (0.0-2.0); EOS # 0.2 K/uL (0.0-0.7); EOS % 1.3 % (0.0-4.0); HEMATOCRIT 32.5 % (34.0-47.0); LYMPH # 2.1 K/uL (1.0-4.3); LYMPH % 12.4 % (20.0-40.0); MEAN CELL VOLUME 89.1 fL (81.0-99.0); MEAN CORPUSCULAR HEMOGLOBIN 28.7 pg (27.0-31.0); MEAN CORPUSCULAR HGB CONC 32.2 g/dL (33.0-37.0); MEAN PLATELET VOLUME 12.2 fL (7.2-11.7); MONO # 0.5 K/uL (0.0-0.8); MONO % 2.9 % (0.0-10.0); RED CELL DISTRIBUTION WIDTH 14.3 % (11.5-14.5); WHITE BLOOD COUNT 16.7 K/uL (4.8-10.8)
[2017-01-13] MEDS ORDERED: Dextrose 50% SYRINGE Inj (50 ml) IV STA (07:34)
[2017-01-13] MEDS ORDERED: Digoxin 500 mcg/2ml (0.5 mg/2ml) Inj IVP ONE (07:44)
[2017-01-13 07:51] LABS: INR 1.3
[2017-01-13 07:56] LABS: FOLATE 19.6 ng/mL
--- NOTE | 2017-01-13 10:13 | CP.PCM.PN ---
Subjective - Date & Time of Evaluation Date of Evaluation: 01/13/17 Time of Evaluation: 10:11 - Subjective Subjective: spontaneous eye opening noted over the weekend with gag reflex therefore terminal extubation aborted afib with RVR this am - given 1 dose of digoxin Objective - Vital Signs/Intake and Output Vital Signs (last 24 hours): Temp Pulse Resp BP Pulse Ox 99.5 F 130 H 21 147/85 98 01/13/17 04:00 01/13/17 08:28 01/13/17 08:28 01/13/17 08:28 01/13/17 08:00 Intake and Output: 01/13/17 01/13/17 06:59 18:59 Intake Total 50 Output Total 532 Balance -482 - Medications Medications: Current Medications Acetaminophen (Tylenol 325mg Tab) 650 mg PO Q6 PRN PRN Reason: Pain, Mild (1-3) Last Admin: 01/12/17 08:16 Dose: 650 mg Diltiazem HCl (Cardizem) 60 mg PO QID [facility] Last Admin: 01/12/17 22:08 Dose: 60 mg Diltiazem HCl 125 mg/ Sodium (Chloride) 125 mls @ 5 mls/hr IV .Q24H PRN; Protocol; 5 MG/HR PRN Reason: PER PROTOCOL Last Titration: 01/12/17 15:47 Dose: Infused Piperacillin Sod/Tazobactam Sod (Zosyn 3.375 Gm Iv Premix) 3.375 gm in 50 mls @ 100 mls/hr IVPB Q6H [facility] Last Admin: 01/13/17 03:00 Dose: 100 mls/hr Vancomycin/Sodium Chloride (Vancocin) 1 gm in 200 mls @ 166.6 mls/hr IVPB Q12 [facility] Stop: 01/17/17 10:01 Last Admin: 01/12/17 22:30 Dose: 166.6 mls/hr Insulin Glargine (Lantus) 15 unit SC HS [facility] Insulin Human Regular (Novolin R) 0 unit SC Q6H [facility] PRN Reason: Protocol Last Admin: 01/13/17 04:00 Dose: Not Given Lisinopril (Zestril) 5 mg PO DAILY [facility] Last Admin: 01/12/17 09:16 Dose: 5 mg Metoprolol Tartrate (Lopressor) 25 mg PO BID [facility] Last Admin: 01/12/17 18:14 Dose: 25 mg Pantoprazole Sodium (Protonix Inj) 40 mg IVP DAILY [facility] Last Admin: 01/12/17 09:16 Dose: 40 mg Rosuvastatin Calcium (Crestor) 20 mg PO HS [facility] Last Admin: 01/12/17 22:08 Dose: 20 mg - Labs Labs: 01/13/17 06:25 01/12/17 06:19 PT 15.5 SECONDS (9.7-12.2) H 01/13/17 06:25 INR 1.3 01/13/17 06:25 APTT 31 SECONDS (21-34) 01/13/17 06:25 - Constitutional Appears: Toxic, In Acute Distress - Head Exam Additional comments: dressing over occipital site - Eye Exam Pupil Exam: Irregular - ENT Exam ENT Exam: Mucous Membranes Dry - Respiratory Exam Respiratory Exam: Rhonchi - Cardiovascular Exam Cardiovascular Exam: Irregular Rhythm, +S1, +S2, Murmur - GI/Abdominal Exam GI & Abdominal Exam: Soft, Normal Bowel Sounds - Neurological Exam Neurological Exam: Altered Assessment and Plan (1) Cerebellar stroke Assessment & Plan: spontaneous eye opening over the weekend awaiting neurological recovery trach/peg in process Status: Acute (2) New onset atrial fibrillation Assessment & Plan: On cardizem 60mg po q6 hours and metoprolol 25mg po bid change metoprolol to 50mg po bid add digoxin 0.125 mg daily Status: Acute (3) CHF (congestive heart failure) Assessment & Plan: compensated , euvolemic cont acei and bb Status: Acute (4) Mitral regurgitation Status: Acute (5) Tricuspid regurgitation Status: Acute
[2017-01-13] MEDS: Vancomycin 1 gm/NS 200 ml 1 GM/200 ML BAG IVPB SCH ×2 (10:45→23:00)
--- NOTE | 2017-01-13 11:58 | CT ---
PROCEDURE: CT scan brain dated 01/13/2017. HISTORY: CVA. COMPARISON: Comparison made with prior study 01/09/2017 as well as multiple additional studies including the 1st CT scan brain 01/01/2017. TECHNIQUE: Helical/transaxial l computed tomography images were obtained through the head/brain without intravenous contrast. Radiation dose: Total exam DLP = 1284.92 mGy-cm. This CT exam was performed using one or more of the following dose reduction techniques: Automated exposure control, adjustment of the mA and/or kV according to patient size, and/or use of iterative reconstruction technique. . FINDINGS: Findings: Re- demonstrated are bilateral low-attenuation changes both cerebellar hemispheres left greater than right consistent with chronic infarct changes. Low-attenuation changes within both middle cerebellar peduncle is and probably the brainstem also felt to be present. Small amount of hemorrhage is seen within vermian region as well as layering in the occipital horn/atrial left greater than right. The ventricles remain slightly dilated although decreased in size from prior exam despite well placed ventriculostomy tube which is unchanged in position. . Left-sided suboccipital craniectomy defect unchanged. . Moderate diffuse/confluent low-attenuation changes again seen within the periventricular white matter some of which could represent some mild transependymal edema superimposed on minor chronic periventricular white matter ischemic changes. . . . Impression: Re- demonstrated are bilateral low-attenuation changes both cerebellar hemispheres left greater than right consistent with chronic infarcts. Vague low attenuation changes within both middle cerebellar peduncle is and probably within the brainstem also felt to be present. Small amount of residual hemorrhage is again seen in the vermian region as well as layering in the occipital horn/atria left greater than right. Ventricles remain slightly dilated the decreased from prior exam. No change right-sided ventriculostomy tube. Mild confluent periventricular low-attenuation changes seen extending into the deep and subcortical white matter both cerebral hemispheres. Changes likely represents some mild residual transependymal edema with suspected underlying minor chronic periventricular white matter ischemic changes.
--- NOTE | 2017-01-13 12:11 | CP.PCM.CON ---
History of Present Illness - History of Present Illness History of Present Illness: 78-year-old female admitted initially with the atrial fibrillation, and vomiting. Patient condition complicated with the acute cerebellar ischemic stroke in spite of the treatment with the anticoagulation. Patient condition got worse, underwent ventriculostomy Patient is currently on ventilator. Review of Systems - Review of Systems Systems not reviewed;Unavailable: Altered Mental Status, Intubated Past Patient History - Infectious Disease Hx of Infectious Diseases: None - Past Medical History & Family History Past Medical History?: Yes - Past Social History Smoking Status: Never Smoked - CARDIAC Hx Cardiac Disorders: Yes Hx Hypertension: Yes - PULMONARY Hx Respiratory Disorders: No - NEUROLOGICAL Hx Neurological Disorder: No - HEENT Hx HEENT Problems: Yes Hx Cataracts: Yes (cataract sx 5 years ago) - RENAL Hx Chronic Kidney Disease: No - ENDOCRINE/METABOLIC Hx Endocrine Disorders: Yes Hx Diabetes Mellitus Type 2: Yes - HEMATOLOGICAL/ONCOLOGICAL Hx Blood Disorders: No - INTEGUMENTARY Hx Dermatological Problems: No - MUSCULOSKELETAL/RHEUMATOLOGICAL Hx Falls: No - GASTROINTESTINAL Hx Gastrointestinal Disorders: Yes Hx Vomiting: Yes - GENITOURINARY/GYNECOLOGICAL Hx Genitourinary Disorders: No - PSYCHIATRIC Hx Substance Use: No - SURGICAL HISTORY Hx Surgeries: Yes Hx Cataract Extraction: Yes (5 years ago) - ANESTHESIA Hx Anesthesia: No Hx Anesthesia Reactions: No Hx Malignant Hyperthermia: No Has any member of the family had a problem w/ anesthesia?: No Meds Allergies/Adverse Reactions: Allergies Allergy/AdvReac Type Severity Reaction Status Date / Time SEAFOOD Allergy Uncoded 01/01/17 16:53 - Medications Medications: Current Medications Acetaminophen (Tylenol 325mg Tab) 650 mg PO Q6 PRN PRN Reason: Pain, Mild (1-3) Last Admin: 01/12/17 08:16 Dose: 650 mg Diltiazem HCl (Cardizem) 60 mg PO QID [facility] Last Admin: 01/13/17 07:55 Dose: 60 mg Diltiazem HCl 125 mg/ Sodium (Chloride) 125 mls @ 5 mls/hr IV .Q24H PRN; Protocol; 5 MG/HR PRN Reason: PER PROTOCOL Last Titration: 01/12/17 15:47 Dose: Infused Piperacillin Sod/Tazobactam Sod (Zosyn 3.375 Gm Iv Premix) 3.375 gm in 50 mls @ 100 mls/hr IVPB Q6H [facility] Last Admin: 01/13/17 10:10 Dose: 100 mls/hr Vancomycin/Sodium Chloride (Vancocin) 1 gm in 200 mls @ 166.6 mls/hr IVPB Q12 [facility] Stop: 01/17/17 10:01 Last Admin: 01/13/17 10:45 Dose: 166.6 mls/hr Insulin Glargine (Lantus) 15 unit SC [facility] Insulin Human Regular (Novolin R) 0 unit SC Q6H [facility] PRN Reason: Protocol Last Admin: 01/13/17 04:00 Dose: Not Given Lisinopril (Zestril) 5 mg PO DAILY [facility] Last Admin: 01/13/17 07:55 Dose: 5 mg Metoprolol Tartrate (Lopressor) 25 mg PO BID [facility] Last Admin: 01/13/17 07:55 Dose: 25 mg Pantoprazole Sodium (Protonix Inj) 40 mg IVP DAILY [facility] Last Admin: 01/13/17 10:47 Dose: 40 mg Rosuvastatin Calcium (Crestor) 20 mg PO [facility] Last Admin: 01/12/17 22:08 Dose: 20 mg Physical Exam - Constitutional Appears: Cachectic, Chronically Ill - Head Exam Head Exam: NORMOCEPHALIC - Eye Exam Eye Exam: absent: Scleral icterus - ENT Exam ENT Exam: Mucous Membranes Dry - Neck Exam Neck exam: Negative for: Lymphadenopathy - Respiratory Exam Respiratory Exam: Decreased Breath Sounds - Cardiovascular Exam Cardiovascular Exam: REGULAR RHYTHM - GI/Abdominal Exam GI & Abdominal Exam: Diminished Bowel Sounds - Rectal Exam Rectal Exam: Deferred - Exam Exam: NORMAL INSPECTION - Extremities Exam Extremities exam: Negative for: pedal edema - Back Exam Back exam: absent: CVA tenderness (L), CVA tenderness (R) - Neurological Exam Neurological exam: Altered - Psychiatric Exam Psychiatric exam: Depressed - Skin Skin Exam: Dry Results - Vital Signs Recent Vital Signs: Last Vital Signs Temp 99.2 F 01/13/17 08:00 Pulse 130 H 01/13/17 08:28 Resp 21 01/13/17 08:28 BP 147/85 01/13/17 08:28 Pulse Ox 99 01/13/17 08:00 - Labs Result Diagrams: 01/14/17 06:38 01/14/17 06:36 Labs: Laboratory Results - last 24 hr 08/01/12/17 01/12/17 12:08 18:18 23:42 WBC RBC Hgb Hct MCV MCH MCHC RDW Plt Count MPV Neut % (Auto) Lymph % (Auto) [place] % (Auto) Eos % (Auto) Baso % (Auto) Neut # Lymph # [place] # Eos # Baso # Retic Count PT INR APTT Fibrinogen POC Glucose (mg/dL) 231 H 298 H 217 H Ferritin Vitamin B12 Folate 01/13/17 01/13/17 01/13/17 06:25 06:25 06:25 WBC RBC Hgb Hct MCV MCH MCHC RDW Plt Count MPV Neut % (Auto) Lymph % (Auto) [place] % (Auto) Eos % (Auto) Baso % (Auto) Neut # Lymph # [place] # Eos # Baso # Retic Count 1.1 PT 15.5 H INR 1.3 APTT 31 Fibrinogen 341 POC Glucose (mg/dL) Ferritin 334.0 Vitamin B12 211 L Folate 19.6 01/13/17 01/13/17 01/13/17 06:25 07:53 11:53 WBC 16.7 H RBC 3.65 L Hgb 10.5 L Hct 32.5 L MCV 89.1 MCH 28.7 MCHC 32.2 L RDW 14.3 Plt Count 60 L MPV 12.2 H Neut % (Auto) 83.2 H Lymph % (Auto) 12.4 L [place] % (Auto) 2.9 Eos % (Auto) 1.3 Baso % (Auto) 0.2 Neut # 13.9 H Lymph # 2.1 [place] # 0.5 Eos # 0.2 Baso # 0.0 Retic Count PT INR APTT Fibrinogen POC Glucose (mg/dL) 165 H 239 H Ferritin Vitamin B12 Folate Assessment & Plan (1) Anemia Status: Acute (2) CHF (congestive heart failure) Status: Acute (3) Cerebellar stroke Status: Acute Priority: High (4) Diarrhea Status: Acute (5) New onset atrial fibrillation Status: Acute (6) Thrombocytopenia Status: Acute (7) Tricuspid regurgitation Status: Acute - Assessment and Plan (Free Text) Assessment: poor prognosis iv rx in progress
--- NOTE | 2017-01-13 12:25 | CP.PCM.CON ---
<Beth Alejandro - Last Filed: 01/13/17 15:39> History of Present Illness - History of Present Illness History of Present Illness: Patient is a 72 year old female with past medical history of DM, originally presented to the ED for nausea and vomiting for 2-3 days. She also felt dizzy and had palpitations. The patient was found to have new onset of atrial fibrillation. Patient's nausea and vomiting resolved, but she then developed a headache and was found to have bilateral cerebellar infarcts, mass effect herniation, and obstructive hydrocephalus. Patient is s/p decompressive craniotomy/ventriculotomy. Patient remains intubated and unresponsive. Patient is consulted for tracheostomy and PEG tube. Review of systems unobtainable due to patients condition. Past medial history unobtainable due to patient patient condition. Obtained from previous medical records. PMHx: DM, HTN SocHx: lives with family at home; "was in good health before this hospitalization" Allergies: seafood Medications: see EMR Review of Systems - Review of Systems Systems not reviewed;Unavailable: Intubated Past Patient History - Infectious Disease Hx of Infectious Diseases: None - Past Medical History & Family History Past Medical History?: Yes - Past Social History Smoking Status: Never Smoked - CARDIAC Hx Cardiac Disorders: Yes Hx Hypertension: Yes - PULMONARY Hx Respiratory Disorders: No - NEUROLOGICAL Hx Neurological Disorder: No - HEENT Hx HEENT Problems: Yes Hx Cataracts: Yes (cataract sx 5 years ago) - RENAL Hx Chronic Kidney Disease: No - ENDOCRINE/METABOLIC Hx Endocrine Disorders: Yes Hx Diabetes Mellitus Type 2: Yes - HEMATOLOGICAL/ONCOLOGICAL Hx Blood Disorders: No - INTEGUMENTARY Hx Dermatological Problems: No - MUSCULOSKELETAL/RHEUMATOLOGICAL Hx Falls: No - GASTROINTESTINAL Hx Gastrointestinal Disorders: Yes Hx Vomiting: Yes - GENITOURINARY/GYNECOLOGICAL Hx Genitourinary Disorders: No - PSYCHIATRIC Hx Substance Use: No - SURGICAL HISTORY Hx Surgeries: Yes Hx Cataract Extraction: Yes (5 years ago) - ANESTHESIA Hx Anesthesia: No Hx Anesthesia Reactions: No Hx Malignant Hyperthermia: No Has any member of the family had a problem w/ anesthesia?: No Meds Allergies/Adverse Reactions: Allergies Allergy/AdvReac Type Severity Reaction Status Date / Time SEAFOOD Allergy Uncoded 01/01/17 16:53 - Medications Medications: Current Medications Acetaminophen (Tylenol 325mg Tab) 650 mg PO Q6 PRN PRN Reason: Pain, Mild (1-3) Last Admin: 01/12/17 08:16 Dose: 650 mg Diltiazem HCl (Cardizem) 60 mg PO QID [facility] Last Admin: 01/13/17 07:55 Dose: 60 mg Diltiazem HCl 125 mg/ Sodium (Chloride) 125 mls @ 5 mls/hr IV .Q24H PRN; Protocol; 5 MG/HR PRN Reason: PER PROTOCOL Last Titration: 01/12/17 15:47 Dose: Infused Piperacillin Sod/Tazobactam Sod (Zosyn 3.375 Gm Iv Premix) 3.375 gm in 50 mls @ 100 mls/hr IVPB Q6H [facility] Last Admin: 01/13/17 10:10 Dose: 100 mls/hr Vancomycin/Sodium Chloride (Vancocin) 1 gm in 200 mls @ 166.6 mls/hr IVPB Q12 [facility] Stop: 01/17/17 10:01 Last Admin: 01/13/17 10:45 Dose: 166.6 mls/hr Insulin Glargine (Lantus) [address] [facility] Insulin Human Regular (Novolin R) 0 unit SC Q6H [facility] PRN Reason: Protocol Last Admin: 01/13/17 04:00 Dose: Not Given Lisinopril (Zestril) 5 mg PO DAILY [facility] Last Admin: 01/13/17 07:55 Dose: 5 mg Metoprolol Tartrate (Lopressor) 25 mg PO BID [facility] Last Admin: 01/13/17 07:55 Dose: 25 mg Pantoprazole Sodium (Protonix Inj) 40 mg IVP DAILY [facility] Last Admin: 01/13/17 10:47 Dose: 40 mg Rosuvastatin Calcium (Crestor) [address] [facility] Last Admin: 01/12/17 22:08 Dose: 20 mg Physical Exam - Head Exam Head Exam: ATRAUMATIC, NORMAL INSPECTION - Eye Exam Eye Exam: PERRL. absent: EOMI Pupil Exam: Fixed - ENT Exam ENT Exam: absent: Mucous Membranes Moist - Respiratory Exam Respiratory Exam: Decreased Breath Sounds. absent: Rales, Rhonchi, Wheezes - Cardiovascular Exam Cardiovascular Exam: Tachycardia, Irregular Rhythm, +S1, +S2. absent: REGULAR RHYTHM - GI/Abdominal Exam GI & Abdominal Exam: Hypoactive Bowel Sounds, Soft. absent: Distended, Firm, Normal Bowel Sounds - Extremities Exam Extremities exam: Positive for: pedal edema, pedal pulses present Additional comments: b/l hand edema Results - Vital Signs Recent Vital Signs: Last Vital Signs Temp 99.5 F 01/13/17 04:00 Pulse 130 H 01/13/17 08:28 Resp 21 01/13/17 08:28 BP 147/85 01/13/17 08:28 Pulse Ox 98 01/13/17 08:00 - Labs Result Diagrams: 01/13/17 06:25 01/13/17 12:50 Labs: Laboratory Results - last 24 hr 01/12/17 01/12/17 01/12/17 12:08 18:18 23:42 WBC RBC Hgb Hct MCV MCH MCHC RDW Plt Count MPV Neut % (Auto) Lymph % (Auto) [place] % (Auto) Eos % (Auto) Baso % (Auto) Neut # Lymph # [place] # Eos # Baso # Retic Count PT INR APTT Fibrinogen POC Glucose (mg/dL) 231 H 298 H 217 H Ferritin Vitamin B12 Folate 01/13/17 01/13/17 01/13/17 06:25 06:25 06:25 WBC RBC Hgb Hct MCV MCH MCHC RDW Plt Count MPV Neut % (Auto) Lymph % (Auto) [place] % (Auto) Eos % (Auto) Baso % (Auto) Neut # Lymph # [place] # Eos # Baso # Retic Count 1.1 PT 15.5 H INR 1.3 APTT 31 Fibrinogen 341 POC Glucose (mg/dL) Ferritin 334.0 Vitamin B12 211 L Folate 19.6 01/13/17 01/13/17 01/13/17 06:25 07:53 11:53 WBC 16.7 H RBC 3.65 L Hgb 10.5 L Hct 32.5 L MCV 89.1 MCH 28.7 MCHC 32.2 L RDW 14.3 Plt Count 60 L MPV 12.2 H Neut % (Auto) 83.2 H Lymph % (Auto) 12.4 L [place] % (Auto) 2.9 Eos % (Auto) 1.3 Baso % (Auto) 0.2 Neut # 13.9 H Lymph # 2.1 [place] # 0.5 Eos # 0.2 Baso # 0.0 Retic Count PT INR APTT Fibrinogen POC Glucose (mg/dL) 165 H 239 H Ferritin Vitamin B12 Folate Assessment & Plan - Assessment and Plan (Free Text) Assessment: 72 year old female s/p bilateral cerebellar stroke, mass effect, hydrocephalus, decompressive craniotomy/ventriculotomy. Patient remains intubated. - Patient scheduled for tracheostomy and PEG in OR on 01/15/17 - NPO after midnight and hold anticoagulation prior to procedure - Continue medical management as per ICU team. <Felipe Tobar - Last Filed: 01/13/17 19:36> Meds - Medications Medications: Current Medications Acetaminophen (Tylenol 325mg Tab) 650 mg PO Q6 PRN PRN Reason: Pain, Mild (1-3) Last Admin: 01/13/17 13:48 Dose: 650 mg Diltiazem HCl (Cardizem) 60 mg PO QID [facility] Last Admin: 01/13/17 18:02 Dose: 60 mg Diltiazem HCl 125 mg/ Sodium (Chloride) 125 mls @ 5 mls/hr IV .Q24H PRN; Protocol; 5 MG/HR PRN Reason: PER PROTOCOL Last Titration: 01/12/17 15:47 Dose: Infused Vancomycin/Sodium Chloride (Vancocin) 1 gm in 200 mls @ 166.6 mls/hr IVPB Q12 [facility] Stop: 01/17/17 10:01 Last Admin: 01/13/17 10:45 Dose: 166.6 mls/hr Cefepime HCl 2 gm/ Sodium (Chloride) 100 mls @ 200 mls/hr IVPB Q12H [facility] Stop: 01/18/17 20:01 Insulin Glargine (Lantus) [address] [facility] Insulin Human Regular (Novolin R) 0 unit SC Q6H [facility] PRN Reason: Protocol Last Admin: 01/13/17 18:00 Dose: 3 unit Lisinopril (Zestril) 5 mg PO DAILY [facility] Last Admin: 01/13/17 07:55 Dose: 5 mg Metoprolol Tartrate (Lopressor) 25 mg PO BID [facility] Last Admin: 01/13/17 18:03 Dose: 25 mg Pantoprazole Sodium (Protonix Inj) 40 mg IVP DAILY [facility] Last Admin: 01/13/17 10:47 Dose: 40 mg Rosuvastatin Calcium (Crestor) [address] [facility] Last Admin: 01/12/17 22:08 Dose: 20 mg Results - Vital Signs Recent Vital Signs: Last Vital Signs Temp 99 F 01/13/17 16:00 Pulse 132 H 01/13/17 18:27 Resp 29 H 01/13/17 18:27 BP 115/75 01/13/17 18:27 Pulse Ox 97 01/13/17 18:27 - Labs Result Diagrams: 01/13/17 06:25 01/13/17 12:50 Labs: Laboratory Results - last 24 hr 01/12/17 01/13/17 01/13/17 23:42 06:25 06:25 WBC RBC Hgb Hct MCV MCH MCHC RDW Plt Count MPV Neut % (Auto) Lymph % (Auto) [place] % (Auto) Eos % (Auto) Baso % (Auto) Neut # Lymph # [place] # Eos # Baso # Retic Count 1.1 PT 15.5 H INR 1.3 APTT 31 Fibrinogen 341 Sodium Potassium Chloride Carbon Dioxide Anion Gap BUN Creatinine Est GFR ( Amer) Est GFR (Non-Af Amer) POC Glucose (mg/dL) 217 H Random Glucose Calcium Phosphorus Magnesium Ferritin Total Bilirubin AST ALT Alkaline Phosphatase Total Protein Albumin Globulin Albumin/Globulin Ratio Vitamin B12 Folate 01/13/17 01/13/17 01/13/17 06:25 06:25 07:53 WBC 16.7 H RBC 3.65 L Hgb 10.5 L Hct 32.5 L MCV 89.1 MCH 28.7 MCHC 32.2 L RDW 14.3 Plt Count 60 L MPV 12.2 H Neut % (Auto) 83.2 H Lymph % (Auto) 12.4 L [place] % (Auto) 2.9 Eos % (Auto) 1.3 Baso % (Auto) 0.2 Neut # 13.9 H Lymph # 2.1 [place] # 0.5 Eos # 0.2 Baso # 0.0 Retic Count PT INR APTT Fibrinogen Sodium Potassium Chloride Carbon Dioxide Anion Gap BUN Creatinine Est GFR ( Amer) Est GFR (Non-Af Amer) POC Glucose (mg/dL) 165 H Random Glucose Calcium Phosphorus Magnesium Ferritin 334.0 Total Bilirubin AST ALT Alkaline Phosphatase Total Protein Albumin Globulin Albumin/Globulin Ratio Vitamin B12 211 L Folate 19.6 01/13/17 01/13/17 01/13/17 11:53 12:50 17:28 WBC RBC Hgb Hct MCV MCH MCHC RDW Plt Count MPV Neut % (Auto) Lymph % (Auto) [place] % (Auto) Eos % (Auto) Baso % (Auto) Neut # Lymph # [place] # Eos # Baso # Retic Count PT INR APTT Fibrinogen Sodium 149 H Potassium 3.8 Chloride 120 H Carbon Dioxide 17 L Anion Gap 16 BUN 27 H Creatinine 0.6 L Est GFR ( Amer) > 60 Est GFR (Non-Af Amer) > 60 POC Glucose (mg/dL) 239 H 266 H Random Glucose 242 H Calcium 7.3 L Phosphorus 3.4 Magnesium 2.4 H Ferritin Total Bilirubin 0.5 AST 71 H ALT 70 H Alkaline Phosphatase 59 Total Protein 5.5 L Albumin 2.3 L Globulin 3.2 Albumin/Globulin Ratio 0.7 L Vitamin B12 Folate Attending/Attestation - Attestation I have personally seen and examined this patient.: Yes I have fully participated in the care of the patient.: Yes I have reviewed all pertinent clinical information: Yes Notes (Text): 01/13/17 19:32 Pt was seen and examined at bedside Agree with above note and assessment Pt with ICH and Craniotomy/Ventriculotomy VDRF, Dysphagia Neck exam: Supple, No thyromegaly, No JVD Skin: warm ,dry no ulceration Labs and radiology reivewed C.w IV antibiotics Medical clearance for Trach and PEG Plan d.w pt's and ICU team in detail Risk and benefit explained in detail.
[2017-01-13 13:02] LABS: CHLORIDE 120 mmol/L (98-107); POTASSIUM 3.8 mmol/L (3.6-5.2); SODIUM 149 mmol/L (132-148)
[2017-01-13 13:04] LABS: BILIRUBIN,TOTAL 0.5 mg/dL (0.2-1.3); CARBON DIOXIDE 17 mmol/L (22-30); GFR AFRICAN-AMERICAN > 60
[2017-01-13 13:05] LABS: ALB/GLOB RATIO 0.7 (1.0-2.1); ALKALINE PHOSPHATASE 59 U/L (38-126); ALT/SGPT 70 U/L (9-52); AST/SGOT 71 U/L (14-36); BLOOD UREA NITROGEN 27 mg/dL (7-17); CALCIUM 7.3 mg/dl (8.6-10.4); GLUCOSE,RANDOM 242 mg/dL (65-105); PHOSPHOROUS 3.4 mg/dL (2.5-4.5); TOTAL PROTEIN 5.5 g/dL (6.3-8.3)
[2017-01-13 13:06] LABS: MAGNESIUM 2.4 mg/dL (1.6-2.3)
--- NOTE | 2017-01-13 13:57 | CP.CCUPN ---
<Kd Good R - Last Filed: 01/13/17 14:01> CCU Subjective - Physician Review Subjective (Free Text): Patient was seen and examined at bedside in the morning. Patient is unresponsive and intubated. Unable to obtain review of systems. 01/13/17 13:45 CCU Objective - Vital Signs / Intake & Output Intake and Output (Last 8hrs): Intake & Output 01/12/17 01/13/17 01/13/17 22:59 06:59 14:59 Intake Total 545 0 Output Total 262 370 Balance 283 -370 Intake: IV 125 Intake, IV Amount 220 Left Medial Port Internal 20 Jugular Left Proximal Port 200 Internal Jugular Oral 150 Tube Feeding 50 0 Output: Drainage 12 50 Right Posterior Head 12 50 Urine 250 320 Urethral (Massey) 250 320 Other: # Bowel Movements 0 - Physical Exam Head: Positive for: Normocephalic Extroacular Muscles: Negative for: EOMI Mouth: Positive for: Other (intubated) Neck: Negative for: Normal Range of Motion Respiratory/Chest: Positive for: Clear to Auscultation, Other (intubated). Negative for: Wheezes, Rales, Rhonchi, Tachypneic Cardiovascular: Positive for: Normal S1, S2, Irregular Rhythm, Tachycardic Abdomen: Negative for: Distention, Normal Bowel Sounds (hypoactive) Upper Extremity: Positive for: Normal Inspection. Negative for: Edema Lower Extremity: Positive for: Normal Inspection. Negative for: Edema Neurological: Positive for: Other (no response to pain; gag reflex & corneal reflex+). Negative for: GCS=15, Motor Func Grossly Intact, Normal Sensory Function Skin: Positive for: Warm, Dry, Normal Color Psychiatric: Negative for: Alert, Oriented x 3 - Medications Active Medications: Active Medications Generic Name Dose Route Start Last Admin Trade Name Freq PRN Reason Stop Dose Admin Acetaminophen 650 mg 01/03/17 11:49 01/12/17 08:16 Tylenol 325mg Tab PO 650 mg Q6 PRN Administration Pain, Mild (1-3) Diltiazem HCl 60 mg 01/10/17 10:00 01/13/17 07:55 Cardizem PO 60 mg QID MIRELLA Administration Diltiazem HCl 125 mg/ Sodium 125 mls @ 5 mls/hr 01/09/17 10:15 01/12/17 15:47 Chloride IV Infused .Q24H PRN Titration PER PROTOCOL Protocol 5 MG/HR Vancomycin/Sodium Chloride 1 gm in 200 mls @ 166.6 mls/hr 01/12/17 10:00 10:45 Vancocin IVPB 01/17/17 10:01 166.6 mls/hr Q12 MIRELLA Administration Cefepime HCl 2 gm/ Sodium 100 mls @ 200 mls/hr 01/13/17 20:00 Chloride IVPB 01/18/17 20:01 Q12H MIRELLA Insulin Glargine 15 unit 01/12/17 22:50 Lantus SC HS MIRELLA Insulin Human Regular 0 unit 01/12/17 22:51 01/13/17 13:33 Novolin R SC Not Given Q6H [facility] Protocol Lisinopril 5 mg 01/11/17 09:30 01/13/17 07:55 Zestril PO 5 mg DAILY MIRELLA Administration Metoprolol Tartrate 25 mg 01/11/17 10:00 01/13/17 07:55 Lopressor PO 25 mg BID MIRLELA Administration Pantoprazole Sodium 40 mg 01/02/17 10:00 01/13/17 10:47 Protonix Inj IVP 40 mg DAILY MIRELLA Administration Rosuvastatin Calcium 20 mg 01/03/17 22:00 01/12/17 22:08 Crestor PO 20 mg HS MIRELLA Administration - Patient Studies Lab Studies: Microbiology Studies 01/12/17 15:19 Gram Stain - Final Trachasp Sputum Culture - Preliminary Gram Positive Cocci 01/12/17 10:05 Gram Stain - Preliminary Cerebral Spinal Fluid CSF Culture - Preliminary NO GROWTH AFTER 24 HOURS 01/12/17 07:45 Blood Culture - Preliminary Blood-Venous NO GROWTH AFTER 24 HOURS 01/12/17 08:30 Blood Culture - Preliminary Blood-Venous NO GROWTH AFTER 24 HOURS Lab Studies 01/13/17 01/13/17 01/13/17 Range/Units 12:50 11:53 07:53 WBC (4.8-10.8) K/uL RBC (3.80-5.20) Mil/uL Hgb (11.0-16.0) g/dL Hct (34.0-47.0) % MCV (81.0-99.0) fL MCH (27.0-31.0) pg MCHC (33.0-37.0) g/dL RDW (11.5-14.5) % Plt Count (130-400) K/uL MPV (7.2-11.7) fL Neut % (Auto) (50.0-75.0) % Lymph % (Auto) (20.0-40.0) % Sullivan % (Auto) (0.0-10.0) % Eos % (Auto) (0.0-4.0) % Baso % (Auto) (0.0-2.0) % Neut # (1.8-7.0) K/uL Lymph # (1.0-4.3) K/uL Sullivan # (0.0-0.8) K/uL Eos # (0.0-0.7) K/uL Baso # (0.0-0.2) K/uL Retic Count (0.5-1.5) % PT (9.7-12.2) SECONDS INR APTT (21-34) SECONDS Fibrinogen (200-400) mg/dL Sodium 149 H (132-148) mmol/L Potassium 3.8 (3.6-5.2) mmol/L Chloride 120 H (98-107) mmol/L Carbon Dioxide 17 L (22-30) mmol/L Anion Gap 16 (10-20) BUN 27 H (7-17) mg/dL Creatinine 0.6 L (0.7-1.2) MG/DL Est GFR ( Amer) > 60 Est GFR (Non-Af Amer) > 60 POC Glucose (mg/dL) 239 H 165 H (65-110) mg/dL Random Glucose 242 H (65-105) mg/dL Calcium 7.3 L (8.6-10.4) mg/dl Phosphorus 3.4 (2.5-4.5) mg/dL Magnesium 2.4 H (1.6-2.3) mg/dL Ferritin ng/mL Total Bilirubin 0.5 (0.2-1.3) mg/dL AST 71 H (14-36) U/L ALT 70 H (9-52) U/L Alkaline Phosphatase 59 (38-126) U/L Total Protein 5.5 L (6.3-8.3) g/dL Albumin 2.3 L (3.5-5.0) g/dL Globulin 3.2 (2.2-3.9) gm/dL Albumin/Globulin Ratio 0.7 L (1.0-2.1) Vitamin B12 (239-931) pg/mL Folate ng/mL 01/13/17 01/13/17 01/13/17 Range/Units 06:25 06:25 06:25 WBC 16.7 H (4.8-10.8) K/uL RBC 3.65 L (3.80-5.20) Mil/uL Hgb 10.5 L (11.0-16.0) g/dL Hct 32.5 L (34.0-47.0) % MCV 89.1 (81.0-99.0) fL MCH 28.7 (27.0-31.0) pg MCHC 32.2 L (33.0-37.0) g/dL RDW 14.3 (11.5-14.5) % Plt Count 60 L (130-400) K/uL MPV 12.2 H (7.2-11.7) fL Neut % (Auto) 83.2 H (50.0-75.0) % Lymph % (Auto) 12.4 L (20.0-40.0) % Sullivan % (Auto) 2.9 (0.0-10.0) % Eos % (Auto) 1.3 (0.0-4.0) % Baso % (Auto) 0.2 (0.0-2.0) % Neut # 13.9 H (1.8-7.0) K/uL Lymph # 2.1 (1.0-4.3) K/uL Sullivan # 0.5 (0.0-0.8) K/uL Eos # 0.2 (0.0-0.7) K/uL Baso # 0.0 (0.0-0.2) K/uL Retic Count (0.5-1.5) % PT 15.5 H (9.7-12.2) SECONDS INR 1.3 APTT 31 (21-34) SECONDS Fibrinogen 341 (200-400) mg/dL Sodium (132-148) mmol/L Potassium (3.6-5.2) mmol/L Chloride (98-107) mmol/L Carbon Dioxide (22-30) mmol/L Anion Gap (10-20) BUN (7-17) mg/dL Creatinine (0.7-1.2) MG/DL Est GFR ( Amer) Est GFR (Non-Af Amer) POC Glucose (mg/dL) (65-110) mg/dL Random Glucose (65-105) mg/dL Calcium (8.6-10.4) mg/dl Phosphorus (2.5-4.5) mg/dL Magnesium (1.6-2.3) mg/dL Ferritin 334.0 ng/mL Total Bilirubin (0.2-1.3) mg/dL AST (14-36) U/L ALT (9-52) U/L Alkaline Phosphatase (38-126) U/L Total Protein (6.3-8.3) g/dL Albumin (3.5-5.0) g/dL Globulin (2.2-3.9) gm/dL Albumin/Globulin Ratio (1.0-2.1) Vitamin B12 211 L (239-931) pg/mL Folate 19.6 ng/mL 01/13/17 01/12/17 01/12/17 Range/Units 06:25 23:42 18:18 WBC (4.8-10.8) K/uL RBC (3.80-5.20) Mil/uL Hgb (11.0-16.0) g/dL Hct (34.0-47.0) % MCV (81.0-99.0) fL MCH (27.0-31.0) pg MCHC (33.0-37.0) g/dL RDW (11.5-14.5) % Plt Count (130-400) K/uL MPV (7.2-11.7) fL Neut % (Auto) (50.0-75.0) % Lymph % (Auto) (20.0-40.0) % Sullivan % (Auto) (0.0-10.0) % Eos % (Auto) (0.0-4.0) % Baso % (Auto) (0.0-2.0) % Neut # (1.8-7.0) K/uL Lymph # (1.0-4.3) K/uL Sullivan # (0.0-0.8) K/uL Eos # (0.0-0.7) K/uL Baso # (0.0-0.2) K/uL Retic Count 1.1 (0.5-1.5) % PT (9.7-12.2) SECONDS INR APTT (21-34) SECONDS Fibrinogen (200-400) mg/dL Sodium (132-148) mmol/L Potassium (3.6-5.2) mmol/L Chloride (98-107) mmol/L Carbon Dioxide (22-30) mmol/L Anion Gap (10-20) BUN (7-17) mg/dL Creatinine (0.7-1.2) MG/DL Est GFR ( Amer) Est GFR (Non-Af Amer) POC Glucose (mg/dL) 217 H 298 H (65-110) mg/dL Random Glucose (65-105) mg/dL Calcium (8.6-10.4) mg/dl Phosphorus (2.5-4.5) mg/dL Magnesium (1.6-2.3) mg/dL Ferritin ng/mL Total Bilirubin (0.2-1.3) mg/dL AST (14-36) U/L ALT (9-52) U/L Alkaline Phosphatase (38-126) U/L Total Protein (6.3-8.3) g/dL Albumin (3.5-5.0) g/dL Globulin (2.2-3.9) gm/dL Albumin/Globulin Ratio (1.0-2.1) Vitamin B12 (239-931) pg/mL Folate ng/mL Laboratory Results - last 24 hr 01/12/17 01/12/17 01/13/17 18:18 23:42 06:25 WBC RBC Hgb Hct MCV MCH MCHC RDW Plt Count MPV Neut % (Auto) Lymph % (Auto) Sullivan % (Auto) Eos % (Auto) Baso % (Auto) Neut # Lymph # Sullivan # Eos # Baso # Retic Count 1.1 PT INR APTT Fibrinogen Sodium Potassium Chloride Carbon Dioxide Anion Gap BUN Creatinine Est GFR ( Amer) Est GFR (Non-Af Amer) POC Glucose (mg/dL) 298 H 217 H Random Glucose Calcium Phosphorus Magnesium Ferritin Total Bilirubin AST ALT Alkaline Phosphatase Total Protein Albumin Globulin Albumin/Globulin Ratio Vitamin B12 Folate 08/01/13/17 01/13/17 06:25 06:25 06:25 WBC 16.7 H RBC 3.65 L Hgb 10.5 L Hct 32.5 L MCV 89.1 MCH 28.7 MCHC 32.2 L RDW 14.3 Plt Count 60 L MPV 12.2 H Neut % (Auto) 83.2 H Lymph % (Auto) 12.4 L Sullivan % (Auto) 2.9 Eos % (Auto) 1.3 Baso % (Auto) 0.2 Neut # 13.9 H Lymph # 2.1 Sullivan # 0.5 Eos # 0.2 Baso # 0.0 Retic Count PT 15.5 H INR 1.3 APTT 31 Fibrinogen 341 Sodium Potassium Chloride Carbon Dioxide Anion Gap BUN Creatinine Est GFR ( Amer) Est GFR (Non-Af Amer) POC Glucose (mg/dL) Random Glucose Calcium Phosphorus Magnesium Ferritin 334.0 Total Bilirubin AST ALT Alkaline Phosphatase Total Protein Albumin Globulin Albumin/Globulin Ratio Vitamin B12 211 L Folate 19.6 01/13/17 01/13/17 01/13/17 07:53 11:53 12:50 WBC RBC Hgb Hct MCV MCH MCHC RDW Plt Count MPV Neut % (Auto) Lymph % (Auto) Sullivan % (Auto) Eos % (Auto) Baso % (Auto) Neut # Lymph # Sullivan # Eos # Baso # Retic Count PT INR APTT Fibrinogen Sodium 149 H Potassium 3.8 Chloride 120 H Carbon Dioxide 17 L Anion Gap 16 BUN 27 H Creatinine 0.6 L Est GFR ( Amer) > 60 Est GFR (Non-Af Amer) > 60 POC Glucose (mg/dL) 165 H 239 H Random Glucose 242 H Calcium 7.3 L Phosphorus 3.4 Magnesium 2.4 H Ferritin Total Bilirubin 0.5 AST 71 H ALT 70 H Alkaline Phosphatase 59 Total Protein 5.5 L Albumin 2.3 L Globulin 3.2 Albumin/Globulin Ratio 0.7 L Vitamin B12 Folate Fingerstick Blood Sugar Results: 298 Review of Systems - Review of Systems Systems not reviewed;Unavailable: Intubated Critical Care Progress Note - Vent Settings TIDAL VOLUME:: 400 RESP RATE:: 12 FIO2:: 30 PEEP:: 5 Assessment/Plan - Assessment and Plan (Free Text) Assessment: 71 year old female with past medical history of DM, presented to the ED with complaints of nausea and vomiting for 3-4 days. She had palpitations and dizziness. In the ED, patient was found to have new onset a-fib, patient was admitted. Patient started on Cardizem drip and anticoagulation. On 01/03/17 Patient no longer has nausea or vomiting, but complained of headache. Patient was given tylenol. In the afternoon, patient's headache started to worsen. Patient was re-evaluated for possible slurred speech/changes in speech, at that time, patient was answering questions and following commands. In the evening, ( as per nurse), patient's speech was more slurred and patient became more restless. 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 Patient underwent decompressive craniotomy with Dr. Duque. Patient was on 3% hypertonic solution (discontinued 01/04/17), with goal of sodium 145-150 and serum osmolality of 300-320. Patient continues to have a-fib. Continue cardizem. Patient's status was discussed with the family. The family is not convinced the patient has significant damage and still hopes for full recovery. Repeat head ct showed residual hemorrhage, reduction in hydrocephalus, cerebellar edema, and subacute cerebellar infarctions. Will continue monitoring and correcting hypernatremia and hypokalemia. Neuro: unresponsive - Head CT (01/01/17): no acute findings; chronic ischemic changes - Head CT (01/03/17): Infarct involving posterior circulation with marked edema of cerebellar hemispheres b/l on right side>Left, with obstructing hydrocephalus - S/P decompressive craniotomy/ventriculotomy (Dr. Duque) - draining blood- tinged CSF fluid - Keep CPP 60-80 Pulm: intubated - trach/PEG procedure to be performed by Gen Surg Dr Tobar CV: new onset A-Fib - Cardiology consulted, Dr Wong, help appreciated - Continue Cardizem, Lisinopril, Lasix, Lisinopril, metoprolol - Troponin: negative; BNP 3690 - Echo: EF47%; severely dilated LA/RA; mildly thickened and calcified aortic valve; mild AR; mild-mod mitral annular calcification; MV mildly thickened; mod- severe MR; severe TR; mild pulmonic valvular regurg. IVC dilated. Endo: Hx of DM - Accuchecks, monitor blood glucose - Continue ISS - TSH 0.82, Free T4 1.63 - Thyroid Ab: negative - [employer] consulted, Dr. Goldberg, help appreciated GI: nausea, vomiting- unknown cause--> resolved - NPO - Lipase 79 (01/01/17), 38 (01/02/17) - Continue Zofran, Protonix Heme: - Thrombocytopenia: 60 - Discontinued lovenox Renal: - Hypokalemic: continue to monitor - Hypernatremia: continue to monitor MSK: no acute issues ID: Sputum culture positive for gram + cocci - wbc 16.7 - Sputum culture positive for gram + cocci - cefepime 2gm iv q12 - vancomycin 1gm iv q12 - CSF culture 01/12 showing no growth up to date - Blood culture 01/12 showing no growth up to date - Nares culture showing no MRSA detected - UA: trace ketones, 1+ glucose - Infectious disease, Dr Briseno consulted Prophylaxis: - DVT: SCDs - GI: Protonix - PT <Amarilys Layne - Last Filed: 01/13/17 18:16> CCU Objective - Vital Signs / Intake & Output Vital Signs (Last 4 hours): Vital Signs Temp Pulse Resp BP Pulse Ox 01/13/17 18:03 112/74 01/13/17 17:27 103 H 27 H 101/62 96 01/13/17 17:00 109 H 28 H 96 01/13/17 16:27 120 H 28 H 108/67 97 01/13/17 16:00 99 F 159 H 14 156/67 H 95 01/13/17 15:27 110 H 26 H 116/61 97 01/13/17 15:00 88 28 H 97 01/13/17 14:27 102 H 26 H 106/58 L 97 Intake and Output (Last 8hrs): Intake & Output 01/13/17 01/13/17 01/13/17 06:59 14:59 22:59 Intake Total 60 420 270 Output Total 570 100 440 Balance -510 320 -170 Weight 137 lb Intake: Intake, IV Amount 10 320 20 Left Medial Port Internal 120 Jugular Left Proximal Port 10 200 20 Internal Jugular Tube Feeding 50 100 150 Other 100 Output: Drainage 50 90 Right Posterior Head 50 90 Urine 520 100 350 Urethral (Massey) 520 100 350 Other: # Bowel Movements 1 - Medications Active Medications: Active Medications Generic Name Dose Route Start Last Admin Trade Name Freq PRN Reason Stop Dose Admin Acetaminophen 650 mg 01/03/17 11:49 01/13/17 13:48 Tylenol 325mg Tab PO 650 mg Q6 PRN Administration Pain, Mild (1-3) Diltiazem HCl 60 mg 01/10/17 10:00 01/13/17 18:02 Cardizem PO 60 mg QID MIRELLA Administration Diltiazem HCl 125 mg/ Sodium 125 mls @ 5 mls/hr 01/09/17 10:15 01/12/17 15:47 Chloride IV Infused .Q24H PRN Titration PER PROTOCOL Protocol 5 MG/HR Vancomycin/Sodium Chloride 1 gm in 200 mls @ 166.6 mls/hr 01/12/17 10:00 10:45 Vancocin IVPB 01/17/17 10:01 166.6 mls/hr Q12 MIRELLA Administration Cefepime HCl 2 gm/ Sodium 100 mls @ 200 mls/hr 01/13/17 20:00 Chloride IVPB 01/18/17 20:01 Q12H MIRELLA Insulin Glargine 15 unit 01/12/17 22:50 Lantus SC HS MIRELLA Insulin Human Regular 0 unit 01/12/17 22:51 01/13/17 18:00 Novolin R SC 3 unit Q6H MIRELLA Administration Protocol Lisinopril 5 mg 01/11/17 09:30 01/13/17 07:55 Zestril PO 5 mg DAILY MIRELLA Administration Metoprolol Tartrate 25 mg 01/11/17 10:00 01/13/17 18:03 Lopressor PO 25 mg BID MIRELLA Administration Pantoprazole Sodium 40 mg 01/02/17 10:00 01/13/17 10:47 Protonix Inj IVP 40 mg DAILY MIRELLA Administration Rosuvastatin Calcium 20 mg 01/03/17 22:00 01/12/17 22:08 Crestor PO 20 mg HS MIRELLA Administration - Patient Studies Lab Studies: Microbiology Studies 01/12/17 15:19 Gram Stain - Final Trachasp Sputum Culture - Preliminary Gram Positive Cocci 01/12/17 10:05 Gram Stain - Preliminary Cerebral Spinal Fluid CSF Culture - Preliminary NO GROWTH AFTER 24 HOURS 01/12/17 07:45 Blood Culture - Preliminary Blood-Venous NO GROWTH AFTER 24 HOURS 01/12/17 08:30 Blood Culture - Preliminary Blood-Venous NO GROWTH AFTER 24 HOURS Lab Studies 01/13/17 01/13/17 01/13/17 Range/Units 17:28 12:50 11:53 WBC (4.8-10.8) K/uL RBC (3.80-5.20) Mil/uL Hgb (11.0-16.0) g/dL Hct (34.0-47.0) % MCV (81.0-99.0) fL MCH (27.0-31.0) pg MCHC (33.0-37.0) g/dL RDW (11.5-14.5) % Plt Count (130-400) K/uL MPV (7.2-11.7) fL Neut % (Auto) (50.0-75.0) % Lymph % (Auto) (20.0-40.0) % Sullivan % (Auto) (0.0-10.0) % Eos % (Auto) (0.0-4.0) % Baso % (Auto) (0.0-2.0) % Neut # (1.8-7.0) K/uL Lymph # (1.0-4.3) K/uL Sullivan # (0.0-0.8) K/uL Eos # (0.0-0.7) K/uL Baso # (0.0-0.2) K/uL Retic Count (0.5-1.5) % PT (9.7-12.2) SECONDS INR APTT (21-34) SECONDS Fibrinogen (200-400) mg/dL Sodium 149 H (132-148) mmol/L Potassium 3.8 (3.6-5.2) mmol/L Chloride 120 H (98-107) mmol/L Carbon Dioxide 17 L (22-30) mmol/L Anion Gap 16 (10-20) BUN 27 H (7-17) mg/dL Creatinine 0.6 L (0.7-1.2) MG/DL Est GFR ( Amer) > 60 Est GFR (Non-Af Amer) > 60 POC Glucose (mg/dL) 266 H 239 H (65-110) mg/dL Random Glucose 242 H (65-105) mg/dL Calcium 7.3 L (8.6-10.4) mg/dl Phosphorus 3.4 (2.5-4.5) mg/dL Magnesium 2.4 H (1.6-2.3) mg/dL Ferritin ng/mL Total Bilirubin 0.5 (0.2-1.3) mg/dL AST 71 H (14-36) U/L ALT 70 H (9-52) U/L Alkaline Phosphatase 59 (38-126) U/L Total Protein 5.5 L (6.3-8.3) g/dL Albumin 2.3 L (3.5-5.0) g/dL Globulin 3.2 (2.2-3.9) gm/dL Albumin/Globulin Ratio 0.7 L (1.0-2.1) Vitamin B12 (239-931) pg/mL Folate ng/mL 01/13/17 01/13/17 01/13/17 Range/Units 07:53 06:25 06:25 WBC 16.7 H (4.8-10.8) K/uL RBC 3.65 L (3.80-5.20) Mil/uL Hgb 10.5 L (11.0-16.0) g/dL Hct 32.5 L (34.0-47.0) % MCV 89.1 (81.0-99.0) fL MCH 28.7 (27.0-31.0) pg MCHC 32.2 L (33.0-37.0) g/dL RDW 14.3 (11.5-14.5) % Plt Count 60 L (130-400) K/uL MPV 12.2 H (7.2-11.7) fL Neut % (Auto) 83.2 H (50.0-75.0) % Lymph % (Auto) 12.4 L (20.0-40.0) % Sullivan % (Auto) 2.9 (0.0-10.0) % Eos % (Auto) 1.3 (0.0-4.0) % Baso % (Auto) 0.2 (0.0-2.0) % Neut # 13.9 H (1.8-7.0) K/uL Lymph # 2.1 (1.0-4.3) K/uL Sullivan # 0.5 (0.0-0.8) K/uL Eos # 0.2 (0.0-0.7) K/uL Baso # 0.0 (0.0-0.2) K/uL Retic Count (0.5-1.5) % PT (9.7-12.2) SECONDS INR APTT (21-34) SECONDS Fibrinogen (200-400) mg/dL Sodium (132-148) mmol/L Potassium (3.6-5.2) mmol/L Chloride (98-107) mmol/L Carbon Dioxide (22-30) mmol/L Anion Gap (10-20) BUN (7-17) mg/dL Creatinine (0.7-1.2) MG/DL Est GFR ( Amer) Est GFR (Non-Af Amer) POC Glucose (mg/dL) 165 H (65-110) mg/dL Random Glucose (65-105) mg/dL Calcium (8.6-10.4) mg/dl Phosphorus (2.5-4.5) mg/dL Magnesium (1.6-2.3) mg/dL Ferritin 334.0 ng/mL Total Bilirubin (0.2-1.3) mg/dL AST (14-36) U/L ALT (9-52) U/L Alkaline Phosphatase (38-126) U/L Total Protein (6.3-8.3) g/dL Albumin (3.5-5.0) g/dL Globulin (2.2-3.9) gm/dL Albumin/Globulin Ratio (1.0-2.1) Vitamin B12 211 L (239-931) pg/mL Folate 19.6 ng/mL 01/13/17 01/13/17 01/12/17 Range/Units 06:25 06:25 23:42 WBC (4.8-10.8) K/uL RBC (3.80-5.20) Mil/uL Hgb (11.0-16.0) g/dL Hct (34.0-47.0) % MCV (81.0-99.0) fL MCH (27.0-31.0) pg MCHC (33.0-37.0) g/dL RDW (11.5-14.5) % Plt Count (130-400) K/uL MPV (7.2-11.7) fL Neut % (Auto) (50.0-75.0) % Lymph % (Auto) (20.0-40.0) % Sullivan % (Auto) (0.0-10.0) % Eos % (Auto) (0.0-4.0) % Baso % (Auto) (0.0-2.0) % Neut # (1.8-7.0) K/uL Lymph # (1.0-4.3) K/uL Sullivan # (0.0-0.8) K/uL Eos # (0.0-0.7) K/uL Baso # (0.0-0.2) K/uL Retic Count 1.1 (0.5-1.5) % PT 15.5 H (9.7-12.2) SECONDS INR 1.3 APTT 31 (21-34) SECONDS Fibrinogen 341 (200-400) mg/dL Sodium (132-148) mmol/L Potassium (3.6-5.2) mmol/L Chloride (98-107) mmol/L Carbon Dioxide (22-30) mmol/L Anion Gap (10-20) BUN (7-17) mg/dL Creatinine (0.7-1.2) MG/DL Est GFR ( Amer) Est GFR (Non-Af Amer) POC Glucose (mg/dL) 217 H (65-110) mg/dL Random Glucose (65-105) mg/dL Calcium (8.6-10.4) mg/dl Phosphorus (2.5-4.5) mg/dL Magnesium (1.6-2.3) mg/dL Ferritin ng/mL Total Bilirubin (0.2-1.3) mg/dL AST (14-36) U/L ALT (9-52) U/L Alkaline Phosphatase (38-126) U/L Total Protein (6.3-8.3) g/dL Albumin (3.5-5.0) g/dL Globulin (2.2-3.9) gm/dL Albumin/Globulin Ratio (1.0-2.1) Vitamin B12 (239-931) pg/mL Folate ng/mL 01/12/17 Range/Units 18:18 WBC (4.8-10.8) K/uL RBC (3.80-5.20) Mil/uL Hgb (11.0-16.0) g/dL Hct (34.0-47.0) % MCV (81.0-99.0) fL MCH (27.0-31.0) pg MCHC (33.0-37.0) g/dL RDW (11.5-14.5) % Plt Count (130-400) K/uL MPV (7.2-11.7) fL Neut % (Auto) (50.0-75.0) % Lymph % (Auto) (20.0-40.0) % Sullivan % (Auto) (0.0-10.0) % Eos % (Auto) (0.0-4.0) % Baso % (Auto) (0.0-2.0) % Neut # (1.8-7.0) K/uL Lymph # (1.0-4.3) K/uL Sullivan # (0.0-0.8) K/uL Eos # (0.0-0.7) K/uL Baso # (0.0-0.2) K/uL Retic Count (0.5-1.5) % PT (9.7-12.2) SECONDS INR APTT (21-34) SECONDS Fibrinogen (200-400) mg/dL Sodium (132-148) mmol/L Potassium (3.6-5.2) mmol/L Chloride (98-107) mmol/L Carbon Dioxide (22-30) mmol/L Anion Gap (10-20) BUN (7-17) mg/dL Creatinine (0.7-1.2) MG/DL Est GFR ( Amer) Est GFR (Non-Af Amer) POC Glucose (mg/dL) 298 H (65-110) mg/dL Random Glucose (65-105) mg/dL Calcium (8.6-10.4) mg/dl Phosphorus (2.5-4.5) mg/dL Magnesium (1.6-2.3) mg/dL Ferritin ng/mL Total Bilirubin (0.2-1.3) mg/dL AST (14-36) U/L ALT (9-52) U/L Alkaline Phosphatase (38-126) U/L Total Protein (6.3-8.3) g/dL Albumin (3.5-5.0) g/dL Globulin (2.2-3.9) gm/dL Albumin/Globulin Ratio (1.0-2.1) Vitamin B12 (239-931) pg/mL Folate ng/mL Laboratory Results - last 24 hr 01/12/17 01/12/17 01/13/17 18:18 23:42 06:25 WBC RBC Hgb Hct MCV MCH MCHC RDW Plt Count MPV Neut % (Auto) Lymph % (Auto) Sullivan % (Auto) Eos % (Auto) Baso % (Auto) Neut # Lymph # Sullivan # Eos # Baso # Retic Count 1.1 PT INR APTT Fibrinogen Sodium Potassium Chloride Carbon Dioxide Anion Gap BUN Creatinine Est GFR ( Amer) Est GFR (Non-Af Amer) POC Glucose (mg/dL) 298 H 217 H Random Glucose Calcium Phosphorus Magnesium Ferritin Total Bilirubin AST ALT Alkaline Phosphatase Total Protein Albumin Globulin Albumin/Globulin Ratio Vitamin B12 Folate 01/13/17 01/13/17 01/13/17 06:25 06:25 06:25 WBC 16.7 H RBC 3.65 L Hgb 10.5 L Hct 32.5 L MCV 89.1 MCH 28.7 MCHC 32.2 L RDW 14.3 Plt Count 60 L MPV 12.2 H Neut % (Auto) 83.2 H Lymph % (Auto) 12.4 L Sullivan % (Auto) 2.9 Eos % (Auto) 1.3 Baso % (Auto) 0.2 Neut # 13.9 H Lymph # 2.1 Sullivan # 0.5 Eos # 0.2 Baso # 0.0 Retic Count PT 15.5 H INR 1.3 APTT 31 Fibrinogen 341 Sodium Potassium Chloride Carbon Dioxide Anion Gap BUN Creatinine Est GFR ( Amer) Est GFR (Non-Af Amer) POC Glucose (mg/dL) Random Glucose Calcium Phosphorus Magnesium Ferritin 334.0 Total Bilirubin AST ALT Alkaline Phosphatase Total Protein Albumin Globulin Albumin/Globulin Ratio Vitamin B12 211 L Folate 19.6 01/13/17 01/13/17 01/13/17 07:53 11:53 12:50 WBC RBC Hgb Hct MCV MCH MCHC RDW Plt Count MPV Neut % (Auto) Lymph % (Auto) Sullivan % (Auto) Eos % (Auto) Baso % (Auto) Neut # Lymph # Sullivan # Eos # Baso # Retic Count PT INR APTT Fibrinogen Sodium 149 H Potassium 3.8 Chloride 120 H Carbon Dioxide 17 L Anion Gap 16 BUN 27 H Creatinine 0.6 L Est GFR ( Amer) > 60 Est GFR (Non-Af Amer) > 60 POC Glucose (mg/dL) 165 H 239 H Random Glucose 242 H Calcium 7.3 L Phosphorus 3.4 Magnesium 2.4 H Ferritin Total Bilirubin 0.5 AST 71 H ALT 70 H Alkaline Phosphatase 59 Total Protein 5.5 L Albumin 2.3 L Globulin 3.2 Albumin/Globulin Ratio 0.7 L Vitamin B12 Folate 01/13/17 17:28 WBC RBC Hgb Hct MCV MCH MCHC RDW Plt Count MPV Neut % (Auto) Lymph % (Auto) Sullivan % (Auto) Eos % (Auto) Baso % (Auto) Neut # Lymph # Sullivan # Eos # Baso # Retic Count PT INR APTT Fibrinogen Sodium Potassium Chloride Carbon Dioxide Anion Gap BUN Creatinine Est GFR ( Amer) Est GFR (Non-Af Amer) POC Glucose (mg/dL) 266 H Random Glucose Calcium Phosphorus Magnesium Ferritin Total Bilirubin AST ALT Alkaline Phosphatase Total Protein Albumin Globulin Albumin/Globulin Ratio Vitamin B12 Folate Assessment/Plan - Assessment and Plan (Free Text) Assessment: patient was seen, examined at bedside. I spoke to the patient's family Also spoke to the neurologist. Brainstem reflexes noted. gag and cough reflexes noted Patient having episodes of fever. On antibiotic. I also consulted for surgery for possible tracheostomy and feeding tube. Continue the supportive care at this time. Overall prognosis very poor We'll get the hematology evaluation for anticoagulation possibly
--- NOTE | 2017-01-13 15:02 | CP.PCM.PN ---
Subjective - Date & Time of Evaluation Date of Evaluation: 01/13/17 Time of Evaluation: 14:56 - Subjective Subjective: Mrs. Hough was seen and examined today in the ICU. She continues to be intubated , off sedation, not following commands, and not showing any response to painful stimulus peripherally. She sometimes has a slight grimace response and squeezes her eyelids. She has been having fevers and an elevated WBC along with hyperventilation in the high 20's range. Objective - Vital Signs/Intake and Output Vital Signs (last 24 hours): Temp Pulse Resp BP Pulse Ox 99.2 F 133 H 26 H 112/63 97 01/13/17 08:00 01/13/17 14:00 01/13/17 14:00 01/13/17 13:28 01/13/17 14:00 Intake and Output: 01/13/17 01/13/17 06:59 18:59 Intake Total 50 Output Total 532 Balance -482 - Medications Medications: Current Medications Acetaminophen (Tylenol 325mg Tab) 650 mg PO Q6 PRN PRN Reason: Pain, Mild (1-3) Last Admin: 01/13/17 13:48 Dose: 650 mg Diltiazem HCl (Cardizem) 60 mg PO QID [facility] Last Admin: 01/13/17 13:48 Dose: 60 mg Diltiazem HCl 125 mg/ Sodium (Chloride) 125 mls @ 5 mls/hr IV .Q24H PRN; Protocol; 5 MG/HR PRN Reason: PER PROTOCOL Last Titration: 01/12/17 15:47 Dose: Infused Vancomycin/Sodium Chloride (Vancocin) 1 gm in 200 mls @ 166.6 mls/hr IVPB Q12 [facility] Stop: 01/17/17 10:01 Last Admin: 01/13/17 10:45 Dose: 166.6 mls/hr Cefepime HCl 2 gm/ Sodium (Chloride) 100 mls @ 200 mls/hr IVPB Q12H [facility] Stop: 01/18/17 20:01 Insulin Glargine (Lantus) 15 unit SC HS [facility] Insulin Human Regular (Novolin R) 0 unit SC Q6H [facility] PRN Reason: Protocol Last Admin: 01/13/17 13:33 Dose: Not Given Lisinopril (Zestril) 5 mg PO DAILY [facility] Last Admin: 01/13/17 07:55 Dose: 5 mg Metoprolol Tartrate (Lopressor) 25 mg PO BID [facility] Last Admin: 01/13/17 07:55 Dose: 25 mg Pantoprazole Sodium (Protonix Inj) 40 mg IVP DAILY [facility] Last Admin: 01/13/17 10:47 Dose: 40 mg Rosuvastatin Calcium (Crestor) 20 mg PO HS [facility] Last Admin: 01/12/17 22:08 Dose: 20 mg - Labs Labs: 01/13/17 06:25 01/13/17 12:50 PT 15.5 SECONDS (9.7-12.2) H 01/13/17 06:25 INR 1.3 01/13/17 06:25 APTT 31 SECONDS (21-34) 01/13/17 06:25 - Neurological Exam Additional comments: Brainstem reflexes: pupils reactive, corneals present, breathing over the vent ( cold water calorics not done). Does not withdraw to pain. Does not respond to voice and has no spontaneous eye opening. Assessment and Plan (1) Cerebellar stroke Assessment & Plan: S/P decompressive posterior craniectomy. Currently, still not showing good signs of improvement. Had herniation with brainstem compression. There is concern for DVT or PE since she is hyperventilating and has not been on anticoagulation. I recommend checking doppler ultrasound of her extremities and checking for PE with CTA of the chest. Continue controlling serum glucose and consider starting insulin drip if the glucose cannot be maintained below 200 to avoid worsening cerebral edema. Avoid hypontaremia and hyperthermia. Keep head of bed elevated above 30 degrees. Discuss starting anticoagulation with neurosurgery. Status: Acute
[2017-01-13] MEDS: Cefepime 2 GM in Sodium Chloride 0.9% 100 ML IVPB SCH (20:00)
[2017-01-14] MEDS: (Novolin R) Insulin Human Regular 100 units/ml vial SC SCH ×4 (05:47→17:51)
[2017-01-14 06:28] LABS: ABG MECHANICAL RATE 12; ARTERIAL BLOOD GAS MODE PRVC; ARTERIAL BLOOD HGB O2 SAT 96.2 % (95.0-98.0); ATERIAL BLOOD GAS PEEP 5; DRAW SITE A-LINE; HHB 0.9 % (0.0-5.0); METHEMOGLOBIN 0.9 % (0.0-3.0)
[2017-01-14 06:51] LABS: BASO % 0.2 % (0.0-2.0); EOS % 0.1 % (0.0-4.0); HEMATOCRIT 31.6 % (34.0-47.0); LYMPH # 0.9 K/uL (1.0-4.3); MEAN CELL VOLUME 89.1 fL (81.0-99.0); MEAN CORPUSCULAR HEMOGLOBIN 29.5 pg (27.0-31.0); MEAN CORPUSCULAR HGB CONC 33.2 g/dL (33.0-37.0); MEAN PLATELET VOLUME 12.2 fL (7.2-11.7); MONO # 0.4 K/uL (0.0-0.8); MONO % 2.5 % (0.0-10.0); PLATELET COUNT 73 K/uL (130-400); WHITE BLOOD COUNT 17.5 K/uL (4.8-10.8)
[2017-01-14 07:05] LABS: CHLORIDE 120 mmol/L (98-107); SODIUM 150 mmol/L (132-148)
[2017-01-14 07:07] LABS: BILIRUBIN,TOTAL 0.8 mg/dL (0.2-1.3); GFR AFRICAN-AMERICAN > 60
[2017-01-14 07:08] LABS: ALB/GLOB RATIO 0.7 (1.0-2.1); ALKALINE PHOSPHATASE 62 U/L (38-126); ALT/SGPT 64 U/L (9-52); AST/SGOT 73 U/L (14-36); BLOOD UREA NITROGEN 32 mg/dL (7-17); CARBON DIOXIDE 17 mmol/L (22-30); GLUCOSE,RANDOM 265 mg/dL (65-105); PHOSPHOROUS 2.4 mg/dL (2.5-4.5); TOTAL PROTEIN 5.8 g/dL (6.3-8.3)
[2017-01-14 07:09] LABS: CALCIUM 7.8 mg/dl (8.6-10.4); MAGNESIUM 2.7 mg/dL (1.6-2.3)
--- NOTE | 2017-01-14 07:52 | CP.PCM.PN ---
Subjective - Date & Time of Evaluation Date of Evaluation: 01/14/17 Time of Evaluation: 07:51 - Subjective Subjective: only responsive to painful stimuli concern for PE due to hyperventilation per neuro to evaluate for PE not on AC 2' to ICH Objective - Vital Signs/Intake and Output Vital Signs (last 24 hours): Temp Pulse Resp BP Pulse Ox 98.2 F 98 H 25 H 134/73 97 01/14/17 04:00 01/14/17 05:27 01/14/17 05:27 01/14/17 05:27 01/14/17 05:27 Intake and Output: 01/14/17 01/14/17 06:59 18:59 Intake Total 150 Output Total 600 Balance -450 - Medications Medications: Current Medications Acetaminophen (Tylenol 325mg Tab) 650 mg PO Q6 PRN PRN Reason: Pain, Mild (1-3) Last Admin: 01/13/17 13:48 Dose: 650 mg Diltiazem HCl (Cardizem) 60 mg PO QID [facility] Last Admin: 01/13/17 23:10 Dose: 60 mg Diltiazem HCl 125 mg/ Sodium (Chloride) 125 mls @ 5 mls/hr IV .Q24H PRN; Protocol; 5 MG/HR PRN Reason: PER PROTOCOL Last Titration: 01/12/17 15:47 Dose: Infused Vancomycin/Sodium Chloride (Vancocin) 1 gm in 200 mls @ 166.6 mls/hr IVPB Q12 [facility] Stop: 01/17/17 10:01 Last Admin: 01/13/17 23:00 Dose: 166.6 mls/hr Cefepime HCl 2 gm/ Sodium (Chloride) 100 mls @ 200 mls/hr IVPB Q12H [facility] Stop: 01/18/17 20:01 Last Admin: 01/13/17 20:00 Dose: 200 mls/hr Insulin Glargine (Lantus) 15 unit SC HS [facility] Last Admin: 01/13/17 23:10 Dose: 15 unit Insulin Human Regular (Novolin R) 0 unit SC Q6H [facility] PRN Reason: Protocol Last Admin: 01/14/17 05:47 Dose: Not Given Lisinopril (Zestril) 5 mg PO DAILY [facility] Last Admin: 01/13/17 07:55 Dose: 5 mg Metoprolol Tartrate (Lopressor) 25 mg PO BID [facility] Last Admin: 01/13/17 18:03 Dose: 25 mg Pantoprazole Sodium (Protonix Inj) 40 mg IVP DAILY [facility] Last Admin: 01/13/17 10:47 Dose: 40 mg Rosuvastatin Calcium (Crestor) 20 mg PO HS [facility] Last Admin: 01/13/17 23:10 Dose: 20 mg - Labs Labs: 01/14/17 06:38 01/14/17 06:36 PT 15.5 SECONDS (9.7-12.2) H 01/13/17 06:25 INR 1.3 01/13/17 06:25 APTT 31 SECONDS (21-34) 01/13/17 06:25 - Constitutional Appears: Toxic - Head Exam Additional comments: dsg on occipital aspect - Eye Exam Pupil Exam: Irregular - ENT Exam ENT Exam: Mucous Membranes Dry - Respiratory Exam Respiratory Exam: Rales - Cardiovascular Exam Cardiovascular Exam: Tachycardia, Irregular Rhythm, +S1, +S2, Murmur - GI/Abdominal Exam GI & Abdominal Exam: Soft, Hypoactive Bowel Sounds - Neurological Exam Neurological Exam: Altered Neuro motor strength exam: Left Upper Extremity: 5, Right Upper Extremity: 5, Left Lower Extremity: 5, Right Lower Extremity: 5 - Skin Skin Exam: Dry Assessment and Plan (1) New onset atrial fibrillation Assessment & Plan: on bb and ccb no ac due to bleed repeat ct head Status: Acute (2) Cerebellar stroke Status: Acute (3) CHF (congestive heart failure) Assessment & Plan: new onset on acei and bb Status: Acute (4) Mitral regurgitation Status: Acute (5) Tricuspid regurgitation Status: Acute
--- NOTE | 2017-01-14 08:17 | CP.PCM.PN ---
<Beth Alejandro - Last Filed: 01/14/17 09:05> Subjective - Date & Time of Evaluation Date of Evaluation: 01/14/17 Time of Evaluation: 08:13 - Subjective Subjective: Patient was seen and examined at bedside. Patient remains intubated and unresponsive. Review of systems not obtained due to patient's condition. Objective - Vital Signs/Intake and Output Vital Signs (last 24 hours): Temp Pulse Resp BP Pulse Ox 98.2 F 98 H 25 H 134/73 97 01/14/17 04:00 01/14/17 05:27 01/14/17 05:27 01/14/17 05:27 01/14/17 05:27 Intake and Output: 01/14/17 01/14/17 06:59 18:59 Intake Total 150 Output Total 600 Balance -450 - Medications Medications: Current Medications Acetaminophen (Tylenol 325mg Tab) 650 mg PO Q6 PRN PRN Reason: Pain, Mild (1-3) Last Admin: 01/13/17 13:48 Dose: 650 mg Diltiazem HCl (Cardizem) 60 mg PO QID [facility] Last Admin: 01/13/17 23:10 Dose: 60 mg Diltiazem HCl 125 mg/ Sodium (Chloride) 125 mls @ 5 mls/hr IV .Q24H PRN; Protocol; 5 MG/HR PRN Reason: PER PROTOCOL Last Titration: 01/12/17 15:47 Dose: Infused Vancomycin/Sodium Chloride (Vancocin) 1 gm in 200 mls @ 166.6 mls/hr IVPB Q12 [facility] Stop: 01/17/17 10:01 Last Admin: 01/13/17 23:00 Dose: 166.6 mls/hr Cefepime HCl 2 gm/ Sodium (Chloride) 100 mls @ 200 mls/hr IVPB Q12H [facility] Stop: 01/18/17 20:01 Last Admin: 01/13/17 20:00 Dose: 200 mls/hr Insulin Glargine (Lantus) 15 unit SC HS [facility] Last Admin: 01/13/17 23:10 Dose: 15 unit Insulin Human Regular (Novolin R) 0 unit SC Q6H [facility] PRN Reason: Protocol Last Admin: 01/14/17 08:00 Dose: 3 unit Lisinopril (Zestril) 5 mg PO DAILY [facility] Last Admin: 01/13/17 07:55 Dose: 5 mg Metoprolol Tartrate (Lopressor) 25 mg PO BID [facility] Last Admin: 01/13/17 18:03 Dose: 25 mg Pantoprazole Sodium (Protonix Inj) 40 mg IVP DAILY [facility] Last Admin: 01/13/17 10:47 Dose: 40 mg Rosuvastatin Calcium (Crestor) 20 mg PO HS [facility] Last Admin: 01/13/17 23:10 Dose: 20 mg - Labs Labs: 01/14/17 06:38 01/14/17 06:36 PT 15.5 SECONDS (9.7-12.2) H 01/13/17 06:25 INR 1.3 01/13/17 06:25 APTT 31 SECONDS (21-34) 01/13/17 06:25 - Head Exam Head Exam: ATRAUMATIC, NORMAL INSPECTION - Eye Exam Eye Exam: absent: EOMI Pupil Exam: PERRL Additional comments: sluggish - ENT Exam ENT Exam: Mucous Membranes Dry - Respiratory Exam Respiratory Exam: Rhonchi, Wheezes. absent: Clear to Ausculation Bilateral, Rales - Cardiovascular Exam Cardiovascular Exam: Tachycardia, Irregular Rhythm, +S1, +S2 - GI/Abdominal Exam GI & Abdominal Exam: Soft, Normal Bowel Sounds. absent: Distended, Firm - Extremities Exam Extremities Exam: Normal Inspection. absent: Pedal Edema - Neurological Exam Neurological Exam: absent: Alert, Awake, Oriented x3 - Psychiatric Exam Psychiatric exam: absent: Normal Affect, Normal Mood - Skin Skin Exam: Dry, Intact, Normal Color, Warm Assessment and Plan - Assessment and Plan (Free Text) Assessment: 72 year old female s/p bilateral cerebellar stroke, mass effect, hydrocephalus, decompressive craniotomy/ventriculotomy. Patient remains intubated. - Patient scheduled for tracheostomy and PEG in OR on 01/15/17 - NPO after midnight and hold anticoagulation prior to procedure - Continue medical management as per ICU team. <Felipe Tobar - Last Filed: 01/15/17 19:25> Objective - Vital Signs/Intake and Output Vital Signs (last 24 hours): Temp Pulse Resp BP Pulse Ox 97.7 F 71 25 H 81/52 L 98 01/15/17 16:00 01/15/17 19:14 01/15/17 19:14 01/15/17 19:14 01/15/17 19:14 Intake and Output: 01/15/17 01/16/17 18:59 06:59 Intake Total 300 Output Total 790 Balance -490 - Medications Medications: Current Medications Acetaminophen (Tylenol 325mg Tab) 650 mg PO Q6 PRN PRN Reason: Pain, Mild (1-3) Last Admin: 01/15/17 10:00 Dose: 650 mg Diltiazem HCl (Cardizem) 60 mg PO Q6H [facility] Last Admin: 01/15/17 18:36 Dose: 60 mg Vancomycin/Sodium Chloride (Vancocin) 1 gm in 200 mls @ 166.6 mls/hr IVPB Q12 [facility] Stop: 01/17/17 10:01 Last Admin: 01/15/17 10:01 Dose: 166.6 mls/hr Cefepime HCl 2 gm/ Sodium (Chloride) 100 mls @ 200 mls/hr IVPB Q12H [facility] Stop: 01/18/17 20:01 Last Admin: 01/15/17 08:49 Dose: 200 mls/hr Insulin Glargine (Lantus) 15 unit SC Q12 [facility] Last Admin: 01/15/17 10:01 Dose: 15 units Insulin Human Regular (Novolin R) 0 unit SC Q6H [facility] PRN Reason: Protocol Last Admin: 01/15/17 18:36 Dose: 2 unit Lisinopril (Zestril) 5 mg PO DAILY [facility] Last Admin: 01/15/17 10:00 Dose: 5 mg Metoprolol Tartrate (Lopressor) 50 mg PO BID [facility] Last Admin: 01/15/17 18:53 Dose: 50 mg Pantoprazole Sodium (Protonix Inj) 40 mg IVP DAILY [facility] Last Admin: 01/15/17 10:00 Dose: 40 mg Rosuvastatin Calcium (Crestor) 20 mg PO HS [facility] Last Admin: 01/14/17 22:24 Dose: 20 mg - Labs Labs: 01/15/17 06:04 01/15/17 06:04 PT 15.5 SECONDS (9.7-12.2) H 01/13/17 06:25 INR 1.3 01/13/17 06:25 APTT 31 SECONDS (21-34) 01/13/17 06:25 Attending/Attestation - Attestation I have personally seen and examined this patient.: Yes I have fully participated in the care of the patient.: Yes I have reviewed all pertinent clinical information, including history, physical exam and plan: Yes Notes (Text): 01/15/17 19:23 Pt was seen and examined at bedside Agree with above note and assessment Pt with ICH s/p Craniotomy/Ventriculotomy OR for Trach /PEG Consent Transfuse Platelets Plan d.w pt's and ICU attending Risk and benefit explained in detail.
[2017-01-14] MEDS: Cefepime 2 GM in Sodium Chloride 0.9% 100 ML IVPB SCH ×2 (08:18→20:00)
[2017-01-14 08:30] LABS: NEUTROPHIL 95 % (50-75); TOTAL CELLS COUNTED 100
[2017-01-14] MEDS: Vancomycin 1 gm/NS 200 ml 1 GM/200 ML BAG IVPB SCH ×2 (09:10→22:10)
[2017-01-14] MEDS ORDERED: (Novolin R) Insulin Human Regular 100 units/ml vial SC SCH (09:33)
--- NOTE | 2017-01-14 10:01 | RAD ---
HISTORY: intubation COMPARISON: 01/11/2017 FINDINGS: LUNGS: No interval infiltrate. Clear lungs PLEURA: No significant pleural effusion identified, no pneumothorax apparent. CARDIOVASCULAR: Top-normal heart size OSSEOUS STRUCTURES: Thoraco lumbar spondylosis VISUALIZED UPPER ABDOMEN: Normal. OTHER FINDINGS: Endotracheal tube tip somewhat difficult to normally identified. Nevertheless no endotracheal tube in either proximal bronchus suggested. This rotation in the super imposition Ing of the NG tube and the central line abort adding to the indeterminate appearance The NG tube tip courses along the gastric body. The tip appears beyond the inferior image. A left internal jugular vein catheter tip is in the innominate vessel most likely at the innominate superior vena cava junction IMPRESSION: No in pulmonary infiltrate. No pulmonary venous congestion or pleural effusions. Position of the endotracheal tube tip indeterminate. No endotracheal tube tip in eiher proximal bronchi however. . Other support lines tubes as above
--- NOTE | 2017-01-14 11:09 | CP.PCM.PN ---
Subjective - Date & Time of Evaluation Date of Evaluation: 01/14/17 Time of Evaluation: 10:00 - Subjective Subjective: Patient is intubated and unresponsive, unable to offer any symptoms. Objective - Vital Signs/Intake and Output Vital Signs (last 24 hours): Temp Pulse Resp BP Pulse Ox 97.6 F 93 H 24 105/58 L 97 01/14/17 08:00 01/14/17 11:00 01/14/17 11:00 01/14/17 10:28 01/14/17 11:00 Intake and Output: 01/14/17 01/14/17 06:59 18:59 Intake Total 150 300 Output Total 600 280 Balance -450 20 - Medications Medications: Current Medications Acetaminophen (Tylenol 325mg Tab) 650 mg PO Q6 PRN PRN Reason: Pain, Mild (1-3) Last Admin: 01/13/17 13:48 Dose: 650 mg Diltiazem HCl (Cardizem) 60 mg PO Q6H [facility] Diltiazem HCl 125 mg/ Sodium (Chloride) 125 mls @ 5 mls/hr IV .Q24H PRN; Protocol; 5 MG/HR PRN Reason: PER PROTOCOL Last Titration: 01/12/17 15:47 Dose: Infused Vancomycin/Sodium Chloride (Vancocin) 1 gm in 200 mls @ 166.6 mls/hr IVPB Q12 [facility] Stop: 01/17/17 10:01 Last Admin: 01/14/17 09:10 Dose: 166.6 mls/hr Cefepime HCl 2 gm/ Sodium (Chloride) 100 mls @ 200 mls/hr IVPB Q12H [facility] Stop: 01/18/17 20:01 Last Admin: 01/14/17 08:18 Dose: 200 mls/hr Insulin Glargine (Lantus) 15 unit SC Q12 [facility] Insulin Human Regular (Novolin R) 0 unit SC Q6H [facility] PRN Reason: Protocol Lisinopril (Zestril) 5 mg PO DAILY [facility] Last Admin: 01/14/17 09:10 Dose: 5 mg Metoprolol Tartrate (Lopressor) 25 mg PO BID [facility] Last Admin: 01/14/17 09:10 Dose: 25 mg Pantoprazole Sodium (Protonix Inj) 40 mg IVP DAILY [facility] Last Admin: 01/14/17 09:10 Dose: 40 mg Rosuvastatin Calcium (Crestor) 20 mg PO HS [facility] Last Admin: 01/13/17 23:10 Dose: 20 mg - Labs Labs: 01/14/17 06:38 01/14/17 06:36 PT 15.5 SECONDS (9.7-12.2) H 01/13/17 06:25 INR 1.3 01/13/17 06:25 APTT 31 SECONDS (21-34) 01/13/17 06:25 - Constitutional Appears: In Acute Distress - Head Exam Head Exam: ATRAUMATIC, NORMAL INSPECTION, NORMOCEPHALIC - Eye Exam Additional comments: Miminal reaction to light - Neck Exam Neck Exam: Normal Inspection Additional comments: ETT - Respiratory Exam Additional comments: On MV - Cardiovascular Exam Cardiovascular Exam: Tachycardia, Irregular Rhythm - GI/Abdominal Exam GI & Abdominal Exam: Hypoactive Bowel Sounds - Rectal Exam Rectal Exam: Deferred - Exam Additional comments: NGT - Extremities Exam Extremities Exam: Pedal Edema - Back Exam Back Exam: NORMAL INSPECTION - Neurological Exam Neurological Exam: Motor Sensory Deficit Neuro motor strength exam: Left Upper Extremity: 0, Right Upper Extremity: 0, Left Lower Extremity: 0, Right Lower Extremity: 0 - Psychiatric Exam Psychiatric exam: Flat Affect - Skin Skin Exam: Intact Assessment and Plan - Assessment and Plan (Free Text) Assessment: Patient is intubated, unresponsive to stimulus. Pupils reaction to light is minimal. Gag reflex very weak, almost absent. There is thrombocytopenia , patient is not candidate for anticoagulation Tx and at risk for PE due to hyperventilation. Patient has not shown improvement since decompression craniotomy. Family gained some hope of recovery over the weekend when patient had some spontaneous eyes opening and terminal extubation was aborted. However, patient is now minimally responsive and unlikely able to be weaned of the MV support. As per report, family is now considering the trach and PEG insertion , scheduled for tomorrow. I discussed this new plan with Director Of Cardiopulmonary Services and ICU team this morning, as it will cause a lot of new problems, and overall, introduce further suffering for this patient. The quality of life issues are coming into consideration more than ever now. We agreed to ask for Neuro consult fallow up before the family meeting is called. I called patient's son Gustabo this morning as I wanted to futher discuss goals of care with him, and left voice mail. This was also shared with Shelby, the shelter case manager. Impression * This is acutely ill patient on full life support * Patient is not candidate for weaning off the MV due to weak gag reflex and inability to protest the airway. * Family saw some hope over the weekend when patient had some spontaneous eyes opening and is now considering the trach and PEG * Creating the trach will cause additional problems; first of all it will not bring about meaningful recovery and improved quality of life, and Second,even if trach is created, patient will not have accepting group home facility due to lack of insurance Suggestions * New family meeting with presence of ICU team is necessary to help family understand what is in stake if they choose trach and PEG * The input from neurologist with prognostications
[2017-01-14] MEDS ORDERED: Metoprolol 1 mg/ml Inj IVP ONE ×2 (11:43→23:10)
--- NOTE | 2017-01-14 13:30 | CP.CCUPN ---
<SaúlEric A - Last Filed: 01/14/17 15:02> CCU Subjective - Physician Review Events Since Last Encounter (Free Text): CCM Chsrt reviewed. Pt examined. Discussed with housestaff. Intubated, opens eyes with stim./ not clerly closing on command Pupils reactive Neck- no jvd Lungs- bilat bs Heart- irreg irreg Abd- benign eXt- no edema Neuro- not moving to painful stim Labs, x-rays reviewed A&P Cerebellar stroke/Hydrocephalus s/p Suboccipital Craniotomy/ ventriculostomy A-fib Hypernatremia- improved HTN DM cont vent support cont cardizem and increase beta krysta for rate control Neurology f/u EEG Neurosurgery f/u re Ventric duration BS control /RISS Optimize lytes Trach scheduled for sneha if family decides after family meeting d/w housestaff 01/14/17 15:02 CCU Objective - Vital Signs / Intake & Output Vital Signs (Last 4 hours): Vital Signs Pulse Resp BP Pulse Ox 01/14/17 11:07 142/59 L 01/14/17 11:00 93 H 24 97 Intake and Output (Last 8hrs): Intake & Output 01/13/17 01/14/17 01/14/17 22:59 06:59 14:59 Intake Total 555 50 300 Output Total 710 400 280 Balance -155 -350 20 Intake: Intake, IV Amount 30 300 Left Proximal Port 30 300 Internal Jugular Oral 0 Tube Feeding 275 50 Other 250 Output: Drainage 100 Right Posterior Head 100 Urine 610 400 280 Urethral (Massey) 610 400 280 Other: # Bowel Movements 1 - Medications Active Medications: Active Medications Generic Name Dose Route Start Last Admin Trade Name Freq PRN Reason Stop Dose Admin Acetaminophen 650 mg 01/03/17 11:49 01/13/17 13:48 Tylenol 325mg Tab PO 650 mg Q6 PRN Administration Pain, Mild (1-3) Diltiazem HCl 60 mg 01/14/17 12:00 01/14/17 12:33 Cardizem PO 60 mg Q6H MIRELLA Administration Vancomycin/Sodium Chloride 1 gm in 200 mls @ 166.6 mls/hr 01/12/17 10:00 09:10 Vancocin IVPB 01/17/17 10:01 166.6 mls/hr Q12 MIRELLA Administration Cefepime HCl 2 gm/ Sodium 100 mls @ 200 mls/hr 01/13/17 20:00 01/14/17 08:18 Chloride IVPB 01/18/17 20:01 200 mls/hr Q12H MIRELLA Administration Insulin Glargine 15 unit 01/14/17 10:11 Lantus SC Q12 MIRELLA Insulin Human Regular 0 unit 01/14/17 12:35 01/14/17 12:42 Novolin R SC 3 unit Q6H MIRELLA Administration Protocol Lisinopril 5 mg 01/11/17 09:30 01/14/17 09:10 Zestril PO 5 mg DAILY MIRELLA Administration Metoprolol Tartrate 50 mg 01/14/17 11:43 Lopressor PO BID MIRELLA Pantoprazole Sodium 40 mg 01/02/17 10:00 01/14/17 09:10 Protonix Inj IVP 40 mg DAILY MIRELLA Administration Rosuvastatin Calcium 20 mg 01/03/17 22:00 01/13/17 23:10 Crestor PO 20 mg HS MIRELLA Administration - Patient Studies Lab Studies: Microbiology Studies 01/12/17 10:05 Gram Stain - Preliminary Cerebral Spinal Fluid CSF Culture - Preliminary NO GROWTH AFTER 2 DAYS 01/12/17 07:45 Blood Culture - Preliminary Blood-Venous NO GROWTH AFTER 48 HOURS 01/12/17 08:30 Blood Culture - Preliminary Blood-Venous NO GROWTH AFTER 48 HOURS 01/12/17 15:19 Gram Stain - Final Trachasp Sputum Culture - Final Staphylococcus Aureus Lab Studies 01/14/17 01/14/17 01/14/17 Range/Units 12:00 07:46 06:38 WBC 17.5 H (4.8-10.8) K/uL RBC 3.55 L (3.80-5.20) Mil/uL Hgb 10.5 L (11.0-16.0) g/dL Hct 31.6 L (34.0-47.0) % MCV 89.1 (81.0-99.0) fL MCH 29.5 (27.0-31.0) pg MCHC 33.2 (33.0-37.0) g/dL RDW 14.0 (11.5-14.5) % Plt Count 73 L (130-400) K/uL MPV 12.2 H (7.2-11.7) fL Neut % (Auto) 92.2 H (50.0-75.0) % Lymph % (Auto) 5.0 L (20.0-40.0) % [place] % (Auto) 2.5 (0.0-10.0) % Eos % (Auto) 0.1 (0.0-4.0) % Baso % (Auto) 0.2 (0.0-2.0) % Neut # 16.1 H (1.8-7.0) K/uL Lymph # 0.9 L (1.0-4.3) K/uL [place] # 0.4 (0.0-0.8) K/uL Eos # 0.0 (0.0-0.7) K/uL Baso # 0.0 (0.0-0.2) K/uL Neutrophils % (Manual) 95 H (50-75) % Lymphocytes % (Manual) 3 L (20-40) % Monocytes % (Manual) 2 (0-10) % Platelet Estimate Decreased L (NORMAL) Hypochromasia (manual) Slight Poikilocytosis (manual Slight Anisocytosis (manual) Slight Puncture Site pCO2 (35-45) mm/Hg pO2 (80-100) mm/Hg HCO3 (21-28) mmol/L ABG pH (7.35-7.45) ABG Total CO2 (22-28) mmol/L ABG O2 Saturation (95-98) % ABG Base Excess (-2.0-3.0) mmol/L ABG Hemoglobin (11.7-17.4) g/dL ABG Carboxyhemoglobin (0.5-1.5) % POC ABG HHb (Measured) (0.0-5.0) % ABG Methemoglobin (0.0-3.0) % Chandana Test A-a O2 Difference mm/Hg Respiratory Index Hgb O2 Saturation (95.0-98.0) % Vent Mode Mechanical Rate FiO2 % Tidal Volume PEEP Sodium (132-148) mmol/L Potassium (3.6-5.2) mmol/L Chloride (98-107) mmol/L Carbon Dioxide (22-30) mmol/L Anion Gap (10-20) BUN (7-17) mg/dL Creatinine (0.7-1.2) MG/DL Est GFR ( Amer) Est GFR (Non-Af Amer) POC Glucose (mg/dL) 209 H 274 H (65-110) mg/dL Random Glucose (65-105) mg/dL Calcium (8.6-10.4) mg/dl Phosphorus (2.5-4.5) mg/dL Magnesium (1.6-2.3) mg/dL Total Bilirubin (0.2-1.3) mg/dL AST (14-36) U/L ALT (9-52) U/L Alkaline Phosphatase (38-126) U/L Total Protein (6.3-8.3) g/dL Albumin (3.5-5.0) g/dL Globulin (2.2-3.9) gm/dL Albumin/Globulin Ratio (1.0-2.1) Vancomycin Trough (5.0-10.0) ug/mL 01/14/17 01/14/17 01/14/17 Range/Units 06:36 05:02 00:16 WBC (4.8-10.8) K/uL RBC (3.80-5.20) Mil/uL Hgb (11.0-16.0) g/dL Hct (34.0-47.0) % MCV (81.0-99.0) fL MCH (27.0-31.0) pg MCHC (33.0-37.0) g/dL RDW (11.5-14.5) % Plt Count (130-400) K/uL MPV (7.2-11.7) fL Neut % (Auto) (50.0-75.0) % Lymph % (Auto) (20.0-40.0) % [place] % (Auto) (0.0-10.0) % Eos % (Auto) (0.0-4.0) % Baso % (Auto) (0.0-2.0) % Neut # (1.8-7.0) K/uL Lymph # (1.0-4.3) K/uL [place] # (0.0-0.8) K/uL Eos # (0.0-0.7) K/uL Baso # (0.0-0.2) K/uL Neutrophils % (Manual) (50-75) % Lymphocytes % (Manual) (20-40) % Monocytes % (Manual) (0-10) % Platelet Estimate (NORMAL) Hypochromasia (manual) Poikilocytosis (manual Anisocytosis (manual) Puncture Site A-line pCO2 24 L (35-45) mm/Hg pO2 87 (80-100) mm/Hg HCO3 21.9 (21-28) mmol/L ABG pH 7.49 H (7.35-7.45) ABG Total CO2 19.0 L (22-28) mmol/L ABG O2 Saturation 99.1 H (95-98) % ABG Base Excess -3.9 L (-2.0-3.0) mmol/L ABG Hemoglobin 10.2 L (11.7-17.4) g/dL ABG Carboxyhemoglobin 2.0 H (0.5-1.5) % POC ABG HHb (Measured) 0.9 (0.0-5.0) % ABG Methemoglobin 0.9 (0.0-3.0) % Chandana Test Na A-a O2 Difference 97.0 mm/Hg Respiratory Index 1.1 Hgb O2 Saturation 96.2 (95.0-98.0) % Vent Mode Prvc Mechanical Rate 12 FiO2 30.0 % Tidal Volume 400 PEEP 5 Sodium 150 H (132-148) mmol/L Potassium 4.0 (3.6-5.2) mmol/L Chloride 120 H (98-107) mmol/L Carbon Dioxide 17 L (22-30) mmol/L Anion Gap 17 (10-20) BUN 32 H (7-17) mg/dL Creatinine 0.5 L (0.7-1.2) MG/DL Est GFR ( Amer) > 60 Est GFR (Non-Af Amer) > 60 POC Glucose (mg/dL) 306 H (65-110) mg/dL Random Glucose 265 H (65-105) mg/dL Calcium 7.8 L (8.6-10.4) mg/dl Phosphorus 2.4 L (2.5-4.5) mg/dL Magnesium 2.7 H (1.6-2.3) mg/dL Total Bilirubin 0.8 (0.2-1.3) mg/dL AST 73 H (14-36) U/L ALT 64 H (9-52) U/L Alkaline Phosphatase 62 (38-126) U/L Total Protein 5.8 L (6.3-8.3) g/dL Albumin 2.4 L (3.5-5.0) g/dL Globulin 3.4 (2.2-3.9) gm/dL Albumin/Globulin Ratio 0.7 L (1.0-2.1) Vancomycin Trough (5.0-10.0) ug/mL 01/13/17 01/13/17 Range/Units 23:03 17:28 WBC (4.8-10.8) K/uL RBC (3.80-5.20) Mil/uL Hgb (11.0-16.0) g/dL Hct (34.0-47.0) % MCV (81.0-99.0) fL MCH (27.0-31.0) pg MCHC (33.0-37.0) g/dL RDW (11.5-14.5) % Plt Count (130-400) K/uL MPV (7.2-11.7) fL Neut % (Auto) (50.0-75.0) % Lymph % (Auto) (20.0-40.0) % [place] % (Auto) (0.0-10.0) % Eos % (Auto) (0.0-4.0) % Baso % (Auto) (0.0-2.0) % Neut # (1.8-7.0) K/uL Lymph # (1.0-4.3) K/uL [place] # (0.0-0.8) K/uL Eos # (0.0-0.7) K/uL Baso # (0.0-0.2) K/uL Neutrophils % (Manual) (50-75) % Lymphocytes % (Manual) (20-40) % Monocytes % (Manual) (0-10) % Platelet Estimate (NORMAL) Hypochromasia (manual) Poikilocytosis (manual Anisocytosis (manual) Puncture Site pCO2 (35-45) mm/Hg pO2 (80-100) mm/Hg HCO3 (21-28) mmol/L ABG pH (7.35-7.45) ABG Total CO2 (22-28) mmol/L ABG O2 Saturation (95-98) % ABG Base Excess (-2.0-3.0) mmol/L ABG Hemoglobin (11.7-17.4) g/dL ABG Carboxyhemoglobin (0.5-1.5) % POC ABG HHb (Measured) (0.0-5.0) % ABG Methemoglobin (0.0-3.0) % Chandana Test A-a O2 Difference mm/Hg Respiratory Index Hgb O2 Saturation (95.0-98.0) % Vent Mode Mechanical Rate FiO2 % Tidal Volume PEEP Sodium (132-148) mmol/L Potassium (3.6-5.2) mmol/L Chloride (98-107) mmol/L Carbon Dioxide (22-30) mmol/L Anion Gap (10-20) BUN (7-17) mg/dL Creatinine (0.7-1.2) MG/DL Est GFR ( Amer) Est GFR (Non-Af Amer) POC Glucose (mg/dL) 266 H (65-110) mg/dL Random Glucose (65-105) mg/dL Calcium (8.6-10.4) mg/dl Phosphorus (2.5-4.5) mg/dL Magnesium (1.6-2.3) mg/dL Total Bilirubin (0.2-1.3) mg/dL AST (14-36) U/L ALT (9-52) U/L Alkaline Phosphatase (38-126) U/L Total Protein (6.3-8.3) g/dL Albumin (3.5-5.0) g/dL Globulin (2.2-3.9) gm/dL Albumin/Globulin Ratio (1.0-2.1) Vancomycin Trough 13.5 H (5.0-10.0) ug/mL Laboratory Results - last 24 hr 01/13/17 01/13/17 01/14/17 17:28 23:03 00:16 WBC RBC Hgb Hct MCV MCH MCHC RDW Plt Count MPV Neut % (Auto) Lymph % (Auto) [place] % (Auto) Eos % (Auto) Baso % (Auto) Neut # Lymph # [place] # Eos # Baso # Neutrophils % (Manual) Lymphocytes % (Manual) Monocytes % (Manual) Platelet Estimate Hypochromasia (manual) Poikilocytosis (manual Anisocytosis (manual) Puncture Site pCO2 pO2 HCO3 ABG pH ABG Total CO2 ABG O2 Saturation ABG Base Excess ABG Hemoglobin ABG Carboxyhemoglobin POC ABG HHb (Measured) ABG Methemoglobin Chandana Test A-a O2 Difference Respiratory Index Hgb O2 Saturation Vent Mode Mechanical Rate FiO2 Tidal Volume PEEP Sodium Potassium Chloride Carbon Dioxide Anion Gap BUN Creatinine Est GFR ( Amer) Est GFR (Non-Af Amer) POC Glucose (mg/dL) 266 H 306 H Random Glucose Calcium Phosphorus Magnesium Total Bilirubin AST ALT Alkaline Phosphatase Total Protein Albumin Globulin Albumin/Globulin Ratio Vancomycin Trough 13.5 H 01/14/17 01/14/17 01/14/17 05:02 06:36 06:38 WBC 17.5 H RBC 3.55 L Hgb 10.5 L Hct 31.6 L MCV 89.1 MCH 29.5 MCHC 33.2 RDW 14.0 Plt Count 73 L MPV 12.2 H Neut % (Auto) 92.2 H Lymph % (Auto) 5.0 L [place] % (Auto) 2.5 Eos % (Auto) 0.1 Baso % (Auto) 0.2 Neut # 16.1 H Lymph # 0.9 L [place] # 0.4 Eos # 0.0 Baso # 0.0 Neutrophils % (Manual) 95 H Lymphocytes % (Manual) 3 L Monocytes % (Manual) 2 Platelet Estimate Decreased L Hypochromasia (manual) Slight Poikilocytosis (manual Slight Anisocytosis (manual) Slight Puncture Site A-line pCO2 24 L pO2 87 HCO3 21.9 ABG pH 7.49 H ABG Total CO2 19.0 L ABG O2 Saturation 99.1 H ABG Base Excess -3.9 L ABG Hemoglobin 10.2 L ABG Carboxyhemoglobin 2.0 H POC ABG HHb (Measured) 0.9 ABG Methemoglobin 0.9 Chandana Test Na A-a O2 Difference 97.0 Respiratory Index 1.1 Hgb O2 Saturation 96.2 Vent Mode Prvc Mechanical Rate 12 FiO2 30.0 Tidal Volume 400 PEEP 5 Sodium 150 H Potassium 4.0 Chloride 120 H Carbon Dioxide 17 L Anion Gap 17 BUN 32 H Creatinine 0.5 L Est GFR ( Amer) > 60 Est GFR (Non-Af Amer) > 60 POC Glucose (mg/dL) Random Glucose 265 H Calcium 7.8 L Phosphorus 2.4 L Magnesium 2.7 H Total Bilirubin 0.8 AST 73 H ALT 64 H Alkaline Phosphatase 62 Total Protein 5.8 L Albumin 2.4 L Globulin 3.4 Albumin/Globulin Ratio 0.7 L Vancomycin Trough 01/14/17 01/14/17 07:46 12:00 WBC RBC Hgb Hct MCV MCH MCHC RDW Plt Count MPV Neut % (Auto) Lymph % (Auto) [place] % (Auto) Eos % (Auto) Baso % (Auto) Neut # Lymph # [place] # Eos # Baso # Neutrophils % (Manual) Lymphocytes % (Manual) Monocytes % (Manual) Platelet Estimate Hypochromasia (manual) Poikilocytosis (manual Anisocytosis (manual) Puncture Site pCO2 pO2 HCO3 ABG pH ABG Total CO2 ABG O2 Saturation ABG Base Excess ABG Hemoglobin ABG Carboxyhemoglobin POC ABG HHb (Measured) ABG Methemoglobin Chandana Test A-a O2 Difference Respiratory Index Hgb O2 Saturation Vent Mode Mechanical Rate FiO2 Tidal Volume PEEP Sodium Potassium Chloride Carbon Dioxide Anion Gap BUN Creatinine Est GFR ( Amer) Est GFR (Non-Af Amer) POC Glucose (mg/dL) 274 H 209 H Random Glucose Calcium Phosphorus Magnesium Total Bilirubin AST ALT Alkaline Phosphatase Total Protein Albumin Globulin Albumin/Globulin Ratio Vancomycin Trough <Kd Good R - Last Filed: 01/14/17 16:42> CCU Subjective - Physician Review Subjective (Free Text): Patient was seen and examined at bedside in the morning. Patient is unresponsive and intubated. Unable to obtain review of systems. 01/14/17 16:22 CCU Objective - Vital Signs / Intake & Output Vital Signs (Last 4 hours): Vital Signs Pulse Resp BP Pulse Ox 01/14/17 11:07 142/59 L 01/14/17 11:00 93 H 24 97 01/14/17 10:28 76 23 105/58 L 96 01/14/17 10:00 92 H 22 96 Intake and Output (Last 8hrs): Intake & Output 01/13/17 01/14/17 01/14/17 22:59 06:59 14:59 Intake Total 555 50 300 Output Total 710 400 280 Balance -155 -350 20 Intake: Intake, IV Amount 30 300 Left Proximal Port 30 300 Internal Jugular Oral 0 Tube Feeding 275 50 Other 250 Output: Drainage 100 Right Posterior Head 100 Urine 610 400 280 Urethral (Massey) 610 400 280 Other: # Bowel Movements 1 - Physical Exam Head: Positive for: Normocephalic Pupils: Positive for: PERRL Extroacular Muscles: Negative for: EOMI Mouth: Positive for: Other (intubated) Neck: Negative for: Normal Range of Motion Respiratory/Chest: Positive for: Clear to Auscultation, Other (intubated). Negative for: Wheezes, Rales, Rhonchi, Tachypneic Cardiovascular: Positive for: Normal S1, S2, Irregular Rhythm, Tachycardic Abdomen: Negative for: Distention, Normal Bowel Sounds (hypoactive) Upper Extremity: Positive for: Normal Inspection. Negative for: Edema Lower Extremity: Positive for: Normal Inspection. Negative for: Edema Neurological: Positive for: Other (no response to pain; gag reflex & corneal reflex+; intermittently following commands). Negative for: GCS=15, Motor Func Grossly Intact, Normal Sensory Function Skin: Positive for: Warm, Dry, Normal Color Psychiatric: Negative for: Alert, Oriented x 3 - Medications Active Medications: Active Medications Generic Name Dose Route Start Last Admin Trade Name Freq PRN Reason Stop Dose Admin Acetaminophen 650 mg 01/03/17 11:49 01/13/17 13:48 Tylenol 325mg Tab PO 650 mg Q6 PRN Administration Pain, Mild (1-3) Diltiazem HCl 60 mg 01/14/17 12:00 01/14/17 12:33 Cardizem PO 60 mg Q6H MIRELLA Administration Vancomycin/Sodium Chloride 1 gm in 200 mls @ 166.6 mls/hr 01/12/17 10:00 09:10 Vancocin IVPB 01/17/17 10:01 166.6 mls/hr Q12 MIRELLA Administration Cefepime HCl 2 gm/ Sodium 100 mls @ 200 mls/hr 01/13/17 20:00 01/14/17 08:18 Chloride IVPB 01/18/17 20:01 200 mls/hr Q12H MIRELLA Administration Insulin Glargine 15 unit 01/14/17 10:11 Lantus SC Q12 MIRELLA Insulin Human Regular 0 unit 01/14/17 12:35 01/14/17 12:42 Novolin R SC 3 unit Q6H MIRELLA Administration Protocol Lisinopril 5 mg 01/11/17 09:30 01/14/17 09:10 Zestril PO 5 mg DAILY MIRELLA Administration Metoprolol Tartrate 50 mg 01/14/17 11:43 Lopressor PO BID MIRELLA Pantoprazole Sodium 40 mg 01/02/17 10:00 01/14/17 09:10 Protonix Inj IVP 40 mg DAILY MIRELLA Administration Rosuvastatin Calcium 20 mg 01/03/17 22:00 01/13/17 23:10 Crestor PO 20 mg HS MIRELLA Administration - Patient Studies Lab Studies: Microbiology Studies 01/12/17 10:05 Gram Stain - Preliminary Cerebral Spinal Fluid CSF Culture - Preliminary NO GROWTH AFTER 2 DAYS 01/12/17 07:45 Blood Culture - Preliminary Blood-Venous NO GROWTH AFTER 48 HOURS 01/12/17 08:30 Blood Culture - Preliminary Blood-Venous NO GROWTH AFTER 48 HOURS 01/12/17 15:19 Gram Stain - Final Trachasp Sputum Culture - Final Staphylococcus Aureus Lab Studies 01/14/17 01/14/17 01/14/17 Range/Units 12:00 07:46 06:38 WBC 17.5 H (4.8-10.8) K/uL RBC 3.55 L (3.80-5.20) Mil/uL Hgb 10.5 L (11.0-16.0) g/dL Hct 31.6 L (34.0-47.0) % MCV 89.1 (81.0-99.0) fL MCH 29.5 (27.0-31.0) pg MCHC 33.2 (33.0-37.0) g/dL RDW 14.0 (11.5-14.5) % Plt Count 73 L (130-400) K/uL MPV 12.2 H (7.2-11.7) fL Neut % (Auto) 92.2 H (50.0-75.0) % Lymph % (Auto) 5.0 L (20.0-40.0) % [place] % (Auto) 2.5 (0.0-10.0) % Eos % (Auto) 0.1 (0.0-4.0) % Baso % (Auto) 0.2 (0.0-2.0) % Neut # 16.1 H (1.8-7.0) K/uL Lymph # 0.9 L (1.0-4.3) K/uL [place] # 0.4 (0.0-0.8) K/uL Eos # 0.0 (0.0-0.7) K/uL Baso # 0.0 (0.0-0.2) K/uL Neutrophils % (Manual) 95 H (50-75) % Lymphocytes % (Manual) 3 L (20-40) % Monocytes % (Manual) 2 (0-10) % Platelet Estimate Decreased L (NORMAL) Hypochromasia (manual) Slight Poikilocytosis (manual Slight Anisocytosis (manual) Slight Puncture Site pCO2 (35-45) mm/Hg pO2 (80-100) mm/Hg HCO3 (21-28) mmol/L ABG pH (7.35-7.45) ABG Total CO2 (22-28) mmol/L ABG O2 Saturation (95-98) % ABG Base Excess (-2.0-3.0) mmol/L ABG Hemoglobin (11.7-17.4) g/dL ABG Carboxyhemoglobin (0.5-1.5) % POC ABG HHb (Measured) (0.0-5.0) % ABG Methemoglobin (0.0-3.0) % Chandana Test A-a O2 Difference mm/Hg Respiratory Index Hgb O2 Saturation (95.0-98.0) % Vent Mode Mechanical Rate FiO2 % Tidal Volume PEEP Sodium (132-148) mmol/L Potassium (3.6-5.2) mmol/L Chloride (98-107) mmol/L Carbon Dioxide (22-30) mmol/L Anion Gap (10-20) BUN (7-17) mg/dL Creatinine (0.7-1.2) MG/DL Est GFR ( Amer) Est GFR (Non-Af Amer) POC Glucose (mg/dL) 209 H 274 H (65-110) mg/dL Random Glucose (65-105) mg/dL Calcium (8.6-10.4) mg/dl Phosphorus (2.5-4.5) mg/dL Magnesium (1.6-2.3) mg/dL Total Bilirubin (0.2-1.3) mg/dL AST (14-36) U/L ALT (9-52) U/L Alkaline Phosphatase (38-126) U/L Total Protein (6.3-8.3) g/dL Albumin (3.5-5.0) g/dL Globulin (2.2-3.9) gm/dL Albumin/Globulin Ratio (1.0-2.1) Vancomycin Trough (5.0-10.0) ug/mL 01/14/17 01/14/17 01/14/17 Range/Units 06:36 05:02 00:16 WBC (4.8-10.8) K/uL RBC (3.80-5.20) Mil/uL Hgb (11.0-16.0) g/dL Hct (34.0-47.0) % MCV (81.0-99.0) fL MCH (27.0-31.0) pg MCHC (33.0-37.0) g/dL RDW (11.5-14.5) % Plt Count (130-400) K/uL MPV (7.2-11.7) fL Neut % (Auto) (50.0-75.0) % Lymph % (Auto) (20.0-40.0) % [place] % (Auto) (0.0-10.0) % Eos % (Auto) (0.0-4.0) % Baso % (Auto) (0.0-2.0) % Neut # (1.8-7.0) K/uL Lymph # (1.0-4.3) K/uL [place] # (0.0-0.8) K/uL Eos # (0.0-0.7) K/uL Baso # (0.0-0.2) K/uL Neutrophils % (Manual) (50-75) % Lymphocytes % (Manual) (20-40) % Monocytes % (Manual) (0-10) % Platelet Estimate (NORMAL) Hypochromasia (manual) Poikilocytosis (manual Anisocytosis (manual) Puncture Site A-line pCO2 24 L (35-45) mm/Hg pO2 87 (80-100) mm/Hg HCO3 21.9 (21-28) mmol/L ABG pH 7.49 H (7.35-7.45) ABG Total CO2 19.0 L (22-28) mmol/L ABG O2 Saturation 99.1 H (95-98) % ABG Base Excess -3.9 L (-2.0-3.0) mmol/L ABG Hemoglobin 10.2 L (11.7-17.4) g/dL ABG Carboxyhemoglobin 2.0 H (0.5-1.5) % POC ABG HHb (Measured) 0.9 (0.0-5.0) % ABG Methemoglobin 0.9 (0.0-3.0) % Chandana Test Na A-a O2 Difference 97.0 mm/Hg Respiratory Index 1.1 Hgb O2 Saturation 96.2 (95.0-98.0) % Vent Mode Prvc Mechanical Rate 12 FiO2 30.0 % Tidal Volume 400 PEEP 5 Sodium 150 H (132-148) mmol/L Potassium 4.0 (3.6-5.2) mmol/L Chloride 120 H (98-107) mmol/L Carbon Dioxide 17 L (22-30) mmol/L Anion Gap 17 (10-20) BUN 32 H (7-17) mg/dL Creatinine 0.5 L (0.7-1.2) MG/DL Est GFR ( Amer) > 60 Est GFR (Non-Af Amer) > 60 POC Glucose (mg/dL) 306 H (65-110) mg/dL Random Glucose 265 H (65-105) mg/dL Calcium 7.8 L (8.6-10.4) mg/dl Phosphorus 2.4 L (2.5-4.5) mg/dL Magnesium 2.7 H (1.6-2.3) mg/dL Total Bilirubin 0.8 (0.2-1.3) mg/dL AST 73 H (14-36) U/L ALT 64 H (9-52) U/L Alkaline Phosphatase 62 (38-126) U/L Total Protein 5.8 L (6.3-8.3) g/dL Albumin 2.4 L (3.5-5.0) g/dL Globulin 3.4 (2.2-3.9) gm/dL Albumin/Globulin Ratio 0.7 L (1.0-2.1) Vancomycin Trough (5.0-10.0) ug/mL 01/13/17 01/13/17 Range/Units 23:03 17:28 WBC (4.8-10.8) K/uL RBC (3.80-5.20) Mil/uL Hgb (11.0-16.0) g/dL Hct (34.0-47.0) % MCV (81.0-99.0) fL MCH (27.0-31.0) pg MCHC (33.0-37.0) g/dL RDW (11.5-14.5) % Plt Count (130-400) K/uL MPV (7.2-11.7) fL Neut % (Auto) (50.0-75.0) % Lymph % (Auto) (20.0-40.0) % [place] % (Auto) (0.0-10.0) % Eos % (Auto) (0.0-4.0) % Baso % (Auto) (0.0-2.0) % Neut # (1.8-7.0) K/uL Lymph # (1.0-4.3) K/uL [place] # (0.0-0.8) K/uL Eos # (0.0-0.7) K/uL Baso # (0.0-0.2) K/uL Neutrophils % (Manual) (50-75) % Lymphocytes % (Manual) (20-40) % Monocytes % (Manual) (0-10) % Platelet Estimate (NORMAL) Hypochromasia (manual) Poikilocytosis (manual Anisocytosis (manual) Puncture Site pCO2 (35-45) mm/Hg pO2 (80-100) mm/Hg HCO3 (21-28) mmol/L ABG pH (7.35-7.45) ABG Total CO2 (22-28) mmol/L ABG O2 Saturation (95-98) % ABG Base Excess (-2.0-3.0) mmol/L ABG Hemoglobin (11.7-17.4) g/dL ABG Carboxyhemoglobin (0.5-1.5) % POC ABG HHb (Measured) (0.0-5.0) % ABG Methemoglobin (0.0-3.0) % Chandana Test A-a O2 Difference mm/Hg Respiratory Index Hgb O2 Saturation (95.0-98.0) % Vent Mode Mechanical Rate FiO2 % Tidal Volume PEEP Sodium (132-148) mmol/L Potassium (3.6-5.2) mmol/L Chloride (98-107) mmol/L Carbon Dioxide (22-30) mmol/L Anion Gap (10-20) BUN (7-17) mg/dL Creatinine (0.7-1.2) MG/DL Est GFR ( Amer) Est GFR (Non-Af Amer) POC Glucose (mg/dL) 266 H (65-110) mg/dL Random Glucose (65-105) mg/dL Calcium (8.6-10.4) mg/dl Phosphorus (2.5-4.5) mg/dL Magnesium (1.6-2.3) mg/dL Total Bilirubin (0.2-1.3) mg/dL AST (14-36) U/L ALT (9-52) U/L Alkaline Phosphatase (38-126) U/L Total Protein (6.3-8.3) g/dL Albumin (3.5-5.0) g/dL Globulin (2.2-3.9) gm/dL Albumin/Globulin Ratio (1.0-2.1) Vancomycin Trough 13.5 H (5.0-10.0) ug/mL Laboratory Results - last 24 hr 01/13/17 01/13/17 01/14/17 17:28 23:03 00:16 WBC RBC Hgb Hct MCV MCH MCHC RDW Plt Count MPV Neut % (Auto) Lymph % (Auto) [place] % (Auto) Eos % (Auto) Baso % (Auto) Neut # Lymph # [place] # Eos # Baso # Neutrophils % (Manual) Lymphocytes % (Manual) Monocytes % (Manual) Platelet Estimate Hypochromasia (manual) Poikilocytosis (manual Anisocytosis (manual) Puncture Site pCO2 pO2 HCO3 ABG pH ABG Total CO2 ABG O2 Saturation ABG Base Excess ABG Hemoglobin ABG Carboxyhemoglobin POC ABG HHb (Measured) ABG Methemoglobin Chandana Test A-a O2 Difference Respiratory Index Hgb O2 Saturation Vent Mode Mechanical Rate FiO2 Tidal Volume PEEP Sodium Potassium Chloride Carbon Dioxide Anion Gap BUN Creatinine Est GFR ( Amer) Est GFR (Non-Af Amer) POC Glucose (mg/dL) 266 H 306 H Random Glucose Calcium Phosphorus Magnesium Total Bilirubin AST ALT Alkaline Phosphatase Total Protein Albumin Globulin Albumin/Globulin Ratio Vancomycin Trough 13.5 H 08/01/14/17 01/14/17 05:02 06:36 06:38 WBC 17.5 H RBC 3.55 L Hgb 10.5 L Hct 31.6 L MCV 89.1 MCH 29.5 MCHC 33.2 RDW 14.0 Plt Count 73 L MPV 12.2 H Neut % (Auto) 92.2 H Lymph % (Auto) 5.0 L [place] % (Auto) 2.5 Eos % (Auto) 0.1 Baso % (Auto) 0.2 Neut # 16.1 H Lymph # 0.9 L [place] # 0.4 Eos # 0.0 Baso # 0.0 Neutrophils % (Manual) 95 H Lymphocytes % (Manual) 3 L Monocytes % (Manual) 2 Platelet Estimate Decreased L Hypochromasia (manual) Slight Poikilocytosis (manual Slight Anisocytosis (manual) Slight Puncture Site A-line pCO2 24 L pO2 87 HCO3 21.9 ABG pH 7.49 H ABG Total CO2 19.0 L ABG O2 Saturation 99.1 H ABG Base Excess -3.9 L ABG Hemoglobin 10.2 L ABG Carboxyhemoglobin 2.0 H POC ABG HHb (Measured) 0.9 ABG Methemoglobin 0.9 Chandana Test Na A-a O2 Difference 97.0 Respiratory Index 1.1 Hgb O2 Saturation 96.2 Vent Mode Prvc Mechanical Rate 12 FiO2 30.0 Tidal Volume 400 PEEP 5 Sodium 150 H Potassium 4.0 Chloride 120 H Carbon Dioxide 17 L Anion Gap 17 BUN 32 H Creatinine 0.5 L Est GFR ( Amer) > 60 Est GFR (Non-Af Amer) > 60 POC Glucose (mg/dL) Random Glucose 265 H Calcium 7.8 L Phosphorus 2.4 L Magnesium 2.7 H Total Bilirubin 0.8 AST 73 H ALT 64 H Alkaline Phosphatase 62 Total Protein 5.8 L Albumin 2.4 L Globulin 3.4 Albumin/Globulin Ratio 0.7 L Vancomycin Trough 01/14/17 01/14/17 07:46 12:00 WBC RBC Hgb Hct MCV MCH MCHC RDW Plt Count MPV Neut % (Auto) Lymph % (Auto) [place] % (Auto) Eos % (Auto) Baso % (Auto) Neut # Lymph # [place] # Eos # Baso # Neutrophils % (Manual) Lymphocytes % (Manual) Monocytes % (Manual) Platelet Estimate Hypochromasia (manual) Poikilocytosis (manual Anisocytosis (manual) Puncture Site pCO2 pO2 HCO3 ABG pH ABG Total CO2 ABG O2 Saturation ABG Base Excess ABG Hemoglobin ABG Carboxyhemoglobin POC ABG HHb (Measured) ABG Methemoglobin Chandana Test A-a O2 Difference Respiratory Index Hgb O2 Saturation Vent Mode Mechanical Rate FiO2 Tidal Volume PEEP Sodium Potassium Chloride Carbon Dioxide Anion Gap BUN Creatinine Est GFR ( Amer) Est GFR (Non-Af Amer) POC Glucose (mg/dL) 274 H 209 H Random Glucose Calcium Phosphorus Magnesium Total Bilirubin AST ALT Alkaline Phosphatase Total Protein Albumin Globulin Albumin/Globulin Ratio Vancomycin Trough Fingerstick Blood Sugar Results: 209 Critical Care Progress Note - Vent Settings TIDAL VOLUME:: 400 RESP RATE:: 12 FIO2:: 30 PEEP:: 5 Assessment/Plan - Assessment and Plan (Free Text) Assessment: 71 year old female with past medical history of DM, presented to the ED with complaints of nausea and vomiting for 3-4 days. She had palpitations and dizziness. In the ED, patient was found to have new onset a-fib, patient was admitted. Patient started on Cardizem drip and anticoagulation. On 01/03/17 Patient no longer has nausea or vomiting, but complained of headache. Patient was given tylenol. In the afternoon, patient's headache started to worsen. Patient was re-evaluated for possible slurred speech/changes in speech, at that time, patient was answering questions and following commands. In the evening, ( as per nurse), patient's speech was more slurred and patient became more restless. 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 Patient underwent decompressive craniotomy with Dr. Duque. Patient was on 3% hypertonic solution (discontinued 01/04/17), with goal of sodium 145-150 and serum osmolality of 300-320. Patient continues to have a-fib. Continue cardizem. Patient's status was discussed with the family. The family is not convinced the patient has significant damage and still hopes for full recovery. Repeat head ct showed residual hemorrhage, reduction in hydrocephalus, cerebellar edema, and subacute cerebellar infarctions. Will continue monitoring and correcting hypernatremia and hypokalemia. Neuro: unresponsive to pain; intermittently following commands - Head CT (01/01/17): no acute findings; chronic ischemic changes - Head CT (01/03/17): Infarct involving posterior circulation with marked edema of cerebellar hemispheres b/l on right side>Left, with obstructing hydrocephalus - S/P decompressive craniotomy/ventriculotomy (Dr. Duque) - draining blood- tinged CSF fluid - Keep CPP 60-80 - Neurology, Dr Jensen, consulted - will obtain EEG to r/o subclinical status - will try zolpidem 10mg in the AM, which has been shown to be safe, and may help to restore equilibrium to the circuits in the brain as per the [facility] Pulm: intubated - Trach/PEG procedure scheduled for tomorrow 01/15/[address] Leos. - Gen Surg consulted, Dr Leos CV: new onset A-Fib - Cardiology consulted, Dr Wong, help appreciated - Cardizem 60mg po qid - Lisinopril 5mg po daily - metoprolol 50mg po bid - Troponin: negative; BNP 3690 - Echo: EF47%; severely dilated LA/RA; mildly thickened and calcified aortic valve; mild AR; mild-mod mitral annular calcification; MV mildly thickened; mod- severe MR; severe TR; mild pulmonic valvular regurg. IVC dilated. Endo: Hx of DM - Accuchecks, monitor blood glucose - Continue ISS - medium protocol - lantus 15 units sc hs - TSH 0.82, Free T4 1.63 - Thyroid Ab: negative - Spindle Repairer consulted, Dr. Goldberg, help appreciated GI: nausea, vomiting- unknown cause--> resolved - Lipase 79 (01/01/17), 38 (01/02/17) - Continue Zofran, Protonix - Tube Feeding Heme: - Thrombocytopenia: 73 - Discontinued lovenox - Heme/Onc consulted, Dr Wren Renal: - Hypokalemic: continue to monitor - Hypernatremia: continue to monitor MSK: no acute issues ID: Sputum culture positive for Staphylococcus Aureus - wbc 17.5 - cefepime 2gm iv q12 - vancomycin 1gm iv q12 - CSF culture 01/12 showing no growth up to date - Blood culture 01/12 showing no growth up to date - Nares culture showing no MRSA detected - UA: trace ketones, 1+ glucose - Infectious disease, Dr Mangia consulted Prophylaxis: - DVT: SCDs - GI: Protonix - PT
--- NOTE | 2017-01-14 13:56 | CP.PCM.PCO ---
Physician Communication Note - Physician Communication Note Physician Communication Note: Family meeting at 10 am tomorrow
--- NOTE | 2017-01-14 14:39 | CP.PCM.PN ---
Subjective - Date & Time of Evaluation Date of Evaluation: 01/14/17 Time of Evaluation: 14:29 - Subjective Subjective: Mrs. Hough was seen and examined today in the ICU at bedside. Her son was present and showed me a video of when the patient opens her eyes spontaneously and looks around in the morning. She seemed to be intermittently following commands. The patient did not open her eyes spontaneously when I saw her, but she did start to open her eyes, or leave them open after I check for pupillary reflex. She continues to show pupillary response, corneals, gag and is breathing over the ventilator. Objective - Vital Signs/Intake and Output Vital Signs (last 24 hours): Temp Pulse Resp BP Pulse Ox 97.6 F 93 H 24 142/59 L 97 01/14/17 08:00 01/14/17 11:00 01/14/17 11:00 01/14/17 11:07 01/14/17 11:00 Intake and Output: 01/14/17 01/14/17 06:59 18:59 Intake Total 150 300 Output Total 600 280 Balance -450 20 - Medications Medications: Current Medications Acetaminophen (Tylenol 325mg Tab) 650 mg PO Q6 PRN PRN Reason: Pain, Mild (1-3) Last Admin: 01/13/17 13:48 Dose: 650 mg Diltiazem HCl (Cardizem) 60 mg PO Q6H [facility] [place] Last Admin: 01/14/17 12:33 Dose: 60 mg Vancomycin/Sodium Chloride (Vancocin) 1 gm in 200 mls @ 166.6 mls/hr IVPB Q12 [facility] Stop: 01/17/17 10:01 Last Admin: 01/14/17 09:10 Dose: 166.6 mls/hr Cefepime HCl 2 gm/ Sodium (Chloride) 100 mls @ 200 mls/hr IVPB Q12H [facility] [place] Stop: 01/18/17 20:01 Last Admin: 01/14/17 08:18 Dose: 200 mls/hr Insulin Glargine (Lantus) 15 unit SC Q12 [facility] Insulin Human Regular (Novolin R) 0 unit SC Q6H [facility] PRN Reason: Protocol Last Admin: 01/14/17 12:42 Dose: 3 unit Lisinopril (Zestril) 5 mg PO DAILY [facility] [place] Last Admin: 01/14/17 09:10 Dose: 5 mg Metoprolol Tartrate (Lopressor) 50 mg PO BID [facility] Pantoprazole Sodium (Protonix Inj) 40 mg IVP DAILY [facility] Last Admin: 01/14/17 09:10 Dose: 40 mg Rosuvastatin Calcium (Crestor) 20 mg PO HS [facility] [place] Last Admin: 01/13/17 23:10 Dose: 20 mg - Labs Labs: 01/14/17 06:38 01/14/17 06:36 PT 15.5 SECONDS (9.7-12.2) H 01/13/17 06:25 INR 1.3 01/13/17 06:25 APTT 31 SECONDS (21-34) 01/13/17 06:25 - Neurological Exam Additional comments: Neurologically unchanged compared with previous examination. Assessment and Plan (1) Cerebellar stroke Assessment & Plan: The patient continues to have the EVD in place (drained 30 cc overnight) which appears to be possibly inserted near the, or into the thalamus on the right side. Will obtain an EEG to rule out subclinical status. I discussed trying zolpidem 10 mg in the AM, which has been shown to be safe, and may help to restore equilibrium to the circuits in the brain as per the [facility] Neurology article published 11/11/16 (doi:10.1001/jamaneurol.[email or web address]). Status: Acute
--- NOTE | 2017-01-14 17:56 | CP.PCM.PN ---
Subjective - Date & Time of Evaluation Date of Evaluation: 01/14/17 Time of Evaluation: 17:53 - Subjective Subjective: pt appears to be minimally responsive and in a vegitative state. Drip chamber now at 25 raised this am from 20 when at 20 icp remained 15-17 and drained 30. Will attemt to wean drain over next few days I doubt it is doing much to help her It is unlikly that she will improve much beyond vegitative Objective - Vital Signs/Intake and Output Vital Signs (last 24 hours): Temp Pulse Resp BP Pulse Ox 98.8 F 129 H 28 H 114/69 98 01/14/17 16:00 01/14/17 16:27 01/14/17 16:27 01/14/17 16:27 01/14/17 16:27 Intake and Output: 01/14/17 01/14/17 06:59 18:59 Intake Total 150 450 Output Total 600 565 Balance -450 -115 - Medications Medications: Current Medications Acetaminophen (Tylenol 325mg Tab) 650 mg PO Q6 PRN PRN Reason: Pain, Mild (1-3) Last Admin: 01/13/17 13:48 Dose: 650 mg Diltiazem HCl (Cardizem) 60 mg PO Q6H [facility] Last Admin: 01/14/17 17:51 Dose: 60 mg Vancomycin/Sodium Chloride (Vancocin) 1 gm in 200 mls @ 166.6 mls/hr IVPB Q12 [facility] Stop: 01/17/17 10:01 Last Admin: 01/14/17 09:10 Dose: 166.6 mls/hr Cefepime HCl 2 gm/ Sodium (Chloride) 100 mls @ 200 mls/hr IVPB Q12H [facility] Stop: 01/18/17 20:01 Last Admin: 01/14/17 08:18 Dose: 200 mls/hr Insulin Glargine (Lantus) 15 unit SC Q12 [facility] Insulin Human Regular (Novolin R) 0 unit SC Q6H [facility] PRN Reason: Protocol Last Admin: 01/14/17 17:51 Dose: 2 unit Lisinopril (Zestril) 5 mg PO DAILY [facility] Last Admin: 01/14/17 09:10 Dose: 5 mg Metoprolol Tartrate (Lopressor) 50 mg PO BID [facility] Last Admin: 01/14/17 17:51 Dose: 50 mg Pantoprazole Sodium (Protonix Inj) 40 mg IVP DAILY [facility] Last Admin: 01/14/17 09:10 Dose: 40 mg Rosuvastatin Calcium (Crestor) 20 mg PO HS [facility] Last Admin: 01/13/17 23:10 Dose: 20 mg Zolpidem Tartrate (Ambien) 5 mg PO ONCE ONE Stop: 01/15/17 09:01 - Labs Labs: 01/14/17 06:38 01/14/17 06:36 PT 15.5 SECONDS (9.7-12.2) H 01/13/17 06:25 INR 1.3 01/13/17 06:25 APTT 31 SECONDS (21-34) 01/13/17 06:25
--- NOTE | 2017-01-14 21:01 | CP.PCM.PN ---
Subjective - Date & Time of Evaluation Date of Evaluation: 01/13/17 Time of Evaluation: 19:25 - Subjective Subjective: Vented peripheral smear shows toxic granulation in neutrophils, mild anispoikilocytosis but no increase in schistocytes, reduced platelets with giant platelets, no platelet clumping. Objective - Vital Signs/Intake and Output Vital Signs (last 24 hours): Temp Pulse Resp BP Pulse Ox 98.8 F 99 H 28 H 116/68 97 01/14/17 16:00 01/14/17 19:00 01/14/17 19:00 01/14/17 18:27 01/14/17 19:00 Intake and Output: 01/14/17 01/15/17 18:59 06:59 Intake Total 625 25 Output Total 625 50 Balance 0 -25 - Medications Medications: Current Medications Acetaminophen (Tylenol 325mg Tab) 650 mg PO Q6 PRN PRN Reason: Pain, Mild (1-3) Last Admin: 01/13/17 13:48 Dose: 650 mg Diltiazem HCl (Cardizem) 60 mg PO Q6H [facility] Last Admin: 01/14/17 17:51 Dose: 60 mg Vancomycin/Sodium Chloride (Vancocin) 1 gm in 200 mls @ 166.6 mls/hr IVPB Q12 [facility] Stop: 01/17/17 10:01 Last Admin: 01/14/17 09:10 Dose: 166.6 mls/hr Cefepime HCl 2 gm/ Sodium (Chloride) 100 mls @ 200 mls/hr IVPB Q12H [facility] Stop: 01/18/17 20:01 Last Admin: 01/14/17 08:18 Dose: 200 mls/hr Insulin Glargine (Lantus) 15 unit SC Q12 [facility] Insulin Human Regular (Novolin R) 0 unit SC Q6H [facility] PRN Reason: Protocol Last Admin: 01/14/17 17:51 Dose: 2 unit Lisinopril (Zestril) 5 mg PO DAILY [facility] Last Admin: 01/14/17 09:10 Dose: 5 mg Metoprolol Tartrate (Lopressor) 50 mg PO BID [facility] Last Admin: 01/14/17 17:51 Dose: 50 mg Pantoprazole Sodium (Protonix Inj) 40 mg IVP DAILY [facility] Last Admin: 01/14/17 09:10 Dose: 40 mg Rosuvastatin Calcium (Crestor) 20 mg PO HS [facility] Last Admin: 01/13/17 23:10 Dose: 20 mg Zolpidem Tartrate (Ambien) 10 mg PO ONCE ONE Stop: 01/15/17 09:01 - Labs Labs: 01/14/17 06:38 01/14/17 06:36 PT 15.5 SECONDS (9.7-12.2) H 01/13/17 06:25 INR 1.3 01/13/17 06:25 APTT 31 SECONDS (21-34) 01/13/17 06:25 - Head Exam Head Exam: ATRAUMATIC - Eye Exam Eye Exam: Normal appearance - ENT Exam ENT Exam: Mucous Membranes Dry - Respiratory Exam Respiratory Exam: Decreased Breath Sounds - Cardiovascular Exam Cardiovascular Exam: +S1, +S2 - GI/Abdominal Exam GI & Abdominal Exam: Normal Bowel Sounds Assessment and Plan (1) Thrombocytopenia Assessment & Plan: likely sepsis related no current DIC Status: Acute (2) Anemia Assessment & Plan: mild, chronic disease b12 deficiency normal iron/folate stores Status: Acute
--- NOTE | 2017-01-14 21:03 | CP.PCM.PN ---
Subjective - Date & Time of Evaluation Date of Evaluation: 01/14/17 Time of Evaluation: 18:20 - Subjective Subjective: Vented Objective - Vital Signs/Intake and Output Vital Signs (last 24 hours): Temp Pulse Resp BP Pulse Ox 98.8 F 99 H 28 H 116/68 97 01/14/17 16:00 01/14/17 19:00 01/14/17 19:00 01/14/17 18:27 01/14/17 19:00 Intake and Output: 01/14/17 01/15/17 18:59 06:59 Intake Total 625 25 Output Total 625 50 Balance 0 -25 - Medications Medications: Current Medications Acetaminophen (Tylenol 325mg Tab) 650 mg PO Q6 PRN PRN Reason: Pain, Mild (1-3) Last Admin: 01/13/17 13:48 Dose: 650 mg Diltiazem HCl (Cardizem) 60 mg PO Q6H [facility] Last Admin: 01/14/17 17:51 Dose: 60 mg Vancomycin/Sodium Chloride (Vancocin) 1 gm in 200 mls @ 166.6 mls/hr IVPB Q12 [facility] Stop: 01/17/17 10:01 Last Admin: 01/14/17 09:10 Dose: 166.6 mls/hr Cefepime HCl 2 gm/ Sodium (Chloride) 100 mls @ 200 mls/hr IVPB Q12H [facility] Stop: 01/18/17 20:01 Last Admin: 01/14/17 08:18 Dose: 200 mls/hr Insulin Glargine (Lantus) 15 unit SC Q12 [facility] Insulin Human Regular (Novolin R) 0 unit SC Q6H [facility] PRN Reason: Protocol Last Admin: 01/14/17 17:51 Dose: 2 unit Lisinopril (Zestril) 5 mg PO DAILY [facility] Last Admin: 01/14/17 09:10 Dose: 5 mg Metoprolol Tartrate (Lopressor) 50 mg PO BID [facility] Last Admin: 01/14/17 17:51 Dose: 50 mg Pantoprazole Sodium (Protonix Inj) 40 mg IVP DAILY [facility] Last Admin: 01/14/17 09:10 Dose: 40 mg Rosuvastatin Calcium (Crestor) 20 mg PO HS [facility] Last Admin: 01/13/17 23:10 Dose: 20 mg Zolpidem Tartrate (Ambien) 10 mg PO ONCE ONE Stop: 01/15/17 09:01 - Labs Labs: 01/14/17 06:38 01/14/17 06:36 PT 15.5 SECONDS (9.7-12.2) H 01/13/17 06:25 INR 1.3 01/13/17 06:25 APTT 31 SECONDS (21-34) 01/13/17 06:25 - Head Exam Head Exam: ATRAUMATIC - Eye Exam Eye Exam: Normal appearance - ENT Exam ENT Exam: Mucous Membranes Dry - Respiratory Exam Respiratory Exam: NORMAL BREATHING PATTERN - Cardiovascular Exam Cardiovascular Exam: +S1, +S2 - GI/Abdominal Exam GI & Abdominal Exam: Normal Bowel Sounds - Extremities Exam Extremities Exam: Pedal Edema Assessment and Plan (1) Thrombocytopenia Assessment & Plan: improving sepsis related Status: Acute (2) Anemia Assessment & Plan: mild chronic disease b12 deficiency Status: Acute
[2017-01-14] MEDS: (Lantus) Insulin Glargine, Recombinant SC SCH (22:24)
[2017-01-15] MEDS: (Novolin R) Insulin Human Regular 100 units/ml vial SC SCH ×4 (00:05→18:36)
[2017-01-15 06:16] LABS: BASO % 0.3 % (0.0-2.0); EOS # 0.1 K/uL (0.0-0.7); EOS % 0.7 % (0.0-4.0); HEMATOCRIT 32.2 % (34.0-47.0); LYMPH # 1.4 K/uL (1.0-4.3); LYMPH % 8.5 % (20.0-40.0); MEAN CELL VOLUME 88.5 fL (81.0-99.0); MEAN CORPUSCULAR HEMOGLOBIN 28.9 pg (27.0-31.0); MEAN CORPUSCULAR HGB CONC 32.6 g/dL (33.0-37.0); MEAN PLATELET VOLUME 12.9 fL (7.2-11.7); MONO # 0.5 K/uL (0.0-0.8); PLATELET COUNT 90 K/uL (130-400); RED CELL DISTRIBUTION WIDTH 13.9 % (11.5-14.5)
[2017-01-15 06:25] LABS: CHLORIDE 121 mmol/L (98-107); POTASSIUM 3.7 mmol/L (3.6-5.2); SODIUM 153 mmol/L (132-148)
[2017-01-15 06:27] LABS: GFR AFRICAN-AMERICAN > 60
[2017-01-15 06:28] LABS: ALB/GLOB RATIO 0.7 (1.0-2.1); ALKALINE PHOSPHATASE 87 U/L (38-126); ALT/SGPT 105 U/L (9-52); AST/SGOT 154 U/L (14-36); BILIRUBIN,TOTAL 0.8 mg/dL (0.2-1.3); BLOOD UREA NITROGEN 31 mg/dL (7-17); CARBON DIOXIDE 17 mmol/L (22-30); GLUCOSE,RANDOM 194 mg/dL (65-105); TOTAL PROTEIN 5.9 g/dL (6.3-8.3)
[2017-01-15 06:29] LABS: CALCIUM 7.8 mg/dl (8.6-10.4); MAGNESIUM 2.7 mg/dL (1.6-2.3); PHOSPHOROUS 2.8 mg/dL (2.5-4.5)
[2017-01-15 08:15] LABS: TOTAL CELLS COUNTED 100
[2017-01-15 08:16] LABS: NEUTROPHIL 84 % (50-75)
[2017-01-15] MEDS: Cefepime 2 GM in Sodium Chloride 0.9% 100 ML IVPB SCH ×2 (08:49→19:51)
--- NOTE | 2017-01-15 08:56 | CP.CCUPN ---
<FlorentinoKd R - Last Filed: 01/15/17 12:43> CCU Subjective - Physician Review Subjective (Free Text): Patient was seen and examined at bedside in the morning. Patient is unresponsive and intubated. Unable to obtain review of systems. 01/15/17 12:33 CCU Objective - Vital Signs / Intake & Output Vital Signs (Last 4 hours): Vital Signs Temp Pulse Resp BP Pulse Ox 01/15/17 08:00 102.1 F H 143 H 25 H 96 01/15/17 07:27 144 H 29 H 128/70 94 L 01/15/17 07:00 139 H 27 H 96 01/15/17 06:27 112 H 26 H 129/73 96 01/15/17 05:28 152 H 26 H 126/74 97 Intake and Output (Last 8hrs): Intake & Output 01/14/17 01/15/17 01/15/17 22:59 06:59 14:59 Intake Total 450 250 Output Total 385 420 Balance 65 -170 Intake: Intake, IV Amount 100 200 Left Proximal Port 0 Internal Jugular Right Antecubital 100 200 Tube Feeding 200 50 Other 150 Output: Drainage 0 Right Posterior Head 0 Urine 385 420 Urethral (Massey) 385 420 - Physical Exam Head: Positive for: Normocephalic Pupils: Positive for: PERRL Extroacular Muscles: Negative for: EOMI Mouth: Positive for: Other (intubated) Neck: Negative for: Normal Range of Motion Respiratory/Chest: Positive for: Clear to Auscultation, Other (intubated). Negative for: Wheezes, Rales, Rhonchi, Tachypneic Cardiovascular: Positive for: Normal S1, S2, Irregular Rhythm, Tachycardic Abdomen: Negative for: Distention, Normal Bowel Sounds (hypoactive) Upper Extremity: Positive for: Normal Inspection. Negative for: Edema Lower Extremity: Positive for: Normal Inspection. Negative for: Edema Neurological: Positive for: Other (no response to pain; gag reflex & corneal reflex+; intermittently following commands). Negative for: GCS=15, Motor Func Grossly Intact, Normal Sensory Function Skin: Positive for: Warm, Dry, Normal Color Psychiatric: Negative for: Alert, Oriented x 3 - Medications Active Medications: Active Medications Generic Name Dose Route Start Last Admin Trade Name Freq PRN Reason Stop Dose Admin Acetaminophen 650 mg 01/03/17 11:49 01/13/17 13:48 Tylenol 325mg Tab PO 650 mg Q6 PRN Administration Pain, Mild (1-3) Diltiazem HCl 60 mg 01/14/17 12:00 01/15/17 05:09 Cardizem PO 60 mg Q6H MIRELLA Administration Vancomycin/Sodium Chloride 1 gm in 200 mls @ 166.6 mls/hr 01/12/17 10:00 22:10 Vancocin IVPB 01/17/17 10:01 166.6 mls/hr Q12 MIRELLA Administration Cefepime HCl 2 gm/ Sodium 100 mls @ 200 mls/hr 01/13/17 20:00 01/15/17 08:49 Chloride IVPB 01/18/17 20:01 200 mls/hr Q12H MIRELLA Administration Insulin Glargine 15 unit 01/14/17 10:11 01/14/17 22:24 Lantus SC 15 units Q12 MIRELLA Administration Insulin Human Regular 0 unit 01/14/17 12:35 01/15/17 05:55 Novolin R SC Not Given Q6H [facility] Protocol Lisinopril 5 mg 01/11/17 09:30 01/14/17 09:10 Zestril PO 5 mg DAILY MIRELLA Administration Metoprolol Tartrate 50 mg 01/14/17 11:43 01/14/17 17:51 Lopressor PO 50 mg BID MIRELLA Administration Pantoprazole Sodium 40 mg 01/02/17 10:00 01/14/17 09:10 Protonix Inj IVP 40 mg DAILY MIRELLA Administration Rosuvastatin Calcium 20 mg 01/03/17 22:00 01/14/17 22:24 Crestor PO 20 mg HS MIRELLA Administration Zolpidem Tartrate 10 mg 01/15/17 09:00 Ambien PO 01/15/17 09:01 ONCE ONE - Patient Studies Lab Studies: Microbiology Studies 01/12/17 10:05 Gram Stain - Preliminary Cerebral Spinal Fluid CSF Culture - Preliminary NO GROWTH AFTER 2 DAYS 01/12/17 07:45 Blood Culture - Preliminary Blood-Venous NO GROWTH AFTER 48 HOURS 01/12/17 08:30 Blood Culture - Preliminary Blood-Venous NO GROWTH AFTER 48 HOURS 01/12/17 15:19 Gram Stain - Final Trachasp Sputum Culture - Final Staphylococcus Aureus Lab Studies 08/01/15/17 01/15/17 Range/Units 06:04 06:04 04:58 WBC 16.0 H (4.8-10.8) K/uL RBC 3.64 L (3.80-5.20) Mil/uL Hgb 10.5 L (11.0-16.0) g/dL Hct 32.2 L (34.0-47.0) % MCV 88.5 (81.0-99.0) fL MCH 28.9 (27.0-31.0) pg MCHC 32.6 L (33.0-37.0) g/dL RDW 13.9 (11.5-14.5) % Plt Count 90 L (130-400) K/uL MPV 12.9 H (7.2-11.7) fL Neut % (Auto) 87.5 H (50.0-75.0) % Lymph % (Auto) 8.5 L (20.0-40.0) % Brantley % (Auto) 3.0 (0.0-10.0) % Eos % (Auto) 0.7 (0.0-4.0) % Baso % (Auto) 0.3 (0.0-2.0) % Neut # 14.0 H (1.8-7.0) K/uL Lymph # 1.4 (1.0-4.3) K/uL Brantley # 0.5 (0.0-0.8) K/uL Eos # 0.1 (0.0-0.7) K/uL Baso # 0.0 (0.0-0.2) K/uL Neutrophils % (Manual) 84 H (50-75) % Band Neutrophils % 4 H (0-2) % Lymphocytes % (Manual) 10 L (20-40) % Monocytes % (Manual) 2 (0-10) % Platelet Estimate Decreased L (NORMAL) Hypochromasia (manual) Slight Poikilocytosis (manual Slight Anisocytosis (manual) Slight Tear Drop Cells Slight Sodium 153 H (132-148) mmol/L Potassium 3.7 (3.6-5.2) mmol/L Chloride 121 H (98-107) mmol/L Carbon Dioxide 17 L (22-30) mmol/L Anion Gap 19 (10-20) BUN 31 H (7-17) mg/dL Creatinine 0.7 (0.7-1.2) MG/DL Est GFR ( Amer) > 60 Est GFR (Non-Af Amer) > 60 POC Glucose (mg/dL) 190 H (65-110) mg/dL Random Glucose 194 H (65-105) mg/dL Calcium 7.8 L (8.6-10.4) mg/dl Phosphorus 2.8 (2.5-4.5) mg/dL Magnesium 2.7 H (1.6-2.3) mg/dL Total Bilirubin 0.8 (0.2-1.3) mg/dL AST 154 H D (14-36) U/L ALT 105 H D (9-52) U/L Alkaline Phosphatase 87 (38-126) U/L Total Protein 5.9 L (6.3-8.3) g/dL Albumin 2.4 L (3.5-5.0) g/dL Globulin 3.5 (2.2-3.9) gm/dL Albumin/Globulin Ratio 0.7 L (1.0-2.1) 01/15/17 01/14/17 01/14/17 Range/Units 00:20 17:31 12:00 WBC (4.8-10.8) K/uL RBC (3.80-5.20) Mil/uL Hgb (11.0-16.0) g/dL Hct (34.0-47.0) % MCV (81.0-99.0) fL MCH (27.0-31.0) pg MCHC (33.0-37.0) g/dL RDW (11.5-14.5) % Plt Count (130-400) K/uL MPV (7.2-11.7) fL Neut % (Auto) (50.0-75.0) % Lymph % (Auto) (20.0-40.0) % Brantley % (Auto) (0.0-10.0) % Eos % (Auto) (0.0-4.0) % Baso % (Auto) (0.0-2.0) % Neut # (1.8-7.0) K/uL Lymph # (1.0-4.3) K/uL Brantley # (0.0-0.8) K/uL Eos # (0.0-0.7) K/uL Baso # (0.0-0.2) K/uL Neutrophils % (Manual) (50-75) % Band Neutrophils % (0-2) % Lymphocytes % (Manual) (20-40) % Monocytes % (Manual) (0-10) % Platelet Estimate (NORMAL) Hypochromasia (manual) Poikilocytosis (manual Anisocytosis (manual) Tear Drop Cells Sodium (132-148) mmol/L Potassium (3.6-5.2) mmol/L Chloride (98-107) mmol/L Carbon Dioxide (22-30) mmol/L Anion Gap (10-20) BUN (7-17) mg/dL Creatinine (0.7-1.2) MG/DL Est GFR ( Amer) Est GFR (Non-Af Amer) POC Glucose (mg/dL) 220 H 196 H 209 H (65-110) mg/dL Random Glucose (65-105) mg/dL Calcium (8.6-10.4) mg/dl Phosphorus (2.5-4.5) mg/dL Magnesium (1.6-2.3) mg/dL Total Bilirubin (0.2-1.3) mg/dL AST (14-36) U/L ALT (9-52) U/L Alkaline Phosphatase (38-126) U/L Total Protein (6.3-8.3) g/dL Albumin (3.5-5.0) g/dL Globulin (2.2-3.9) gm/dL Albumin/Globulin Ratio (1.0-2.1) Laboratory Results - last 24 hr 01/14/17 01/14/17 01/15/17 12:00 17:31 00:20 WBC RBC Hgb Hct MCV MCH MCHC RDW Plt Count MPV Neut % (Auto) Lymph % (Auto) Brantley % (Auto) Eos % (Auto) Baso % (Auto) Neut # Lymph # Brantley # Eos # Baso # Neutrophils % (Manual) Band Neutrophils % Lymphocytes % (Manual) Monocytes % (Manual) Platelet Estimate Hypochromasia (manual) Poikilocytosis (manual Anisocytosis (manual) Tear Drop Cells Sodium Potassium Chloride Carbon Dioxide Anion Gap BUN Creatinine Est GFR ( Amer) Est GFR (Non-Af Amer) POC Glucose (mg/dL) 209 H 196 H 220 H Random Glucose Calcium Phosphorus Magnesium Total Bilirubin AST ALT Alkaline Phosphatase Total Protein Albumin Globulin Albumin/Globulin Ratio 01/15/17 01/15/17 01/15/17 04:58 06:04 06:04 WBC 16.0 H RBC 3.64 L Hgb 10.5 L Hct 32.2 L MCV 88.5 MCH 28.9 MCHC 32.6 L RDW 13.9 Plt Count 90 L MPV 12.9 H Neut % (Auto) 87.5 H Lymph % (Auto) 8.5 L Brantley % (Auto) 3.0 Eos % (Auto) 0.7 Baso % (Auto) 0.3 Neut # 14.0 H Lymph # 1.4 Brantley # 0.5 Eos # 0.1 Baso # 0.0 Neutrophils % (Manual) 84 H Band Neutrophils % 4 H Lymphocytes % (Manual) 10 L Monocytes % (Manual) 2 Platelet Estimate Decreased L Hypochromasia (manual) Slight Poikilocytosis (manual Slight Anisocytosis (manual) Slight Tear Drop Cells Slight Sodium 153 H Potassium 3.7 Chloride 121 H Carbon Dioxide 17 L Anion Gap 19 BUN 31 H Creatinine 0.7 Est GFR ( Amer) > 60 Est GFR (Non-Af Amer) > 60 POC Glucose (mg/dL) 190 H Random Glucose 194 H Calcium 7.8 L Phosphorus 2.8 Magnesium 2.7 H Total Bilirubin 0.8 AST 154 H D ALT 105 H D Alkaline Phosphatase 87 Total Protein 5.9 L Albumin 2.4 L Globulin 3.5 Albumin/Globulin Ratio 0.7 L Fingerstick Blood Sugar Results: 209 Review of Systems - Review of Systems Systems not reviewed;Unavailable: Intubated Critical Care Progress Note - Vent Settings TIDAL VOLUME:: 400 RESP RATE:: 12 FIO2:: 30 PEEP:: 5 - Nutrition Nutrition: Nutrition Category Date Time Status NPO Diet [DIET] Diets 01/14/17 Breakfast Active Assessment/Plan - Assessment and Plan (Free Text) Assessment: 71 year old female with past medical history of DM, presented to the ED with complaints of nausea and vomiting for 3-4 days. She had palpitations and dizziness. In the ED, patient was found to have new onset a-fib, patient was admitted. Patient started on Cardizem drip and anticoagulation. On 01/03/17 Patient no longer has nausea or vomiting, but complained of headache. Patient was given tylenol. In the afternoon, patient's headache started to worsen. Patient was re-evaluated for possible slurred speech/changes in speech, at that time, patient was answering questions and following commands. In the evening, ( as per nurse), patient's speech was more slurred and patient became more restless. 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 Patient underwent decompressive craniotomy with Dr. Duque. Patient was on 3% hypertonic solution (discontinued 01/04/17), with goal of sodium 145-150 and serum osmolality of 300-320. Patient continues to have a-fib. Continue cardizem. Patient's status was discussed with the family. The family is not convinced the patient has significant damage and still hopes for full recovery. Repeat head ct showed residual hemorrhage, reduction in hydrocephalus, cerebellar edema, and subacute cerebellar infarctions. Will continue monitoring and correcting hypernatremia and hypokalemia. Neuro: unresponsive to pain; intermittently following commands - Head CT (01/01/17): no acute findings; chronic ischemic changes - Head CT (01/03/17): Infarct involving posterior circulation with marked edema of cerebellar hemispheres b/l on right side>Left, with obstructing hydrocephalus - S/P decompressive craniotomy/ventriculotomy (Dr. Duque) - draining blood- tinged CSF fluid - Keep CPP 60-80 - Neurology, Dr Jensen, consulted - will obtain EEG to r/o subclinical status - Given zolpidem 10mg in the AM, which has been shown to be safe, and may help to restore equilibrium to the circuits in the brain as per the JASMIN Pulm: intubated - Trach/PEG procedure scheduled and to be performed by Dr Leos. - Gen Surg consulted, Dr Leos CV: new onset A-Fib - Cardiology consulted, Dr Wong, help appreciated - Cardizem 60mg po qid - Lisinopril 5mg po daily - metoprolol 50mg po bid - Troponin: negative; BNP 3690 - Echo: EF47%; severely dilated LA/RA; mildly thickened and calcified aortic valve; mild AR; mild-mod mitral annular calcification; MV mildly thickened; mod- severe MR; severe TR; mild pulmonic valvular regurg. IVC dilated. Endo: Hx of DM - Accuchecks, monitor blood glucose - Continue ISS - medium protocol - lantus 15 units sc hs - TSH 0.82, Free T4 1.63 - Thyroid Ab: negative - [employer] consulted, Dr. Goldberg, help appreciated GI: nausea, vomiting- unknown cause--> resolved - Lipase 79 (01/01/17), 38 (01/02/17) - Continue Zofran, Protonix - Tube Feeding Heme: - Thrombocytopenia: 90 - Discontinued lovenox - Heme/Onc consulted, Dr Wren Renal: - Hypokalemic: continue to monitor - Hypernatremia: continue to monitor MSK: no acute issues ID: Sputum culture positive for Staphylococcus Aureus - wbc 16; febrile - cefepime 2gm iv q12 - vancomycin 1gm iv q12 - CSF culture 01/12 showing no growth up to date - Blood culture 01/12 showing no growth up to date - Nares culture showing no MRSA detected - UA: trace ketones, 1+ glucose - Infectious disease, Dr Briseno consulted Prophylaxis: - DVT: SCDs. Not on pharmacologic DVT prophylaxis as platelet count is low and plans for surgery. - GI: Protonix - PT <Avinash Ch - Last Filed: 01/15/17 17:54> CCU Objective - Vital Signs / Intake & Output Vital Signs (Last 4 hours): Vital Signs Temp Pulse Resp BP Pulse Ox 01/15/17 17:00 96 H 20 94/53 L 96 01/15/17 16:27 107 H 17 94/53 L 97 01/15/17 16:00 97.7 F 105 H 25 H 97 01/15/17 15:27 111 H 24 86/46 L 98 01/15/17 15:00 103 H 22 97 01/15/17 14:27 103 H 18 84/43 L 97 01/15/17 14:00 96 H 12 97 Intake and Output (Last 8hrs): Intake & Output 01/15/17 01/15/17 01/15/17 06:59 14:59 22:59 Intake Total 250 300 Output Total 420 680 45 Balance -170 -380 -45 Intake: Intake, IV Amount 200 300 Left Proximal Port 300 Internal Jugular Right Antecubital 200 Tube Feeding 50 Output: Urine 420 680 45 Urethral (Massey) 420 680 45 - Medications Active Medications: Active Medications Generic Name Dose Route Start Last Admin Trade Name Freq PRN Reason Stop Dose Admin Acetaminophen 650 mg 01/03/17 11:49 01/15/17 10:00 Tylenol 325mg Tab PO 650 mg Q6 PRN Administration Pain, Mild (1-3) Diltiazem HCl 60 mg 01/14/17 12:00 01/15/17 11:52 Cardizem PO 60 mg Q6H MIRELLA Administration Vancomycin/Sodium Chloride 1 gm in 200 mls @ 166.6 mls/hr 01/12/17 10:00 10:01 Vancocin IVPB 01/17/17 10:01 166.6 mls/hr Q12 MIRELLA Administration Cefepime HCl 2 gm/ Sodium 100 mls @ 200 mls/hr 01/13/17 20:00 01/15/17 08:49 Chloride IVPB 01/18/17 20:01 200 mls/hr Q12H MIRELLA Administration Insulin Glargine 15 unit 01/14/17 10:11 01/15/17 10:01 Lantus SC 15 units Q12 MIRELLA Administration Insulin Human Regular 0 unit 01/14/17 12:35 01/15/17 12:18 Novolin R SC Not Given Q6H [facility] Protocol Lisinopril 5 mg 01/11/17 09:30 01/15/17 10:00 Zestril PO 5 mg DAILY MIRELLA Administration Metoprolol Tartrate 50 mg 01/14/17 11:43 01/15/17 11:52 Lopressor PO 50 mg BID MIRELLA Administration Pantoprazole Sodium 40 mg 01/02/17 10:00 01/15/17 10:00 Protonix Inj IVP 40 mg DAILY MIRELLA Administration Rosuvastatin Calcium 20 mg 01/03/17 22:00 01/14/17 22:24 Crestor PO 20 mg HS MIRELLA Administration - Patient Studies Lab Studies: Microbiology Studies 01/12/17 10:05 Gram Stain - Final Cerebral Spinal Fluid CSF Culture - Preliminary NO GROWTH AFTER 3 DAYS 01/12/17 07:45 Blood Culture - Preliminary Blood-Venous NO GROWTH AFTER 3 DAYS 01/12/17 08:30 Blood Culture - Preliminary Blood-Venous NO GROWTH AFTER 3 DAYS Lab Studies 01/15/17 01/15/17 01/15/17 Range/Units 17:31 11:19 06:04 WBC (4.8-10.8) K/uL RBC (3.80-5.20) Mil/uL Hgb (11.0-16.0) g/dL Hct (34.0-47.0) % MCV (81.0-99.0) fL MCH (27.0-31.0) pg MCHC (33.0-37.0) g/dL RDW (11.5-14.5) % Plt Count (130-400) K/uL MPV (7.2-11.7) fL Neut % (Auto) (50.0-75.0) % Lymph % (Auto) (20.0-40.0) % Brantley % (Auto) (0.0-10.0) % Eos % (Auto) (0.0-4.0) % Baso % (Auto) (0.0-2.0) % Neut # (1.8-7.0) K/uL Lymph # (1.0-4.3) K/uL Brantley # (0.0-0.8) K/uL Eos # (0.0-0.7) K/uL Baso # (0.0-0.2) K/uL Neutrophils % (Manual) (50-75) % Band Neutrophils % (0-2) % Lymphocytes % (Manual) (20-40) % Monocytes % (Manual) (0-10) % Platelet Estimate (NORMAL) Hypochromasia (manual) Poikilocytosis (manual Anisocytosis (manual) Tear Drop Cells Sodium 153 H (132-148) mmol/L Potassium 3.7 (3.6-5.2) mmol/L Chloride 121 H (98-107) mmol/L Carbon Dioxide 17 L (22-30) mmol/L Anion Gap 19 (10-20) BUN 31 H (7-17) mg/dL Creatinine 0.7 (0.7-1.2) MG/DL Est GFR ( Amer) > 60 Est GFR (Non-Af Amer) > 60 POC Glucose (mg/dL) 170 H 173 H (65-110) mg/dL Random Glucose 194 H (65-105) mg/dL Calcium 7.8 L (8.6-10.4) mg/dl Phosphorus 2.8 (2.5-4.5) mg/dL Magnesium 2.7 H (1.6-2.3) mg/dL Total Bilirubin 0.8 (0.2-1.3) mg/dL AST 154 H D (14-36) U/L ALT 105 H D (9-52) U/L Alkaline Phosphatase 87 (38-126) U/L Total Protein 5.9 L (6.3-8.3) g/dL Albumin 2.4 L (3.5-5.0) g/dL Globulin 3.5 (2.2-3.9) gm/dL Albumin/Globulin Ratio 0.7 L (1.0-2.1) 01/15/17 01/15/17 01/15/17 Range/Units 06:04 04:58 00:20 WBC 16.0 H (4.8-10.8) K/uL RBC 3.64 L (3.80-5.20) Mil/uL Hgb 10.5 L (11.0-16.0) g/dL Hct 32.2 L (34.0-47.0) % MCV 88.5 (81.0-99.0) fL MCH 28.9 (27.0-31.0) pg MCHC 32.6 L (33.0-37.0) g/dL RDW 13.9 (11.5-14.5) % Plt Count 90 L (130-400) K/uL MPV 12.9 H (7.2-11.7) fL Neut % (Auto) 87.5 H (50.0-75.0) % Lymph % (Auto) 8.5 L (20.0-40.0) % Brantley % (Auto) 3.0 (0.0-10.0) % Eos % (Auto) 0.7 (0.0-4.0) % Baso % (Auto) 0.3 (0.0-2.0) % Neut # 14.0 H (1.8-7.0) K/uL Lymph # 1.4 (1.0-4.3) K/uL Brantley # 0.5 (0.0-0.8) K/uL Eos # 0.1 (0.0-0.7) K/uL Baso # 0.0 (0.0-0.2) K/uL Neutrophils % (Manual) 84 H (50-75) % Band Neutrophils % 4 H (0-2) % Lymphocytes % (Manual) 10 L (20-40) % Monocytes % (Manual) 2 (0-10) % Platelet Estimate Decreased L (NORMAL) Hypochromasia (manual) Slight Poikilocytosis (manual Slight Anisocytosis (manual) Slight Tear Drop Cells Slight Sodium (132-148) mmol/L Potassium (3.6-5.2) mmol/L Chloride (98-107) mmol/L Carbon Dioxide (22-30) mmol/L Anion Gap (10-20) BUN (7-17) mg/dL Creatinine (0.7-1.2) MG/DL Est GFR ( Amer) Est GFR (Non-Af Amer) POC Glucose (mg/dL) 190 H 220 H (65-110) mg/dL Random Glucose (65-105) mg/dL Calcium (8.6-10.4) mg/dl Phosphorus (2.5-4.5) mg/dL Magnesium (1.6-2.3) mg/dL Total Bilirubin (0.2-1.3) mg/dL AST (14-36) U/L ALT (9-52) U/L Alkaline Phosphatase (38-126) U/L Total Protein (6.3-8.3) g/dL Albumin (3.5-5.0) g/dL Globulin (2.2-3.9) gm/dL Albumin/Globulin Ratio (1.0-2.1) Laboratory Results - last 24 hr 01/15/17 01/15/17 01/15/17 00:20 04:58 06:04 WBC 16.0 H RBC 3.64 L Hgb 10.5 L Hct 32.2 L MCV 88.5 MCH 28.9 MCHC 32.6 L RDW 13.9 Plt Count 90 L MPV 12.9 H Neut % (Auto) 87.5 H Lymph % (Auto) 8.5 L Brantley % (Auto) 3.0 Eos % (Auto) 0.7 Baso % (Auto) 0.3 Neut # 14.0 H Lymph # 1.4 Brantley # 0.5 Eos # 0.1 Baso # 0.0 Neutrophils % (Manual) 84 H Band Neutrophils % 4 H Lymphocytes % (Manual) 10 L Monocytes % (Manual) 2 Platelet Estimate Decreased L Hypochromasia (manual) Slight Poikilocytosis (manual Slight Anisocytosis (manual) Slight Tear Drop Cells Slight Sodium Potassium Chloride Carbon Dioxide Anion Gap BUN Creatinine Est GFR ( Amer) Est GFR (Non-Af Amer) POC Glucose (mg/dL) 220 H 190 H Random Glucose Calcium Phosphorus Magnesium Total Bilirubin AST ALT Alkaline Phosphatase Total Protein Albumin Globulin Albumin/Globulin Ratio 01/15/17 01/15/17 01/15/17 06:04 11:19 17:31 WBC RBC Hgb Hct MCV MCH MCHC RDW Plt Count MPV Neut % (Auto) Lymph % (Auto) Brantley % (Auto) Eos % (Auto) Baso % (Auto) Neut # Lymph # Brantley # Eos # Baso # Neutrophils % (Manual) Band Neutrophils % Lymphocytes % (Manual) Monocytes % (Manual) Platelet Estimate Hypochromasia (manual) Poikilocytosis (manual Anisocytosis (manual) Tear Drop Cells Sodium 153 H Potassium 3.7 Chloride 121 H Carbon Dioxide 17 L Anion Gap 19 BUN 31 H Creatinine 0.7 Est GFR ( Amer) > 60 Est GFR (Non-Af Amer) > 60 POC Glucose (mg/dL) 173 H 170 H Random Glucose 194 H Calcium 7.8 L Phosphorus 2.8 Magnesium 2.7 H Total Bilirubin 0.8 AST 154 H D ALT 105 H D Alkaline Phosphatase 87 Total Protein 5.9 L Albumin 2.4 L Globulin 3.5 Albumin/Globulin Ratio 0.7 L Critical Care Progress Note - Nutrition Nutrition: Nutrition Category Date Time Status NPO Diet [DIET] Diets 01/14/17 Breakfast Active Assessment/Plan (1) Cerebellar stroke Current Visit: Yes Status: Acute Priority: High Comment: Status post decompressive surgery/ventriculostomy Repeat CT of the head noted with worsening edema and herniation Hypotonic fluid stopped keep CPP between 60-80 Case discussed with family at length Patient seen by neurosurgery with poor prognosis Continue ventilatory support (2) New onset atrial fibrillation Current Visit: Yes Status: Acute Attending/Attestation - Attestation I have personally seen and examined this patient.: Yes I have fully participated in the care of the patient.: Yes I have reviewed all pertinent clinical information: Yes Notes (Text): 01/15/17 17:53 Patient seen and examined in the intensive care unit. Case discussed with house staff in the morning rounds. No neurological improvement noted had long discussions with the family Prognosis remains poor Continue present treatment for now ICP around 8 and 9
[2017-01-15] MEDS ORDERED: Metoprolol 1 mg/ml Inj IVP ONE (09:49)
[2017-01-15] MEDS: (Lantus) Insulin Glargine, Recombinant SC SCH ×2 (10:01→21:15)
[2017-01-15] MEDS: Vancomycin 1 gm/NS 200 ml 1 GM/200 ML BAG IVPB SCH ×2 (10:01→21:15)
--- NOTE | 2017-01-15 11:48 | RAD ---
HISTORY: intubated COMPARISON: No prior. FINDINGS: LUNGS: No active pulmonary disease. PLEURA: No significant pleural effusion identified, no pneumothorax apparent. CARDIOVASCULAR: Normal heart size. No congestive change. ET tube and NG tube unchanged. Left IJ triple-lumen central venous catheter unchanged. OSSEOUS STRUCTURES: No significant abnormalities. VISUALIZED UPPER ABDOMEN: Normal. OTHER FINDINGS: None. IMPRESSION: No significant interval change. No acute infiltrate.
--- NOTE | 2017-01-15 13:42 | CP.PCM.PN ---
Subjective - Date & Time of Evaluation Date of Evaluation: 01/15/17 Time of Evaluation: 13:40 - Subjective Subjective: remains comastose non-reactive pupils slight r corneal brisk l corneal no gag appreciated now flaccide all ext some slow blinking of eyelids but no spont eye opening ICP about 14 10 cc csf drained in 24 hrs Drain clamped If icp remains normal will d/c drain tomorrow Objective - Vital Signs/Intake and Output Vital Signs (last 24 hours): Temp Pulse Resp BP Pulse Ox 100.9 F H 94 H 13 90/55 L 97 01/15/17 12:00 01/15/17 13:00 01/15/17 13:00 01/15/17 12:27 01/15/17 13:00 Intake and Output: 01/15/17 01/15/17 06:59 18:59 Intake Total 450 300 Output Total 610 660 Balance -160 -360 - Medications Medications: Current Medications Acetaminophen (Tylenol 325mg Tab) 650 mg PO Q6 PRN PRN Reason: Pain, Mild (1-3) Last Admin: 01/15/17 10:00 Dose: 650 mg Diltiazem HCl (Cardizem) 60 mg PO Q6H [facility] Last Admin: 01/15/17 11:52 Dose: 60 mg Vancomycin/Sodium Chloride (Vancocin) 1 gm in 200 mls @ 166.6 mls/hr IVPB Q12 [facility] Stop: 01/17/17 10:01 Last Admin: 01/15/17 10:01 Dose: 166.6 mls/hr Cefepime HCl 2 gm/ Sodium (Chloride) 100 mls @ 200 mls/hr IVPB Q12H [facility] Stop: 01/18/17 20:01 Last Admin: 01/15/17 08:49 Dose: 200 mls/hr Insulin Glargine (Lantus) 15 unit SC Q12 [facility] Last Admin: 01/15/17 10:01 Dose: 15 units Insulin Human Regular (Novolin R) 0 unit SC Q6H [facility] PRN Reason: Protocol Last Admin: 01/15/17 12:18 Dose: Not Given Lisinopril (Zestril) 5 mg PO DAILY [facility] Last Admin: 01/15/17 10:00 Dose: 5 mg Metoprolol Tartrate (Lopressor) 50 mg PO BID [facility] Last Admin: 01/15/17 11:52 Dose: 50 mg Pantoprazole Sodium (Protonix Inj) 40 mg IVP DAILY [facility] Last Admin: 01/15/17 10:00 Dose: 40 mg Rosuvastatin Calcium (Crestor) 20 mg PO HS [facility] Last Admin: 01/14/17 22:24 Dose: 20 mg - Labs Labs: 01/15/17 06:04 01/15/17 06:04 PT 15.5 SECONDS (9.7-12.2) H 01/13/17 06:25 INR 1.3 01/13/17 06:25 APTT 31 SECONDS (21-34) 01/13/17 06:25
--- NOTE | 2017-01-15 13:58 | CP.PCM.PN ---
Subjective - Date & Time of Evaluation Date of Evaluation: 01/15/17 Time of Evaluation: 11:45 - Subjective Subjective: Mrs. Hough was seen and examined today at bedside in the ICU. She continued to be comatose, not following commands, and did not open her eyes spontaneously. She was febrile, and did not have any meaningful response after the trial of Ambien. Objective - Vital Signs/Intake and Output Vital Signs (last 24 hours): Temp Pulse Resp BP Pulse Ox 100.9 F H 94 H 13 90/55 L 97 01/15/17 12:00 01/15/17 13:00 01/15/17 13:00 01/15/17 12:27 01/15/17 13:00 Intake and Output: 01/15/17 01/15/17 06:59 18:59 Intake Total 450 300 Output Total 610 660 Balance -160 -360 - Medications Medications: Current Medications Acetaminophen (Tylenol 325mg Tab) 650 mg PO Q6 PRN PRN Reason: Pain, Mild (1-3) Last Admin: 01/15/17 10:00 Dose: 650 mg Diltiazem HCl (Cardizem) 60 mg PO Q6H [facility] Last Admin: 01/15/17 11:52 Dose: 60 mg Vancomycin/Sodium Chloride (Vancocin) 1 gm in 200 mls @ 166.6 mls/hr IVPB Q12 [facility] Stop: 01/17/17 10:01 Last Admin: 01/15/17 10:01 Dose: 166.6 mls/hr Cefepime HCl 2 gm/ Sodium (Chloride) 100 mls @ 200 mls/hr IVPB Q12H [facility] Stop: 01/18/17 20:01 Last Admin: 01/15/17 08:49 Dose: 200 mls/hr Insulin Glargine (Lantus) 15 unit SC Q12 [facility] Last Admin: 01/15/17 10:01 Dose: 15 units Insulin Human Regular (Novolin R) 0 unit SC Q6H [facility] PRN Reason: Protocol Last Admin: 01/15/17 12:18 Dose: Not Given Lisinopril (Zestril) 5 mg PO DAILY [facility] Last Admin: 01/15/17 10:00 Dose: 5 mg Metoprolol Tartrate (Lopressor) 50 mg PO BID [facility] Last Admin: 01/15/17 11:52 Dose: 50 mg Pantoprazole Sodium (Protonix Inj) 40 mg IVP DAILY [facility] Last Admin: 01/15/17 10:00 Dose: 40 mg Rosuvastatin Calcium (Crestor) 20 mg PO HS [facility] Last Admin: 01/14/17 22:24 Dose: 20 mg - Labs Labs: 01/15/17 06:04 01/15/17 06:04 PT 15.5 SECONDS (9.7-12.2) H 01/13/17 06:25 INR 1.3 01/13/17 06:25 APTT 31 SECONDS (21-34) 01/13/17 06:25 - Neurological Exam Additional comments: Neurologically unchanged compared with previous examination. GCS= 3T Assessment and Plan (1) Cerebellar stroke Assessment & Plan: S/P posterior decompression. 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 Poor prognosis. Continue conservative management. Status: Acute
--- NOTE | 2017-01-15 14:56 | CP.PCM.PN ---
Subjective - Date & Time of Evaluation Date of Evaluation: 01/15/17 Time of Evaluation: 10:00 - Subjective Subjective: Patient is intubated and unresponsive to stimulus, unable to offer any complaints. Objective - Vital Signs/Intake and Output Vital Signs (last 24 hours): Temp Pulse Resp BP Pulse Ox 100.9 F H 96 H 12 91/55 L 97 01/15/17 12:00 01/15/17 14:00 01/15/17 14:00 01/15/17 13:27 01/15/17 14:00 Intake and Output: 01/15/17 01/15/17 06:59 18:59 Intake Total 450 300 Output Total 610 680 Balance -160 -380 - Medications Medications: Current Medications Acetaminophen (Tylenol 325mg Tab) 650 mg PO Q6 PRN PRN Reason: Pain, Mild (1-3) Last Admin: 01/15/17 10:00 Dose: 650 mg Diltiazem HCl (Cardizem) 60 mg PO Q6H [facility] Last Admin: 01/15/17 11:52 Dose: 60 mg Vancomycin/Sodium Chloride (Vancocin) 1 gm in 200 mls @ 166.6 mls/hr IVPB Q12 [facility] Stop: 01/17/17 10:01 Last Admin: 01/15/17 10:01 Dose: 166.6 mls/hr Cefepime HCl 2 gm/ Sodium (Chloride) 100 mls @ 200 mls/hr IVPB Q12H [facility] Stop: 01/18/17 20:01 Last Admin: 01/15/17 08:49 Dose: 200 mls/hr Insulin Glargine (Lantus) 15 unit SC Q12 [facility] Last Admin: 01/15/17 10:01 Dose: 15 units Insulin Human Regular (Novolin R) 0 unit SC Q6H [facility] PRN Reason: Protocol Last Admin: 01/15/17 12:18 Dose: Not Given Lisinopril (Zestril) 5 mg PO DAILY [facility] Last Admin: 01/15/17 10:00 Dose: 5 mg Metoprolol Tartrate (Lopressor) 50 mg PO BID [facility] Last Admin: 01/15/17 11:52 Dose: 50 mg Pantoprazole Sodium (Protonix Inj) 40 mg IVP DAILY [facility] Last Admin: 01/15/17 10:00 Dose: 40 mg Rosuvastatin Calcium (Crestor) 20 mg PO HS [facility] Last Admin: 01/14/17 22:24 Dose: 20 mg - Labs Labs: 01/15/17 06:04 01/15/17 06:04 PT 15.5 SECONDS (9.7-12.2) H 01/13/17 06:25 INR 1.3 01/13/17 06:25 APTT 31 SECONDS (21-34) 01/13/17 06:25 - Constitutional Appears: In Acute Distress - Head Exam Head Exam: ATRAUMATIC, NORMAL INSPECTION, NORMOCEPHALIC - Eye Exam Additional comments: sluggish reaction, no spontaneous eyes opening - ENT Exam Additional comments: ETT - Respiratory Exam Respiratory Exam: Decreased Breath Sounds Additional comments: On MV - Cardiovascular Exam Cardiovascular Exam: Tachycardia - GI/Abdominal Exam GI & Abdominal Exam: Diminished Bowel Sounds - Rectal Exam Rectal Exam: Deferred - Extremities Exam Extremities Exam: Pedal Edema - Back Exam Back Exam: NORMAL INSPECTION - Neurological Exam Neurological Exam: Motor Sensory Deficit Neuro motor strength exam: Left Upper Extremity: 0, Right Upper Extremity: 0, Left Lower Extremity: 0, Right Lower Extremity: 0 - Skin Skin Exam: Dry, Normal Color, Warm Assessment and Plan - Assessment and Plan (Free Text) Assessment: Family meeting held for further goals of care discussion. Meeting attended by two patient's sons, Doctor Lucas and my self. Goals of care discussed. Patient's condition reviewed. Patient remains unresponsive to stimulus with weak gag and corneal reflexes. Family showed video where patient was responding to the family request to blink her eyes. Family saw some hope to recovery and has decided on aggressive treatment including trach and PEG. Today's meeting was aimed to assist family in understanding of pros and cons of those aggressive measures. It was made clear to the family that meaningful recovery was not expected, most likely , and that creating the trach/PEG would give more of opportunity to all of us to see what kind of progress, if any, patient will make. It was made clear that these aggressive measures will not cure patient and that in the near future family will have to decide between quality of life vs longevity concerns. Both sons stated understanding and agreed. Further, family made aware of patient;s fever and need to delay those aggressive interventions until patient more stable. Impression * Patient is acutely ill , depending on full life support * Family saw some improvement in patient's neurological condition what gave them a hope and at the same time made the decision on end of life care, more difficult * Patient does not have enough of neurological functioning to maintain normal life * Family understands that down the line , with trach and PEG insertion patient will become more prone to infection Suggestion * Abort trach / PEG until patient afebrile and more stable * Family will need frequent updates on patient's condition and a lot of support during the decision making process
--- NOTE | 2017-01-15 19:20 | CP.PCM.PN ---
Subjective - Date & Time of Evaluation Date of Evaluation: 01/15/17 Time of Evaluation: 19:20 - Subjective Subjective: non-responsive HR variable poor prognosis Objective - Vital Signs/Intake and Output Vital Signs (last 24 hours): Temp Pulse Resp BP Pulse Ox 97.7 F 71 25 H 81/52 L 98 01/15/17 16:00 01/15/17 19:14 01/15/17 19:14 01/15/17 19:14 01/15/17 19:14 Intake and Output: 01/15/17 01/16/17 18:59 06:59 Intake Total 300 Output Total 790 Balance -490 - Medications Medications: Current Medications Acetaminophen (Tylenol 325mg Tab) 650 mg PO Q6 PRN PRN Reason: Pain, Mild (1-3) Last Admin: 01/15/17 10:00 Dose: 650 mg Diltiazem HCl (Cardizem) 60 mg PO Q6H [facility] Last Admin: 01/15/17 18:36 Dose: 60 mg Vancomycin/Sodium Chloride (Vancocin) 1 gm in 200 mls @ 166.6 mls/hr IVPB Q12 [facility] Stop: 01/17/17 10:01 Last Admin: 01/15/17 10:01 Dose: 166.6 mls/hr Cefepime HCl 2 gm/ Sodium (Chloride) 100 mls @ 200 mls/hr IVPB Q12H [facility] Stop: 01/18/17 20:01 Last Admin: 01/15/17 08:49 Dose: 200 mls/hr Insulin Glargine (Lantus) 15 unit SC Q12 [facility] Last Admin: 01/15/17 10:01 Dose: 15 units Insulin Human Regular (Novolin R) 0 unit SC Q6H [facility] PRN Reason: Protocol Last Admin: 01/15/17 18:36 Dose: 2 unit Lisinopril (Zestril) 5 mg PO DAILY [facility] Last Admin: 01/15/17 10:00 Dose: 5 mg Metoprolol Tartrate (Lopressor) 50 mg PO BID [facility] Last Admin: 01/15/17 18:53 Dose: 50 mg Pantoprazole Sodium (Protonix Inj) 40 mg IVP DAILY [facility] Last Admin: 01/15/17 10:00 Dose: 40 mg Rosuvastatin Calcium (Crestor) 20 mg PO HS [facility] Last Admin: 01/14/17 22:24 Dose: 20 mg - Labs Labs: 01/15/17 06:04 01/15/17 06:04 PT 15.5 SECONDS (9.7-12.2) H 01/13/17 06:25 INR 1.3 01/13/17 06:25 APTT 31 SECONDS (21-34) 01/13/17 06:25 - Constitutional Appears: Toxic - Eye Exam Pupil Exam: Irregular - ENT Exam ENT Exam: Mucous Membranes Dry - Respiratory Exam Respiratory Exam: Rales - Cardiovascular Exam Cardiovascular Exam: Irregular Rhythm, +S1, +S2, Murmur - GI/Abdominal Exam GI & Abdominal Exam: Soft, Hypoactive Bowel Sounds - Neurological Exam Neurological Exam: Altered Assessment and Plan (1) Cerebellar stroke Status: Acute (2) New onset atrial fibrillation Status: Acute (3) CHF (congestive heart failure) Status: Acute (4) Mitral regurgitation Status: Acute (5) Tricuspid regurgitation Status: Acute
[2017-01-16 00:03] LABS: HEPARIN-IND PLATELET AB Negative (Negative)
[2017-01-16] MEDS: (Novolin R) Insulin Human Regular 100 units/ml vial SC SCH ×4 (02:02→18:07)
[2017-01-16 06:40] LABS: BASO % 0.2 % (0.0-2.0); EOS # 0.2 K/uL (0.0-0.7); EOS % 1.6 % (0.0-4.0); HEMATOCRIT 30.7 % (34.0-47.0); LYMPH # 1.1 K/uL (1.0-4.3); LYMPH % 7.1 % (20.0-40.0); MEAN CELL VOLUME 89.3 fL (81.0-99.0); MEAN CORPUSCULAR HEMOGLOBIN 28.8 pg (27.0-31.0); MEAN CORPUSCULAR HGB CONC 32.2 g/dL (33.0-37.0); MEAN PLATELET VOLUME 12.4 fL (7.2-11.7); MONO # 0.4 K/uL (0.0-0.8); MONO % 2.4 % (0.0-10.0); NRBC % 0.1 % (0.0-2.0); PLATELET COUNT 86 K/uL (130-400); RED CELL DISTRIBUTION WIDTH 14.6 % (11.5-14.5); WHITE BLOOD COUNT 15.3 K/uL (4.8-10.8)
[2017-01-16 06:57] LABS: ALB/GLOB RATIO 0.7 (1.0-2.1); BILIRUBIN,TOTAL 0.4 mg/dL (0.2-1.3); CALCIUM 7.4 mg/dl (8.6-10.4); MAGNESIUM 2.9 mg/dL (1.6-2.3); PHOSPHOROUS 4.9 mg/dL (2.5-4.5); POTASSIUM 3.7 mmol/L (3.6-5.2); TOTAL PROTEIN 5.3 g/dL (6.3-8.3)
--- NOTE | 2017-01-16 07:27 | CP.PCM.PN ---
Subjective - Date & Time of Evaluation Date of Evaluation: 01/16/17 Time of Evaluation: 07:27 Objective - Vital Signs/Intake and Output Vital Signs (last 24 hours): Temp Pulse Resp BP Pulse Ox 98.5 F 106 H 27 H 113/65 96 01/16/17 04:00 01/16/17 06:27 01/16/17 06:27 01/16/17 06:27 01/16/17 06:27 Intake and Output: 01/16/17 01/16/17 06:59 18:59 Intake Total 770 Output Total 240 Balance 530 - Medications Medications: Current Medications Acetaminophen (Tylenol 325mg Tab) 650 mg PO Q6 PRN PRN Reason: Pain, Mild (1-3) Last Admin: 01/15/17 10:00 Dose: 650 mg Diltiazem HCl (Cardizem) 60 mg PO Q6H [facility] Last Admin: 01/16/17 05:13 Dose: 60 mg Vancomycin/Sodium Chloride (Vancocin) 1 gm in 200 mls @ 166.6 mls/hr IVPB Q12 [facility] Stop: 01/17/17 10:01 Last Admin: 01/15/17 21:15 Dose: 166.6 mls/hr Cefepime HCl 2 gm/ Sodium (Chloride) 100 mls @ 200 mls/hr IVPB Q12H [facility] Stop: 01/18/17 20:01 Last Admin: 01/15/17 19:51 Dose: 200 mls/hr Insulin Glargine (Lantus) 15 unit SC Q12 [facility] Last Admin: 01/15/17 21:15 Dose: 15 units Insulin Human Regular (Novolin R) 0 unit SC Q6H [facility] PRN Reason: Protocol Last Admin: 01/16/17 06:31 Dose: 2 unit Lisinopril (Zestril) 5 mg PO DAILY [facility] Last Admin: 01/15/17 10:00 Dose: 5 mg Metoprolol Tartrate (Lopressor) 50 mg PO BID [facility] Last Admin: 01/15/17 18:53 Dose: 50 mg Pantoprazole Sodium (Protonix Inj) 40 mg IVP DAILY [facility] Last Admin: 01/15/17 10:00 Dose: 40 mg Rosuvastatin Calcium (Crestor) 20 mg PO HS [facility] Last Admin: 01/15/17 21:15 Dose: 20 mg - Labs Labs: 01/16/17 06:34 01/16/17 06:34 PT 15.5 SECONDS (9.7-12.2) H 01/13/17 06:25 INR 1.3 01/13/17 06:25 APTT 31 SECONDS (21-34) 01/13/17 06:25 Assessment and Plan (1) Cerebellar stroke Status: Acute (2) New onset atrial fibrillation Status: Acute (3) CHF (congestive heart failure) Status: Acute (4) Mitral regurgitation Status: Acute (5) Tricuspid regurgitation Status: Acute
[2017-01-16 07:49] LABS: UFH SRA RESULT Negative (Negative)
--- NOTE | 2017-01-16 07:50 | CP.CCUPN ---
<FlorentinoKd R - Last Filed: 01/16/17 15:57> CCU Subjective - Physician Review Subjective (Free Text): Patient was seen and examined at bedside in the morning. Patient is intubated, opens eyes to painful stimuli. Unable to obtain review of systems due to clinical condition. 01/16/17 15:57 CCU Objective - Vital Signs / Intake & Output Vital Signs (Last 4 hours): Vital Signs Temp Pulse Resp BP Pulse Ox 01/16/17 06:27 106 H 27 H 113/65 96 01/16/17 06:00 97 H 26 H 97 01/16/17 05:27 126 H 22 118/57 L 96 01/16/17 05:00 125 H 29 H 97 01/16/17 04:33 112 H 27 H 135/72 97 01/16/17 04:27 138 H 28 H 93/66 L 95 01/16/17 04:00 98.5 F 119 H 25 H 97 Intake and Output (Last 8hrs): Intake & Output 01/15/17 01/16/17 01/16/17 22:59 06:59 14:59 Intake Total 300 470 Output Total 190 160 Balance 110 310 Intake: Intake, IV Amount 300 Left Proximal Port 300 Internal Jugular Tube Feeding 320 Other 150 Output: Urine 190 160 Urethral (Massey) 190 160 - Physical Exam Head: Positive for: Normocephalic Pupils: Positive for: PERRL Extroacular Muscles: Negative for: EOMI Mouth: Positive for: Other (intubated) Neck: Negative for: Normal Range of Motion Respiratory/Chest: Positive for: Clear to Auscultation, Other (intubated). Negative for: Wheezes, Rales, Rhonchi, Tachypneic Cardiovascular: Positive for: Normal S1, S2, Irregular Rhythm, Tachycardic Abdomen: Negative for: Distention, Normal Bowel Sounds (hypoactive) Upper Extremity: Positive for: Normal Inspection. Negative for: Edema Lower Extremity: Positive for: Normal Inspection. Negative for: Edema Neurological: Positive for: Other (no response to pain; gag reflex & corneal reflex+; intermittently following commands). Negative for: GCS=15, Motor Func Grossly Intact, Normal Sensory Function Skin: Positive for: Warm, Dry, Normal Color Psychiatric: Negative for: Alert, Oriented x 3 - Medications Active Medications: Active Medications Generic Name Dose Route Start Last Admin Trade Name Freq PRN Reason Stop Dose Admin Acetaminophen 650 mg 01/03/17 11:49 01/15/17 10:00 Tylenol 325mg Tab PO 650 mg Q6 PRN Administration Pain, Mild (1-3) Diltiazem HCl 60 mg 01/14/17 12:00 01/16/17 05:13 Cardizem PO 60 mg Q6H MIRELLA Administration Vancomycin/Sodium Chloride 1 gm in 200 mls @ 166.6 mls/hr 01/12/17 10:00 21:15 Vancocin IVPB 01/17/17 10:01 166.6 mls/hr Q12 MIRELLA Administration Cefepime HCl 2 gm/ Sodium 100 mls @ 200 mls/hr 01/13/17 20:00 01/15/17 19:51 Chloride IVPB 01/18/17 20:01 200 mls/hr Q12H MIRELLA Administration Insulin Glargine 15 unit 01/14/17 10:11 01/15/17 21:15 Lantus SC 15 units Q12 MIRELLA Administration Insulin Human Regular 0 unit 01/14/17 12:35 01/16/17 06:31 Novolin R SC 2 unit Q6H MIRELLA Administration Protocol Lisinopril 5 mg 01/11/17 09:30 01/15/17 10:00 Zestril PO 5 mg DAILY MIRELLA Administration Metoprolol Tartrate 50 mg 01/14/17 11:43 01/15/17 18:53 Lopressor PO 50 mg BID MIRELLA Administration Pantoprazole Sodium 40 mg 01/02/17 10:00 01/15/17 10:00 Protonix Inj IVP 40 mg DAILY MIRELLA Administration Rosuvastatin Calcium 20 mg 01/03/17 22:00 01/15/17 21:15 Crestor PO 20 mg HS MIRELLA Administration - Patient Studies Lab Studies: Microbiology Studies 01/12/17 10:05 Gram Stain - Final Cerebral Spinal Fluid CSF Culture - Preliminary NO GROWTH AFTER 3 DAYS 01/12/17 07:45 Blood Culture - Preliminary Blood-Venous NO GROWTH AFTER 3 DAYS 01/12/17 08:30 Blood Culture - Preliminary Blood-Venous NO GROWTH AFTER 3 DAYS Lab Studies 01/16/17 01/16/17 01/16/17 Range/Units 06:34 06:34 06:19 WBC 15.3 H (4.8-10.8) K/uL RBC 3.44 L (3.80-5.20) Mil/uL Hgb 9.9 L (11.0-16.0) g/dL Hct 30.7 L (34.0-47.0) % MCV 89.3 (81.0-99.0) fL MCH 28.8 (27.0-31.0) pg MCHC 32.2 L (33.0-37.0) g/dL RDW 14.6 H (11.5-14.5) % Plt Count 86 L (130-400) K/uL MPV 12.4 H (7.2-11.7) fL Neut % (Auto) 88.7 H (50.0-75.0) % Lymph % (Auto) 7.1 L (20.0-40.0) % [place] % (Auto) 2.4 (0.0-10.0) % Eos % (Auto) 1.6 (0.0-4.0) % Baso % (Auto) 0.2 (0.0-2.0) % Neut # 13.5 H (1.8-7.0) K/uL Lymph # 1.1 (1.0-4.3) K/uL [place] # 0.4 (0.0-0.8) K/uL Eos # 0.2 (0.0-0.7) K/uL Baso # 0.0 (0.0-0.2) K/uL Neutrophils % (Manual) (50-75) % Band Neutrophils % (0-2) % Lymphocytes % (Manual) (20-40) % Monocytes % (Manual) (0-10) % Platelet Estimate (NORMAL) Hypochromasia (manual) Poikilocytosis (manual Anisocytosis (manual) Tear Drop Cells Sodium 150 H (132-148) mmol/L Potassium 3.7 (3.6-5.2) mmol/L Chloride 119 H (98-107) mmol/L Carbon Dioxide 17 L (22-30) mmol/L Anion Gap 18 (10-20) BUN 56 H (7-17) mg/dL Creatinine 1.6 H (0.7-1.2) MG/DL Est GFR ( Amer) 38 Est GFR (Non-Af Amer) 32 POC Glucose (mg/dL) 154 H (65-110) mg/dL Random Glucose 159 H (65-105) mg/dL Calcium 7.4 L (8.6-10.4) mg/dl Phosphorus 4.9 H (2.5-4.5) mg/dL Magnesium 2.9 H (1.6-2.3) mg/dL Total Bilirubin 0.4 (0.2-1.3) mg/dL AST 498 H D (14-36) U/L ALT 228 H D (9-52) U/L Alkaline Phosphatase 75 (38-126) U/L Total Protein 5.3 L (6.3-8.3) g/dL Albumin 2.2 L (3.5-5.0) g/dL Globulin 3.0 (2.2-3.9) gm/dL Albumin/Globulin Ratio 0.7 L (1.0-2.1) Heparin-induced Plt Ab (Negative) 01/16/17 01/15/17 01/15/17 Range/Units 00:19 17:31 11:19 WBC (4.8-10.8) K/uL RBC (3.80-5.20) Mil/uL Hgb (11.0-16.0) g/dL Hct (34.0-47.0) % MCV (81.0-99.0) fL MCH (27.0-31.0) pg MCHC (33.0-37.0) g/dL RDW (11.5-14.5) % Plt Count (130-400) K/uL MPV (7.2-11.7) fL Neut % (Auto) (50.0-75.0) % Lymph % (Auto) (20.0-40.0) % [place] % (Auto) (0.0-10.0) % Eos % (Auto) (0.0-4.0) % Baso % (Auto) (0.0-2.0) % Neut # (1.8-7.0) K/uL Lymph # (1.0-4.3) K/uL [place] # (0.0-0.8) K/uL Eos # (0.0-0.7) K/uL Baso # (0.0-0.2) K/uL Neutrophils % (Manual) (50-75) % Band Neutrophils % (0-2) % Lymphocytes % (Manual) (20-40) % Monocytes % (Manual) (0-10) % Platelet Estimate (NORMAL) Hypochromasia (manual) Poikilocytosis (manual Anisocytosis (manual) Tear Drop Cells Sodium (132-148) mmol/L Potassium (3.6-5.2) mmol/L Chloride (98-107) mmol/L Carbon Dioxide (22-30) mmol/L Anion Gap (10-20) BUN (7-17) mg/dL Creatinine (0.7-1.2) MG/DL Est GFR ( Amer) Est GFR (Non-Af Amer) POC Glucose (mg/dL) 173 H 170 H 173 H (65-110) mg/dL Random Glucose (65-105) mg/dL Calcium (8.6-10.4) mg/dl Phosphorus (2.5-4.5) mg/dL Magnesium (1.6-2.3) mg/dL Total Bilirubin (0.2-1.3) mg/dL AST (14-36) U/L ALT (9-52) U/L Alkaline Phosphatase (38-126) U/L Total Protein (6.3-8.3) g/dL Albumin (3.5-5.0) g/dL Globulin (2.2-3.9) gm/dL Albumin/Globulin Ratio (1.0-2.1) Heparin-induced Plt Ab (Negative) 01/15/17 01/13/17 Range/Units 06:04 06:25 WBC (4.8-10.8) K/uL RBC (3.80-5.20) Mil/uL Hgb (11.0-16.0) g/dL Hct (34.0-47.0) % MCV (81.0-99.0) fL MCH (27.0-31.0) pg MCHC (33.0-37.0) g/dL RDW (11.5-14.5) % Plt Count (130-400) K/uL MPV (7.2-11.7) fL Neut % (Auto) (50.0-75.0) % Lymph % (Auto) (20.0-40.0) % [place] % (Auto) (0.0-10.0) % Eos % (Auto) (0.0-4.0) % Baso % (Auto) (0.0-2.0) % Neut # (1.8-7.0) K/uL Lymph # (1.0-4.3) K/uL [place] # (0.0-0.8) K/uL Eos # (0.0-0.7) K/uL Baso # (0.0-0.2) K/uL Neutrophils % (Manual) 84 H (50-75) % Band Neutrophils % 4 H (0-2) % Lymphocytes % (Manual) 10 L (20-40) % Monocytes % (Manual) 2 (0-10) % Platelet Estimate Decreased L (NORMAL) Hypochromasia (manual) Slight Poikilocytosis (manual Slight Anisocytosis (manual) Slight Tear Drop Cells Slight Sodium (132-148) mmol/L Potassium (3.6-5.2) mmol/L Chloride (98-107) mmol/L Carbon Dioxide (22-30) mmol/L Anion Gap (10-20) BUN (7-17) mg/dL Creatinine (0.7-1.2) MG/DL Est GFR ( Amer) Est GFR (Non-Af Amer) POC Glucose (mg/dL) (65-110) mg/dL Random Glucose (65-105) mg/dL Calcium (8.6-10.4) mg/dl Phosphorus (2.5-4.5) mg/dL Magnesium (1.6-2.3) mg/dL Total Bilirubin (0.2-1.3) mg/dL AST (14-36) U/L ALT (9-52) U/L Alkaline Phosphatase (38-126) U/L Total Protein (6.3-8.3) g/dL Albumin (3.5-5.0) g/dL Globulin (2.2-3.9) gm/dL Albumin/Globulin Ratio (1.0-2.1) Heparin-induced Plt Ab Negative (Negative) Laboratory Results - last 24 hr 01/13/17 01/15/17 01/15/17 06:25 06:04 11:19 WBC RBC Hgb Hct MCV MCH MCHC RDW Plt Count MPV Neut % (Auto) Lymph % (Auto) [place] % (Auto) Eos % (Auto) Baso % (Auto) Neut # Lymph # [place] # Eos # Baso # Neutrophils % (Manual) 84 H Band Neutrophils % 4 H Lymphocytes % (Manual) 10 L Monocytes % (Manual) 2 Platelet Estimate Decreased L Hypochromasia (manual) Slight Poikilocytosis (manual Slight Anisocytosis (manual) Slight Tear Drop Cells Slight Sodium Potassium Chloride Carbon Dioxide Anion Gap BUN Creatinine Est GFR ( Amer) Est GFR (Non-Af Amer) POC Glucose (mg/dL) 173 H Random Glucose Calcium Phosphorus Magnesium Total Bilirubin AST ALT Alkaline Phosphatase Total Protein Albumin Globulin Albumin/Globulin Ratio Heparin-induced Plt Ab Negative 01/15/17 01/16/17 01/16/17 17:31 00:19 06:19 WBC RBC Hgb Hct MCV MCH MCHC RDW Plt Count MPV Neut % (Auto) Lymph % (Auto) [place] % (Auto) Eos % (Auto) Baso % (Auto) Neut # Lymph # [place] # Eos # Baso # Neutrophils % (Manual) Band Neutrophils % Lymphocytes % (Manual) Monocytes % (Manual) Platelet Estimate Hypochromasia (manual) Poikilocytosis (manual Anisocytosis (manual) Tear Drop Cells Sodium Potassium Chloride Carbon Dioxide Anion Gap BUN Creatinine Est GFR ( Amer) Est GFR (Non-Af Amer) POC Glucose (mg/dL) 170 H 173 H 154 H Random Glucose Calcium Phosphorus Magnesium Total Bilirubin AST ALT Alkaline Phosphatase Total Protein Albumin Globulin Albumin/Globulin Ratio Heparin-induced Plt Ab 01/16/17 01/16/17 06:34 06:34 WBC 15.3 H RBC 3.44 L Hgb 9.9 L Hct 30.7 L MCV 89.3 MCH 28.8 MCHC 32.2 L RDW 14.6 H Plt Count 86 L MPV 12.4 H Neut % (Auto) 88.7 H Lymph % (Auto) 7.1 L [place] % (Auto) 2.4 Eos % (Auto) 1.6 Baso % (Auto) 0.2 Neut # 13.5 H Lymph # 1.1 [place] # 0.4 Eos # 0.2 Baso # 0.0 Neutrophils % (Manual) Band Neutrophils % Lymphocytes % (Manual) Monocytes % (Manual) Platelet Estimate Hypochromasia (manual) Poikilocytosis (manual Anisocytosis (manual) Tear Drop Cells Sodium 150 H Potassium 3.7 Chloride 119 H Carbon Dioxide 17 L Anion Gap 18 BUN 56 H Creatinine 1.6 H Est GFR ( Amer) 38 Est GFR (Non-Af Amer) 32 POC Glucose (mg/dL) Random Glucose 159 H Calcium 7.4 L Phosphorus 4.9 H Magnesium 2.9 H Total Bilirubin 0.4 AST 498 H D ALT 228 H D Alkaline Phosphatase 75 Total Protein 5.3 L Albumin 2.2 L Globulin 3.0 Albumin/Globulin Ratio 0.7 L Heparin-induced Plt Ab Fingerstick Blood Sugar Results: 154 Review of Systems - Review of Systems Systems not reviewed;Unavailable: Intubated Critical Care Progress Note - Vent Settings TIDAL VOLUME:: 400 RESP RATE:: 12 FIO2:: 30 PEEP:: 5 - Nutrition Nutrition: Nutrition Category Date Time Status NPO Diet [DIET] Diets 01/14/17 Breakfast Active Assessment/Plan - Assessment and Plan (Free Text) Assessment: 71 year old female with past medical history of DM, presented to the ED with complaints of nausea and vomiting for 3-4 days. She had palpitations and dizziness. In the ED, patient was found to have new onset a-fib, patient was admitted. Patient started on Cardizem drip and anticoagulation. On 01/03/17 Patient no longer has nausea or vomiting, but complained of headache. Patient was given tylenol. In the afternoon, patient's headache started to worsen. Patient was re-evaluated for possible slurred speech/changes in speech, at that time, patient was answering questions and following commands. In the evening, ( as per nurse), patient's speech was more slurred and patient became more restless. 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 Patient underwent decompressive craniotomy with Dr. Duque. Patient was on 3% hypertonic solution (discontinued 01/04/17), with goal of sodium 145-150 and serum osmolality of 300-320. Patient continues to have a-fib. Continue cardizem. Patient's status was discussed with the family. The family is not convinced the patient has significant damage and still hopes for full recovery. Palliative care consulted. Repeat head ct showed residual hemorrhage, reduction in hydrocephalus, cerebellar edema, and subacute cerebellar infarctions. After many discussions with Dr Sinclair and palliative care Nurse Kecia, and with full understanding of the clinical situation and prognosis, the family has decided for terminal extubation. Neuro: unresponsive to pain; intermittently following commands - Likely has significant edema and suffered from brainstem herniation during the increased ICP - Head CT (01/01/17): no acute findings; chronic ischemic changes - Head CT (01/03/17): Infarct involving posterior circulation with marked edema of cerebellar hemispheres b/l on right side>Left, with obstructing hydrocephalus - S/P decompressive craniotomy/ventriculotomy (Dr. Duque) - draining blood- tinged CSF fluid - Keep CPP 60-80 - Neurology, Dr Jensen, consulted - will obtain EEG to r/o subclinical status - Given trial of zolpidem 10mg, -> no meaningful response Pulm: intubated - family has signed form for terminal extubation - Gen Surg consulted, Dr Leos CV: new onset A-Fib - Cardiology consulted, Dr Wong, help appreciated - Cardizem 60mg po qid - Lisinopril 5mg po daily - metoprolol 50mg po bid - Troponin: negative; BNP 3690 - Echo: EF47%; severely dilated LA/RA; mildly thickened and calcified aortic valve; mild AR; mild-mod mitral annular calcification; MV mildly thickened; mod- severe MR; severe TR; mild pulmonic valvular regurg. IVC dilated. Endo: Hx of DM - Accuchecks, monitor blood glucose - Continue ISS - medium protocol - lantus 15 units sc hs - TSH 0.82, Free T4 1.63 - Thyroid Ab: negative - Documentation Liaison consulted, Dr. Goldberg, help appreciated GI: nausea, vomiting- unknown cause--> resolved - Lipase 79 (01/01/17), 38 (01/02/17) - Continue Zofran, Protonix - Tube Feeding Heme: - Thrombocytopenia: 90 - Discontinued lovenox - Heme/Onc consulted, Dr Wren Renal: - Hypokalemic: continue to monitor - Hypernatremia: continue to monitor MSK: no acute issues ID: Sputum culture positive for Staphylococcus Aureus - wbc 16; febrile - cefepime 2gm iv q12 - vancomycin 1gm iv q12 - CSF culture 01/12 showing no growth up to date - Blood culture 01/12 showing no growth up to date - Nares culture showing no MRSA detected - UA: trace ketones, 1+ glucose - Infectious disease, Dr Briseno consulted Prophylaxis: - DVT: SCDs. Not on pharmacologic DVT prophylaxis as platelet count is low and plans for surgery. - GI: Protonix - PT <Tyson Sinclair P - Last Filed: 01/16/17 21:14> CCU Objective - Vital Signs / Intake & Output Vital Signs (Last 4 hours): Vital Signs Temp Pulse Resp BP Pulse Ox 01/16/17 20:28 153 H 19 114/75 95 01/16/17 20:17 127 H 18 111/68 96 01/16/17 20:00 98.8 F 125 H 15 97 01/16/17 19:28 108 H 15 90/49 L 97 01/16/17 19:00 124 H 18 97 01/16/17 18:27 112 H 17 92/44 L 95 01/16/17 17:27 115 H 20 90/48 L 99 Intake and Output (Last 8hrs): Intake & Output 01/16/17 01/16/17 01/16/17 06:59 14:59 22:59 Intake Total 470 582 12 Output Total 160 150 35 Balance 310 432 -23 Weight 138 lb Intake: Intake, IV Amount 302 12 Left Proximal Port 302 12 Internal Jugular Tube Feeding 320 280 Other 150 Output: Urine 160 150 35 Urethral (Massey) 160 150 35 Other: # Bowel Movements 1 - Medications Active Medications: Active Medications Generic Name Dose Route Start Last Admin Trade Name Freq PRN Reason Stop Dose Admin Acetaminophen 650 mg 01/03/17 11:49 01/16/17 10:04 Tylenol 325mg Tab PO 650 mg Q6 PRN Administration Pain, Mild (1-3) Diltiazem HCl 60 mg 01/14/17 12:00 01/16/17 17:16 Cardizem PO Not Given Q6H MIRELLA Vancomycin/Sodium Chloride 1 gm in 200 mls @ 166.6 mls/hr 01/12/17 10:00 10:03 Vancocin IVPB 01/17/17 10:01 166.6 mls/hr Q12 MIRELLA Administration Cefepime HCl 2 gm/ Sodium 100 mls @ 200 mls/hr 01/13/17 20:00 01/16/17 19:53 Chloride IVPB 01/18/17 20:01 Not Given Q12H MIRELLA Morphine Sulfate 250 mg/ 250 mls @ 2 mls/hr 01/16/17 14:10 01/16/17 14:33 Dextrose IV 01/17/17 14:09 2 mg/hr .Q24H ONE 2 mls/hr Protocol Administration Insulin Glargine 15 unit 01/14/17 10:11 01/16/17 10:06 Lantus SC 15 units Q12 MIRELLA Administration Insulin Human Regular 0 unit 01/14/17 12:35 01/16/17 18:07 Novolin R SC 2 unit Q6H MIRELLA Administration Protocol Lisinopril 5 mg 01/11/17 09:30 01/16/17 10:05 Zestril PO 5 mg DAILY MIRELLA Administration Lorazepam 1 mg 01/16/17 14:10 01/16/17 15:06 Ativan IVP 1 mg Q3H PRN Administration Agitation Metoprolol Tartrate 50 mg 01/14/17 11:43 01/16/17 17:17 Lopressor PO Not Given BID MIRELLA Pantoprazole Sodium 40 mg 01/02/17 10:00 01/16/17 10:05 Protonix Inj IVP 40 mg DAILY MIRELLA Administration Rosuvastatin Calcium 20 mg 01/03/17 22:00 01/15/17 21:15 Crestor PO 20 mg HS MIRELLA Administration - Patient Studies Lab Studies: Microbiology Studies 01/12/17 07:45 Blood Culture - Preliminary Blood-Venous NO GROWTH AFTER 4 DAYS 01/12/17 08:30 Blood Culture - Preliminary Blood-Venous NO GROWTH AFTER 4 DAYS 01/12/17 10:05 Gram Stain - Final Cerebral Spinal Fluid CSF Culture - Preliminary NO GROWTH AFTER 4 DAYS Lab Studies 01/16/17 01/16/17 01/16/17 Range/Units 17:31 11:43 06:34 WBC (4.8-10.8) K/uL RBC (3.80-5.20) Mil/uL Hgb (11.0-16.0) g/dL Hct (34.0-47.0) % MCV (81.0-99.0) fL MCH (27.0-31.0) pg MCHC (33.0-37.0) g/dL RDW (11.5-14.5) % Plt Count (130-400) K/uL MPV (7.2-11.7) fL Neut % (Auto) (50.0-75.0) % Lymph % (Auto) (20.0-40.0) % [place] % (Auto) (0.0-10.0) % Eos % (Auto) (0.0-4.0) % Baso % (Auto) (0.0-2.0) % Neut # (1.8-7.0) K/uL Lymph # (1.0-4.3) K/uL [place] # (0.0-0.8) K/uL Eos # (0.0-0.7) K/uL Baso # (0.0-0.2) K/uL Neutrophils % (Manual) (50-75) % Lymphocytes % (Manual) (20-40) % Monocytes % (Manual) (0-10) % Eosinophils % (Manual) (0-4) % Platelet Estimate (NORMAL) Large Platelets Hypochromasia (manual) Poikilocytosis (manual Anisocytosis (manual) Ovalocytes [place] Cells Sodium 150 H (132-148) mmol/L Potassium 3.7 (3.6-5.2) mmol/L Chloride 119 H (98-107) mmol/L Carbon Dioxide 17 L (22-30) mmol/L Anion Gap 18 (10-20) BUN 56 H (7-17) mg/dL Creatinine 1.6 H (0.7-1.2) MG/DL Est GFR ( Amer) 38 Est GFR (Non-Af Amer) 32 POC Glucose (mg/dL) 196 H 226 H (65-110) mg/dL Random Glucose 159 H (65-105) mg/dL Calcium 7.4 L (8.6-10.4) mg/dl Phosphorus 4.9 H (2.5-4.5) mg/dL Magnesium 2.9 H (1.6-2.3) mg/dL Total Bilirubin 0.4 (0.2-1.3) mg/dL AST 498 H D (14-36) U/L ALT 228 H D (9-52) U/L Alkaline Phosphatase 75 (38-126) U/L Total Protein 5.3 L (6.3-8.3) g/dL Albumin 2.2 L (3.5-5.0) g/dL Globulin 3.0 (2.2-3.9) gm/dL Albumin/Globulin Ratio 0.7 L (1.0-2.1) UF Heparin Interp (Negative) Heparin-induced Plt Ab (Negative) HEMANT UFH Low Dose 0.1 % Release HEMANT UFH Low Dose 0.5 % Release HEMANT UFH High Dose 100 % Release 01/16/17 01/16/17 01/16/17 Range/Units 06:34 06:19 00:19 WBC 15.3 H (4.8-10.8) K/uL RBC 3.44 L (3.80-5.20) Mil/uL Hgb 9.9 L (11.0-16.0) g/dL Hct 30.7 L (34.0-47.0) % MCV 89.3 (81.0-99.0) fL MCH 28.8 (27.0-31.0) pg MCHC 32.2 L (33.0-37.0) g/dL RDW 14.6 H (11.5-14.5) % Plt Count 86 L (130-400) K/uL MPV 12.4 H (7.2-11.7) fL Neut % (Auto) 88.7 H (50.0-75.0) % Lymph % (Auto) 7.1 L (20.0-40.0) % [place] % (Auto) 2.4 (0.0-10.0) % Eos % (Auto) 1.6 (0.0-4.0) % Baso % (Auto) 0.2 (0.0-2.0) % Neut # 13.5 H (1.8-7.0) K/uL Lymph # 1.1 (1.0-4.3) K/uL [place] # 0.4 (0.0-0.8) K/uL Eos # 0.2 (0.0-0.7) K/uL Baso # 0.0 (0.0-0.2) K/uL Neutrophils % (Manual) 90 H (50-75) % Lymphocytes % (Manual) 5 L (20-40) % Monocytes % (Manual) 2 (0-10) % Eosinophils % (Manual) 3 (0-4) % Platelet Estimate Decreased L (NORMAL) Large Platelets Present Hypochromasia (manual) Slight Poikilocytosis (manual Slight Anisocytosis (manual) Slight Ovalocytes Slight [place] Cells Slight Sodium (132-148) mmol/L Potassium (3.6-5.2) mmol/L Chloride (98-107) mmol/L Carbon Dioxide (22-30) mmol/L Anion Gap (10-20) BUN (7-17) mg/dL Creatinine (0.7-1.2) MG/DL Est GFR ( Amer) Est GFR (Non-Af Amer) POC Glucose (mg/dL) 154 H 173 H (65-110) mg/dL Random Glucose (65-105) mg/dL Calcium (8.6-10.4) mg/dl Phosphorus (2.5-4.5) mg/dL Magnesium (1.6-2.3) mg/dL Total Bilirubin (0.2-1.3) mg/dL AST (14-36) U/L ALT (9-52) U/L Alkaline Phosphatase (38-126) U/L Total Protein (6.3-8.3) g/dL Albumin (3.5-5.0) g/dL Globulin (2.2-3.9) gm/dL Albumin/Globulin Ratio (1.0-2.1) UF Heparin Interp (Negative) Heparin-induced Plt Ab (Negative) HEMANT UFH Low Dose 0.1 % Release HEMANT UFH Low Dose 0.5 % Release HEMANT UFH High Dose 100 % Release 01/13/17 Range/Units 06:25 WBC (4.8-10.8) K/uL RBC (3.80-5.20) Mil/uL Hgb (11.0-16.0) g/dL Hct (34.0-47.0) % MCV (81.0-99.0) fL MCH (27.0-31.0) pg MCHC (33.0-37.0) g/dL RDW (11.5-14.5) % Plt Count (130-400) K/uL MPV (7.2-11.7) fL Neut % (Auto) (50.0-75.0) % Lymph % (Auto) (20.0-40.0) % [place] % (Auto) (0.0-10.0) % Eos % (Auto) (0.0-4.0) % Baso % (Auto) (0.0-2.0) % Neut # (1.8-7.0) K/uL Lymph # (1.0-4.3) K/uL [place] # (0.0-0.8) K/uL Eos # (0.0-0.7) K/uL Baso # (0.0-0.2) K/uL Neutrophils % (Manual) (50-75) % Lymphocytes % (Manual) (20-40) % Monocytes % (Manual) (0-10) % Eosinophils % (Manual) (0-4) % Platelet Estimate (NORMAL) Large Platelets Hypochromasia (manual) Poikilocytosis (manual Anisocytosis (manual) Ovalocytes [place] Cells Sodium (132-148) mmol/L Potassium (3.6-5.2) mmol/L Chloride (98-107) mmol/L Carbon Dioxide (22-30) mmol/L Anion Gap (10-20) BUN (7-17) mg/dL Creatinine (0.7-1.2) MG/DL Est GFR ( Amer) Est GFR (Non-Af Amer) POC Glucose (mg/dL) (65-110) mg/dL Random Glucose (65-105) mg/dL Calcium (8.6-10.4) mg/dl Phosphorus (2.5-4.5) mg/dL Magnesium (1.6-2.3) mg/dL Total Bilirubin (0.2-1.3) mg/dL AST (14-36) U/L ALT (9-52) U/L Alkaline Phosphatase (38-126) U/L Total Protein (6.3-8.3) g/dL Albumin (3.5-5.0) g/dL Globulin (2.2-3.9) gm/dL Albumin/Globulin Ratio (1.0-2.1) UF Heparin Interp Negative (Negative) Heparin-induced Plt Ab Negative (Negative) HEMANT UFH Low Dose 0.1 0 % Release HEMANT UFH Low Dose 0.5 0 % Release HEMANT UFH High Dose 100 0 % Release Laboratory Results - last 24 hr 01/13/17 01/16/17 01/16/17 06:25 00:19 06:19 WBC RBC Hgb Hct MCV MCH MCHC RDW Plt Count MPV Neut % (Auto) Lymph % (Auto) [place] % (Auto) Eos % (Auto) Baso % (Auto) Neut # Lymph # [place] # Eos # Baso # Neutrophils % (Manual) Lymphocytes % (Manual) Monocytes % (Manual) Eosinophils % (Manual) Platelet Estimate Large Platelets Hypochromasia (manual) Poikilocytosis (manual Anisocytosis (manual) Ovalocytes [place] Cells Sodium Potassium Chloride Carbon Dioxide Anion Gap BUN Creatinine Est GFR ( Amer) Est GFR (Non-Af Amer) POC Glucose (mg/dL) 173 H 154 H Random Glucose Calcium Phosphorus Magnesium Total Bilirubin AST ALT Alkaline Phosphatase Total Protein Albumin Globulin Albumin/Globulin Ratio UF Heparin Interp Negative Heparin-induced Plt Ab Negative HEMANT UFH Low Dose 0.1 0 HEMANT UFH Low Dose 0.5 0 HEMANT UFH High Dose 100 0 01/16/17 01/16/17 01/16/17 06:34 06:34 11:43 WBC 15.3 H RBC 3.44 L Hgb 9.9 L Hct 30.7 L MCV 89.3 MCH 28.8 MCHC 32.2 L RDW 14.6 H Plt Count 86 L MPV 12.4 H Neut % (Auto) 88.7 H Lymph % (Auto) 7.1 L [place] % (Auto) 2.4 Eos % (Auto) 1.6 Baso % (Auto) 0.2 Neut # 13.5 H Lymph # 1.1 [place] # 0.4 Eos # 0.2 Baso # 0.0 Neutrophils % (Manual) 90 H Lymphocytes % (Manual) 5 L Monocytes % (Manual) 2 Eosinophils % (Manual) 3 Platelet Estimate Decreased L Large Platelets Present Hypochromasia (manual) Slight Poikilocytosis (manual Slight Anisocytosis (manual) Slight Ovalocytes Slight [place] Cells Slight Sodium 150 H Potassium 3.7 Chloride 119 H Carbon Dioxide 17 L Anion Gap 18 BUN 56 H Creatinine 1.6 H Est GFR ( Amer) 38 Est GFR (Non-Af Amer) 32 POC Glucose (mg/dL) 226 H Random Glucose 159 H Calcium 7.4 L Phosphorus 4.9 H Magnesium 2.9 H Total Bilirubin 0.4 AST 498 H D ALT 228 H D Alkaline Phosphatase 75 Total Protein 5.3 L Albumin 2.2 L Globulin 3.0 Albumin/Globulin Ratio 0.7 L UF Heparin Interp Heparin-induced Plt Ab HEMANT UFH Low Dose 0.1 HEMANT UFH Low Dose 0.5 HEMANT UFH High Dose 100 01/16/17 17:31 WBC RBC Hgb Hct MCV MCH MCHC RDW Plt Count MPV Neut % (Auto) Lymph % (Auto) [place] % (Auto) Eos % (Auto) Baso % (Auto) Neut # Lymph # [place] # Eos # Baso # Neutrophils % (Manual) Lymphocytes % (Manual) Monocytes % (Manual) Eosinophils % (Manual) Platelet Estimate Large Platelets Hypochromasia (manual) Poikilocytosis (manual Anisocytosis (manual) Ovalocytes [place] Cells Sodium Potassium Chloride Carbon Dioxide Anion Gap BUN Creatinine Est GFR ( Amer) Est GFR (Non-Af Amer) POC Glucose (mg/dL) 196 H Random Glucose Calcium Phosphorus Magnesium Total Bilirubin AST ALT Alkaline Phosphatase Total Protein Albumin Globulin Albumin/Globulin Ratio UF Heparin Interp Heparin-induced Plt Ab HEMANT UFH Low Dose 0.1 [facility] UFH Low Dose 0.5 [facility] UFH High Dose 100 Critical Care Progress Note - Nutrition Nutrition: Nutrition Category Date Time Status NPO Diet [DIET] Diets 01/14/17 Breakfast Active Attending/Attestation - Attestation I have personally seen and examined this patient.: Yes I have fully participated in the care of the patient.: Yes I have reviewed all pertinent clinical information: Yes Notes (Text): Patient's family the 2 sons who had been involved in decision making approached us requesting terminal extubation, comfort care, and signed the document. Patient terminally extubated and put on ventimask, morphine drip 2mg/hr.
[2017-01-16] MEDS: Cefepime 2 GM in Sodium Chloride 0.9% 100 ML IVPB SCH ×2 (08:13→19:53)
[2017-01-16 08:23] LABS: EOSINOPHIL 3 % (0-4); NEUTROPHIL 90 % (50-75); TOTAL CELLS COUNTED 100
[2017-01-16 08:24] LABS: LARGE PLATELETS PRESENT
--- NOTE | 2017-01-16 08:26 | CP.PCM.PN ---
<Beth Alejandro - Last Filed: 01/16/17 09:14> Subjective - Date & Time of Evaluation Date of Evaluation: 01/16/17 Time of Evaluation: 08:23 - Subjective Subjective: Patient was seen and examined at bedside. Patient is intubated and unresponsive. Unable to obtain review of systems due to patient's condition. Objective - Vital Signs/Intake and Output Vital Signs (last 24 hours): Temp Pulse Resp BP Pulse Ox 98.5 F 106 H 27 H 113/65 96 01/16/17 04:00 01/16/17 06:27 01/16/17 06:27 01/16/17 06:27 01/16/17 06:27 Intake and Output: 01/16/17 01/16/17 06:59 18:59 Intake Total 770 Output Total 240 Balance 530 - Medications Medications: Current Medications Acetaminophen (Tylenol 325mg Tab) 650 mg PO Q6 PRN PRN Reason: Pain, Mild (1-3) Last Admin: 01/15/17 10:00 Dose: 650 mg Diltiazem HCl (Cardizem) 60 mg PO Q6H [facility] Last Admin: 01/16/17 05:13 Dose: 60 mg Vancomycin/Sodium Chloride (Vancocin) 1 gm in 200 mls @ 166.6 mls/hr IVPB Q12 [facility] Stop: 01/17/17 10:01 Last Admin: 01/15/17 21:15 Dose: 166.6 mls/hr Cefepime HCl 2 gm/ Sodium (Chloride) 100 mls @ 200 mls/hr IVPB Q12H [facility] Stop: 01/18/17 20:01 Last Admin: 01/16/17 08:13 Dose: 200 mls/hr Insulin Glargine (Lantus) 15 unit SC Q12 [facility] Last Admin: 01/15/17 21:15 Dose: 15 units Insulin Human Regular (Novolin R) 0 unit SC Q6H [facility] PRN Reason: Protocol Last Admin: 01/16/17 06:31 Dose: 2 unit Lisinopril (Zestril) 5 mg PO DAILY [facility] Last Admin: 01/15/17 10:00 Dose: 5 mg Metoprolol Tartrate (Lopressor) 50 mg PO BID [facility] Last Admin: 01/15/17 18:53 Dose: 50 mg Pantoprazole Sodium (Protonix Inj) 40 mg IVP DAILY [facility] Last Admin: 01/15/17 10:00 Dose: 40 mg Rosuvastatin Calcium (Crestor) 20 mg PO HS [facility] Last Admin: 01/15/17 21:15 Dose: 20 mg - Labs Labs: 01/16/17 06:34 01/16/17 06:34 PT 15.5 SECONDS (9.7-12.2) H 01/13/17 06:25 INR 1.3 01/13/17 06:25 APTT 31 SECONDS (21-34) 01/13/17 06:25 - Head Exam Head Exam: ATRAUMATIC, NORMAL INSPECTION - Eye Exam Eye Exam: absent: EOMI - ENT Exam ENT Exam: Mucous Membranes Dry - Respiratory Exam Respiratory Exam: Clear to Ausculation Bilateral. absent: Rales, Rhonchi, Wheezes, Respiratory Distress - Cardiovascular Exam Cardiovascular Exam: Tachycardia, Irregular Rhythm, +S1, +S2 - GI/Abdominal Exam GI & Abdominal Exam: Soft, Normal Bowel Sounds. absent: Distended - Extremities Exam Extremities Exam: absent: Pedal Edema - Neurological Exam Neurological Exam: absent: Alert, Awake, Oriented x3 - Psychiatric Exam Psychiatric exam: absent: Normal Affect, Normal Mood - Skin Skin Exam: Dry, Intact, Normal Color, Warm Assessment and Plan - Assessment and Plan (Free Text) Assessment: 72 year old female s/p bilateral cerebellar stroke, mass effect, hydrocephalus, decompressive craniotomy/ventriculotomy. Patient remains intubated. - Patient was scheduled for tracheostomy and PEG in OR on 01/15/17- canceled; patient was febrile and thrombocytopenic. - Patient's family wants to discuss whether to continue with tracheostomy and PEG; consider rescheduling. - Resumed tube feeding - Continue medical management as per ICU team. <Felipe Tobar - Last Filed: 01/16/17 09:56> Objective - Vital Signs/Intake and Output Vital Signs (last 24 hours): Temp Pulse Resp BP Pulse Ox 98.5 F 106 H 27 H 113/65 96 01/16/17 04:00 01/16/17 06:27 01/16/17 06:27 01/16/17 06:27 01/16/17 06:27 Intake and Output: 01/16/17 01/16/17 06:59 18:59 Intake Total 770 Output Total 240 Balance 530 - Medications Medications: Current Medications Acetaminophen (Tylenol 325mg Tab) 650 mg PO Q6 PRN PRN Reason: Pain, Mild (1-3) Last Admin: 01/15/17 10:00 Dose: 650 mg Diltiazem HCl (Cardizem) 60 mg PO Q6H [facility] Last Admin: 01/16/17 05:13 Dose: 60 mg Vancomycin/Sodium Chloride (Vancocin) 1 gm in 200 mls @ 166.6 mls/hr IVPB Q12 [facility] Stop: 01/17/17 10:01 Last Admin: 01/15/17 21:15 Dose: 166.6 mls/hr Cefepime HCl 2 gm/ Sodium (Chloride) 100 mls @ 200 mls/hr IVPB Q12H [facility] Stop: 01/18/17 20:01 Last Admin: 01/16/17 08:13 Dose: 200 mls/hr Insulin Glargine (Lantus) 15 unit SC Q12 [facility] Last Admin: 01/15/17 21:15 Dose: 15 units Insulin Human Regular (Novolin R) 0 unit SC Q6H [facility] PRN Reason: Protocol Last Admin: 01/16/17 06:31 Dose: 2 unit Lisinopril (Zestril) 5 mg PO DAILY [facility] Last Admin: 01/15/17 10:00 Dose: 5 mg Metoprolol Tartrate (Lopressor) 50 mg PO BID [facility] Last Admin: 01/15/17 18:53 Dose: 50 mg Pantoprazole Sodium (Protonix Inj) 40 mg IVP DAILY [facility] Last Admin: 01/15/17 10:00 Dose: 40 mg Rosuvastatin Calcium (Crestor) 20 mg PO HS [facility] Last Admin: 01/15/17 21:15 Dose: 20 mg - Labs Labs: 01/16/17 06:34 01/16/17 06:34 PT 15.5 SECONDS (9.7-12.2) H 01/13/17 06:25 INR 1.3 01/13/17 06:25 APTT 31 SECONDS (21-34) 01/13/17 06:25 Attending/Attestation - Attestation I have personally seen and examined this patient.: Yes I have fully participated in the care of the patient.: Yes I have reviewed all pertinent clinical information, including history, physical exam and plan: Yes Notes (Text): 01/16/17 09:55 Pt was seen and examined at bedside Agree with above note and assessment c/w current mx as per ICU team
--- NOTE | 2017-01-16 09:40 | CP.PCM.PN ---
Subjective - Date & Time of Evaluation Date of Evaluation: 01/16/17 Time of Evaluation: 09:39 - Subjective Subjective: icp low drain clamped x 24 hrs no resp to deep pain no gag pos weak corneals nr pupils will d/c drain prognsis grim Objective - Vital Signs/Intake and Output Vital Signs (last 24 hours): Temp Pulse Resp BP Pulse Ox 98.5 F 106 H 27 H 113/65 96 01/16/17 04:00 01/16/17 06:27 01/16/17 06:27 01/16/17 06:27 01/16/17 06:27 Intake and Output: 01/16/17 01/16/17 06:59 18:59 Intake Total 770 Output Total 240 Balance 530 - Medications Medications: Current Medications Acetaminophen (Tylenol 325mg Tab) 650 mg PO Q6 PRN PRN Reason: Pain, Mild (1-3) Last Admin: 01/15/17 10:00 Dose: 650 mg Diltiazem HCl (Cardizem) 60 mg PO Q6H [facility] Last Admin: 01/16/17 05:13 Dose: 60 mg Vancomycin/Sodium Chloride (Vancocin) 1 gm in 200 mls @ 166.6 mls/hr IVPB Q12 [facility] Stop: 01/17/17 10:01 Last Admin: 01/15/17 21:15 Dose: 166.6 mls/hr Cefepime HCl 2 gm/ Sodium (Chloride) 100 mls @ 200 mls/hr IVPB Q12H [facility] Stop: 01/18/17 20:01 Last Admin: 01/16/17 08:13 Dose: 200 mls/hr Insulin Glargine (Lantus) 15 unit SC Q12 [facility] Last Admin: 01/15/17 21:15 Dose: 15 units Insulin Human Regular (Novolin R) 0 unit SC Q6H [facility] PRN Reason: Protocol Last Admin: 01/16/17 06:31 Dose: 2 unit Lisinopril (Zestril) 5 mg PO DAILY [facility] Last Admin: 01/15/17 10:00 Dose: 5 mg Metoprolol Tartrate (Lopressor) 50 mg PO BID [facility] Last Admin: 01/15/17 18:53 Dose: 50 mg Pantoprazole Sodium (Protonix Inj) 40 mg IVP DAILY [facility] Last Admin: 01/15/17 10:00 Dose: 40 mg Rosuvastatin Calcium (Crestor) 20 mg PO HS [facility] Last Admin: 01/15/17 21:15 Dose: 20 mg - Labs Labs: 01/16/17 06:34 01/16/17 06:34 PT 15.5 SECONDS (9.7-12.2) H 01/13/17 06:25 INR 1.3 01/13/17 06:25 APTT 31 SECONDS (21-34) 01/13/17 06:25
[2017-01-16] MEDS: Vancomycin 1 gm/NS 200 ml 1 GM/200 ML BAG IVPB SCH ×2 (10:03→21:22)
[2017-01-16] MEDS: (Lantus) Insulin Glargine, Recombinant SC SCH ×2 (10:06→21:22)
--- NOTE | 2017-01-16 11:32 | RAD ---
HISTORY: intubated COMPARISON: Portable chest 01/15/2017 FINDINGS: LUNGS: Endotracheal tube not simply changed in position as well as left central venous line. NG tube again identified. No acute infiltrate identified bilaterally once again. PLEURA: No significant pleural effusion identified, no pneumothorax apparent. CARDIOVASCULAR: Normal. OSSEOUS STRUCTURES: No significant abnormalities. VISUALIZED UPPER ABDOMEN: Normal. OTHER FINDINGS: None. IMPRESSION: No interval acute infiltrate pleural effusion or pneumothorax.
--- NOTE | 2017-01-16 12:07 | CP.PCM.PN ---
Subjective - Date & Time of Evaluation Date of Evaluation: 01/16/17 Time of Evaluation: 11:54 - Subjective Subjective: patient is intubated and unresponsive to stimulus. Objective - Vital Signs/Intake and Output Vital Signs (last 24 hours): Temp Pulse Resp BP Pulse Ox 98.5 F 106 H 27 H 113/65 96 01/16/17 04:00 01/16/17 06:27 01/16/17 06:27 01/16/17 06:27 01/16/17 06:27 Intake and Output: 01/16/17 01/16/17 06:59 18:59 Intake Total 770 Output Total 240 Balance 530 - Medications Medications: Current Medications Acetaminophen (Tylenol 325mg Tab) 650 mg PO Q6 PRN PRN Reason: Pain, Mild (1-3) Last Admin: 01/16/17 10:04 Dose: 650 mg Diltiazem HCl (Cardizem) 60 mg PO Q6H [facility] Last Admin: 01/16/17 11:40 Dose: 60 mg Vancomycin/Sodium Chloride (Vancocin) 1 gm in 200 mls @ 166.6 mls/hr IVPB Q12 [facility] Stop: 01/17/17 10:01 Last Admin: 01/16/17 10:03 Dose: 166.6 mls/hr Cefepime HCl 2 gm/ Sodium (Chloride) 100 mls @ 200 mls/hr IVPB Q12H [facility] Stop: 01/18/17 20:01 Last Admin: 01/16/17 08:13 Dose: 200 mls/hr Insulin Glargine (Lantus) 15 unit SC Q12 [facility] Last Admin: 01/16/17 10:06 Dose: 15 units Insulin Human Regular (Novolin R) 0 unit SC Q6H [facility] PRN Reason: Protocol Last Admin: 01/16/17 06:31 Dose: 2 unit Lisinopril (Zestril) 5 mg PO DAILY [facility] Last Admin: 01/16/17 10:05 Dose: 5 mg Metoprolol Tartrate (Lopressor) 50 mg PO BID [facility] Last Admin: 01/16/17 10:05 Dose: 50 mg Pantoprazole Sodium (Protonix Inj) 40 mg IVP DAILY [facility] Last Admin: 01/16/17 10:05 Dose: 40 mg Rosuvastatin Calcium (Crestor) 20 mg PO HS [facility] Last Admin: 01/15/17 21:15 Dose: 20 mg - Labs Labs: 01/16/17 06:34 01/16/17 06:34 PT 15.5 SECONDS (9.7-12.2) H 01/13/17 06:25 INR 1.3 01/13/17 06:25 APTT 31 SECONDS (21-34) 01/13/17 06:25 - Constitutional Appears: In Acute Distress - Head Exam Head Exam: ATRAUMATIC, NORMAL INSPECTION, NORMOCEPHALIC - Eye Exam Eye Exam: Normal appearance Additional comments: slow reaction to light - ENT Exam ENT Exam: Mucous Membranes Dry - Neck Exam Neck Exam: Normal Inspection Additional comments: ETT - Respiratory Exam Additional comments: Intubated - Cardiovascular Exam Cardiovascular Exam: Tachycardia - GI/Abdominal Exam GI & Abdominal Exam: Hypoactive Bowel Sounds - Rectal Exam Rectal Exam: Deferred - Back Exam Back Exam: NORMAL INSPECTION - Neurological Exam Neurological Exam: Motor Sensory Deficit Neuro motor strength exam: Left Upper Extremity: 0, Right Upper Extremity: 0, Left Lower Extremity: 0, Right Lower Extremity: 0 - Psychiatric Exam Psychiatric exam: Flat Affect - Skin Skin Exam: Normal Color, Warm Assessment and Plan - Assessment and Plan (Free Text) Assessment: I was called to ICU this morning per family's request. Doctor Vasquez was already talking to patient's two sons by the time I arrived. Patient's son Gustabo stated that family has made decision on removal of life support for his mother. We reviewed patient's condition with family and confirmed that patient has not improved neurologically . Family elaborated on the decision stating that their biggest concern was patient's comfort and quality of life what she was lacking at present and was not expected to have meaningful recovery. Doctor Vasquez reviewed process of terminal extubation making it clear that removal of life support would result in . Both sons stated understanding and agreed. They both signed agreement form. Family has made arrangement and is planning on returning body to their home country in [facility] for burial. Family offer spiritual support from [employer] and they declined it . Bereavement cart for family's refreshment was ordered and family accommodated in the room at bed side. Impression/ Suggestion Agree with terminal extubation Support for family promote comfort and allow natural
[2017-01-16] MEDS ORDERED: Morphine Sulfate 250 MG in Dextrose 5% In Water 240 ML IV ONE (14:10)
[2017-01-16] MEDS ORDERED: Morphine 4 MG/ML VIAL IV ONE (14:10)
--- NOTE | 2017-01-16 18:47 | CP.PCM.PN ---
Subjective - Date & Time of Evaluation Date of Evaluation: 01/16/17 Time of Evaluation: 09:00 - Subjective Subjective: doing poorly neurologically iv antibiotic to cont Objective - Vital Signs/Intake and Output Vital Signs (last 24 hours): Temp Pulse Resp BP Pulse Ox 99.7 F H 136 H 32 H 131/77 100 01/16/17 16:00 01/16/17 12:27 01/16/17 12:27 01/16/17 12:27 01/16/17 12:27 Intake and Output: 01/16/17 01/16/17 06:59 18:59 Intake Total 770 540 Output Total 240 120 Balance 530 420 - Medications Medications: Current Medications Acetaminophen (Tylenol 325mg Tab) 650 mg PO Q6 PRN PRN Reason: Pain, Mild (1-3) Last Admin: 01/16/17 10:04 Dose: 650 mg Diltiazem HCl (Cardizem) 60 mg PO Q6H [facility] Last Admin: 01/16/17 17:16 Dose: Not Given Vancomycin/Sodium Chloride (Vancocin) 1 gm in 200 mls @ 166.6 mls/hr IVPB Q12 [facility] Stop: 01/17/17 10:01 Last Admin: 01/16/17 10:03 Dose: 166.6 mls/hr Cefepime HCl 2 gm/ Sodium (Chloride) 100 mls @ 200 mls/hr IVPB Q12H [facility] Stop: 01/18/17 20:01 Last Admin: 01/16/17 08:13 Dose: 200 mls/hr Morphine Sulfate 250 mg/ (Dextrose) 250 mls @ 2 mls/hr IV .Q24H [facility] PRN Reason: Protocol Stop: 01/17/17 14:09 Last Admin: 01/16/17 14:33 Dose: 2 mg/hr, 2 mls/hr Insulin Glargine (Lantus) 15 unit SC Q12 [facility] Last Admin: 01/16/17 10:06 Dose: 15 units Insulin Human Regular (Novolin R) 0 unit SC Q6H [facility] PRN Reason: Protocol Last Admin: 01/16/17 18:07 Dose: 2 unit Lisinopril (Zestril) 5 mg PO DAILY [facility] Last Admin: 01/16/17 10:05 Dose: 5 mg Lorazepam (Ativan) 1 mg IVP Q3H PRN PRN Reason: Agitation Last Admin: 01/16/17 15:06 Dose: 1 mg Metoprolol Tartrate (Lopressor) 50 mg PO BID [facility] Last Admin: 01/16/17 17:17 Dose: Not Given Pantoprazole Sodium (Protonix Inj) 40 mg IVP DAILY [facility] Last Admin: 01/16/17 10:05 Dose: 40 mg Rosuvastatin Calcium (Crestor) 20 mg PO HS [facility] Last Admin: 01/15/17 21:15 Dose: 20 mg - Labs Labs: 01/16/17 06:34 01/16/17 06:34 PT 15.5 SECONDS (9.7-12.2) H 01/13/17 06:25 INR 1.3 01/13/17 06:25 APTT 31 SECONDS (21-34) 01/13/17 06:25 - Constitutional Appears: Non-toxic, Cachectic - Eye Exam Eye Exam: EOMI - ENT Exam ENT Exam: Mucous Membranes Dry - Neck Exam Neck Exam: absent: Lymphadenopathy - Respiratory Exam Respiratory Exam: Decreased Breath Sounds - Cardiovascular Exam Cardiovascular Exam: REGULAR RHYTHM - GI/Abdominal Exam GI & Abdominal Exam: Distended, Soft - Rectal Exam Rectal Exam: Deferred - Exam Exam: NORMAL INSPECTION - Extremities Exam Extremities Exam: absent: Pedal Edema - Back Exam Back Exam: absent: CVA tenderness (L), CVA tenderness (R) - Neurological Exam Neurological Exam: Altered Assessment and Plan (1) Anemia Status: Acute (2) CHF (congestive heart failure) Status: Acute (3) Cerebellar stroke Status: Acute (4) Diarrhea Status: Acute (5) New onset atrial fibrillation Status: Acute (6) Thrombocytopenia Status: Acute (7) Tricuspid regurgitation Status: Acute
--- NOTE | 2017-01-16 18:50 | CP.PCM.PN ---
Subjective - Date & Time of Evaluation Date of Evaluation: 01/15/17 Time of Evaluation: 19:00 - Subjective Subjective: Appears comfortable, family at bedside Objective - Vital Signs/Intake and Output Vital Signs (last 24 hours): Temp Pulse Resp BP Pulse Ox 99.7 F H 136 H 32 H 131/77 100 01/16/17 16:00 01/16/17 12:27 01/16/17 12:27 01/16/17 12:27 01/16/17 12:27 Intake and Output: 01/16/17 01/16/17 06:59 18:59 Intake Total 770 588 Output Total 240 180 Balance 530 408 - Medications Medications: Current Medications Acetaminophen (Tylenol 325mg Tab) 650 mg PO Q6 PRN PRN Reason: Pain, Mild (1-3) Last Admin: 01/16/17 10:04 Dose: 650 mg Diltiazem HCl (Cardizem) 60 mg PO Q6H [facility] Last Admin: 01/16/17 17:16 Dose: Not Given Vancomycin/Sodium Chloride (Vancocin) 1 gm in 200 mls @ 166.6 mls/hr IVPB Q12 [facility] Stop: 01/17/17 10:01 Last Admin: 01/16/17 10:03 Dose: 166.6 mls/hr Cefepime HCl 2 gm/ Sodium (Chloride) 100 mls @ 200 mls/hr IVPB Q12H [facility] Stop: 01/18/17 20:01 Last Admin: 01/16/17 08:13 Dose: 200 mls/hr Morphine Sulfate 250 mg/ (Dextrose) 250 mls @ 2 mls/hr IV .Q24H [facility] PRN Reason: Protocol Stop: 01/17/17 14:09 Last Admin: 01/16/17 14:33 Dose: 2 mg/hr, 2 mls/hr Insulin Glargine (Lantus) 15 unit SC Q12 [facility] Last Admin: 01/16/17 10:06 Dose: 15 units Insulin Human Regular (Novolin R) 0 unit SC Q6H [facility] PRN Reason: Protocol Last Admin: 01/16/17 18:07 Dose: 2 unit Lisinopril (Zestril) 5 mg PO DAILY [facility] Last Admin: 01/16/17 10:05 Dose: 5 mg Lorazepam (Ativan) 1 mg IVP Q3H PRN PRN Reason: Agitation Last Admin: 01/16/17 15:06 Dose: 1 mg Metoprolol Tartrate (Lopressor) 50 mg PO BID [facility] Last Admin: 01/16/17 17:17 Dose: Not Given Pantoprazole Sodium (Protonix Inj) 40 mg IVP DAILY [facility] Last Admin: 01/16/17 10:05 Dose: 40 mg Rosuvastatin Calcium (Crestor) 20 mg PO HS [facility] Last Admin: 01/15/17 21:15 Dose: 20 mg - Labs Labs: 01/16/17 06:34 01/16/17 06:34 PT 15.5 SECONDS (9.7-12.2) H 01/13/17 06:25 INR 1.3 01/13/17 06:25 APTT 31 SECONDS (21-34) 01/13/17 06:25 - Head Exam Head Exam: ATRAUMATIC - Eye Exam Eye Exam: Normal appearance - ENT Exam ENT Exam: Mucous Membranes Dry - Respiratory Exam Respiratory Exam: NORMAL BREATHING PATTERN - Cardiovascular Exam Cardiovascular Exam: +S1, +S2 - GI/Abdominal Exam GI & Abdominal Exam: Normal Bowel Sounds Assessment and Plan (1) Thrombocytopenia Assessment & Plan: improved Status: Acute (2) Anemia Assessment & Plan: chronic disease b12 deficiency Status: Acute
--- NOTE | 2017-01-16 18:51 | CP.PCM.PN ---
Subjective - Date & Time of Evaluation Date of Evaluation: 01/16/17 Time of Evaluation: 14:00 - Subjective Subjective: For terminal extubation Objective - Vital Signs/Intake and Output Vital Signs (last 24 hours): Temp Pulse Resp BP Pulse Ox 99.7 F H 112 H 17 92/44 L 95 01/16/17 16:00 01/16/17 18:27 01/16/17 18:27 01/16/17 18:27 01/16/17 18:27 Intake and Output: 01/16/17 01/16/17 06:59 18:59 Intake Total 770 588 Output Total 240 180 Balance 530 408 - Medications Medications: Current Medications Acetaminophen (Tylenol 325mg Tab) 650 mg PO Q6 PRN PRN Reason: Pain, Mild (1-3) Last Admin: 01/16/17 10:04 Dose: 650 mg Diltiazem HCl (Cardizem) 60 mg PO Q6H [facility] Last Admin: 01/16/17 17:16 Dose: Not Given Vancomycin/Sodium Chloride (Vancocin) 1 gm in 200 mls @ 166.6 mls/hr IVPB Q12 [facility] Stop: 01/17/17 10:01 Last Admin: 01/16/17 10:03 Dose: 166.6 mls/hr Cefepime HCl 2 gm/ Sodium (Chloride) 100 mls @ 200 mls/hr IVPB Q12H [facility] Stop: 01/18/17 20:01 Last Admin: 01/16/17 08:13 Dose: 200 mls/hr Morphine Sulfate 250 mg/ (Dextrose) 250 mls @ 2 mls/hr IV .Q24H [facility] PRN Reason: Protocol Stop: 01/17/17 14:09 Last Admin: 01/16/17 14:33 Dose: 2 mg/hr, 2 mls/hr Insulin Glargine (Lantus) 15 unit SC Q12 [facility] Last Admin: 01/16/17 10:06 Dose: 15 units Insulin Human Regular (Novolin R) 0 unit SC Q6H [facility] PRN Reason: Protocol Last Admin: 01/16/17 18:07 Dose: 2 unit Lisinopril (Zestril) 5 mg PO DAILY [facility] Last Admin: 01/16/17 10:05 Dose: 5 mg Lorazepam (Ativan) 1 mg IVP Q3H PRN PRN Reason: Agitation Last Admin: 01/16/17 15:06 Dose: 1 mg Metoprolol Tartrate (Lopressor) 50 mg PO BID [facility] Last Admin: 01/16/17 17:17 Dose: Not Given Pantoprazole Sodium (Protonix Inj) 40 mg IVP DAILY [facility] Last Admin: 01/16/17 10:05 Dose: 40 mg Rosuvastatin Calcium (Crestor) 20 mg PO HS [facility] Last Admin: 01/15/17 21:15 Dose: 20 mg - Labs Labs: 01/16/17 06:34 01/16/17 06:34 PT 15.5 SECONDS (9.7-12.2) H 01/13/17 06:25 INR 1.3 01/13/17 06:25 APTT 31 SECONDS (21-34) 01/13/17 06:25 - Head Exam Head Exam: ATRAUMATIC - Eye Exam Eye Exam: Normal appearance - ENT Exam ENT Exam: Mucous Membranes Dry - Respiratory Exam Respiratory Exam: NORMAL BREATHING PATTERN - Cardiovascular Exam Cardiovascular Exam: +S1, +S2 - GI/Abdominal Exam GI & Abdominal Exam: Normal Bowel Sounds Assessment and Plan (1) Thrombocytopenia Status: Acute (2) Anemia Status: Acute
[2017-01-17] MEDS: (Novolin R) Insulin Human Regular 100 units/ml vial SC SCH (00:52)
[2017-01-17 04:02] VITALS: TEMP 97
[2017-01-17 04:07] VITALS: O2SAT 94
[2017-01-17 05:12] VITALS: BP 52/28
[2017-01-17 06:02] VITALS: PULSE 122; RESP 6
--- NOTE | 2017-01-17 06:49 | CP.PCM.PRO ---
Pronouncement of Note - Clinical Findings Physical Exam: No Response Verbal/Painful Stimuli, Absent Peripheral Pulses{ Carotid & Femoral}, Absent Heart & Breath Sounds, No Pupillary Light Reflex, No Corneal Reflex, Pupils Fixed & Dilated, Absence of Vital Signs - Pronouncement Time Time of Pronouncement of : 05:43 - Notifications Pronouncement Notifications: Family Notified, Atending Notified Soap Mixer Notified: No - Autopsy Autopsy Requested: No - [place]: [id number] Additional Comments: Patient was DNR/DNI terminally exubated yesterday, on morphine drip.
--- NOTE | 2017-01-30 18:32 | PCM.EEG ---
Electroencephalogram Report - Electroencephalogram Report Procedure Date: 01/14/17 Interpretation: Indication: Patient is comatose and unresponsive. Medications were reviewed. Technical: This is a digitally recorded electroencephalogram. The international 10-20 electrode placement system is used for scalp electrode placement. Sixteen channels of scalp EEG are recorded One channel was used for EOG. Another channel was used for for ECG. The data are stored digitally and reviewed in reformatted montages for optimal display. Impression: Diffuse Abnormality: No well formed alpha activity was seen. Mixed diffuse theta and delta activity was seen. Triphasic wave was seen. Markedly suppressed EEG activity was observed. Impression: This EEG is abnormal. Diffuse slowing is seen, suggestive of a diffuse abnormality of the brain.
--- NOTE | 2017-01-30 18:41 | PCM.EEG ---
Electroencephalogram Report - Electroencephalogram Report Procedure Date: 01/30/17 Interpretation: Indication: Episodes of staring and confusion. Medications were reviewed. Technical: This is a digitally recorded awake and drowsy electroencephalogram. The international 10-20 electrode placement system is used for scalp electrode placement. Eighteen channels of scalp EEG are recorded One channel was used for EOG. Another channel was used for for ECG. The data are stored digitally and reviewed in reformatted montages for optimal display. Diffuse Abnormality: Frontal intermittent rhythm delta slowing was seen. Increased beta activity was seen intermittently. Impression: Focal abnormality: Intermittent focal slowing was seen. There was one left temporal lobe spike noted. Impression: This EEG is abnormal. Diffuse slowing is seen, suggestive of a diffuse abnormality of the brain. Epileptiform discharge was seen. This can represent a potential seizure focus. Some focal slowing was seen, suggestive of a focal abnormality. Clinical correlation is needed.
== END 2017-01-17 05:43 | DRG 879 ==
LOC: C.ER 16:50 → C.9E 19:14 → C.6T 19:49 → C.9E 21:59 → C.9I 01-02 00:25
PROVIDERS: ADMIT Internal Medicine; ATTEND Internal Medicine
PROC: 02HV33Z Insertion of Infusion Device into Superior Vena Cava, Percutaneous Approach (ICD-10-PCS; 2017-01-01)
PROC: B548ZZA Ultrasonography of Superior Vena Cava, Guidance (ICD-10-PCS; 2017-01-01)
PROC: 00Q20ZZ Repair Dura Mater, Open Approach (ICD-10-PCS; 2017-01-03)
PROC: 5A1955Z Respiratory Ventilation, Greater than 96 Consecutive Hours (ICD-10-PCS; 2017-01-03)
PROC: 00N00ZZ Release Brain, Open Approach (ICD-10-PCS; principal; 2017-01-03 23:08)
PROC: 6A550Z2 Pheresis of Platelets, Single (ICD-10-PCS; 2017-01-15)
DX: I63.9 Cerebral infarction, unspecified (principal); G93.6 Cerebral edema; E87.0 Hyperosmolality and hypernatremia; G91.1 Obstructive hydrocephalus; E11.65 Type 2 diabetes mellitus with hyperglycemia; D69.6 Thrombocytopenia, unspecified; I50.9 Heart failure, unspecified; I11.0 Hypertensive heart disease with heart failure; E87.6 Hypokalemia; I07.1 Rheumatic tricuspid insufficiency; I48.91 Unspecified atrial fibrillation; I34.0 Nonrheumatic mitral (valve) insufficiency; Z79.899 Other long term (current) drug therapy; E07.81 Sick-euthyroid syndrome; E66.9 Obesity, unspecified; R47.1 Dysarthria and anarthria; R45.1 Restlessness and agitation; D64.9 Anemia, unspecified; Z66 Do not resuscitate